=== PATIENT | male | born 1935 | race Caucasian/White ===

== ENCOUNTER → 2016-12-04 | Outpatient (CLI) | payer BC ==
[~2016-12-04] MED LIST: ACET325T96 PO; ASCO10003 PO; CARV6.252 PO; CETI10TA84 PO; CHLOTAB77 PO; CHOL100010 PO; CLOR7.5T14 PO; CRD30 PO; DIGO0.1219 PO; DOCU-94 PO; FERR1TAB23 PO; GLC500 PO; HYDC25 PO; HYDR25TA5 PO; LNX125 PO; LPR25 PO; METF-384 PO; MIRT15TA2 PO; MOME200A INH; MULT-506 PO; NUTR-7; NUTR-977 GJT; OPTIRAY 320 IV PRN; PANT40TA PO; POTASSIUM OTC PO; PRLSR20 PO; ZNTT/150 PO
--- NOTE | 2016-12-04 12:47 | DIAGNOSTIC IMAGING REPORT ---
CT SCAN OF THE CHEST WITH IV CONTRAST CLINICAL HISTORY: Esophageal carcinoma. COMPARISON STUDY: Chest x-ray dated 07/10/2016. PET/CT dated 03/29/2016. TECHNIQUE: Following the IV administration of 87 cc of Optiray 320, CT scan of the thorax was performed from the thoracic inlet to the upper abdomen. Images are reviewed in the axial, sagittal, and coronal planes. IV contrast was administered without complication. CT DOSE: 543.32 mGy.cm FINDINGS: Thyroid: Imaged portions of the thyroid gland are normal in size and attenuation. Thoracic aorta: There is atherosclerotic calcification of the thoracic aorta, which is normal in caliber and demonstrates standard 3-vessel arch anatomy. No dissection is seen. A left subclavian central venous infusion port is in place. Pulmonary vasculature: The pulmonary trunk is normal in caliber. There are no filling defects identified in the central pulmonary vessels to indicate pulmonary embolus. Note that this examination was not protocoled for evaluation of the pulmonary arteries. Heart: The heart is top normal in size and there is a small pericardial effusion. The coronary arteries are densely calcified. Lungs and pleural spaces: There are small right and trace pleural effusions with bibasilar consolidation. The upper lungs appear clear. The trachea and central airways are patent. Mediastinum: There is no mediastinal lymphadenopathy. Ignacia: Clear. Axillae: There is no axillary lymphadenopathy. Upper abdomen: There is a hiatal hernia. There is significant wall thickening seen in the distal esophagus at the gastroesophageal junction with surrounding inflammatory change. This likely corresponds to patient's known esophageal carcinoma. The visualized pancreatic parenchyma is atrophic. A 1.5 cm cyst is noted in the upper pole of left kidney. A subtle low-attenuation lesion is seen in the left lobe of liver. Skeletal structures: The skeletal structures are osteopenic. No lytic or blastic bony lesions are seen. IMPRESSION: 1. There is a small hiatal hernia with significant wall thickening involving the distal esophagus/gastroesophageal junction. There is surrounding inflammatory stranding/infiltration. This likely corresponds to facet of the patient's esophageal cancer. The wall thickening and infiltration has increased from 03/29/2016 and may represent neoplasm or could reflect treatment related change. 2. Small right and trace left pleural effusions with associated bibasilar consolidation. This could represent an infectious/inflammatory pneumonitis or could be treatment-related if the patient is receiving radiation. 3. No mediastinal lymphadenopathy is seen. 4. Mild cardiac enlargement and small pericardial effusion. 5. No concerning pulmonary lesion is identified. 6. A subtle low-attenuation lesion is seen in the left lobe of liver. See report of abdominal CT performed concurrently for detailed intra-abdominal findings. 7. Additional findings as above. Electronically signed by: Maged Espana M.D. 12/04/2016 12:46 PM Dictated Date/Time: 12/04/2016 12:37 PM
--- NOTE | 2016-12-04 14:29 | DIAGNOSTIC IMAGING REPORT ---
CT OF THE ABDOMEN AND PELVIS WITH CONTRAST CLINICAL HISTORY: Esophageal cancer. COMPARISON STUDY: PET/CT March 29, 2016. TECHNIQUE: Following IV administration of 87 mL of Optiray-320, axial images of the abdomen and pelvis were obtained from the lung bases to the proximal femurs. Images were reviewed in the axial, sagittal, and coronal planes. IV contrast was administered without complication. FINDINGS: The chest CT will be reported separately. Small right and trace left pleural effusions are noted. There is bilateral lower lobe opacity which is better depicted on the chest CT. There is persistent mass-like thickening of the distal esophagus which extends into the gastroesophageal junction and possibly the proximal stomach. This was shown on prior PET/CT. Comparison with prior exam is difficult given differences in technique. Paraesophageal infiltration/soft tissue is noted. This may be treatment related but is indeterminate. No new hepatic lesions are identified. A 9 mm left lobe lesion shown on image 17 of 104 was shown on prior PET/CT. Allowing for differences in technique, this is likely slightly decreased in size since prior examination. The spleen, adrenal glands, right kidney and pancreas are unremarkable. Note is made of a 1.4 cm cyst within the upper pole of the left kidney. There is no hydronephrosis. There is a moderate amount of stool within the colon and rectum. There is no abdominal or pelvic lymphadenopathy. No suspicious osseous lesions are present. There are post surgical findings within the pelvis. IMPRESSION: 1. Redemonstration of mass-like thickening of the distal esophagus extending into the gastroesophageal junction which was shown on PET/CT of March 29, 2016. Evaluation for residual malignancy is difficult by CT. Paraesophageal infiltration may be treatment related but should be assessed on subsequent exams as tumor extension could appear similar. 2. 9 mm lateral segment hepatic lesion which is likely decreased in size since exam of March 29, 2016. No new hepatic lesions. 3. No abdominal or pelvic lymphadenopathy. 4. Moderate amount stool within the colon and rectum. No bowel obstruction. Electronically signed by: Anam Dudley M.D. 12/04/2016 2:28 PM Dictated Date/Time: 12/04/2016 12:33 PM
== END | disposition home or self-care (01) ==
LOC: C.CTS 11:08
PROVIDERS: ATTEND Internal Medicine Hematology & Oncology
DX: C15.5 Malignant neoplasm of lower third of esophagus (principal); K76.9 Liver disease, unspecified; K44.9 Diaphragmatic hernia without obstruction or gangrene

== ENCOUNTER → 2016-12-29 | Day surgery (SDC) | payer BC ==
[2016-12-28 15:14] VITALS: Ht 170.2 cm; Wt 61.4 kg
[~2016-12-29] VITALS: Ht 170.2 cm; Wt 61.4 kg
[~2016-12-29] MED LIST changes: +ATROPINE SULFATE 0.1 MG/ML 5ML SYR IV PRN; -CLOR7.5T14 PO; -DOCU-94 PO; +EpHEDrine SULFATE INJ 50 MG/ML AMP IV PRN; -HYDC25 PO; +LIDOCAINE HCL 2% 2 ML VIAL (20MG/ML) ONE; -MIRT15TA2 PO; -OPTIRAY 320 IV PRN; +PROPOFOL IV EMULSION 10 MG/ML 20 ML VIAL IV ONE
--- NOTE | 2016-12-29 13:56 | Endo History and Physical ---
History & Physical Date of Service: Dec 29, 2016. Chief Complaint: Dysphagia, Hx Esophageal CA Referring Physician: Serjio Mandujano History of Present Illness For EGD Past Medical History Arthritis, Asthma, Anxiety, Reflux, Blood Dyscrasias, Hypertension Past Surgical History Hx Cardiac Surgery: No Hx Internal Defibrillator: No Hx Pacemaker: No Hx Abdominal Surgery: Yes (INCISIONAL HERNIA) Hx of Implantable Prosthesis: No Hx Post-Op Nausea and Vomiting: No Hx Cancer Surgery: Yes (MOHS ON EAR, COLON RESECTION, TOTAL PROSTATECTOMY) Hx Thoracic Surgery: No Hx Orthopedic: No Hx Urinary Tract Surgery: No Family History Colon CA Social History Smoking Status: Never Smoker Hx Substance Use: No Hx Alcohol Use: No Allergies Coded Allergies: Banana (Verified Allergy, Unknown, EYES SWELL SHUT, 12/28/16) NO KNOWN DRUG ALLERGIES (Verified Allergy, Unknown, ., 12/28/16) Current Medications Reported Home Medications Medications Dose Route/Sig Max Daily Dose Days Date Category Dose Instructions Coricidin D Cold/Flu/Sinu (Chlorpheniramine-Phenylephrine) 1 Tab Tab 1 Tab PO DIRECTED PRN 12/28/16 Reported Hydrochlorothiazide 25 Mg Tab 0.5 Tab PO QAM 12/28/16 Reported [Potassium Otc] 1 Tab PO QAM 09/07/16 Reported Dulera 200/5 Mcg (Mometasone Furoate-Formoterol) 1 Aer Aer 2 Puffs INH BID 30 09/07/16 Reported Coreg (Carvedilol) 6.25 Mg Tab 1 Tab PO BID 90 09/07/16 Reported HOLDS IF SBP LESS THAN 110 Glucophage (Metformin Hcl) 1,000 Mg Tab 1,000 Mg PO PM 07/03/16 Reported Zyrtec (Cetirizine HCl) 10 Mg Tab 10 Mg PO QAM 07/03/16 Reported Iron (Ferrous Sulfate) 325 Mg Tab 1 Tab PO QAM 04/21/16 Reported Vitamin C (Ascorbic Acid) 1,000 Mg Tab 1 Tab PO QAM 04/21/16 Reported Multivitamin (Multivitamins) Tab 1 Tab PO QAM 06/08/15 Reported Tylenol (Acetaminophen) 325 Mg Tab 325 Mg PO BID PRN 06/08/15 Reported Vitamin D (Cholecalciferol) 1,000 Inter.unit Tab 1,000 Inter.unit PO QAM 06/22/10 Reported Prilosec (Omeprazole) 20 Mg Capcr 20 Mg PO QAM 02/08/10 Reported Glucophage * (Metformin HCl) 500 Mg Tab 500 Mg PO QAM 02/08/10 Reported Vital Signs Weight (Kilograms): 61.36 Height (Feet): 5 Height (Inches): 7 Date Time Temp Pulse Resp B/P Pulse Ox O2 Delivery O2 Flow Rate FiO2 12/29/16 13:31 37.2 105 20 131/75 100 Room Air Physical Exam General Appearance: + thin Respiratory/Chest: Respiratory effort: no dyspnea Cardiovascular: Heart Auscultation: RRR Abdomen: Inspection & Palpation: soft Assessment and Plan Esophageal cancer for EGD
--- NOTE | 2016-12-29 14:17 | Discharge Instructions ---
Endoscopy Patient Instructions Date / Procedure(s) Performed Dec 29, 2016. EGD Allergy Information Coded Allergies: Banana (Verified Allergy, Unknown, EYES SWELL SHUT, 12/28/16) NO KNOWN DRUG ALLERGIES (Verified Allergy, Unknown, ., 12/28/16) Discharge Date / Findings Dec 29, 2016. Esophageal tumor-dilated Medication Instructions Restart Stopped Medication(s): resume meds Reported Home Medications Medications Dose Route/Sig Max Daily Dose Days Date Category Dose Instructions Coricidin D Cold/Flu/Sinu (Chlorpheniramine-Phenylephrine) 1 Tab Tab 1 Tab PO DIRECTED PRN 12/28/16 Reported Hydrochlorothiazide 25 Mg Tab 0.5 Tab PO QAM 12/28/16 Reported [Potassium Otc] 1 Tab PO QAM 09/07/16 Reported Dulera 200/5 Mcg (Mometasone Furoate-Formoterol) 1 Aer Aer 2 Puffs INH BID 30 09/07/16 Reported Coreg (Carvedilol) 6.25 Mg Tab 1 Tab PO BID 90 09/07/16 Reported HOLDS IF SBP LESS THAN 110 Glucophage (Metformin Hcl) 1,000 Mg Tab 1,000 Mg PO PM 07/03/16 Reported Zyrtec (Cetirizine HCl) 10 Mg Tab 10 Mg PO QAM 07/03/16 Reported Iron (Ferrous Sulfate) 325 Mg Tab 1 Tab PO QAM 04/21/16 Reported Vitamin C (Ascorbic Acid) 1,000 Mg Tab 1 Tab PO QAM 04/21/16 Reported Multivitamin (Multivitamins) Tab 1 Tab PO QAM 06/08/15 Reported Tylenol (Acetaminophen) 325 Mg Tab 325 Mg PO BID PRN 06/08/15 Reported Vitamin D (Cholecalciferol) 1,000 Inter.unit Tab 1,000 Inter.unit PO QAM 06/22/10 Reported Prilosec (Omeprazole) 20 Mg Capcr 20 Mg PO QAM 02/08/10 Reported Glucophage * (Metformin HCl) 500 Mg Tab 500 Mg PO QAM 02/08/10 Reported Provider Instructions Activity Restrictions - No exercising or heavy lifting for 24 hours. - Do not drink alcohol the day of the procedure. - Do not drive a car or operate machinery until the day after the procedure. - Do not make any important decisions or sign important papers in 24 hours after the procedure. Following Day: - Return to full activity which may include returning to work/school. Diet Start your diet with liquids and light foods (jello, soup, juice, toast). Then eat your usual diet if not nauseated. Treatment For Common After Affects For mild abdominal pain, bloating, or excessive gas: - Rest - Eat lightly - Lie on right side Follow-Up Information Follow-up with Serjio Mandujano as scheduled Anesthesia Information What You Should Know You have had a procedure that required some medicine to reduce anxiety and discomfort. This treatment is called moderate sedation. After receiving the treatment, you may be sleepy, but you will be able to breathe on your own. The effects of the treatment may last for several hours. Follow these instructions along with Activity/Diet recommendations noted above: * Do NOT do anything where dizziness or clumsiness would be dangerous. * Rest quietly at home today, then you can be up and about tomorrow. * Have a responsible person stay with you the rest of today. * You may have had an I.V. today. If so, you may take the dressing off later today. Recommendations Call your doctor if: * Trouble breathing * Continuous vomiting for more than 24 hours * Temperature above 101 degrees * Severe abdominal pain or bloating * Pain not relieved by pain medicine ordered * There is increased drainage or redness from any incision * A large amount of rectal bleeding greater than 2-3 tablespoons. (If you had a polyp/s removed or have hemorrhoids, a small amount of blood - from the rectum is to be expected.) * You have any unanswered questions or concerns. IN THE EVENT OF A SERIOUS EMERGENCY, GO TO THE NEAREST EMERGENCY ROOM Your discharge instructions were prepared by provider Jamir Holbrook. Patient Instructions Signature Page Gerardo Tapia Patient (or Guardian) Signature/Date: I have read and understand the instructions given to me by my caregivers. Caregiver/RN/Doctor Signature/Date: The above-named patient and/or guardian has received patient instructions on this date. + Original Patient Signature Page (only) stays with chart. Please make copy for patient.
--- NOTE | 2016-12-29 14:23 | GI REPORT ---
Procedure Date: 12/29/2016 1:50 PM Procedure: Upper GI endoscopy Indications: Dysphagia, Malignant esophageal adenocarcinoma, Follow-up of malignant esophageal adenocarcinoma Medicines: Propofol total dose 200 mg IV, Lidocaine 40 mg IV Complications: No immediate complications. Estimated Blood Loss: Estimated blood loss was minimal. Procedure: Pre-Anesthesia Assessment: - Prior to the procedure, a History and Physical was performed, and patient medications, allergies and sensitivities were reviewed. The patient's tolerance of previous anesthesia was reviewed. - The risks and benefits of the procedure and the sedation options and risks were discussed with the patient. All questions were answered and informed consent was obtained. After obtaining informed consent, the endoscope was passed under direct vision. Throughout the procedure, the patient's blood pressure, pulse, and oxygen saturations were monitored continuously. The scope was introduced through the mouth, and advanced to the second part of duodenum. The upper GI endoscopy was accomplished without difficulty. The patient tolerated the procedure well. Findings: A large, fungating, necrotic mass with no bleeding and with stigmata of recent bleeding was found in the lower third of the esophagus extending from 36 -45 cm. The mass was partially obstructing and partially circumferential (involving two thirds of the lumen circumference). A guidewire was placed and the scope was withdrawn. Dilation was performed with a Savary dilator 39, 42, and 45 Fr. Estimated blood loss was minimal. A large, fungating, partially circumferential (involving two-thirds of the lumen circumference) mass with no bleeding and stigmata of recent bleeding was found in the cardia. The examined duodenum was normal. Impression: - Partially obstructing, malignant esophageal tumor was found in the lower third of the esophagus. Dilated. 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 - Normal examined duodenum. - No specimens collected. Recommendation: - Discharge patient to home (ambulatory). - Continue present medications. - Return to referring physician as previously scheduled. Jamir Holbrook M.D. Jamir Holbrook MD 12/29/2016 2:22:10 PM This report has been signed electronically. Note Initiated On: 12/29/2016 1:50 PM I attest to the content of the Intraoperative Record and orders documented therein, exceptions below
[2016-12-29 14:53] VITALS: BP 113/63; PULSE 88; O2SAT 97
--- NOTE | 2016-12-29 14:56 | Anesthesiology Progress Note ---
Anesthesia Post Op Note Date & Time Dec 29, 2016 at 14:55 Vital Signs Vital Signs Past 12 Hours Date Time Temp Pulse Resp B/P Pulse Ox O2 Delivery O2 Flow Rate FiO2 12/29/16 14:53 88 20 113/63 97 Room Air 12/29/16 14:37 91 20 123/58 96 Room Air 12/29/16 14:25 83 20 98/50 97 Room Air 12/29/16 13:31 37.2 105 20 131/75 100 Room Air Notes Mental Status: alert / awake / arousable, participated in evaluation Pt Amnestic to Procedure: Yes Nausea / Vomiting: adequately controlled Pain: adequately controlled Airway Patency, RR, SpO2: stable & adequate BP & HR: stable & adequate Hydration State: stable & adequate Anesthetic Complications: no major complications apparent
== END | disposition home or self-care (01) ==
LOC: C.GI 12:52
PROVIDERS: ATTEND Internal Medicine Gastroenterology
DX: R13.10 Dysphagia, unspecified (principal); C15.9 Malignant neoplasm of esophagus, unspecified; K21.9 Gastro-esophageal reflux disease without esophagitis; J45.909 Unspecified asthma, uncomplicated; I10 Essential (primary) hypertension; J44.9 Chronic obstructive pulmonary disease, unspecified; E11.9 Type 2 diabetes mellitus without complications; Z91.018 Allergy to other foods; Z98.890 Other specified postprocedural states; Z90.89 Acquired absence of other organs; Z68.21 Body mass index [BMI] 21.0-21.9, adult; Z80.0 Family history of malignant neoplasm of digestive organs

== ENCOUNTER → 2017-01-18 | Outpatient (CLI) | payer BC ==
[~2017-01-18] MED LIST changes: -ATROPINE SULFATE 0.1 MG/ML 5ML SYR IV PRN; -EpHEDrine SULFATE INJ 50 MG/ML AMP IV PRN; -LIDOCAINE HCL 2% 2 ML VIAL (20MG/ML) ONE; -PROPOFOL IV EMULSION 10 MG/ML 20 ML VIAL IV ONE
--- NOTE | 2017-01-18 12:49 | DIAGNOSTIC IMAGING REPORT ---
RIGHT LATERAL DECUBITUS VIEW OF THE CHEST CLINICAL HISTORY: PLEURAL EFFUSION,BACTERIAL/E11.9 R13.10 COMPARISON STUDY: CT scan dated 12/04/2016 FINDINGS: There is a left subclavian A-Port catheter present. There is no focal pulmonary consolidation. There is a very small right pleural effusion which layers to a depth of 3 mm. IMPRESSION: Very small right pleural effusion which layers to a depth of 3 mm. Electronically signed by: Hiren Jules M.D. 01/18/2017 12:48 PM Dictated Date/Time: 01/18/2017 12:46 PM
--- NOTE | 2017-01-18 12:51 | DIAGNOSTIC IMAGING REPORT ---
CHEST 2 VIEWS ROUTINE CLINICAL HISTORY: PLEURAL EFFUSION,BACTERIAL/E11.9 R13.10 COMPARISON STUDY: 07/10/2016 FINDINGS: There is a left subclavian A-Port catheter. There is no failure. There is no lobar consolidation. There is a small right pleural effusion. There are bibasilar opacities. Although likely atelectatic, a pneumonitis could appear similar IMPRESSION: 1. Small right pleural effusion 2. Bibasilar airspace opacities likely atelectatic versus inflammatory.. Electronically signed by: Hiren Jules M.D. 01/18/2017 12:49 PM Dictated Date/Time: 01/18/2017 12:48 PM
[2017-01-18 14:58] LABS: BASO % 0.3 %; BASO ABS # 0.03 K/uL (0-0.2); COMPLETE YES; EOS % 1.8 %; HEMATOCRIT 31.1 % (42-52); IG% 0.3 %; LYMPH ABS # 0.68 K/uL (1.2-3.4); MEAN CELL VOLUME 90.9 fL (80-100); MEAN CORPUSCULAR HEMOGLOBIN 28.1 pg (25-34); MEAN CORPUSCULAR HGB CONC 30.9 g/dl (32-36); MEAN PLATELET VOLUME 10.3 fL (7.4-10.4); MONO % 7.6 %; PLATELET COUNT 299 K/uL (130-400); RED BLOOD COUNT 3.42 M/uL (4.7-6.1); WHITE BLOOD COUNT 11.38 K/uL (4.8-10.8)
[2017-01-18 15:27] LABS: ALB/GLOB RATIO 0.8 (0.9-2); ALKALINE PHOSPHATASE 100 U/L (45-117); ALT/SGPT 18 U/L (12-78); AST/SGOT 9 U/L (15-37); BLOOD UREA NITROGEN 22 mg/dl (7-18); BUN/CREATININE RATIO 16.9 (10-20); CALCIUM 10.3 mg/dl (8.5-10.1); CARBON DIOXIDE 30 mmol/L (21-32); CHLORIDE 94 mmol/L (98-107); GLUCOSE 350 mg/dl (70-99); POTASSIUM 4.1 mmol/L (3.5-5.1); PREALBUMIN 17.6 mg/dl (20-40); SODIUM 133 mmol/L (136-145)
[2017-01-18 15:38] LABS: BETA-HYDROXYBUTYRATE 1.26 mg/dL (0.2-2.81)
[2017-01-19 07:08] LABS: ESTIMATED AVERAGE GLUCOSE 166 mg/dl; HA1C FLAG Normal (Normal)
== END | disposition home or self-care (01) ==
LOC: C.RADBC 12:05
PROVIDERS: ATTEND Internal Medicine
DX: J90 Pleural effusion, not elsewhere classified (principal); E11.9 Type 2 diabetes mellitus without complications; R13.10 Dysphagia, unspecified; R91.8 Other nonspecific abnormal finding of lung field

== ENCOUNTER 2017-01-28 19:35 | Emergency (ER) | payer BC ==
[~2017-01-28] VITALS: Ht 170.2 cm; Wt 60.0 kg
[~2017-01-28 19:35] MED LIST changes: -CRD30 PO; -DIGO0.1219 PO; -LNX125 PO; -LPR25 PO; -NUTR-7; -NUTR-977 GJT; -PANT40TA PO; -ZNTT/150 PO
[2017-01-28 19:39] VITALS: TEMP 36.7; Ht 170.2 cm; Wt 60.0 kg
[2017-01-28] MEDS ORDERED: SODIUM CHLORIDE 0.9% 500ML 500 ML IV STA ×2 (20:06→22:26)
--- NOTE | 2017-01-28 20:09 | EMERGENCY ROOM VISIT NOTE ---
History Report prepared by Fabiolaibrafa: Natasha Mora Under the Supervision of: Dr. Grzegorz Ortiz M.D. First contact with patient: 20:00 Chief Complaint: WEAKNESS Stated Complaint: WEAKNESS Nursing Triage Summary: Pt's reports the pt has had progressive weakness over the last couple weeks. Today and yesterday the pt has only been able to take 10 steps before collpasing. Reports he does not lose consciousness when he falls, but that he just "goes limp". Denies any injuries from falls. Denies hitting head. Hx of esophageal cancer and is on clear liquid diet. concerned about dehydration. History of Present Illness The patient is a 81 year old male who presents to the Emergency Room with complaints of worsening weakness for the past few weeks. He is accompanied by his . The patient reports he has been falling more frequently and just "slides down" when he is sitting. He denies any recent injuries from falls or loss of consciousness. He denies any abdominal pain, melena or hematochezia. He has a history of esophageal cancer and is on a clear liquid diet. The patient is not on blood thinners. He denies any history of stomach ulcers but admits to a history of anemia. He has never needed a blood transfusion before but does take daily iron tablets. Source of History: patient, spouse/significant other () Onset: past few weeks Position: other (global) Timing: worsening Associated Symptoms: No LOC, No abdominal pain, No hematochezia, No melena Review of Systems See HPI for pertinent positives & negatives. A total of 10 systems reviewed and were otherwise negative. Past Medical & Surgical Medical Problems: (1) Asthma (2) URI (upper respiratory infection) Family History Cancer Diabetes mellitus Heart disease Hypertension Lung disease Social History Smoking Status: Never Smoker Alcohol Use: none Drug Use: none Marital Status: Housing Status: lives with significant other Occupation Status: retired Current/Historical Medications Scheduled Ascorbic Acid (Vitamin C), 1 TAB PO QAM Carvedilol (Coreg), 1 TAB PO BID Cetirizine (Zyrtec), 10 MG PO QAM Ferrous Sulfate (Iron), 1 TAB PO QAM Hydrochlorothiazide (Hydrochlorothiazide), 0.5 TAB PO QAM Metformin Hcl (Glucophage), 1,000 MG PO PM Mometasone Furoate-Formoterol (Dulera 200/5 Mcg), 2 PUFFS INH BID Multivitamin (Multivitamin), 1 TAB PO QAM Omeprazole (Prilosec), 20 MG PO QAM [Potassium Otc], 1 TAB PO QAM Scheduled PRN Acetaminophen Tab (Tylenol), 325 MG PO BID PRN for ARTHRITIS Chlorpheniramine-Phenylephrine (Coricidin D Cold/Flu/Sinu), 1 TAB PO DIRECTED PRN for COLDS SYMPTOMS Miscellaneous Medications Enteral Nutrition Formula (Ensure Plus Vanilla), CAN GJT Nutritional Supplements (Boost) Allergies Coded Allergies: Banana (Verified Allergy, Unknown, EYES SWELL SHUT, 12/29/16) NO KNOWN DRUG ALLERGIES (Verified Allergy, Unknown, ., 12/29/16) Physical Exam Vital Signs Date Time Temp Pulse Resp B/P Pulse Ox O2 Delivery O2 Flow Rate FiO2 01/28/17 23:31 88 14 139/78 98 Room Air 01/28/17 23:08 88 14 98 01/28/17 23:03 88 13 97 01/28/17 22:58 123/71 01/28/17 22:32 101 20 170/94 97 Room Air 01/28/17 21:35 88 17 97 01/28/17 21:31 139/83 01/28/17 21:05 89 19 98 01/28/17 21:01 130/80 01/28/17 20:35 89 14 100 01/28/17 20:34 99 01/28/17 20:31 135/65 01/28/17 20:20 98 Room Air 01/28/17 20:20 94 14 122/79 99 Room Air 01/28/17 19:39 36.7 109 18 100/58 98 Room Air Physical Exam GENERAL: Patient is elderly and weak appearing and in no acute distress. HEENT: No acute trauma, normocephalic atraumatic, mucous membranes moist, no nasal congestion, no scleral icterus. NECK: No stridor, no adenopathy, no meningismus, trachea is midline. LUNGS: No dyspnea. Clear to auscultation and equal bilaterally. No wheeze, no rhonchi. HEART: Regular rate and rhythm. No murmurs, rubs, gallops appreciated. ABDOMEN: Soft, nontender, bowel sounds positive, no masses appreciated, no peritonitis. BACK: No midline tenderness, no CVA tenderness EXTREMITIES: Normal motion all extremities, no cyanosis, no edema. NEUROLOGIC: Alert and oriented, no acute motor or sensory deficits, no focal weakness, cranial nerves grossly intact. SKIN: No rash, no jaundice, no diaphoresis. Medical Decision & Procedures ER Provider Diagnostic Interpretation: This X-Ray was reviewed and interpreted by myself and the radiologist. CHEST ONE VIEW PORTABLE IMPRESSION: 1. Trace right pleural effusion has decreased in size. 2. Bibasilar linear densities persist. These may represent atelectasis or pneumonia. Electronically signed by: Greg Sharpe M.D. 01/28/2017 8:[address] scan was reviewed and interpreted by the radiologist and reviewed by myself. HEAD CT NONCONTRAST Impression: No acute intracranial abnormality. Atrophy and microvascular ischemic changes. Electronically signed by: Greg Sharpe M.D. 01/28/2017 10:59 PM Laboratory Results 01/28/17 19:55 Red Blood Count 3.60, Mean Corpuscular Volume 88.6, Mean Corpuscular Hemoglobin 27.8, Mean Corpuscular Hemoglobin Concent 31.3, Mean Platelet Volume 9.9, Neutrophils (%) (Auto) 83.3, Lymphocytes (%) (Auto) 7.8, Monocytes (%) (Auto) 7.1, Eosinophils (%) (Auto) 1.4, Basophils (%) (Auto) 0.1, Neutrophils # (Auto) 9.22, Lymphocytes # (Auto) 0.86, Monocytes # (Auto) 0.78, Eosinophils # (Auto) 0.15, Basophils # (Auto) 0.01 01/28/17 19:55 Test 01/28/17 19:55 01/28/17 20:40 White Blood Count 11.05 K/uL (4.8-10.8) Red Blood Count 3.60 M/uL (4.7-6.1) Hemoglobin 10.0 g/dL (14.0-18.0) Hematocrit 31.9 % (42-52) Mean Corpuscular Volume 88.6 fL (80-100) Mean Corpuscular Hemoglobin 27.8 pg (25-34) Mean Corpuscular Hemoglobin Concent 31.3 g/dl (32-36) Platelet Count 305 K/uL (130-400) Mean Platelet Volume 9.9 fL (7.4-10.4) Neutrophils (%) (Auto) 83.3 % Lymphocytes (%) (Auto) 7.8 % Monocytes (%) (Auto) 7.1 % Eosinophils (%) (Auto) 1.4 % Basophils (%) (Auto) 0.1 % Neutrophils # (Auto) 9.22 K/uL (1.4-6.5) Lymphocytes # (Auto) 0.86 K/uL (1.2-3.4) Monocytes # (Auto) 0.78 K/uL (0.11-0.59) Eosinophils # (Auto) 0.15 K/uL (0-0.5) Basophils # (Auto) 0.01 K/uL (0-0.2) RDW Standard Deviation 48.0 fL (36.4-46.3) RDW Coefficient of Variation 14.8 % (11.5-14.5) Immature Granulocyte % (Auto) 0.3 % Immature Granulocyte # (Auto) 0.03 K/uL (0.00-0.02) Red Blood Cell Morphology Unremarkable Anion Gap 10.0 mmol/L (3-11) Est Creatinine Clear Calc Drug Dose 29.4 ml/min Estimated GFR () 43.2 Estimated GFR (Non- 37.3 BUN/Creatinine Ratio 16.5 (10-20) Calcium Level 9.6 mg/dl (8.5-10.1) Phosphorus Level 4.2 mg/dl (2.5-4.9) Magnesium Level 2.3 mg/dl (1.8-2.4) Total Bilirubin 0.3 mg/dl (0.2-1) Direct Bilirubin < 0.1 mg/dl (0-0.2) Aspartate Amino Transf (AST/SGOT) 14 U/L (15-37) Alanine Aminotransferase (ALT/SGPT) 24 U/L (12-78) Alkaline Phosphatase 124 U/L (45-117) Total Creatine Kinase 83 U/L (39-308) Creatine Kinase MB 1.3 ng/ml (0.5-3.6) Creatine Kinase MB Ratio 1.6 (0-3.0) Troponin I < 0.015 ng/ml (0-0.045) Total Protein 7.6 gm/dl (6.4-8.2) Albumin 3.3 gm/dl (3.4-5.0) Lipase 105 U/L (73-393) Urine Color YELLOW Urine Appearance CLEAR (CLEAR) Urine pH 6.5 (4.5-7.5) Urine Specific [place] 1.032 (1.000-1.030) Urine Protein NEG (NEG) Urine Glucose (UA) 3+ (NEG) Urine Ketones NEG (NEG) Urine Occult Blood NEG (NEG) Urine Nitrite NEG (NEG) Urine Bilirubin NEG (NEG) Urine Urobilinogen NEG (NEG) Urine Leukocyte Esterase NEG (NEG) Urine WBC (Auto) 1-5 /hpf (0-5) Urine RBC (Auto) 0-4 /hpf (0-4) Urine Hyaline Casts (Auto) 1-5 /lpf (0-5) Urine Epithelial Cells (Auto) 5-10 /lpf (0-5) Urine Bacteria (Auto) NEG (NEG) Laboratory results as reviewed by me. Medications Administered Medications (Trade) Dose Ordered Sig/Ángela Route Start Time Stop Time Status Last Admin Dose Admin Sodium Chloride 500 ml @ 999 mls/hr Q31M STAT IV 01/28/17 20:06 01/28/17 20:36 DC 01/28/17 20:20 999 MLS/HR Sodium Chloride (Nss 500ml) 500 ml @ 999 mls/hr Q31M STAT IV 01/28/17 22:26 01/28/17 22:56 DC 01/28/17 22:31 999 MLS/HR ECG Indication: weakness Rate (beats per minute): 95 Rhythm: normal sinus (normal sinus rhythm) Findings: no acute ischemic change, no ectopy ED Course 2000: The patient was evaluated in room A10. A complete history and physical exam was performed. 2006: NSS 500 ml @ 999 mls/hr IV. 2226: NSS 500 ml @ 999 mls/hr IV. 2220: I reevaluated the patient. He is feeling better but still feels weak. His is requesting a CT scan of the head. I will place orders. 2330: Nursing informed me the patient was able to get up and ambulate to the bathroom on his own. 2338: I reevaluated the patient. He is feeling much better and would like to go home. He feels comfortable going home and will return if his symptoms worsen. I discussed his results and discharge instructions and he verbalized complete understanding and agreement. Medical Decision Differential: Sepsis, Infectious (UTI/Pneumonia/Meningitis/etc), Metabolic/ Electrolyte Abnormality, Cardiac, Hepatic, Endocrine, Toxicologic, Neurologic, amongst other pathologies entertained. 81 yr old male arrives with complaint of generalized weakness. Complex CA history with esophageal narrowing leaving him to liquids only. admits last few days he has not been drinking enough. With this weakness which has been ongoing for many months seems to have worsened. Given fluids here with vast improvement and able to ambulate to bathroom. CT head negative. Labs OK. No evidence sepsis/infection. Stable and feels well. No clear indications for admission and patient/ comfortable with going home. They are not interested in Rehab placement. He has follow up in a few days for further evaluation already. No neuro deficits on exam and no evidence of stroke. Impression Primary Impression: Dehydration Additional Impression: Weakness Scribe Attestation The scribe's documentation has been prepared under my direction and personally reviewed by me in its entirety. I confirm that the note above accurately reflects all work, treatment, procedures, and medical decision making performed by me. Departure Information Dispostion Home / Self-Care Referrals Serjio Mandujano M.D. (PCP) Patient Instructions ED Dehydration, My [facility] Problem Qualifiers
[2017-01-28 20:18] LABS: HEMATOCRIT 31.9 % (42-52); MEAN CELL VOLUME 88.6 fL (80-100); MEAN CORPUSCULAR HEMOGLOBIN 27.8 pg (25-34); MEAN CORPUSCULAR HGB CONC 31.3 g/dl (32-36); MEAN PLATELET VOLUME 9.9 fL (7.4-10.4); PLATELET COUNT 305 K/uL (130-400); WHITE BLOOD COUNT 11.05 K/uL (4.8-10.8)
[2017-01-28 20:20] VITALS: O2SAT 98
--- NOTE | 2017-01-28 20:29 | DIAGNOSTIC IMAGING REPORT ---
CHEST ONE VIEW PORTABLE HISTORY: Generalized Weakness COMPARISON: Chest 01/18/2017. FINDINGS: Left subclavian Port-A-Cath terminates at the distal SVC. The heart is normal in size. Questionable lucency at the right lung apex likely represents a skin fold. No definite pneumothorax. No evidence for pulmonary edema. Trace right pleural effusion has slightly decreased in size. Bibasilar linear densities persist. The upper lung zones are clear. No evidence for pulmonary edema. IMPRESSION: 1. Trace right pleural effusion has decreased in size. 2. Bibasilar linear densities persist. These may represent atelectasis or pneumonia. Electronically signed by: Greg Sharpe M.D. 01/28/2017 8:28 PM Dictated Date/Time: 01/28/2017 8:25 PM
[2017-01-28 20:30] LABS: ALT/SGPT 24 U/L (12-78); AST/SGOT 14 U/L (15-37); BLOOD UREA NITROGEN 28 mg/dl (7-18); BUN/CREATININE RATIO 16.5 (10-20); CALCIUM 9.6 mg/dl (8.5-10.1); CARBON DIOXIDE 29 mmol/L (21-32); CHLORIDE 94 mmol/L (98-107); GLUCOSE 237 mg/dl (70-99); MAGNESIUM 2.3 mg/dl (1.8-2.4); POTASSIUM 4.4 mmol/L (3.5-5.1); SODIUM 133 mmol/L (136-145)
[2017-01-28 20:33] LABS: ALKALINE PHOSPHATASE 124 U/L (45-117); CKMB/CK RATIO 1.6 (0-3.0); PHOSPHORUS 4.2 mg/dl (2.5-4.9)
[2017-01-28 20:43] LABS: BASO % 0.1 %; BASO ABS # 0.01 K/uL (0-0.2); COMPLETE YES; EOS % 1.4 %; IG% 0.3 %; LYMPH % 7.8 %; LYMPH ABS # 0.86 K/uL (1.2-3.4); MONO % 7.1 %; NEUT % 83.3 %
[2017-01-28] MEDS ORDERED: NUTR-977 GJT (21:26)
[2017-01-28] MEDS ORDERED: NUTR-7 (21:26)
[2017-01-28 21:46] LABS: MANUAL MICROSCOPIC REQUIRED? NO; REVIEW REQ? NO; URINE APPEARANCE CLEAR (CLEAR); URINE BILIRUBIN NEG (NEG); URINE COLOR YELLOW; URINE NITRITE NEG (NEG); URINE PH 6.5 (4.5-7.5); URINE SPECIFIC GRAVITY 1.032 (1.000-1.030); UROBILINOGEN NEG (NEG); ZZUR CULT IF INDIC CLEAN CATCH NO
--- NOTE | 2017-01-28 23:00 | DIAGNOSTIC IMAGING REPORT ---
HEAD CT NONCONTRAST CT DOSE: 537.48 mGy.cm HISTORY: generalized weakness TECHNIQUE: Multiaxial CT images of the head were performed without the use of intravenous contrast. Automated exposure control was utilized for this study. Comparison: None. Findings: The paranasal sinuses and mastoid air cells are clear. The calvarium and skull base are intact. There is no mass, hematoma, midline shift, acute infarct. White matter hypodensity is nonspecific but suggestive of microvascular ischemic change. The ventricles and sulci demonstrate mild age-related involutional changes. Impression: No acute intracranial abnormality. Atrophy and microvascular ischemic changes. Electronically signed by: Greg Sharpe M.D. 01/28/2017 10:59 PM Dictated Date/Time: 01/28/2017 10:57 PM
[2017-01-28 23:31] VITALS: BP 139/78; PULSE 88; O2SAT 98
== END 2017-01-28 23:40 | disposition home or self-care (01) ==
LOC: C.EDB 19:36 → C.EDA 23:40
DX: E86.0 Dehydration (principal); R53.1 Weakness; J45.909 Unspecified asthma, uncomplicated; Z86.19 Personal history of other infectious and parasitic diseases; Z79.84 Long term (current) use of oral hypoglycemic drugs; Z79.899 Other long term (current) drug therapy; Z91.018 Allergy to other foods

== ENCOUNTER 2017-01-31 16:56 | Inpatient (IN) | payer BC, OTHER ==
[~2017-01-31] VITALS: Ht 170.2 cm; Wt 62.2 kg
[~2017-01-31 16:56] MED LIST changes: -CHOL100010 PO; -GLC500 PO; +NUTR-7; +NUTR-977 GJT
[2017-01-31] MEDS ORDERED: SODIUM CHLORIDE 0.9% 1000ML 1,000 ML IV STA ×3 (17:06→18:11)
[2017-01-31] MEDS ORDERED: SODIUM CHLORIDE 0.9% 500ML 500 ML IV STA (17:06)
[2017-01-31 17:56] LABS: BASO % 0.1 %; BASO ABS # 0.02 K/uL (0-0.2); HEMATOCRIT 26.5 % (42-52); IG% 0.4 %; LYMPH % 3.7 %; LYMPH ABS # 0.66 K/uL (1.2-3.4); MEAN CELL VOLUME 88.3 fL (80-100); MEAN CORPUSCULAR HEMOGLOBIN 29.3 pg (25-34); MEAN CORPUSCULAR HGB CONC 33.2 g/dl (32-36); MEAN PLATELET VOLUME 10.3 fL (7.4-10.4); MONO % 8.1 %; NEUT % 87.7 %; PLATELET COUNT 267 K/uL (130-400)
[2017-01-31 18:08] LABS: INR 1.1 (0.9-1.1); PARTIAL THROMBOPLASTIN RATIO 1.2; PROTHROMBIN TIME (PATIENT) 11.9 SECONDS (9.0-12.0)
[2017-01-31] MEDS ORDERED: LEVAQUIN 750MG / 150ML D5W IV STA (18:11)
[2017-01-31] MEDS ORDERED: VANCOMYCIN INJ 1,200 MG in SODIUM CHLORIDE 0.9% 500ML 500 ML IV STA (18:11)
[2017-01-31 18:26] LABS: ALKALINE PHOSPHATASE 103 U/L (45-117); ALT/SGPT 18 U/L (12-78); AST/SGOT 11 U/L (15-37); BLOOD UREA NITROGEN 32 mg/dl (7-18); BUN/CREATININE RATIO 18.9 (10-20); CALCIUM 9.4 mg/dl (8.5-10.1); CARBON DIOXIDE 29 mmol/L (21-32); CHLORIDE 90 mmol/L (98-107); GLUCOSE 299 mg/dl (70-99); POTASSIUM 4.3 mmol/L (3.5-5.1); SODIUM 129 mmol/L (136-145)
[2017-01-31] MEDS ORDERED: VANCOMYCIN INJ 1,200 MG in SODIUM CHLORIDE 0.9% 250ML 250 ML IV ONE (18:30)
[2017-01-31 18:34] LABS: COMPLETE YES
[2017-01-31 18:41] LABS: MAGNESIUM 2.3 mg/dl (1.8-2.4)
--- NOTE | 2017-01-31 18:57 | DIAGNOSTIC IMAGING REPORT ---
CHEST ONE VIEW PORTABLE CLINICAL HISTORY: Sepsis. COMPARISON STUDY: Chest radiograph January 28, 2017. FINDINGS: A left subclavian Zwbfys-h-Soot is in place. Lung volumes are diminished. There is no pneumothorax. Small right and trace left pleural effusions are present. Bibasilar opacities have slightly increased since exam of January 28, 2017. There is no evidence for overt pulmonary edema. IMPRESSION: 1. Small right and trace left pleural effusions. 2. Slight increase in bibasilar opacities which could reflect pneumonia or atelectasis. 3. Diminished lung volumes. Electronically signed by: Anam Dudley M.D. 01/31/2017 6:55 PM Dictated Date/Time: 01/31/2017 6:49 PM
[2017-01-31 19:00] LABS: URINE APPEARANCE CLOUDY (CLEAR); URINE BILIRUBIN NEG (NEG); URINE COLOR DK YELLOW; URINE NITRITE NEG (NEG); URINE SPECIFIC GRAVITY 1.028 (1.000-1.030); UROBILINOGEN NEG (NEG)
[2017-01-31 19:02] LABS: MANUAL MICROSCOPIC REQUIRED? NO; REVIEW REQ? YES
[2017-01-31 19:15] LABS: URINE PATH CASTS 1-5 GRANULAR CASTS /lpf (0)
[2017-01-31] MEDS ORDERED: GLUCOSE 10 TABS/TUBE PO PRN (21:00)
[2017-01-31] MEDS ORDERED: GLUCOSE 40% GEL 15 GM TUBE PO PRN (21:00)
[2017-01-31] MEDS ORDERED: VANCOMYCIN INJ 1,000 MG in SODIUM CHLORIDE 0.9% 250ML 250 ML IV SCH (21:00)
[2017-01-31] MEDS ORDERED: GLUCAGON FOR INJ 1 MG VIAL SQ PRN (21:00)
[2017-01-31] MEDS ORDERED: DEXTROSE 50% 50 ML SYR IV PRN (21:00)
[2017-01-31] MEDS ORDERED: LEVOFLOXACIN CONSULT ACTIVE PRN (21:15)
[2017-01-31 21:19] VITALS: BP 111/69; PULSE 96; TEMP 37.1; O2SAT 98; BMI 21.4
--- NOTE | 2017-01-31 21:27 | History and Physical ---
History & Physical Date & Time of Service: January 31, 2017 at 21:00 Chief Complaint: Weakness - Just Seen Sunday Primary Care Physician: Serjio Mandujano M.D. History of Present Illness Source: patient, family, hospital records This is an 81 yo m with a history of esophageal carcinoma that has been complaining of progressive weakness. He notes that he has been feeling generally weak "for some time now" however over the past two weeks there has been a more progressive worsening of weakness. He was seen in the ED on Sunday( 3 days prior) and was d/c with no clear etiology. He returns today because there has been ongoing progression of the weakness and when trying to get out of bed " I had no power and fell to the ground". They then brought him to the ED for evaluation. He was found to have an elevated blood count, elevated lactate and changes on his xray concerning for pneumonia. He received a bolus of NSS and levofloxicin and vanco in the ED. He has a history of esophageal carcinoma and is being follow up with alexis mc here and Dr Sims in [place]. No official diagnosis of adenocarcinoma of the esophagus however patient had been treated with chemo and radiation in the past. No recent treatments. He was a candidate for stent placement however during his most recent visit to [place] in December 2016 he was found to have a right pleural effusion and pleural fluid was sent for cytology. It was positive for metastatic adenocarcinoma. Patient is being evaluated for esophagectomy Past Medical/Surgical History Medical Problems: (1) Asthma Status: Chronic Diabetes HTN Colon Ca - s/p bowel resection Prostate Ca - Right inguinal hernia Family History Cancer Diabetes mellitus Heart disease Hypertension Lung disease Social History Smoking Status: Never Smoker Smokeless Tobacco Use: No Alcohol Use: none Drug Use: none Marital Status: Housing status: lives with family Occupational Status: retired Multi-Drug Resistant Organisms History of MDRO: No Allergies Coded Allergies: Banana (Verified Allergy, Unknown, EYES SWELL SHUT, 01/31/17) NO KNOWN DRUG ALLERGIES (Verified Allergy, Unknown, ., 01/31/17) Home Medications Scheduled Ascorbic Acid (Vitamin C), 1 TAB PO QAM Carvedilol (Coreg), 1 TAB PO BID Cetirizine (Zyrtec), 10 MG PO QAM Ferrous Sulfate (Iron), 1 TAB PO QAM Hydrochlorothiazide (Hydrochlorothiazide), 0.5 TAB PO QAM Metformin Hcl (Glucophage), 1,000 MG PO BID Mometasone Furoate-Formoterol (Dulera 200/5 Mcg), 2 PUFFS INH BID Omeprazole (Prilosec), 20 MG PO QAM Scheduled PRN Acetaminophen Tab (Tylenol), 325 MG PO BID PRN for ARTHRITIS Chlorpheniramine-Phenylephrine (Coricidin D Cold/Flu/Sinu), 1 TAB PO DIRECTED PRN for COLDS SYMPTOMS Miscellaneous Medications Enteral Nutrition Formula (Ensure Plus Vanilla), CAN GJT Nutritional Supplements (Boost) Review of Systems Constitutional: No fever Eyes: No worsening of vision ENT: No hearing loss Respiratory: + cough (in night and needs to sleep sitting up), No dyspnea on exertion, No shortness of breath, No sputum, No wheezing Cardiovascular: No chest pain Abdomen: No constipation, No diarrhea, No nausea, No pain, No vomiting Musculoskeletal: No joint pain, No muscle pain Genitourinary - Male: No dysuria, No hematuria Neurologic: + weakness, No balance problems, No numbness/tingling Endocrine: + fatigue Integumentary: No rash Physical Exam Vital Signs Date Time Temp Pulse Resp B/P Pulse Ox O2 Delivery O2 Flow Rate FiO2 01/31/17 19:09 37.4 100 20 118/62 98 Room Air 01/31/17 17:45 101 21 116/66 96 Room Air 01/31/17 17:40 101 01/31/17 17:25 96 Room Air 01/31/17 16:58 36.9 103 20 98/54 95 Room Air General Appearance: no apparent distress Head: normocephalic, atraumatic Eyes: normal inspection ENT: + pertinent finding (poor dentition) Neck: supple Respiratory/Chest: normal breath sounds, no respiratory distress, no accessory muscle use Cardiovascular: regular rate, rhythm, no murmur Abdomen/GI: normal bowel sounds, non tender, soft Back: normal inspection Extremities/Musculoskelatal: no calf tenderness, + pedal edema (+2 bilat pedal edema, BL for patient) Neurologic/Psych: alert, normal mood/affect, oriented x 3 Skin: normal color, warm/dry, no rash Lymphatic: no adenopathy Diagnostics Laboratory Results Results Past 24 Hours Test 01/31/17 17:35 01/31/17 18:09 01/31/17 18:40 Range/Units White Blood Count 17.70 4.8-10.8 K/uL Red Blood Count 3.00 4.7-6.1 M/uL Hemoglobin 8.8 14.0-18.0 g/dL Hematocrit 26.5 42-52 % Mean Corpuscular Volume 88.3 80-100 fL Mean Corpuscular Hemoglobin 29.3 25-34 pg Mean Corpuscular Hemoglobin Concent 33.2 32-36 g/dl Platelet Count 267 130-400 K/uL Mean Platelet Volume 10.3 7.4-10.4 fL Neutrophils (%) (Auto) 87.7 % Lymphocytes (%) (Auto) 3.7 % Monocytes (%) (Auto) 8.1 % Eosinophils (%) (Auto) 0.0 % Basophils (%) (Auto) 0.1 % Neutrophils # (Auto) 15.52 1.4-6.5 K/uL Lymphocytes # (Auto) 0.66 1.2-3.4 K/uL Monocytes # (Auto) 1.43 0.11-0.59 K/uL Eosinophils # (Auto) 0.00 0-0.5 K/uL Basophils # (Auto) 0.02 0-0.2 K/uL RDW Standard Deviation 49.4 36.4-46.3 fL RDW Coefficient of Variation 15.3 11.5-14.5 % Immature Granulocyte % (Auto) 0.4 % Immature Granulocyte # (Auto) 0.07 0.00-0.02 K/uL Red Blood Cell Morphology Unremarkable Prothrombin Time 11.9 9.0-12.0 SECONDS Prothromb Time International Ratio 1.1 0.9-1.1 Activated Partial Thromboplast Time 32.0 21.0-31.0 SECONDS Partial Thromboplastin Ratio 1.2 Sodium Level 129 136-145 mmol/L Potassium Level 4.3 3.5-5.1 mmol/L Chloride Level 90 98-107 mmol/L Carbon Dioxide Level 29 21-32 mmol/L Anion Gap 10.0 3-11 mmol/L Blood Urea Nitrogen 32 7-18 mg/dl Creatinine 1.70 0.60-1.40 mg/dl Est Creatinine Clear Calc Drug Dose 28.9 ml/min Estimated GFR () 43.2 Estimated GFR (Non- 37.3 BUN/Creatinine Ratio 18.9 10-20 Random Glucose 299 70-99 mg/dl Calcium Level 9.4 8.5-10.1 mg/dl Magnesium Level 2.3 1.8-2.4 mg/dl Total Bilirubin 0.4 0.2-1 mg/dl Direct Bilirubin 0.2 0-0.2 mg/dl Aspartate Amino Transf (AST/SGOT) 11 15-37 U/L Alanine Aminotransferase (ALT/SGPT) 18 12-78 U/L Alkaline Phosphatase 103 45-117 U/L Troponin I < 0.015 0-0.045 ng/ml Total Protein 6.9 6.4-8.2 gm/dl Albumin 2.9 3.4-5.0 gm/dl Lipase 67 73-393 U/L Thyroid Stimulating Hormone (TSH) 1.800 0.300-4.500 uIu/ml Bedside Lactic Acid Venous 4.86 0.90-1.70 mmol/L Urine Color DK YELLOW Urine Appearance CLOUDY CLEAR Urine pH 5.0 4.5-7.5 Urine Specific [place] 1.028 1.000-1.030 Urine Protein TRACE NEG Urine Glucose (UA) 3+ NEG Urine Ketones TRACE NEG Urine Occult Blood NEG NEG Urine Nitrite NEG NEG Urine Bilirubin NEG NEG Urine Urobilinogen NEG NEG Urine Leukocyte Esterase SMALL NEG Urine WBC (Auto) 10-30 0-5 /hpf Urine RBC (Auto) 0-4 0-4 /hpf Urine Hyaline Casts (Auto) 5-10 0-5 /lpf Urine Epithelial Cells (Auto) 10-20 0-5 /lpf Urine Bacteria (Auto) NEG NEG Urine Pathogenic Casts 1-5 GRANULAR CASTS 0 /lpf Microbiology Results 01/31/17 Blood Culture, Received Pending 01/31/17 Blood Culture, Received Pending 01/31/17 Urine Culture, Received Pending Diagnostic Radiology CHEST ONE VIEW PORTABLE CLINICAL HISTORY: Sepsis. COMPARISON STUDY: Chest radiograph January 28, 2017. FINDINGS: A left subclavian [id number] is in place. Lung volumes are diminished. There is no pneumothorax. Small right and trace left pleural effusions are present. Bibasilar opacities have slightly increased since exam of January 28, 2017. There is no evidence for overt pulmonary edema. IMPRESSION: 1. Small right and trace left pleural effusions. 2. Slight increase in bibasilar opacities which could reflect pneumonia or atelectasis. 3. Diminished lung volumes. Impression Assessment and Plan This is an 81 yo m with a history of esophageal carcinoma and right pleural effusion that is suffering from pneumonia. 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 I discussed the case with the resident and agree with the findings and plan as documented in the note. Any exceptions or clarifications are listed here: 81 y/o M Hx esophageal CA presenting primarily with weakness - hypoxic on arrival to the ER - CXR consistent with PNM OE AAO x 3 S1,2 R No clear crackles or wheezing No CCE P: Pt will be treated for HCAP and aspiration initially Was provided with Levaquin and Vanc in ER - will add Flagyl 02 protocol - Duonebs/Albuterol May need swallow eval currently Documented By: Jose Pastor Resuscitation Status FULL RESUSCITATION VTE Prophylaxis VTE Risk Assessment Done? Y/N: Yes Risk Level: Moderate Given or contraindicated: Enoxaparin (Lovenox)SQ Social Service Consult Cancer Patient Under [place] Note Total Time: Critical Care 30 - 74 minutes Additional Copies To Get Mandujano M.D.
[2017-01-31] MEDS ORDERED: VANCOMYCIN CONSULT ACTIVE PRN (21:30)
[2017-01-31] MEDS ORDERED: INSULIN ASPART 100 UNITS/ML 3 ML PEN SC ONE (21:30)
[2017-01-31] MEDS: SODIUM CHLORIDE 0.9% 1000ML 1,000 ML IV SCH (21:56)
[2017-01-31] MEDS ORDERED: ENOXAPARIN 30 MG/0.3 ML SYR SQ SCH (22:00)
[2017-01-31] MEDS: CARVEDILOL 6.25 MG TAB PO SCH (23:18)
[2017-01-31 23:46] VITALS: BP 99/62; PULSE 95; TEMP 37.1; O2SAT 96
[2017-02-01] VITALS (11 sets, daily range): BP systolic 90–109; BP diastolic 54–69; PULSE 74–95; TEMP 36.7–37; O2SAT 96–98; BMI 21.4
--- NOTE | 2017-02-01 01:26 | EMERGENCY ROOM VISIT NOTE ---
History Report prepared by Santiago: Leonard Noble Under the Supervision of: Dr. Sesar Curran M.D. First contact with patient: 17:05 Chief Complaint: WEAKNESS Stated Complaint: WEAKNESS - JUST SEEN SUNDAY Nursing Triage Summary: Pt presents with b/l leg weakness. Unable to use arms to lift himself. Difficulty eating. Pts states, "when he eats, he burps. He has hernia cancer. They were supposed to put stents in two months ago and they haven't. He's had problems with fluid on his lung." Sx began two days ago. History of Present Illness The patient is an 81 year old male who presents to the Emergency Room with complaints of increasing weakness that began three days ago. The patient states that he has been becoming short of breath with movement and exertion. The patient's states that the patient has been hypotensive according to their blood pressure cuff at home. She states that this morning the patient complained of upper back pain. The patient's states that the patient has had a decrease in appetite. The patient states that he has noticed a burning pain when drinking Ensure. The patient's states that the patient has a history of esophageal cancer and was treated with radiation and chemotherapy. She states that the patient takes iron supplements. The patient's states that the patient has had an increase in swelling to his feet. The patient's states that the patient has a history of fluid build up behind his right lung that was drained. The patient LOC, headache, fevers, chills, diaphoresis, visual changes, neck pain, chest pain, nausea, vomiting, abdominal pain, melena , hematochezia, urinary symptoms, numbness, lymphadenopathy, rash, or other complaints. Source of History: patient, spouse/significant other () Onset: three days ago Position: other (global) Quality: other (weakness) Timing: other (increasing) Associated Symptoms: + SOB, + back pain (upper) Note: Associated Symptoms: Decrease in appetite, burning pain when drinking Ensure, hypotensive Review of Systems See HPI for pertinent positives and negatives. A total of ten systems were reviewed and were otherwise negative. Past Medical & Surgical Medical Problems: (1) Asthma (2) Pneumonia (3) URI (upper respiratory infection) (4) Weakness Family History Cancer Diabetes mellitus Heart disease Hypertension Lung disease Social History Smoking Status: Never Smoker Alcohol Use: none Drug Use: none Marital Status: Housing Status: lives with significant other Occupation Status: retired Current/Historical Medications Scheduled Ascorbic Acid (Vitamin C), 1 TAB PO QAM Carvedilol (Coreg), 1 TAB PO BID Cetirizine (Zyrtec), 10 MG PO QAM Ferrous Sulfate (Iron), 1 TAB PO QAM Hydrochlorothiazide (Hydrochlorothiazide), 0.5 TAB PO QAM Metformin Hcl (Glucophage), 1,000 MG PO BID Mometasone Furoate-Formoterol (Dulera 200/5 Mcg), 2 PUFFS INH BID Omeprazole (Prilosec), 20 MG PO QAM Scheduled PRN Acetaminophen Tab (Tylenol), 325 MG PO BID PRN for ARTHRITIS Chlorpheniramine-Phenylephrine (Coricidin D Cold/Flu/Sinu), 1 TAB PO DIRECTED PRN for COLDS SYMPTOMS Miscellaneous Medications Enteral Nutrition Formula (Ensure Plus Vanilla), CAN GJT Nutritional Supplements (Boost) Allergies Coded Allergies: Banana (Verified Allergy, Unknown, EYES SWELL SHUT, 01/31/17) NO KNOWN DRUG ALLERGIES (Verified Allergy, Unknown, ., 01/31/17) Physical Exam Vital Signs Date Time Temp Pulse Resp B/P Pulse Ox O2 Delivery O2 Flow Rate FiO2 01/31/17 19:09 37.4 100 20 118/62 98 Room Air 01/31/17 17:45 101 21 116/66 96 Room Air 01/31/17 17:40 101 01/31/17 17:25 96 Room Air 01/31/17 16:58 36.9 103 20 98/54 95 Room Air Physical Exam GENERAL: Awake, alert, well-appearing, in no distress HENT: Normocephalic, atraumatic. Oropharynx unremarkable. EYES: Pale conjunctiva. Sclera non-icteric. NECK: Supple. No nuchal rigidity. FROM. No JVD. RESPIRATORY: Clear to auscultation. CARDIAC: Borderline tachycardic rate, normal rhythm. Extremities warm and well perfused. Pulses equal. ABDOMEN: Soft, non-distended. No tenderness to palpation. No rebound or guarding. No masses. RECTAL: Deferred. MUSCULOSKELETAL: Chest examination reveals no tenderness. The back is symmetrical on inspection without obvious abnormality. There is no CVA tenderness to palpation. No joint edema. LOWER EXTREMITIES: Calves are equal size bilaterally and non-tender. No edema. No discoloration. NEURO: Normal sensorium. No sensory or motor deficits noted. SKIN: No rash or jaundice noted. Medical Decision & Procedures ER Provider Diagnostic Interpretation: X-ray: Per my interpretation, radiologist review. CHEST ONE VIEW PORTABLE CLINICAL HISTORY: Sepsis. COMPARISON STUDY: Chest radiograph January 28, 2017. FINDINGS: A left subclavian Txeelc-f-Cvcb is in place. Lung volumes are diminished. There is no pneumothorax. Small right and trace left pleural effusions are present. Bibasilar opacities have slightly increased since exam of January 28, 2017. There is no evidence for overt pulmonary edema. IMPRESSION: 1. Small right and trace left pleural effusions. 2. Slight increase in bibasilar opacities which could reflect pneumonia or atelectasis. 3. Diminished lung volumes. Electronically signed by: Anam Dudley M.D. 01/31/2017 6:55 PM Dictated Date/Time: 01/31/2017 6:49 PM Laboratory Results 01/31/17 17:35 Red Blood Count 3.00, Mean Corpuscular Volume 88.3, Mean Corpuscular Hemoglobin 29.3, Mean Corpuscular Hemoglobin Concent 33.2, Mean Platelet Volume 10.3, Neutrophils (%) (Auto) 87.7, Lymphocytes (%) (Auto) 3.7, Monocytes (%) (Auto) 8.1, Eosinophils (%) (Auto) 0.0, Basophils (%) (Auto) 0.1, Neutrophils # (Auto) 15.52, Lymphocytes # (Auto) 0.66, Monocytes # (Auto) 1.43, Eosinophils # (Auto) 0.00, Basophils # (Auto) 0.02 01/31/17 17:35 Test 01/31/17 17:35 01/31/17 18:09 01/31/17 18:40 White Blood Count 17.70 K/uL (4.8-10.8) Red Blood Count 3.00 M/uL (4.7-6.1) Hemoglobin 8.8 g/dL (14.0-18.0) Hematocrit 26.5 % (42-52) Mean Corpuscular Volume 88.3 fL (80-100) Mean Corpuscular Hemoglobin 29.3 pg (25-34) Mean Corpuscular Hemoglobin Concent 33.2 g/dl (32-36) Platelet Count 267 K/uL (130-400) Mean Platelet Volume 10.3 fL (7.4-10.4) Neutrophils (%) (Auto) 87.7 % Lymphocytes (%) (Auto) 3.7 % Monocytes (%) (Auto) 8.1 % Eosinophils (%) (Auto) 0.0 % Basophils (%) (Auto) 0.1 % Neutrophils # (Auto) 15.52 K/uL (1.4-6.5) Lymphocytes # (Auto) 0.66 K/uL (1.2-3.4) Monocytes # (Auto) 1.43 K/uL (0.11-0.59) Eosinophils # (Auto) 0.00 K/uL (0-0.5) Basophils # (Auto) 0.02 K/uL (0-0.2) RDW Standard Deviation 49.4 fL (36.4-46.3) RDW Coefficient of Variation 15.3 % (11.5-14.5) Immature Granulocyte % (Auto) 0.4 % Immature Granulocyte # (Auto) 0.07 K/uL (0.00-0.02) Red Blood Cell Morphology Unremarkable Prothrombin Time 11.9 SECONDS (9.0-12.0) Prothromb Time International Ratio 1.1 (0.9-1.1) Activated Partial Thromboplast Time 32.0 SECONDS (21.0-31.0) Partial Thromboplastin Ratio 1.2 Anion Gap 10.0 mmol/L (3-11) Est Creatinine Clear Calc Drug Dose 28.9 ml/min Estimated GFR () 43.2 Estimated GFR (Non- 37.3 BUN/Creatinine Ratio 18.9 (10-20) Calcium Level 9.4 mg/dl (8.5-10.1) Magnesium Level 2.3 mg/dl (1.8-2.4) Total Bilirubin 0.4 mg/dl (0.2-1) Direct Bilirubin 0.2 mg/dl (0-0.2) Aspartate Amino Transf (AST/SGOT) 11 U/L (15-37) Alanine Aminotransferase (ALT/SGPT) 18 U/L (12-78) Alkaline Phosphatase 103 U/L (45-117) Troponin I < 0.015 ng/ml (0-0.045) Total Protein 6.9 gm/dl (6.4-8.2) Albumin 2.9 gm/dl (3.4-5.0) Lipase 67 U/L (73-393) Thyroid Stimulating Hormone (TSH) 1.800 uIu/ml (0.300-4.500) Bedside Lactic Acid Venous 4.86 mmol/L (0.90-1.70) Urine Color DK YELLOW Urine Appearance CLOUDY (CLEAR) Urine pH 5.0 (4.5-7.5) Urine Specific [place] 1.028 (1.000-1.030) Urine Protein TRACE (NEG) Urine Glucose (UA) 3+ (NEG) Urine Ketones TRACE (NEG) Urine Occult Blood NEG (NEG) Urine Nitrite NEG (NEG) Urine Bilirubin NEG (NEG) Urine Urobilinogen NEG (NEG) Urine Leukocyte Esterase SMALL (NEG) Urine WBC (Auto) 10-30 /hpf (0-5) Urine RBC (Auto) 0-4 /hpf (0-4) Urine Hyaline Casts (Auto) 5-10 /lpf (0-5) Urine Epithelial Cells (Auto) 10-20 /lpf (0-5) Urine Bacteria (Auto) NEG (NEG) Urine Pathogenic Casts 1-5 GRANULAR CASTS /lpf (0) Laboratory results reviewed by me Medications Administered Medications (Trade) Dose Ordered Sig/Ángela Route Start Time Stop Time Status Last Admin Dose Admin Sodium Chloride 1,000 ml @ 125 mls/hr Q8H STAT IV 01/31/17 17:06 01/31/17 18:13 DC 01/31/17 18:13 125 MLS/HR Sodium Chloride 500 ml @ 999 mls/hr Q31M STAT IV 01/31/17 17:06 01/31/17 17:36 DC 01/31/17 19:04 999 MLS/HR Sodium Chloride (Nss 1000ml) 1,000 ml @ 999 mls/hr Q1H1M STAT IV 01/31/17 18:11 01/31/17 19:11 DC 01/31/17 18:39 999 MLS/HR Levofloxacin 750 mg 750 mg NOW STAT IV 01/31/17 18:11 01/31/17 18:14 DC 01/31/17 18:39 750 MG Sodium Chloride 1,000 ml @ 250 mls/hr Q4H STAT IV 01/31/17 18:11 01/31/17 21:28 DC 01/31/17 19:04 250 MLS/HR Vancomycin HCl/ Sodium Chloride (Vancomycin Inj/ Nss 250ml) 274 ml @ 125 mls/hr TODAY@1830 ONCE IV 01/31/17 18:30 01/31/17 20:41 DC 01/31/17 19:03 125 MLS/HR ECG Indication: weakness Rate (beats per minute): 101 Rhythm: sinus tachycardia Findings: no acute ischemic change, no ectopy ED Course 1728: The patient was evaluated in room C10. A complete history and physical exam was performed. 1706: Ordered Sodium Chloride 500 ml @ 999 mls/hr IV, Sodium Chloride 1000 ml @ 125 mls/hr IV. 1811: Ordered Sodium Chloride 1000 ml @ 250 mls/hr IV, Levofloxacin 750 mg IV, Sodium Chloride 1000 ml @ 999 mls/hr IV. 1830: Ordered Vancomycin HCl 1200 mg/Sodium Chloride 274 ml @ 125 mls/hr IV. 1900: I reevaluated the patient and he is resting comfortably. I discussed the exam findings with him and his family and I discussed the treatment plan. They verbalized complete understanding and agreement. The patient will be evaluated for further treatment. 1916: I discussed the patient's case with Dr. Clifford, [facility] Resident. She is going to evaluate the patient for further treatment. Medical Decision Triage Nursing notes reviewed. The patient's presentation and history were concerning for weakness. Etiologies such as metabolic, UTI, pneumonia, anemia, sepsis, hypo/hyperglycemia , electrolyte abnormalities, cardiac sources, intracerebral event, toxicologic, neurologic, as well as others were entertained. The patient was evaluated. His blood pressure was mildly low. He was afebrile. The patient was mildly tachycardic. Cultures and labs were obtained. Chest x-ray was done. There was some concern about a basilar infiltrate. The patient has no significant pulmonary symptoms at this time. He had a significant leukocytosis and lactic acidosis. He had additional fluids ordered, 30 mL/kg. The patient was given IV Levaquin and vancomycin due to concerns about sepsis. Urinalysis showed some white cells but no clear evidence. On reassessment the patient was feeling somewhat better after hydration. His blood pressure was improved. The patient was informed as well as his . He will need further evaluation and management in the hospital. I also did discuss case with his daughter at his 's request. I gave my usual and customary discussion regarding this issue. Consultation was made with internal medicine the patient was evaluated for further treatment. The chart was completed utilizing [employer] Speech voice recognition software. Grammatical errors, random word insertions, pronoun errors, and incomplete sentences are an occasional consequence of this system due to software limitations, ambient noise, and hardware issues. Any formal questions or concerns about the content, text, or information contained within the body of this dictation should be directly addressed to the physician for clarification. Consults Time Called: 1899 Consulting Physician: Dr. Clifford, [facility] Resident Returned Call: 1916 I discussed the patient's case with Dr. Clifford [facility] Resident. She is going to evaluate the patient for further treatment. Impression Primary Impression: Sepsis Additional Impressions: Lactic acidosis Hyponatremia Anemia Critical Care I have personally spent greater than 30 minutes of critical care time in the direct management of this patient. This includes bedside care, interpretation of diagnostic studies, and testing, discussion with consultants, patient, and family members, and other required patient management activities. This 30 minutes is in excess of all separately billable procedures. Scribe Attestation The scribe's documentation has been prepared under my direction and personally reviewed by me in its entirety. I confirm that the note above accurately reflects all work, treatment, procedures, and medical decision making performed by me. Departure Information Dispostion Being Evaluated By Hospitalist Referrals No Doctor, Assigned (PCP) Problem Qualifiers
[2017-02-01 05:51] LABS: BASO % 0.1 %; BASO ABS # 0.01 K/uL (0-0.2); EOS % 0.3 %; HEMATOCRIT 24.4 % (42-52); IG% 0.2 %; LYMPH % 7.6 %; LYMPH ABS # 0.69 K/uL (1.2-3.4); MEAN CELL VOLUME 88.4 fL (80-100); MEAN CORPUSCULAR HGB CONC 32.8 g/dl (32-36); MEAN PLATELET VOLUME 9.6 fL (7.4-10.4); MONO % 11.2 %; NEUT % 80.6 %; PLATELET COUNT 191 K/uL (130-400); RED BLOOD COUNT 2.76 M/uL (4.7-6.1); WHITE BLOOD COUNT 9.04 K/uL (4.8-10.8)
[2017-02-01] MEDS: METRONIDAZOLE / NSS 500 MG in PREMIXED NSS 100 ML IV SCH ×3 (06:05→22:04)
[2017-02-01 06:07] LABS: INR 1.1 (0.9-1.1); PARTIAL THROMBOPLASTIN RATIO 1.3; PROTHROMBIN TIME (PATIENT) 12.1 SECONDS (9.0-12.0)
[2017-02-01 06:15] LABS: COMPLETE YES; POLYCHROMASIA 1+
[2017-02-01 06:25] LABS: BUN/CREATININE RATIO 20.9 (10-20); CALCIUM 8.6 mg/dl (8.5-10.1); CREATININE 1.2 mg/dl (0.60-1.40); POTASSIUM 4.3 mmol/L (3.5-5.1)
[2017-02-01] MEDS: INSULIN ASPART 100 UNITS/ML 3 ML PEN SC SCH ×4 (07:00→20:36)
--- NOTE | 2017-02-01 07:08 | Family Medicine Progress Note ---
Progress Note Date of Service February 01, 2017. Subjective Pt evaluation today including: conversation w/ patient, physical exam, chart review, lab review The patient was seen and examined at bedside. Pt doesn't remember what exactly brought him into the hospital. He says his legs felt week. When arrived she corroborated that he was brought in for fatigue. Tele showed sinus rhythm in the 90s. Pt states that he is feeling much better today. No fevers, no pain, no SOB, no weakness, no chest pain, no chills, no nausea, no vomiting, headaches, no hemoptysis, no cough. Eating and urinating well. Plan of care was described to the patient and all questions were answered. Objective Physical Exam General Appearance: WD/WN, no apparent distress, + thin Respiratory/Chest: chest non-tender, lungs clear, normal breath sounds, no respiratory distress, no accessory muscle use Cardiovascular: regular rate, rhythm, no edema, no gallop, no JVD, no murmur Abdomen: normal bowel sounds, non tender, soft, no organomegaly, no pulsatile mass Extremities: normal range of motion, non-tender, normal inspection, no pedal edema, no calf tenderness Neurologic/Psychiatric: alert, normal mood/affect, oriented x 3 Assessment and Plan This is an 81M with a history of esophageal carcinoma and right pleural effusion that is suffering from pneumonia. He was tapped in [place] on 01/[address] Sims (cultures grew perez sensitive Coagulase Negative Staph) and the plan was to put in a PleurEx catheter on 02/01. He had to miss that appointment because he came to the hospital. Pt is improving on Abx. Assume infectious vs pleural effusion. Pt will need pleural catheter at some point. Sepsis secondary to Pneumonia - Pt is doing well clinically. - Blood and urine cultures pending - Continue levofloxcin and zosyn. - Pt is eating and drinking well, will old IV fluids. - Lactic Acid 1.7<--3,5 Hyponatremia - BL 132- 133 for patient - Sodium is 134. - Held NSS at 5pm, will recheck tomorrow AM. ERNESTINE on CKD III - PT is drinking well, holding NSS as of 5pm. DMII- insulin ISS, hold metformin. 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 Esophageal carcinoma - s/p esophageal stent by Dr Sims. Dr. Sims had planned a Pleurex cathetor today, will still need a catheter just once pt feels better. HTN - continue HCTZ and carvedilol DVT prophylaxis -Lovenox considering carcinoma FULL CODE- discussed x 2 times with patient and and patient wish to be full code POA- Dolly - Resident Involvement: Resident Care Provided Care Provided: Adult Hospital Medicine History Resident Physician Supervision Note: I was present with Dr. Dockery during the history and exam. I discussed the case with the resident and agree with the findings and plan as documented in the note. Any exceptions or clarifications are listed here. patient reports improvement in shortness of breath, fatigue/weakness since admission. Discussion of goals of care include reiteration of FULL CODE status w / all requested interventions. Additionally, patient reports that he was supposed to have a stent placed in his esophagus but was altered because of ? bacteria from a tap of his pleural effusions, though he is unsure what the intervention was supposed to be at that point. Reports no fever, WILL, lightheadedness, SOB, coughing/choking while eating. General Appearance: WD/WN, no apparent distress Respiratory: chest non-tender, no respiratory distress, decreased breath sounds , rhonchi Cardiovascular: normal peripheral pulses, regular rate, rhythm, no edema, no murmur Gastrointestinal: normal bowel sounds, non tender, soft, no organomegaly Assessment/Plan 81 y/o male h/o metastatic esophageal carcinoma w/ effusion presented w/ sepsis 2/2 infection of the lung Sepsis 2/2 pneumonia - telemetry - f/u BCx - continue levofloxacin and flagyl - gentle hydration - obtain and review outside records re: ?bacteria in pleural fluid Abn UA - awaiting UCx - abx as above for coverage Elevated aPTT - mixing study COPD - continue Dulera, duonebs Anemia - likely 2/2 esophageal Ca as has trace bleeding previously - trend CBC, FOBT pending DMII - ISS while inpatient HTN - continue HCTZ and coreg ERNESTINE on CKD III - improved, trend BMP in AM Hyponatremia - resolved, trend BMP in AM DVT PPX - lovenox FULL CODE
[2017-02-01] MEDS: CARVEDILOL 6.25 MG TAB PO SCH ×3 (07:55→19:30)
[2017-02-01] MEDS ORDERED: BOOST VANILLA ONE ×2 (07:55)
[2017-02-01] MEDS: FERROUS SULFATE 325 MG TAB PO SCH (07:56)
[2017-02-01] MEDS: PANTOprazole SOD 40 MG TAB PO SCH (07:56)
[2017-02-01] MEDS: HYDROCHLOROTHIAZIDE 25 MG TAB PO SCH (07:56)
[2017-02-01] MEDS: ASCORBIC ACID 500 MG TAB PO SCH (07:56)
[2017-02-01] MEDS: CETIRIZINE HCL 10 MG TAB PO SCH (07:56)
[2017-02-01] MEDS: BOOST VANILLA PO SCH ×6 (09:00→19:34)
[2017-02-01] MEDS ORDERED: BOOST VANILLA PO SCH ×4 (09:00)
[2017-02-01] MEDS: SODIUM CHLORIDE 0.9% 1000ML 1,000 ML IV SCH (11:38)
[2017-02-01] MEDS: DULERA - ORDER AWAITING ACTION SCH ×4 (16:00→23:36)
--- NOTE | 2017-02-01 19:19 | DIAGNOSTIC IMAGING REPORT ---
CHEST ONE VIEW PORTABLE CLINICAL HISTORY: h/o malign ent pleural effusions dyspnea COMPARISON STUDY: 01/31/2017 FINDINGS: Subtle increase in cardiac size. Increasing prominence of pulmonary vasculature. Small bilateral pleural effusions. IMPRESSION: Potential mild congestive failure. Small bilateral pleural effusions. Electronically signed by: Torito Navarro M.D. 02/01/2017 7:18 PM Dictated Date/Time: 02/01/2017 7:17 PM
[2017-02-01] MEDS ORDERED: ENOXAPARIN 40 MG/0.4 ML SYR SQ SCH (21:00)
[2017-02-02] VITALS (8 sets, daily range): BP systolic 96–117; BP diastolic 58–68; PULSE 61–98; TEMP 36.6–37; O2SAT 94–97
[2017-02-02] MEDS: METRONIDAZOLE / NSS 500 MG in PREMIXED NSS 100 ML IV SCH ×3 (06:06→22:37)
[2017-02-02 06:52] LABS: BASO % 0.2 %; BASO ABS # 0.01 K/uL (0-0.2); EOS % 0.8 %; HEMATOCRIT 22.3 % (42-52); IG% 0.2 %; LYMPH % 10.3 %; LYMPH ABS # 0.65 K/uL (1.2-3.4); MEAN CELL VOLUME 87.5 fL (80-100); MEAN CORPUSCULAR HGB CONC 33.2 g/dl (32-36); MEAN PLATELET VOLUME 9.9 fL (7.4-10.4); MONO % 9.2 %; NEUT % 79.3 %; PLATELET COUNT 203 K/uL (130-400); RED BLOOD COUNT 2.55 M/uL (4.7-6.1); WHITE BLOOD COUNT 6.33 K/uL (4.8-10.8)
[2017-02-02 07:20] LABS: BUN/CREATININE RATIO 19.3 (10-20); CALCIUM 8.4 mg/dl (8.5-10.1); COMPLETE YES; CREATININE 1.2 mg/dl (0.60-1.40); POLYCHROMASIA 1+; POTASSIUM 3.9 mmol/L (3.5-5.1)
--- NOTE | 2017-02-02 07:42 | Family Medicine Progress Note ---
Progress Note Date of Service February 02, 2017. Subjective Pt evaluation today including: conversation w/ patient, physical exam, chart review, lab review The patient was seen and examined at bedside. No acute overnight events. Pt feels like he is doing better. SOB has improved. Patient is resting comfortably in bed. Denies having any pain. Eating and urinating well. Plan of care was described to the patient and all questions were answered. Constitutional: No chills, No fever, No sweats, No weight loss Eyes: No worsening of vision ENT: No hearing loss Cardiovascular: No chest pain, No orthopnea Abdomen: No diarrhea, No nausea, No pain, No vomiting Male : No dysuria Objective Physical Exam General Appearance: WD/WN, no apparent distress Respiratory/Chest: chest non-tender, lungs clear, normal breath sounds, no respiratory distress, no accessory muscle use Cardiovascular: regular rate, rhythm, no edema, no gallop, no JVD, no murmur Abdomen: non tender, soft, no organomegaly, no pulsatile mass Neurologic/Psychiatric: no motor/sensory deficits, alert, normal mood/affect, oriented x 3 Skin: no rash Assessment and Plan This is an 81M with a history of esophageal carcinoma and right pleural effusion that is suffering from pneumonia. He was tapped in [place] on 01/[address] Sims (cultures grew perez sensitive Coagulase Negative Staph) and the plan was to put in a PleurEx catheter on 02/01. He had to miss that appointment because he came to the hospital. Pt is improving on Abx. Assume infectious vs pleural effusion. Thoracic Surgery Consulted, possible PleurX placement on Sunday02/03/17, will hold QPM lovenox for procedure. - Spoke with Dr. Sims in [place], he is OK with us putting in a PleurX. - Spoke with Dr. Sanchez, he recommends transfusion of 2units PRBC before discharge to stabilize the patient. Dr Sanchez would like to see pt in follow up in 1-2 weeks. Appointment made for SundayFebruary 12 at 3:30pm. Sepsis secondary to Pneumonia - Pt is doing well clinically. - Blood Cultures - No growth to date. - Urine Culture - Reincubating after pin point growth. - Continue Levofloxacin and Flagyl. Day #3 - Pt is eating and drinking well, will old IV fluids. - Lactic Acid 1.7<--3,5 - Will likely receive PleurX cathetor tomorrow by Dr. Radford. Hyponatremia - BL 132- 133 for patient - Sodium is 135. - Held NSS at 5pm, will recheck tomorrow AM. ERNESTINE on CKD III - PT is drinking well, holding NSS as of 5pm. DMII- insulin ISS, hold metformin. 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 Pt has previously declined surgery for his esophageal carcinoma. - patient baseline is 9-10.5 - continue Ferrous sulfate - follow up FOBT, not collected, consider bowel regimen to correct. - Will receive 1 units PRBC tonight. Esophageal carcinoma - Appointment with Dr. Sanchez made for SundayFebruary 12 at 3:30pm. HTN - continue HCTZ and carvedilol DVT prophylaxis -Lovenox considering carcinoma, held, SCDs until after procedure. Dispo: Full Code, discussed with patient and twice and he still wants to be full code. Resident Involvement: Resident Care Provided Care Provided: Adult Hospital Medicine History Resident Physician Supervision Note: I was present with Dr. Dockery during the history and exam. I discussed the case with the resident and agree with the findings and plan as documented in the note. Any exceptions or clarifications are listed here. Reports considerable improvement in fatigue, breathing. Some persistent nonproductive cough at rest today but improved from previous. Reports no SOB, lightheadedness, CP/palpitations, fever, nausea, reflux. No recent BM but no h/ o dark/tarry stools either. General Appearance: WD/WN, no apparent distress Ears, Nose, Throat: normal ENT inspection Respiratory: chest non-tender, lungs clear, no respiratory distress, decreased breath sounds (RLL > L) Cardiovascular: normal peripheral pulses, regular rate, rhythm, no murmur Gastrointestinal: normal bowel sounds, non tender, soft, no organomegaly Assessment/Plan 81 y/o male h/o metastatic esophageal carcinoma w/ effusion presented w/ sepsis 2/2 infection of the lung Sepsis 2/2 empyema v. pneumonia - improving on levofloxacin and flagyl - CT surgery consulted, input appreciated - for pleurX tomorrow w/ culture of fluid Anemia - gradual/chronic 2/2 esophageal Ca - trend CBC, FOBT pending - will type and cross, txf 1 unit PRBC UTI - staph/strep on Cx pending C/S - abx as above for coverage Elevated aPTT - holding lovenox 2/2 pleurX placement, will hold restart for 1 day for mixing study draw COPD - continue erica Crystal DMII - ISS while inpatient HTN - continue HCTZ and coreg ERNESTINE on CKD III - improved, trend BMP in AM Hyponatremia - resolved, trend BMP in AM DVT PPX - lovenox FULL CODE
[2017-02-02] MEDS ORDERED: NURSING VERBAL MED ORDER ONE (07:45)
[2017-02-02] MEDS: DULERA - ORDER AWAITING ACTION SCH ×2 (08:00→16:00)
[2017-02-02] MEDS: CARVEDILOL 6.25 MG TAB PO SCH ×2 (08:00→21:01)
[2017-02-02] MEDS: FERROUS SULFATE 325 MG TAB PO SCH (08:28)
[2017-02-02] MEDS: CETIRIZINE HCL 10 MG TAB PO SCH (08:28)
[2017-02-02] MEDS: HYDROCHLOROTHIAZIDE 25 MG TAB PO SCH (08:30)
[2017-02-02] MEDS: PANTOprazole SOD 40 MG TAB PO SCH (08:30)
[2017-02-02] MEDS: ASCORBIC ACID 500 MG TAB PO SCH (08:32)
[2017-02-02] MEDS: BOOST VANILLA PO SCH ×6 (08:36→20:00)
--- NOTE | 2017-02-02 08:45 | DIAGNOSTIC IMAGING REPORT ---
CHEST ONE VIEW PORTABLE HISTORY: h/o malignant pleural effusions COMPARISON: Chest 02/01/2017. FINDINGS: Small bilateral pleural effusions and bibasilar densities are again noted. The heart remains mildly enlarged. Left subclavian Port-A-Cath terminates in the SVC. The upper lung zones are clear. No pneumothorax. IMPRESSION: No change in the small bilateral pleural effusions and bibasilar densities. Electronically signed by: Greg Sharpe M.D. 02/02/2017 8:44 AM Dictated Date/Time: 02/02/2017 8:43 AM
[2017-02-02] MEDS: INSULIN ASPART 100 UNITS/ML 3 ML PEN SC SCH ×4 (09:02→20:57)
--- NOTE | 2017-02-02 09:36 | Medical Consult ---
Consultation Note Date of Service February 02, 2017. Consultation Note Consult Dictated #[id number]
--- NOTE | 2017-02-02 10:35 | CONSULTATION REPORT ---
DATE OF CONSULTATION: 02/02/2017 REASON FOR CONSULTATION: Pleural effusion. HISTORY OF PRESENT ILLNESS: This is an 81-year-old male with a history of esophageal cancer. The patient is unsure when he received a formal diagnosis; however, he said that he was determined to be an unresectable and therefore no surgical procedure was undertaken. The patient says that he is under the care locally of oncologist, Dr. Leonardo Sanchez and the patient says that he did receive both chemotherapy and radiation that concluded in June of this year. The patient says that he has been having progressive weakness over the past several months and the fact he did require thoracentesis which was performed at [facility]. This was performed on the right side. The patient reports they obtained approximately 1 liter of fluid. Cytology was reportedly positive for malignancy and the cultures from this fluid were also positive for coagulase negative staph that was pansensitive. The patient was ultimately scheduled to have a PleurX catheter placed at [facility] on February 01; however, he missed that appointment due to progressive weakness requiring hospitalization at [facility]. Initial chest x-rays at [facility] showed the patient had a small right pleural effusion along with some concern for bibasilar opacities concerning for pneumonia and he was therefore treated appropriately with antibiotics and has showed clinical improvement. We are now asked to see for consideration of placement of a PleurX catheter. The patient has not had any recent falls, head injuries, visual changes, tinnitus, sore throat or neck pain. He denies any dysphagia. He denies any chest pain. He denies shortness of breath. He denies fevers. He does not note any nausea, vomiting or diarrhea. He denies any dysuria. He has no history of seizure or stroke, DVT or PE. At the time of my exam, he is resting comfortably in bed without additional complaints. PAST MEDICAL HISTORY: 1. Esophageal cancer. 2. Asthma. 3. Diabetes. 4. History of colon cancer. 5. History of prostate cancer. 6. Chronic kidney disease, stage 3. 7. COPD. 8. Hypertension. PAST SURGICAL HISTORY: Includes 1. Colon cancer resection. 2. Left subclavian A-port placement. 3. Right inguinal herniorrhaphy. 4. Right thoracentesis as noted above. ALLERGIES: He has no known medication allergies. CURRENT INPATIENT MEDICATIONS: Include 1. Levaquin 750 mg daily. 2. Lovenox 40 mg daily. 3. Zyrtec 10 mg daily. 4. Hydrochlorothiazide 12.5 mg daily. 5. Vitamin C 1000 mg daily. 6. Iron 325 mg daily. 7. Protonix 40 mg daily. 8. Boost 3 times daily. 9. Flagyl 100 mg every 8 hours. 10. Coreg 6.25 mg twice daily. 11. Sliding-scale insulin. SOCIAL HISTORY: He is a lifetime nonsmoker. He denies any history of heavy alcohol use. 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 FAMILY HISTORY: Positive for diabetes. REVIEW OF SYSTEMS: See above. PHYSICAL EXAMINATION: VITAL SIGNS: The patient is afebrile with temperature 36.9, pulse 82 and regular, respirations are 18 and unlabored, blood pressure 97/60, pulse ox 94% on room air. SKIN: Warm with good turgor. GENERAL: He is alert, oriented x3 in no distress. HEENT: Head is atraumatic, normocephalic. Eyes: Pupils equal, round and reactive to light and accommodation. Extraocular motions are intact. Ears: Auditory acuity is grossly intact. Nose: Nasal patency was intact. Sinuses are nontender. Mouth is moist without exudates. NECK: Supple, no JVD is noted. CARDIOVASCULAR: Regular rate and rhythm. LUNGS: Reveal breath sounds were decreased at the right base but were otherwise clear. There are no rales, rhonchi, wheezing or use of accessory muscles. ABDOMEN: Soft and nontender. EXTREMITIES: Revealed no cyanosis, clubbing or edema. NEUROLOGIC: Revealed no focal deficits. DIAGNOSTIC DATA: Serial chest x-rays have demonstrated a small right pleural effusion. His most recent labs include a CBC from today where hemoglobin and hematocrit are 7.4 and 22.3, platelet count and white blood cell count are normal. His INR is noted to be 1.1. Chemistry profile showed sodium was 135, potassium and creatinine are within normal range. BUN is elevated at 23. IMPRESSION: An 81-year-old male with esophageal cancer and pleural effusion. PLAN: We have been asked to evaluate the patient for a PleurX catheter and the patient has been consented to this. Dr. Radford will return [facility] tomorrow and determine if this should be done at this time or if we should let the patient recover from his acute illness prior to inserting PleurX. We will be happy to perform this if deemed clinically appropriate during this admission. DALE
[2017-02-02] MEDS: ONDANSETRON INJ 2 MG/ML 2 ML VIAL IV PRN (16:36)
[2017-02-02] MEDS: LEVOFLOXACIN / D5W 750 MG in PREMIXED IN D5W 150 ML IV SCH (17:34)
[2017-02-03] VITALS (13 sets, daily range): BP systolic 82–117; BP diastolic 48–73; PULSE 78–145; TEMP 36.6–37.3; O2SAT 93–97
[2017-02-03] MEDS: ACETAMINOPHEN 325 MG TAB PO PRN (02:30)
[2017-02-03] MEDS: METRONIDAZOLE / NSS 500 MG in PREMIXED NSS 100 ML IV SCH ×3 (06:04→21:13)
[2017-02-03 06:24] LABS: BASO % 0.2 %; BASO ABS # 0.01 K/uL (0-0.2); COMPLETE YES; EOS % 1.8 %; HEMATOCRIT 27.5 % (42-52); IG% 0.2 %; LYMPH % 11.3 %; LYMPH ABS # 0.68 K/uL (1.2-3.4); MEAN CELL VOLUME 86.2 fL (80-100); MEAN CORPUSCULAR HEMOGLOBIN 28.2 pg (25-34); MEAN CORPUSCULAR HGB CONC 32.7 g/dl (32-36); MEAN PLATELET VOLUME 9.7 fL (7.4-10.4); MONO % 11.5 %; PLATELET COUNT 216 K/uL (130-400); RED BLOOD COUNT 3.19 M/uL (4.7-6.1)
[2017-02-03 06:55] LABS: BUN/CREATININE RATIO 16.8 (10-20); CALCIUM 8.4 mg/dl (8.5-10.1); CREATININE 1.1 mg/dl (0.60-1.40)
[2017-02-03] MEDS: DULERA - ORDER AWAITING ACTION SCH ×4 (07:54→21:26)
[2017-02-03] MEDS: BOOST VANILLA PO SCH ×6 (07:55→21:12)
[2017-02-03] MEDS: CARVEDILOL 6.25 MG TAB PO SCH ×2 (08:06→19:05)
[2017-02-03] MEDS: FERROUS SULFATE 325 MG TAB PO SCH (08:07)
[2017-02-03] MEDS: HYDROCHLOROTHIAZIDE 25 MG TAB PO SCH (08:07)
[2017-02-03] MEDS: PANTOprazole SOD 40 MG TAB PO SCH (08:08)
[2017-02-03] MEDS: ASCORBIC ACID 500 MG TAB PO SCH (08:08)
[2017-02-03] MEDS: CETIRIZINE HCL 10 MG TAB PO SCH (08:09)
--- NOTE | 2017-02-03 08:40 | DIAGNOSTIC IMAGING REPORT ---
SINGLE VIEW CHEST CLINICAL HISTORY: Pleural effusions. FINDINGS: An AP, portable, upright chest radiograph is compared to study dated 02/02/2017 and correlated with chest CT dated 12/04/2016. The examination is degraded by portable technique and patient rotation. A left subclavian central venous infusion port is unchanged in position. The heart is enlarged and there is atherosclerotic calcification of the thoracic aorta. The pulmonary vasculature is noncongested. Moderate right and small left pleural effusions with bibasilar consolidation are similar to yesterday. The upper lungs appear clear. No pneumothorax is seen. The skeletal structures are osteopenic. The bony thorax is grossly intact. IMPRESSION: 1. Cardiomegaly without radiographic evidence of congestive failure. 2. Right larger than left pleural effusions with associated bibasilar consolidation are unchanged from yesterday. Electronically signed by: Maged Espana M.D. 02/03/2017 8:38 AM Dictated Date/Time: 02/03/2017 8:36 AM
--- NOTE | 2017-02-03 09:06 | Family Medicine Progress Note ---
Progress Note Date of Service February 03, 2017. Subjective Pt evaluation today including: conversation w/ patient, physical exam, chart review, lab review Patient feeling well. Good appetite, tolerated breakfast, says energy levels have improved since completion of blood transfusion Constitutional: No chills, No fatigue, No fever, No sweats Respiratory: No cough, No shortness of breath Cardiovascular: No chest pain, No edema, No palpitations Abdomen: No nausea, No pain, No vomiting Male : No dysuria Objective Vital Signs Date Time Temp Pulse Resp B/P Pulse Ox O2 Delivery O2 Flow Rate FiO2 02/03/17 07:20 36.6 83 16 102/64 97 Room Air 02/03/17 01:40 36.6 78 18 117/72 97 02/03/17 00:40 36.9 80 18 101/60 97 02/03/17 00:00 97 Room Air 02/02/17 23:40 37.0 80 18 117/68 97 02/02/17 23:10 36.9 79 18 96/60 97 02/02/17 22:40 36.8 80 18 99/61 96 02/02/17 22:25 36.6 84 18 96/59 96 02/02/17 22:07 36.6 61 18 102/61 95 02/02/17 21:01 80 100/58 02/02/17 14:28 98 16 99/61 94 Room Air Physical Exam General Appearance: WD/WN, no apparent distress ENT: + pertinent finding (Mildly hard of hearing) Neck: supple, no JVD Respiratory/Chest: lungs clear, no respiratory distress, no accessory muscle use, + decreased breath sounds (R>L) Cardiovascular: regular rate, rhythm, + tachycardia Abdomen: normal bowel sounds, non tender, soft Extremities: normal inspection, no pedal edema, no calf tenderness Neurologic/Psychiatric: alert, normal mood/affect, oriented x 3 Skin: normal color, warm/dry, no rash Laboratory Results Results Past 24 Hours Test 02/03/17 07:39 02/03/17 11:26 02/03/17 16:16 02/03/17 20:05 Range/Units Bedside Glucose 129 205 232 70-99 mg/dl Troponin I 0.040 0-0.045 ng/ml Test 02/03/17 20:27 02/04/17 03:46 Range/Units Bedside Glucose 186 70-99 mg/dl Troponin I 0.021 0-0.045 ng/ml Assessment and Plan 81M with a h/o esophageal carcinoma s/p chamo/radiotherapy but declined surgery and with right pleural effusion admitted with pneumonia. Sepsis 2/2 Pneumonia - well clinically. Blood Cultures negative. Urine Culture show mixed osman. Lactic Acid now WNL 1.7<--3,5. - Levofloxacin and Flagyl - Day 4 A.Flutter - likely paroxysmal. Patient symptotic with lightheadedness. Rhythm confirmed with EKG, no STEMI. Transient improvement with carotid massage, transferred to telemetry - Cardizem bolus/drip by protocol - Troponin x 3 q8h - Echocardiogram Pleural Effusions - Assume infectious vs malignant pleural effusion. Was tapped in [place] on 01/[address] Sims (cultures grew perez sensitive Coagulase Negative Staph) and the plan was to put in a PleurEx catheter on . He had to miss that appointment because he came to the hospital. Spoke with Dr. Sims in [place], he is OK with us putting in a PleurX. Cardiothoracic consulted - recs appreciated - Seen by Dr. Radford who recommends holding off PleurX catheter as patient asymptomatic Anemia - recently ~7.4, asymptomatic, likely 2/2 to esophageal cancer. Baseline is 9-10.5. s/p 1unit pRBC 02/01, brought Hb upto 9.0. - Ferrous sulfate - follow up FOBT, not collected, consider bowel regimen to correct. - Trend H/H - Dr. Sanchez, he recommends transfusion of 2units PRBC before discharge to stabilize the patient. Elevated aPTT - Mixing study tomorrow after Lovenox effectivly held for 48h Esophageal carcinoma - Follow up in 1-2 weeks - SundayFebruary 12 at 3:30pm. Hyponatremia - resolved - Trend BMP ERNESTINE on CKD III - resolved. Peaked Cr 1.7, now 1.1 - Trend BMP DMII- insulin ISS, hold metformin. 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 - continue Dulera HTN - HCTZ and carvedilol DVT prophylaxis -Lovenox held for mixing study, SCDs until after Dispo: Full Code, discussed with patient and twice and he still wants to be full code Continued [facility] stay due to: abnormal vital signs, multiple IV medications needed Resident Tracking Resident Involvement: Resident Care Provided Care Provided: Adult Hospital Medicine History Resident Physician Supervision Note: I was present with Dr. Iniguez during the history and exam. I discussed the case with the resident and agree with the findings and plan as documented in the note. Any exceptions or clarifications are listed here. Upon initial examination, patient feels that he has decreased feeling of fatigue at this time. He states that his cough has significantly improved from previous and his breathing is at baseline. After discussion with Dr. Radford, they are deferring pleurX at this time as he is relatively asymptomatic after treatment with antibiotics. Reports no fever, chills, WILL, lightheadedness, CP/ SOB, palpitations, n/v. Called to bedside in the early afternoon for increased heart rate to 140s. Upon evaluation of the patient he states that he was feeling lightheaded on the way to the bathroom and had to return to the bed to sit down. He states that he has had episodes of similar feelings of lightheadedness in the past at home and, if he was on his walker, he would be forced to slump down and wait for the episodes to pass, which took minutes to hours. Still reports no other accompanying symptoms. 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, no motor/sensory deficits, alert, normal mood/affect, oriented x 3 Assessment/Plan 81 y/o male h/o metastatic esophageal carcinoma w/ effusion presented w/ sepsis 2/2 infection of the lung Atrial fibrillation/flutter - EKG reviewed - cardizem bolus/drip by protocol - echocardiogram ordered, trend troponin x 3, transfer to telemetry Sepsis 2/2 pneumonia, suspected UTI - improved on levofloxacin and flagyl - CT surgery consulted, input appreciated - BCx negative, UCx w/ contaminated - d/c abx in AM Anemia - gradual/chronic 2/2 esophageal Ca s/p 1U PRBC - trend CBC Elevated aPTT - holding lovenox 2/2 pleurX placement, will hold restart for 1 day for mixing study draw on 5. COPD - continue Duleraerica DMII - ISS while inpatient HTN - continue HCTZ and coreg ERNESTINE on CKD III - improved, trend BMP in AM Hyponatremia - resolved, trend BMP in AM DVT PPX - lovenox FULL CODE
[2017-02-03] MEDS: INSULIN ASPART 100 UNITS/ML 3 ML PEN SC SCH ×4 (10:20→21:25)
--- NOTE | 2017-02-03 12:31 | SURGERY PROGRESS NOTE ---
DATE: 02/03/2017 Mr. Tapia was seen today. Mr. Tapia has esophageal cancer and was treated with primary chemotherapy and radiation and now has developed a malignant right pleural effusion. A PleurX catheter had been planned at [facility]; however, the patient is too weak to go there from [place]. I looked at his x-ray and he does have some fluid on the right. He is on room air. He and his , both say he is really not very short of breath. She states when he does walk to the mailbox, he may become short of breath. I have told the patient and his that the PleurX catheter can be placed at any time. I said there is a small but definite risk with the PleurX catheter including infection, bleeding, but my biggest concern about him is the inconvenience and pain that it would cause. The fact that he is on room air, and is not really that short of breath, I would hold off putting the PleurX in at this time. I am going to have the nurses walk him today and if he becomes quite short of breath we will of course insert one. I had a very long discussion with the patient and his . We discussed his entire diagnosis and workup over the last year. We will see how he does over the next few days and we may insert one before he leaves or will do this as an outpatient. DALE
[2017-02-03] MEDS: ONDANSETRON INJ 2 MG/ML 2 ML VIAL IV PRN (13:26)
[2017-02-03] MEDS ORDERED: NURSING VERBAL MED ORDER ONE (15:00)
[2017-02-03] MEDS ORDERED: DILTIAZEM HCL 5 MG/ML 5 ML VIAL ONE (15:06)
[2017-02-03] MEDS: DILTIAZEM HCL INJ 125 MG in DEXTROSE 5% 100ML IV PRN ×4 (16:04→18:31)
[2017-02-03] MEDS ORDERED: ENOXAPARIN 40 MG/0.4 ML SYR SQ SCH (21:00)
[2017-02-04] VITALS (14 sets, daily range): BP systolic 85–113; BP diastolic 47–62; PULSE 81–121; TEMP 36.8–37; O2SAT 94–98
[2017-02-04] MEDS: DILTIAZEM HCL INJ 125 MG in DEXTROSE 5% 100ML IV PRN ×2 (03:15→06:33)
[2017-02-04] MEDS: METRONIDAZOLE / NSS 500 MG in PREMIXED NSS 100 ML IV SCH ×2 (05:43→15:28)
--- NOTE | 2017-02-04 07:38 | Family Medicine Progress Note ---
Progress Note Date of Service February 04, 2017. Subjective Pt evaluation today including: conversation w/ patient, conversation w/ family , physical exam, chart review, lab review Patient continues to feel well overnight. Energy levels remain good. Lightheadedness has improved at rest, but patient admits ongoing orthostatic symptoms upon sitting up quickly. Tolerating diet. Constitutional: No chills, No fever Respiratory: No cough, No shortness of breath, No wheezing Cardiovascular: No chest pain, No edema, No palpitations Abdomen: No nausea, No pain, No vomiting Male : No dysuria Objective Vital Signs Date Time Temp Pulse Resp B/P Pulse Ox O2 Delivery O2 Flow Rate FiO2 02/04/17 06:01 85 15 92/52 02/04/17 05:01 90 16 85/51 02/04/17 04:01 84 15 97/47 02/04/17 04:00 Room Air 02/04/17 03:20 37.0 81 19 96/53 94 Room Air 02/04/17 03:07 89 19 113/56 02/04/17 03:00 90 16 02/04/17 02:00 91 17 02/04/17 01:00 96 14 02/04/17 00:00 86 14 02/03/17 23:59 Room Air 02/03/17 23:31 118 20 94/48 93 Room Air 02/03/17 23:28 108 20 85/49 94 Room Air 02/03/17 23:26 37.3 107 19 89/61 94 Room Air 02/03/17 21:27 101 109/60 98 91/50 125 82/52 02/03/17 20:00 Room Air 02/03/17 19:53 37.2 96 14 91/52 94 Room Air 02/03/17 16:02 37.1 124 14 98/62 96 Room Air 02/03/17 16:00 96 Room Air 02/03/17 14:06 36.6 145 18 96 02/03/17 13:38 36.6 145 18 107/73 96 Room Air 02/03/17 08:00 Room Air Physical Exam General Appearance: WD/WN, no apparent distress ENT: pharynx normal Neck: supple, no adenopathy Respiratory/Chest: lungs clear, no respiratory distress, no accessory muscle use, + decreased breath sounds (R>L) Cardiovascular: no murmur, + tachycardia Abdomen: normal bowel sounds, non tender, soft Extremities: normal inspection, no pedal edema, no calf tenderness Neurologic/Psychiatric: alert, normal mood/affect, oriented x 3 Skin: normal color, warm/dry, no rash Laboratory Results Results Past 24 Hours Test 02/04/17 03:46 02/04/17 06:30 02/04/17 11:20 02/04/17 11:23 Range/Units Troponin I 0.021 0.020 0-0.045 ng/ml Bedside Glucose 176 323 70-99 mg/dl White Blood Count 7.18 4.8-10.8 K/uL Red Blood Count 3.55 4.7-6.1 M/uL Hemoglobin 9.9 14.0-18.0 g/dL Hematocrit 30.6 42-52 % Mean Corpuscular Volume 86.2 80-100 fL Mean Corpuscular Hemoglobin 27.9 25-34 pg Mean Corpuscular Hemoglobin Concent 32.4 32-36 g/dl RDW Standard Deviation 48.5 36.4-46.3 fL RDW Coefficient of Variation 15.2 11.5-14.5 % Platelet Count 237 130-400 K/uL Mean Platelet Volume 9.3 7.4-10.4 fL Sodium Level 135 136-145 mmol/L Potassium Level 3.9 3.5-5.1 mmol/L Chloride Level 98 98-107 mmol/L Carbon Dioxide Level 29 21-32 mmol/L Anion Gap 8.0 3-11 mmol/L Blood Urea Nitrogen 17 7-18 mg/dl Creatinine 1.30 0.60-1.40 mg/dl Est Creatinine Clear Calc Drug Dose 39.9 ml/min Estimated GFR () 59.7 Estimated GFR (Non- 51.5 BUN/Creatinine Ratio 13.1 10-20 Random Glucose 293 70-99 mg/dl Calcium Level 8.0 8.5-10.1 mg/dl Test 02/04/17 16:39 Range/Units Bedside Glucose 264 70-99 mg/dl Assessment and Plan 81M with a h/o esophageal carcinoma s/p chemo/radiotherapy but declined surgery and with right pleural effusion admitted with pneumonia. Sepsis 2/2 Pneumonia - well clinically. Blood Cultures negative. Urine Culture show mixed osman. Lactic Acid now WNL 1.7<--3,5. - Course of renaly doseed Levofloxacin and Flagyl completed A.Flutter - likely paroxysmal. Patient symptotic with lightheadedness. Rhythm confirmed with EKG, no STEMI. Transient improvement with carotid massage, transferred to telemetry. Troponin x 3 negative. Echo 02/03: Normal LV size with hyperdynamic systolic function. EF 65-70%. No regional wall motion abnormalities. Mild to moderate concentric LV hypertrophy. Left atrium is mildly dilated. Mild mitral regurgitation. Mild to moderate circumferential pericardial effusion without echocardiographic evidence of tamponade physiology. Normal estimated RV systolic pressure. - Cardizem bolus/drip by protocol converted to diltiazem IR 60mg QID. If tolerated well, can change to SR/ER with decreased frequency. - Discuss new indication for anticoagulation with Dr. Sanchez, and with heme/onc input, determine if benefits outweigh risks - Currently no anticoagulation on patient Pleural Effusions - Assume infectious vs malignant pleural effusion. Was tapped in [place] on 01/[address] Sims (cultures grew perez sensitive Coagulase Negative Staph) and the plan was to put in a PleurEx catheter on . Appointment missed due to admission. Cardiothoracic consulted - recommend holding off PleurX catheter as patient is asymptomatic Anemia - was hovering at ~7.4, asymptomatic, loss likely 2/2 to esophageal cancer. Baseline is 9-10.5. s/p 1unit pRBC 02/01, brought Hb upto 9.0. - Ferrous sulfate - Trend H/H - Dr. Sanchez, recommends transfusion of 2units pRBC before discharge to stabilize the patient - to confirm if this is still the case prior to discharge as H/H stable Elevated aPTT - Mixing study tonight after Lovenox effectively held for 48h Esophageal carcinoma - Follow up with oncology in 1-2 weeks - SundayFebruary 12 at 3:30pm. Hyponatremia - resolved - Trend BMP ERNESTINE on CKD III - resolved. Peaked Cr 1.7, now 1.1 - Trend BMP DMII- insulin ISS, hold metformin. 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 - continue Dulera HTN - HCTZ and carvedilol DVT prophylaxis -Lovenox stopped, SCDs Full Code, discussed with patient and twice and he still wants to be full code Continued [facility] stay due to: abnormal vital signs History Resident Physician Supervision Note: I was present with Dr. Iniguez during the history and exam. I discussed the case with the resident and agree with the findings and plan as documented in the note. Any exceptions or clarifications are listed here. Pt reports feeling no episodes of lightheadedness since resolution of tachycardia yesterday on IV diltiazem. He reports no WILL, vision/hearing changes , CP/SOB, palpitations, nausea/vomiting, hematochezia/melena General Appearance: WD/WN, no apparent distress Neck: non-tender, full range of motion, supple Respiratory: chest non-tender, no respiratory distress, decreased breath sounds (improved, R > L base) Cardiovascular: normal peripheral pulses, no edema, no murmur Gastrointestinal: normal bowel sounds, non tender, soft, no organomegaly Assessment/Plan 81 y/o male h/o metastatic esophageal carcinoma w/ effusion presented w/ sepsis 2/2 infection of the lung Atrial fibrillation/flutter - EKG reviewed - transition to PO cardizem 60mg q6 Sepsis 2/2 pneumonia, suspected UTI - BCx negative, UCx w/ contaminated - completed course of abx as of 3rd dose of levofloxacin for CAP, could continue for extended coverage Anemia - gradual/chronic 2/2 esophageal Ca s/p 1U PRBC - trend CBC Elevated aPTT - holding lovenox 2/2 persistent bleed from esophageal Ca - mixing study drawn COPD - continue erica Crystal DMII - ISS while inpatient HTN - continue HCTZ and coreg ERNESTINE on CKD III - improved, trend BMP in AM Hyponatremia - resolved, trend BMP in AM DVT PPX - lovenox FULL CODE Resident Tracking Resident Involvement: Resident Care Provided Care Provided: Adult Hospital Medicine
[2017-02-04] MEDS: DULERA - ORDER AWAITING ACTION SCH ×3 (08:00→23:47)
[2017-02-04] MEDS: POLYETHYLENE (MIRALAX) 17 GM PACK PO PRN (08:53)
[2017-02-04] MEDS: PANTOprazole SOD 40 MG TAB PO SCH (08:54)
[2017-02-04] MEDS: CARVEDILOL 6.25 MG TAB PO SCH ×2 (08:54→21:00)
[2017-02-04] MEDS: ASCORBIC ACID 500 MG TAB PO SCH (08:54)
[2017-02-04] MEDS: HYDROCHLOROTHIAZIDE 25 MG TAB PO SCH (08:55)
[2017-02-04] MEDS: FERROUS SULFATE 325 MG TAB PO SCH (08:55)
[2017-02-04] MEDS: CETIRIZINE HCL 10 MG TAB PO SCH (08:55)
[2017-02-04] MEDS: BOOST VANILLA PO SCH ×4 (08:56→14:00)
[2017-02-04] MEDS: INSULIN ASPART 100 UNITS/ML 3 ML PEN SC SCH ×4 (09:11→21:09)
--- NOTE | 2017-02-04 09:53 | SURGERY PROGRESS NOTE ---
DATE: 02/04/2017 SUBJECTIVE: Mr. Tapia was seen today. He is now in atrial fibrillation. I discussed this with Dr. Sorenson. He apparently does this with some regularity. He is now on heparin. At this point, he is still on room air with good saturations and I would hold off placing a PleurX catheter for the time being. DALE
[2017-02-04 11:28] LABS: HEMATOCRIT 30.6 % (42-52); MEAN CELL VOLUME 86.2 fL (80-100); MEAN CORPUSCULAR HEMOGLOBIN 27.9 pg (25-34); MEAN CORPUSCULAR HGB CONC 32.4 g/dl (32-36); MEAN PLATELET VOLUME 9.3 fL (7.4-10.4); PLATELET COUNT 237 K/uL (130-400); RED BLOOD COUNT 3.55 M/uL (4.7-6.1); WHITE BLOOD COUNT 7.18 K/uL (4.8-10.8)
[2017-02-04 11:56] LABS: BUN/CREATININE RATIO 13.1 (10-20); CREATININE 1.3 mg/dl (0.60-1.40); POTASSIUM 3.9 mmol/L (3.5-5.1)
--- NOTE | 2017-02-04 18:00 | ECHOCARDIOGRAM REPORT ---
*NOTICE TO RECEIVING REPUBLICAN AGENCY This information is strictly Confidential and protected under [place] law. [place] law prohibits you from making any further disclosure of this information unless further disclosure is expressly permitted by the written consent of the person to whom it pertains or is authorized by law. A general authorization for the release of medical or other information is not sufficient for this purpose. Hospital accepts no responsibility if the information is made available to any other person, INCLUDING THE PATIENT. Interpretation Summary * Name: ROSANNA MORAN Study Date: 02/04/2017 01:20 PM BP: 96/53 mmHg * Patient Location: C.2E\S\E210\S\1 HR: 81 * : 1935 (M/d/yyyy) Gender: Male Height: 67 in * Age: 81 yrs Ethnicity: CA Weight: 138 lb * Ordering Physician: Kitty Iniguez. * Referring Physician: Serjio Mandujano * Performed By: Renetta Wang * * Reason For Study: A-FLUTTER * BSA: 1.7 m2 * -- Conclusions -- * 1. Normal left ventricular size with hyperdynamic systolic function. EF 65-70%. No regional wall motion abnormalities. Mild to moderate concentric left ventricular hypertrophy. * 2. The left atrium is mildly dilated. * 3. There is mild mitral regurgitation. * 4. Mild to moderate circumferential pericardial effusion without echocardiographic evidence of tamponade physiology. * 5. Normal estimated right ventricular systolic pressure. * 6. No prior study available for comparison. Pericardial effusion was described on CT scan on 12/04/2016. Procedure Details * A complete two-dimensional transthoracic echocardiogram was performed (2D, M-mode, Doppler and color flow Doppler). Left Ventricle * Normal left ventricular size with hyperdynamic systolic function. EF 65-70%. No regional wall motion abnormalities. Mild to moderate concentric left ventricular hypertrophy. Right Ventricle * The right ventricle is normal in size and function. * The right ventricular systolic function is normal as assessed by tricuspid annular plane systolic excursion (TAPSE) (normal >1.5 cm). Atria * The left atrium is mildly dilated. * Right atrial size is normal. * There is no evidence of atrial septal defect, but resolution does not allow assessment for a patent foramen ovale. Mitral Valve * There is moderate mitral annular calcification. * There is no mitral valve stenosis. * There is mild mitral regurgitation. Tricuspid Valve * The tricuspid valve is not well visualized, but is grossly normal. * There is no tricuspid stenosis. * There is mild tricuspid regurgitation. Aortic Valve * The aortic valve is trileaflet. * No hemodynamically significant valvular aortic stenosis. * No aortic regurgitation is present. Pulmonic Valve * The pulmonary valve is inadequately visualized, but the Doppler data is adequate for interpretation. * There is no pulmonic valvular stenosis. * There is no significant pulmonary regurgitation. Great Vessels * The aortic root is normal size. * Ascending aorta of normal dimension Pericardium/Pleural * Mild to moderate circumferential pericardial effusion without echocardiographic evidence of tamponade physiology. Great Vessels * Normal inferior vena cava size and collapsability with sniff indicates a normal right atrial pressure of 3 mmHg MMode 2D Measurements and Calculations IVSd 1.4 cm IVSs 2.2 cm LVIDd 3.2 cm LVIDs 2.1 cm LVPWd 1.3 cm LVPWs 1.8 cm IVS/LVPW 1.0 FS 35.0 % EDV(Teich) 40.9 ml ESV(Teich) 14.0 ml EF(Teich) 65.7 % EDV(cubed) 32.7 ml ESV(cubed) 9.0 ml EF(cubed) 72.6 % % IVS thick 55.9 % % LVPW thick 34.2 % LV mass(C)d 146.9 grams LV mass(C)dI 85.1 grams/m\S\2 LV mass(C)s 177.0 grams LV mass(C)sI 102.5 grams/m\S\2 SV(Teich) 26.9 ml SI(Teich) 15.6 ml/m\S\2 SV(cubed) 23.7 ml SI(cubed) 13.7 ml/m\S\2 Ao root diam 3.1 cm Ao root area 7.8 cm\S\2 ACS 1.3 cm LA dimension 4.0 cm asc Aorta Diam 2.8 cm LA/Ao 1.3 LVOT diam 2.0 cm LVOT area 3.0 cm\S\2 LVAd ap4 18.1 cm\S\2 LVLd ap4 6.4 cm EDV(MOD-sp4) 44.0 ml EDV(sp4-el) 43.2 ml LVAs ap4 10.8 cm\S\2 LVLs ap4 5.9 cm ESV(MOD-sp4) 16.9 ml ESV(sp4-el) 16.6 ml EF(MOD-sp4) 61.6 % EF(sp4-el) 61.5 % LVAd ap2 18.6 cm\S\2 LVLd ap2 6.6 cm EDV(MOD-sp2) 43.8 ml EDV(sp2-el) 44.5 ml LVAs ap2 10.0 cm\S\2 LVLs ap2 6.0 cm ESV(MOD-sp2) 15.9 ml ESV(sp2-el) 14.2 ml EF(MOD-sp2) 63.7 % EF(sp2-el) 68.1 % LVLd %diff 2.9 % EDV(MOD-bp) 44.6 ml LVLs %diff 0.69 % ESV(MOD-bp) 16.3 ml EF(MOD-bp) 63.3 % SV(MOD-sp4) 27.1 ml SI(MOD-sp4) 15.7 ml/m\S\2 SV(MOD-sp2) 27.9 ml SI(MOD-sp2) 16.1 ml/m\S\2 SV(MOD-bp) 28.2 ml SI(MOD-bp) 16.3 ml/m\S\2 SV(sp4-el) 26.6 ml SI(sp4-el) 15.4 ml/m\S\2 SV(sp2-el) 30.3 ml SI(sp2-el) 17.5 ml/m\S\2 Doppler Measurements and Calculations MV E max marielena 166.1 cm/sec MV dec time 0.25 sec Ao V2 max 151.4 cm/sec Ao max PG 9.2 mmHg Ao max PG (full) 4.3 mmHg YASH(V,A) 2.2 cm\S\2 YASH(V,D) 2.2 cm\S\2 LV V1 max PG 4.9 mmHg LV V1 max 110.6 cm/sec TV E max marielena 72.9 cm/sec PA V2 max 79.3 cm/sec PA max PG 2.5 mmHg TR max marielena 241.7 cm/sec RVSP(TR) 26.4 mmHg RAP systole 3.0 mmHg
[2017-02-04] MEDS: LEVOFLOXACIN / D5W 750 MG in PREMIXED IN D5W 150 ML IV SCH (18:17)
[2017-02-04] MEDS: BOOST BREEZE NUTRITION DRINK 1 BOX PO SCH (18:17)
[2017-02-04] MEDS: DILTIAZEM HCL 60 MG TAB PO SCH ×2 (18:17→23:48)
[2017-02-04] MEDS ORDERED: ENOXAPARIN 40 MG/0.4 ML SYR SQ SCH (21:00)
[2017-02-05] VITALS (8 sets, daily range): BP systolic 88–107; BP diastolic 48–80; PULSE 80–141; TEMP 36.6–37.2; O2SAT 94–97
[2017-02-05] MEDS: DILTIAZEM HCL 60 MG TAB PO SCH ×2 (06:11→12:35)
[2017-02-05 06:26] LABS: HEMATOCRIT 31.5 % (42-52); MEAN CELL VOLUME 87.3 fL (80-100); MEAN CORPUSCULAR HEMOGLOBIN 28.8 pg (25-34); MEAN PLATELET VOLUME 9.8 fL (7.4-10.4); PLATELET COUNT 240 K/uL (130-400); RED BLOOD COUNT 3.61 M/uL (4.7-6.1); WHITE BLOOD COUNT 7.68 K/uL (4.8-10.8)
[2017-02-05 06:58] LABS: BUN/CREATININE RATIO 10.8 (10-20); CALCIUM 8.1 mg/dl (8.5-10.1); CREATININE 1.2 mg/dl (0.60-1.40)
[2017-02-05] MEDS: DULERA - ORDER AWAITING ACTION SCH ×3 (08:00→23:39)
[2017-02-05] MEDS: BOOST BREEZE NUTRITION DRINK 1 BOX PO SCH ×2 (08:03→18:00)
[2017-02-05] MEDS: HYDROCHLOROTHIAZIDE 25 MG TAB PO SCH (08:04)
[2017-02-05] MEDS: PANTOprazole SOD 40 MG TAB PO SCH (08:04)
[2017-02-05] MEDS: CARVEDILOL 6.25 MG TAB PO SCH (08:04)
[2017-02-05] MEDS: ASCORBIC ACID 500 MG TAB PO SCH (08:05)
[2017-02-05] MEDS: FERROUS SULFATE 325 MG TAB PO SCH (08:05)
[2017-02-05] MEDS: CETIRIZINE HCL 10 MG TAB PO SCH (08:05)
[2017-02-05] MEDS: POLYETHYLENE (MIRALAX) 17 GM PACK PO PRN (08:08)
[2017-02-05] MEDS: INSULIN ASPART 100 UNITS/ML 3 ML PEN SC SCH ×4 (08:16→21:26)
--- NOTE | 2017-02-05 16:47 | Family Medicine Progress Note ---
Progress Note Date of Service February 05, 2017. Subjective Pt evaluation today including: conversation w/ patient, conversation w/ family , physical exam Pain: none PO Intake: soft liquid diet Voiding: no voiding problems, no incontinence Patient with no acute events overnight Patient has gone into atrial fibrillation despite not being diagnosed with it before. It was decided not to anticoagulate the patient at the moment as the family said they want to keep the patient comfortable. He denies any difficulty swallowing, regurgitation, abdominal pain, nausea, vomiting, diarrhea, constipation, chest pain, palpitations, light headednss or shortness of breath Additional Comments: please see above for ROS Medications Current Inpatient Medications Medications (Trade) Dose Ordered Sig/Ángela Route Start Time Stop Time Status Last Admin Dose Admin Acetaminophen (Tylenol Tab) 650 mg Q4H PRN PO 01/31/17 20:15 03/02/17 20:14 02/03/17 02:30 650 MG Al Hydrox/Mg Hydrox/Simethicone (Maalox Max Susp) 15 ml Q4H PRN PO 01/31/17 20:15 03/02/17 20:14 Ondansetron HCl (Zofran Inj) 4 mg Q6H PRN IV 01/31/17 20:15 03/02/17 20:14 02/03/17 13:26 4 MG Polyethylene (Miralax Powder Packet) 17 gm DAILY PRN PO 01/31/17 20:15 03/02/17 20:14 02/05/17 08:08 17 GM Carvedilol (Coreg Tab) 6.25 mg BID PO 01/31/17 21:00 03/02/17 20:59 02/05/17 08:04 6.25 MG Cetirizine HCl (zyrTEC TAB) 10 mg QAM PO 02/01/17 09:00 03/03/17 08:59 02/05/17 08:05 10 MG Hydrochlorothiazide (Hydrochlorothiazide Tab) 12.5 mg QAM PO 02/01/17 09:00 03/03/17 08:59 02/05/17 08:04 12.5 MG Ascorbic Acid (Vitamin C Tab) 1,000 mg QAM PO 02/01/17 09:00 03/03/17 08:59 02/05/17 08:05 1,000 MG Ferrous Sulfate (Feosol Tab) 325 mg QAM PO 02/01/17 09:00 03/03/17 08:59 02/05/17 08:05 325 MG Miscellaneous Information (Order Awaiting Action) 1 ea QS N/A 02/01/17 00:00 03/03/17 00:00 Pantoprazole Sodium (Protonix Tab) 40 mg QAM PO 02/01/17 09:00 03/03/17 08:59 02/05/17 08:04 40 MG Insulin Aspart (novoLOG ASPART) SLIDING SCALE G... ACHS SC 01/31/17 21:00 03/02/17 20:59 Future hold 02/05/17 12:35 9 UNITS Glucose (Glucose 40% Gel) 15-30 GRAMS 15 GRAMS... UD PRN PO 01/31/17 21:00 03/02/17 20:59 Glucose (Glucose Chew Tab) 4-8 Tablets 4 Tabl... UD PRN PO 01/31/17 21:00 03/02/17 20:59 Dextrose (Dextrose 50% 50ML Syringe) 25-50ML OF 50% DW IV FOR... UD PRN IV 01/31/17 21:00 03/02/17 20:59 Glucagon (Glucagon Inj) 1 mg UD PRN SQ 01/31/17 21:00 03/02/17 20:59 Heparin Sodium (Porcine) (Heparin 100 Unit/ml 5ml Flush) 5 ml PRN PRN IV 02/02/17 07:45 03/04/17 07:44 02/03/17 08:04 5 ML Diltiazem HCl (Cardizem Tab) 60 mg Q6 PO 02/04/17 18:00 03/06/17 17:59 02/05/17 12:35 60 MG Enteral Nutritional Formula (Boost Breeze Nutritional Drink) 1 box [id number] PO 02/04/17 17:00 03/06/17 16:59 02/05/17 08:03 1 BOX Objective Vital Signs Date Time Temp Pulse Resp B/P Pulse Ox O2 Delivery O2 Flow Rate FiO2 02/05/17 15:10 36.6 80 18 90/48 96 Room Air 02/05/17 12:15 37.2 95 18 90/51 96 Room Air 02/05/17 12:00 Room Air 02/05/17 08:00 Room Air 02/05/17 07:59 36.7 116 14 90/63 94 Room Air 127 88/54 141 103/51 02/05/17 06:12 121 107/64 02/05/17 04:18 37.0 98 17 95/61 95 Room Air 02/05/17 04:00 Room Air 02/05/17 00:02 Room Air 02/04/17 23:49 36.9 121 19 108/62 98 Room Air 02/04/17 20:00 Room Air 02/04/17 19:25 36.8 93 20 88/48 97 Room Air Physical Exam General Appearance: WD/WN, no apparent distress Respiratory/Chest: lungs clear, no respiratory distress, no accessory muscle use, + decreased breath sounds Cardiovascular: no JVD, no murmur, + irregularly irregular Abdomen: normal bowel sounds, non tender, soft Extremities: normal range of motion, non-tender, no calf tenderness, normal capillary refill Neurologic/Psychiatric: alert, normal mood/affect, oriented x 3 Laboratory Results Results Past 24 Hours Test 02/04/17 16:39 02/04/17 21:06 02/05/17 06:00 02/05/17 06:24 Range/Units Bedside Glucose 264 282 218 70-99 mg/dl White Blood Count 7.68 4.8-10.8 K/uL Red Blood Count 3.61 4.7-6.1 M/uL Hemoglobin 10.4 14.0-18.0 g/dL Hematocrit 31.5 42-52 % Mean Corpuscular Volume 87.3 80-100 fL Mean Corpuscular Hemoglobin 28.8 25-34 pg Mean Corpuscular Hemoglobin Concent 33.0 32-36 g/dl RDW Standard Deviation 48.4 36.4-46.3 fL RDW Coefficient of Variation 15.1 11.5-14.5 % Platelet Count 240 130-400 K/uL Mean Platelet Volume 9.8 7.4-10.4 fL Sodium Level 136 136-145 mmol/L Potassium Level 4.0 3.5-5.1 mmol/L Chloride Level 99 98-107 mmol/L Carbon Dioxide Level 30 21-32 mmol/L Anion Gap 7.0 3-11 mmol/L Blood Urea Nitrogen 13 7-18 mg/dl Creatinine 1.20 0.60-1.40 mg/dl Est Creatinine Clear Calc Drug Dose 43.3 ml/min Estimated GFR () 65.8 Estimated GFR (Non- 56.8 BUN/Creatinine Ratio 10.8 10-20 Random Glucose 203 70-99 mg/dl Calcium Level 8.1 8.5-10.1 mg/dl Test 02/05/17 11:05 Range/Units Bedside Glucose 346 70-99 mg/dl Assessment and Plan 81M with a h/o esophageal carcinoma s/p chemo/radiotherapy with right pleural effusion admitted with pneumonia. Sepsis 2/2 Pneumonia - resolved, finished antibiotics - likely aspiration sec to esophageal ca. - swallowing eval for recurrent pneumonia A.Fib with RVR - echo showed ef 65-70%, moderate pericardial effusion - negative troponins - titrate medication to control HR. switch cardizem to metoprolol (50mgs bid) and d/c coreg and hctz since hypotensive. - discussed not to do anticoagulation due to current prognosis Pleural Effusions - Proven to be malignant, can also have infectious eitology - Dr. Radford consulted and decided to not to due pleurex catheter for now Anemia - hgb 10.4 Esophageal carcinoma - Follow up with oncology in 1-2 weeks - SundayFebruary 12 at 3:30pm. - haem/onc consult Hyponatremia - resolved - Trend BMP ERNESTINE on CKD III - resolved. - Trend BMP DMII - insulin ISS, hold metformin. 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 does coughs after having meals - only takes liquid/pureed meals Constitutional: denies: fever Respiratory: negative: short of breath Cardiovascular: denies chest pain Gastrointestinal/Abdominal: negative: abdominal pain General Appearance: no apparent distress Respiratory: lungs clear, no respiratory distress Cardiovascular: irregularly irregular Neurologic/Psychiatric: alert, oriented x 3 Skin Characteristics: warm/dry Assessment/Plan I have reviewed the medical record and performed a history and physical examination of this patient today. I have discussed the case with Dr. Cline. The above note reflects my findings, conclusions, and recommendations.
[2017-02-05] MEDS ORDERED: METOPROLOL TARTRATE 25 MG TAB PO SCH (18:00)
[2017-02-05] MEDS ORDERED: METOPROLOL SUCC 50MG EXT REL TAB PO SCH (21:00)
[2017-02-06] VITALS (9 sets, daily range): BP systolic 88–130; BP diastolic 50–67; PULSE 92–134; TEMP 36.5–37.2; O2SAT 91–99; BMI 21.5
[2017-02-06] MEDS ORDERED: METOPROLOL TARTRATE 25 MG TAB PO ONE (04:32)
[2017-02-06 06:42] LABS: MEAN CELL VOLUME 87.5 fL (80-100); MEAN CORPUSCULAR HEMOGLOBIN 27.3 pg (25-34); MEAN CORPUSCULAR HGB CONC 31.1 g/dl (32-36); MEAN PLATELET VOLUME 9.7 fL (7.4-10.4); PLATELET COUNT 260 K/uL (130-400); WHITE BLOOD COUNT 9.31 K/uL (4.8-10.8)
[2017-02-06 07:18] LABS: BUN/CREATININE RATIO 10.4 (10-20); CALCIUM 8.2 mg/dl (8.5-10.1); CREATININE 1.2 mg/dl (0.60-1.40); POTASSIUM 3.9 mmol/L (3.5-5.1)
[2017-02-06] MEDS: DULERA - ORDER AWAITING ACTION SCH ×2 (08:00→22:13)
[2017-02-06] MEDS: METOPROLOL TARTRATE 50 MG TAB PO SCH ×3 (08:14→20:47)
[2017-02-06] MEDS: ASCORBIC ACID 500 MG TAB PO SCH (08:15)
[2017-02-06] MEDS: CETIRIZINE HCL 10 MG TAB PO SCH (08:16)
[2017-02-06] MEDS: FERROUS SULFATE 325 MG TAB PO SCH (08:16)
[2017-02-06] MEDS: PANTOprazole SOD 40 MG TAB PO SCH (08:17)
[2017-02-06] MEDS: INSULIN ASPART 100 UNITS/ML 3 ML PEN SC SCH ×4 (08:23→20:46)
[2017-02-06] MEDS: BOOST BREEZE NUTRITION DRINK 1 BOX PO SCH ×2 (08:24→16:45)
--- NOTE | 2017-02-06 08:54 | ONCOLOGY CONSULTATION ---
DATE OF CONSULTATION: 02/06/2017 REASON FOR CONSULTATION: Metastatic esophageal cancer. HISTORY OF PRESENT ILLNESS: Gerardo is a pleasant, but unfortunate 81-year-old gentleman with a well known history of esophageal carcinoma, previously treated with combined modality chemoradiation. Apparently, he was admitted on January 31 after he complained of progressive weakness and general decline. On the day of admission, his weakness had gotten to the point, where he had been virtually unable to get out of bed and actually fell. He was brought to the Emergency Room and found to have an elevated WBC count and x-ray suggested ongoing pneumonia and pleural effusion. Mr. Tapia had recently reconsulted with thoracic surgery at the [facility] and was diagnosed with a right pleural effusion. Cytology confirmed the presence of metastatic disease. He underwent a simple thoracentesis there and on readmission to [facility], was being considered for a PleurX catheter. Unfortunately, he developed atrial fibrillation and Dr. Radford of thoracic surgery decided to abort a procedure until he is medically stable. Mr. Tapia is well known to [facility] and diagnosed with esophageal cancer back in March of 2017. For the most part, he was asymptomatic, particularly no significant dysphagia, weight loss or anorexia. Nonetheless, EGD and biopsy confirmed the diagnosis. The patient was radiographically staged and it was decided to proceed with chemoradiation. He received weekly carboplatin and paclitaxel, which was poorly tolerated manifested by cytopenias, generalized weakness and anorexia. Now unfortunately, his disease has progressed and now, he needs to decide whether to consider salvage chemotherapy versus supportive care. There are ongoing discussions with the primary medical team and his family. I have briefly talked to Gerardo this morning and it would appear that he is considering palliation at this point. PAST MEDICAL HISTORY: Significant for adenocarcinoma of the esophagus, gout, prostate cancer, colon cancer, anxiety, asthma, and chronic anemia. PAST SURGICAL HISTORY: Includes hernia repair, colonoscopy in 1999, partial colectomy in 1998, and prostatectomy for prostate cancer. MEDICATIONS: Prior to admission include carvedilol 1 tablet p.o. b.i.d., Zyrtec 10 mg p.o. q. daily, ferrous sulfate 325 mg p.o. q. daily, hydrochlorothiazide 12.5 mg p.o. q.a.m., metformin 1000 mg p.o. b.i.d., omeprazole 20 mg p.o. q. daily, Dulera 200/5 mcg 2 puffs inhaled b.i.d. and vitamin C, dose unknown daily. ALLERGIES: BANANAS. SOCIAL HISTORY: Retired from [employer], , nonsmoker, and nondrinker. FAMILY HISTORY: Positive for cancer, diabetes mellitus, hypertension, heart disease and pulmonary disease. REVIEW OF SYSTEMS: As per HPI, most notably for anorexia and ongoing weight loss. GENERAL: Performance status declined. SKIN: No rashes or lesions. No history of dermatoses. HEENT: Denies headaches, lightheadedness or dizziness. No visual or hearing deficits. No sinus symptoms, sore throat or dysphagia. LYMPHATICS: No history of lymphadenopathy. CARDIAC: Recently developed atrial fibrillation. No cardiac history otherwise. No current angina. PULMONARY: Positive for right pleural effusion (malignant). He is not short of breath, dyspneic or orthopneic. GASTROINTESTINAL: Negative for abdominal pain, nausea, vomiting, diarrhea or constipation, hematochezia or melenic stools. GENITOURINARY: Positive history of prostate cancer. No current hematuria, dysuria, or urinary incontinence. PSYCHIATRIC: Positive for anxiety by history. ENDOCRINE: Positive for diabetes mellitus by history. MUSCULOSKELETAL: No arthralgias or myalgias. No muscle weakness. NEUROLOGIC: Negative for seizure, stroke, or migraine headache. HEMATOLOGIC: Chronic anemia. PHYSICAL EXAMINATION: GENERAL: He is a cachectic-appearing 81-year-old gentleman, in no acute distress. VITAL SIGNS: Temperature 36.8, pulse 117, respirations 18, and blood pressure 90/50. SKIN: Warm, dry, and noncyanotic without petechia, rash or ecchymosis. HEENT: Atraumatic and normocephalic. Eyes, PERRLA, EOMI. Sclerae nonicteric. No conjunctival injection. Nares patent without rhinorrhea or discharge. Throat is clear. Tongue is midline. Mucous membranes are moist. NECK: Supple without JVD or thyromegaly. LYMPHATICS: No cervical, supraclavicular, or axillary palpable nodes. HEART: Irregularly irregular. LUNGS: Slightly diminished breath sounds in the right posterior base. Otherwise clear. No rales or rhonchi appreciated. ABDOMEN: Soft, nontender, and nondistended without palpable hepatosplenomegaly. EXTREMITIES: No calf tenderness or swelling. No clubbing, cyanosis or edema. NEUROLOGICALLY: He is awake, alert and oriented x3. Cranial nerves II-XII are intact. No gross motor or sensory deficits noted. LABORATORY DATA: WBC count 9310, hemoglobin 10.9, and platelet count 260,000. Sodium 137, potassium 3.9, chloride 101, carbon dioxide 28, BUN 13, and creatinine 1.2. RADIOGRAPHIC DATA: Chest x-ray performed on February 03. Again, cardiomegaly without evidence of congestive failure, right larger than left pleural effusions and associated bibasilar consolidation. IMPRESSION: 1. Malignant right pleural effusion with a superimposed pneumonia. 2. Metastatic esophageal cancer. 3. Declining performance status. 4. Diabetes mellitus. 5. Atrial fibrillation. PLAN: Gerardo is a pleasant 81-year-old gentleman, well known to [facility], had recently completed chemoradiation for distal esophageal carcinoma. Unfortunately, during the course of treatment, encountered significant toxicities, necessitating dose modification and sometimes delay. I had sent him back down to visit with Dr. Sims to [facility] and unfortunately, he had developed a right pleural effusion, which was confirmed to be malignant. Surgery is no longer a viable option for Gerardo. He is currently consulting with the primary medical team and obviously myself to decide if he wishes to pursue salvage chemotherapy versus palliation. Dr. Radford of thoracic surgery had suggested a PleurX catheter placement, but unfortunately with atrial fibrillation and the prospect of anticoagulation, felt it was not a viable option at present. Gerardo' and family were not in the room and I will converse with the entire family to make sure there is established unity in how to proceed with the patient's care. I have nothing further to add at this time. I will continue to follow Gerardo during his hospital stay. Thank you very much for allowing me to participate in his care. If you have questions and/or concerns, feel free to contact me at any time. DALE
[2017-02-06] MEDS ORDERED: METOPROLOL TARTRATE 25 MG TAB PO SCH (09:00)
[2017-02-06] MEDS ORDERED: DIGOXIN 0.25 MG TAB PO ONE (09:30)
--- NOTE | 2017-02-06 11:20 | SURGERY PROGRESS NOTE ---
DATE: 02/06/2017 Mr. Tapia still in atrial fibrillation. He is still on anticoagulation. He is still on room air with good saturations. He is also having some dysphagia, although he states he is a little better today. I discussed this with Dr. Mccarty. I have explained that we could place a PleurX catheter; however, I do not think it is going to help him much. We are seeking to support this patient symptomatically. In addition, he has had some stenosis of his esophagus at the GE junction. We could also place a stent across this if necessary. However, I do not think either one of these are necessary currently. If he is discharged, I will see him back in the office in a week or so with an x-ray and we will discuss this in more detail. At this point, I will follow up on both of these since I do think his symptoms warrant an immediate intervention. DALE
--- NOTE | 2017-02-06 15:48 | Family Medicine Progress Note ---
Progress Note Date of Service February 06, 2017. Subjective Pt evaluation today including: conversation w/ patient, physical exam, chart review, lab review, conversation w/ senior product consultant, review of inpatient medication list Pain: none PO Intake: liquid diet Voiding: no voiding problems, no incontinence Patient with no acute events overnight. Patient denies any chest pain, palpitations, nausea, vomiting, fevers, night sweats, chills, abdominal pain, diarrhea, constipation, Patient spoke to oncology this morning to discuss further management. There was going to be a discussion with regards to salvage chemotherapy vs palliative measures. Additional Comments: Please see above note for ROS Medications Current Inpatient Medications Medications (Trade) Dose Ordered Sig/Ángela Route Start Time Stop Time Status Last Admin Dose Admin Acetaminophen (Tylenol Tab) 650 mg Q4H PRN PO 01/31/17 20:15 03/02/17 20:14 02/03/17 02:30 650 MG Al Hydrox/Mg Hydrox/Simethicone (Maalox Max Susp) 15 ml Q4H PRN PO 01/31/17 20:15 03/02/17 20:14 Ondansetron HCl (Zofran Inj) 4 mg Q6H PRN IV 01/31/17 20:15 03/02/17 20:14 02/03/17 13:26 4 MG Polyethylene (Miralax Powder Packet) 17 gm DAILY PRN PO 01/31/17 20:15 03/02/17 20:14 02/05/17 08:08 17 GM Cetirizine HCl (zyrTEC TAB) 10 mg QAM PO 02/01/17 09:00 03/03/17 08:59 02/06/17 08:16 10 MG Ascorbic Acid (Vitamin C Tab) 1,000 mg QAM PO 02/01/17 09:00 03/03/17 08:59 02/06/17 08:15 1,000 MG Ferrous Sulfate (Feosol Tab) 325 mg QAM PO 02/01/17 09:00 03/03/17 08:59 02/06/17 08:16 325 MG Miscellaneous Information (Order Awaiting Action) 1 ea QS N/A 02/01/17 00:00 03/03/17 00:00 Pantoprazole Sodium (Protonix Tab) 40 mg QAM PO 02/01/17 09:00 03/03/17 08:59 02/06/17 08:17 40 MG Insulin Aspart (novoLOG ASPART) SLIDING SCALE G... ACHS SC 01/31/17 21:00 03/02/17 20:59 Future hold 02/06/17 15:27 10 UNITS Glucose (Glucose 40% Gel) 15-30 GRAMS 15 GRAMS... UD PRN PO 01/31/17 21:00 03/02/17 20:59 Glucose (Glucose Chew Tab) 4-8 Tablets 4 Tabl... UD PRN PO 01/31/17 21:00 03/02/17 20:59 Dextrose (Dextrose 50% 50ML Syringe) 25-50ML OF 50% DW IV FOR... UD PRN IV 01/31/17 21:00 03/02/17 20:59 Glucagon (Glucagon Inj) 1 mg UD PRN SQ 01/31/17 21:00 03/02/17 20:59 Heparin Sodium (Porcine) (Heparin 100 Unit/ml 5ml Flush) 5 ml PRN PRN IV 02/02/17 07:45 03/04/17 07:44 02/03/17 08:04 5 ML Metoprolol Tartrate (Lopressor Tab) 50 mg BID PO 02/06/17 09:00 03/08/17 08:59 Enteral Nutritional Formula (Boost Breeze Nutritional Drink) 1 box BIDM PO 02/06/17 16:45 03/08/17 16:44 Objective Vital Signs Date Time Temp Pulse Resp B/P Pulse Ox O2 Delivery O2 Flow Rate FiO2 02/06/17 15:06 Room Air 02/06/17 12:00 Room Air 02/06/17 11:29 36.8 106 20 100/64 97 Room Air 02/06/17 09:28 114 02/06/17 08:00 Room Air 02/06/17 07:29 36.8 117 18 90/50 94 Room Air 02/06/17 04:18 Room Air 02/06/17 03:47 36.5 124 14 89/55 95 Room Air 02/06/17 02:13 Room Air 02/06/17 00:19 37.0 117 20 109/60 97 Room Air 02/05/17 21:00 Room Air 02/05/17 19:36 106 18 98/59 02/05/17 19:34 103 16 95/80 5/29/17 19:31 36.7 102 16 90/54 97 Room Air 02/05/17 16:00 Room Air Physical Exam Notes: General Appearance: WD/WN, no apparent distress, cachetic in appearance Respiratory/Chest: lungs clear, no respiratory distress, no accessory muscle use, + decreased breath sounds Cardiovascular: no JVD, no murmur, + irregularly irregular Abdomen: normal bowel sounds, non tender, soft Extremities: normal range of motion, non-tender, no calf tenderness, normal capillary refill Neurologic/Psychiatric: alert, normal mood/affect, oriented x 3 Laboratory Results Results Past 24 Hours Test 02/05/17 16:32 02/05/17 20:45 02/06/17 06:15 02/06/17 06:43 Range/Units Bedside Glucose 226 178 213 70-99 mg/dl White Blood Count 9.31 4.8-10.8 K/uL Red Blood Count 4.00 4.7-6.1 M/uL Hemoglobin 10.9 14.0-18.0 g/dL Hematocrit 35.0 42-52 % Mean Corpuscular Volume 87.5 80-100 fL Mean Corpuscular Hemoglobin 27.3 25-34 pg Mean Corpuscular Hemoglobin Concent 31.1 32-36 g/dl RDW Standard Deviation 48.6 36.4-46.3 fL RDW Coefficient of Variation 15.2 11.5-14.5 % Platelet Count 260 130-400 K/uL Mean Platelet Volume 9.7 7.4-10.4 fL Sodium Level 137 136-145 mmol/L Potassium Level 3.9 3.5-5.1 mmol/L Chloride Level 101 98-107 mmol/L Carbon Dioxide Level 28 21-32 mmol/L Anion Gap 8.0 3-11 mmol/L Blood Urea Nitrogen 13 7-18 mg/dl Creatinine 1.20 0.60-1.40 mg/dl Est Creatinine Clear Calc Drug Dose 43.3 ml/min Estimated GFR () 65.8 Estimated GFR (Non- 56.8 BUN/Creatinine Ratio 10.4 10-20 Random Glucose 216 70-99 mg/dl Calcium Level 8.2 8.5-10.1 mg/dl Test 02/06/17 11:27 Range/Units Bedside Glucose 385 70-99 mg/dl Assessment and Plan 81M with a h/o esophageal carcinoma s/p chemo/radiotherapy with right pleural effusion admitted with pneumonia. A.Fib with RVR - echo showed ef 65-70%, - negative troponins - titrate medication to control HR. started .25 digoxin. d/c coreg and hctz since hypotensive. - cardiology consulted to help with HR management - discussed not to do anticoagulation due to current prognosis Esophageal carcinoma - Follow up with oncology in 1-2 weeks - SundayFebruary 12 at 3:30pm. - haem/onc consult - seen by Dr. Sanchez, conversation with regards to salvage chemo vs palliative measures - palliative care consult ordered - Diet- soft liquid diet, boost and ensure for supplementation Sepsis 2/2 Pneumonia - resolved, finished antibiotics - likely aspiration sec to esophageal ca. 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 Radford consulted and decided to not to due pleurex catheter for now, will follow as outpatient Moderate pericardial effusion - ? sec to malignancy. Follow Anemia - hgb 10.9 Hyponatremia - resolved - Trend BMP ERNESTINE on CKD III - resolved. - Trend BMP DMII - insulin ISS, hold metformin. 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 - continue Dulera HTN - now hypotensive - lopressor to help with HR control DVT prophylaxis -Lovenox stopped, SCDs DNR Continued [facility] stay due to: ambulation difficulties Reviewed: Pt Seen/Exam by Me History denies any new complains tolerating liquid diet well able to move in the room Constitutional: denies: fever Respiratory: negative: short of breath Cardiovascular: denies chest pain General Appearance: no apparent distress Respiratory: no respiratory distress, decreased breath sounds Cardiovascular: irregularly irregular Gastrointestinal: soft Neurologic/Psychiatric: alert, oriented x 3 Skin Characteristics: warm/dry Assessment/Plan I have reviewed the medical record and performed a history and physical examination of this patient today. I have discussed the case with Dr. Cline. The above note reflects my findings, conclusions, and recommendations.
--- NOTE | 2017-02-06 16:48 | CARDIOLOGY CONSULTATION ---
DATE OF CONSULTATION: 02/06/2017 PERTINENT HISTORY: Mr. Tapia is an 81-year-old white male admitted on the 31 of January with pneumonia and the sepsis syndrome. The patient developed atrial fibrillation on February 03. This consultation was ordered to assist in his cardiac management. The patient has a complex past medical history. He was diagnosed with esophageal carcinoma in March 2016. He underwent chemotherapy and radiation therapy through the fall months of 2015. The patient had a followup in [place] which included a thoracentesis for a pleural effusion. Unfortunately, he was found to have metastatic adenocarcinoma in his cytology. This made his esophageal carcinomas nonresectable. The patient presented here with several weeks of failure to thrive, fatigue, and difficulty in ambulation. Plans were made to place a PleurX catheter during his hospitalization; however, he developed atrial fibrillation with rapid ventricular response on the planned procedure day. The PleurX catheter procedure was then placed on hold. Adjustments have been maintained in his beta-avni and he has received 1 dose of digoxin. Ventricular response is now less than 100. Of note, the patient is completely asymptomatic, denying palpitations. The management of atrial fibrillation was discussed in detail with the patient and his family. Dr. Mccarty has explained to me that she has had a discussion with the family and they opted to avoid long-term anticoagulation therapy due to his high risk of bleeding. Currently, the patient is resting comfortably without complaints. Just finished ambulating in the hallways without difficulty. PAST MEDICAL HISTORY: 1. Hypertension. 2. Paroxysmal atrial fibrillation -- January 2017. 3. Diabetes mellitus. 4. COPD. 5. Chronic renal failure. 6. Esophageal carcinoma -- March 2016. 7. Metastatic esophageal carcinoma -- December 2016. 8. Anemia of chronic disease. 9. A-port left subclavian vein. 10. History of colon carcinoma. 11. History of prostate carcinoma. 12. Partial colectomy -- 1999. 13. Prostatectomy -- 1999. ALLERGIES: BANANAS. MEDICATIONS: 1. Lopressor 50 mg b.i.d. 2. Protonix 40 mg per day. 3. Vitamin C 1000 mg daily. 4. Zyrtec 10 mg per day. SOCIAL HISTORY: The patient is and lives with his . Does not use tobacco or alcohol. FAMILY HISTORY: No early coronary artery disease. PHYSICAL EXAMINATION: GENERAL: This is a thin male lying in bed without complaints. VITAL SIGNS: Blood pressure is 100/64 with an irregular pulse of 90-100. Respiratory rate is 20. The patient is afebrile at 36.8 degrees Celsius. Saturation is 97% on room air. HEENT: Negative. NECK: Supple with full carotid upstrokes. There are no carotid bruits. Jugular venous pressure is flat at 90 degrees. There is no thyromegaly. CARDIOVASCULAR: Reveals a regular, regular rhythm with distant heart sounds. No obvious murmurs. No S3. LUNGS: Note decreased breath sounds at the bases, but no rales. ABDOMEN: Benign without bruits. EXTREMITIES: Reveal intact radial artery and posterior tibial pulses bilaterally. There is no peripheral edema. DATA: CBC notes hemoglobin 10.9, hematocrit 35.0, white count 9.3, platelet count 260,000. Electrolytes note a sodium of 137, potassium 3.9, chloride 101, bicarb 28, BUN 13, creatinine 1.2, glucose 216. Troponin at time of admission was less than 0.015. Troponins after development of atrial fibrillation were normal at 0.04, 0.021 and 0.02. Magnesium level is normal at 2.3. EKG on presentation had sinus tachycardia and a possible old inferior myocardial infarction. Follow up EKGs have noted atrial fibrillation with a rapid ventricular response and low voltage. This has been confirmed on telemetry. Echocardiogram notes normal left ventricular systolic function with an ejection fraction of 65%-70%. There was mild to moderate left ventricular hypertrophy and a mild to moderate size circumferential pericardial effusion. Mild mitral regurgitation was also seen. Chest x-ray notes cardiomegaly with bibasilar consolidation and pleural effusions, right greater than left. IMPRESSION: The patient's ventricular response to atrial fibrillation is now better controlled on metoprolol tartrate. It may be reasonable to consider a renally adjusted digoxin dose at 0.125 mg every other day to help better control ventricular response. As above, I have discussed long-term anticoagulation with the patient, family and Dr. Mccarty. The family has opted against anticoagulation due to elevated bleeding risks. The possibility of a malignant pericardial effusion is entertained. I would not proceed with a pericardiocentesis at this time realizing the change in his code status, and the decision to follow conservative care. PLAN: 1. Continue current medications. 2. Consider addition of low dose digoxin. 3. I agree with holding long-term anticoagulation. 4. Further recommendations depending on his clinical course.
[2017-02-07] VITALS (8 sets, daily range): BP systolic 74–113; BP diastolic 48–66; PULSE 85–169; TEMP 36.6–37; O2SAT 95–99; Ht 170.2 cm; Wt 62.2 kg
[2017-02-07] MEDS ORDERED: COUGH DROP (SUGAR FREE) LOZ 24 LOZ/1 BOX PO PRN (02:15)
[2017-02-07] MEDS ORDERED: NURSING DECISION MEDICATION ORDER SCH (02:15)
[2017-02-07 05:47] LABS: BASO % 0.2 %; BASO ABS # 0.02 K/uL (0-0.2); COMPLETE YES; EOS % 1.9 %; HEMATOCRIT 33.9 % (42-52); IG% 0.5 %; LYMPH % 8.8 %; LYMPH ABS # 0.77 K/uL (1.2-3.4); MEAN CELL VOLUME 88.1 fL (80-100); MEAN CORPUSCULAR HEMOGLOBIN 28.1 pg (25-34); MEAN CORPUSCULAR HGB CONC 31.9 g/dl (32-36); MEAN PLATELET VOLUME 9.8 fL (7.4-10.4); MONO % 9.6 %; PLATELET COUNT 252 K/uL (130-400); RED BLOOD COUNT 3.85 M/uL (4.7-6.1); WHITE BLOOD COUNT 8.73 K/uL (4.8-10.8)
[2017-02-07 06:19] LABS: BUN/CREATININE RATIO 10.2 (10-20); CALCIUM 8.4 mg/dl (8.5-10.1); CREATININE 1.3 mg/dl (0.60-1.40); POTASSIUM 4.4 mmol/L (3.5-5.1)
[2017-02-07] MEDS: BOOST BREEZE NUTRITION DRINK 1 BOX PO SCH ×2 (07:30→16:13)
[2017-02-07] MEDS: DULERA - ORDER AWAITING ACTION SCH ×3 (08:00→23:59)
[2017-02-07] MEDS: PANTOprazole SOD 40 MG TAB PO SCH (08:50)
[2017-02-07] MEDS: ASCORBIC ACID 500 MG TAB PO SCH (08:50)
[2017-02-07] MEDS: CETIRIZINE HCL 10 MG TAB PO SCH (08:50)
[2017-02-07] MEDS: FERROUS SULFATE 325 MG TAB PO SCH (08:50)
[2017-02-07] MEDS: INSULIN ASPART 100 UNITS/ML 3 ML PEN SC SCH ×4 (08:53→20:23)
[2017-02-07] MEDS: METOPROLOL TARTRATE 50 MG TAB PO SCH (08:54)
--- NOTE | 2017-02-07 09:20 | HEME/ONC PROGRESS NOTE ---
DATE: 02/07/2017 DIAGNOSES: 1. Metastatic esophageal cancer. 2. Right pleural effusion. 3. Atrial fibrillation. HOSPITAL COURSE: Gerardo is a pleasant, but unfortunate 81-year-old gentleman with well-known history of esophageal carcinoma, previously treated with combined modality chemoradiation. He was admitted approximately 1 week ago with progressive weakness and general decline. He underwent thoracentesis previously confirming the presence of metastatic disease. Gerardo recently developed increased ventricular rate consistent with atrial fibrillation. He is being treated conservatively. Cardiology recommends medical management without anticoagulation. Gerardo informed me, he will meet with case management today to discuss outpatient palliative care. He offers no complaints of pain or discomfort otherwise. PHYSICAL EXAMINATION: GENERAL: He is in no acute distress. VITAL SIGNS: Temperature 36.7, pulse 105, respirations 18, blood pressure 113/66. SKIN: Without rash or lesion. HEENT: Oral mucosa without erythema or ulceration. NECK: Supple. HEART: Irregularly irregular. LUNGS: Clear to auscultation. ABDOMEN: Soft, nontender, nondistended. EXTREMITIES: No clubbing, cyanosis or edema. NEUROLOGIC: Focally intact. LABORATORY DATA: WBC count 87 30, hemoglobin 10.8, platelet count 252,000. Sodium 138, potassium 4.4, chloride 102, carbon dioxide 31, creatinine 1.30, BUN 13. IMPRESSION: 1. Malignant right pleural effusion with superimposed pneumonia. 2. Metastatic esophageal cancer. 3. Declining performance status. 4. Diabetes mellitus. 5. Atrial fibrillation. PLAN: Gerardo is a pleasant 81-year-old gentleman well-known to my service, recently diagnosed with metastatic esophageal cancer. He recently developed atrial fibrillation and is being managed medically. I agree with this approach considering his desire to proceed with palliation. Gerardo and family members will meet with case management today to discuss outpatient hospice services. From my perspective, I do not disagree with his decision and offered what I described as a pain and nutritional assessment each month until he succumbs from his disease. We will make the arrangements for outpatient followup as appropriate. Thank you again for allowing me to participate in his care.
[2017-02-07] MEDS: ALUMINUM/MAGNESIUM/SIMETH (MAALOX MAX) 30 ML UDC PO PRN (12:04)
[2017-02-07] MEDS: ACETAMINOPHEN 325 MG TAB PO PRN (12:04)
--- NOTE | 2017-02-07 12:08 | Family Medicine Progress Note ---
Progress Note Date of Service February 07, 2017. Subjective Pt evaluation today including: conversation w/ patient, physical exam, chart review, conversation w/ area development consultant, review of inpatient medication list Pain: none PO Intake: liquid diet Voiding: no voiding problems, no incontinence Patient with no acute events overnight Was seen by oncology yesterday and it was decided to treat the patient conservatively with comfort measures. Patient is going to meet with case management and palliative care this afternoon to discuss the next step in management. Sounds like the family wants to go to a SNF before going home for hospice as they want to try to increase his strength. Patient was also seen by Dr. Aden who suggested continuing metoprolol and adding digoxin on an every other day basis. Patient did have one episode of vomiting yesterday that was non bilious and non bloody he denies any fevers, night sweats, chills, difficulty swallowing, dysphagia, abdominal pain, nausea, diarrhea, constipation or excessive fatigue Additional Comments: please see above note for ROS Medications Current Inpatient Medications Medications (Trade) Dose Ordered Sig/Ángela Route Start Time Stop Time Status Last Admin Dose Admin Acetaminophen (Tylenol Tab) 650 mg Q4H PRN PO 01/31/17 20:15 03/02/17 20:14 02/03/17 02:30 650 MG Al Hydrox/Mg Hydrox/Simethicone (Maalox Max Susp) 15 ml Q4H PRN PO 01/31/17 20:15 03/02/17 20:14 Ondansetron HCl (Zofran Inj) 4 mg Q6H PRN IV 01/31/17 20:15 03/02/17 20:14 02/03/17 13:26 4 MG Polyethylene (Miralax Powder Packet) 17 gm DAILY PRN PO 01/31/17 20:15 03/02/17 20:14 02/05/17 08:08 17 GM Cetirizine HCl (zyrTEC TAB) 10 mg QAM PO 02/01/17 09:00 03/03/17 08:59 02/07/17 08:50 10 MG Ascorbic Acid (Vitamin C Tab) 1,000 mg QAM PO 02/01/17 09:00 03/03/17 08:59 02/07/17 08:50 1,000 MG Ferrous Sulfate (Feosol Tab) 325 mg QAM PO 02/01/17 09:00 03/03/17 08:59 02/07/17 08:50 325 MG Miscellaneous Information (Order Awaiting Action) 1 ea QS N/A 02/01/17 00:00 03/03/17 00:00 Pantoprazole Sodium (Protonix Tab) 40 mg QAM PO 02/01/17 09:00 03/03/17 08:59 02/07/17 08:50 40 MG Insulin Aspart (novoLOG ASPART) SLIDING SCALE G... ACHS SC 01/31/17 21:00 03/02/17 20:59 Future hold 02/07/17 08:53 4 UNITS Glucose (Glucose 40% Gel) 15-30 GRAMS 15 GRAMS... UD PRN PO 01/31/17 21:00 03/02/17 20:59 Glucose (Glucose Chew Tab) 4-8 Tablets 4 Tabl... UD PRN PO 01/31/17 21:00 03/02/17 20:59 Dextrose (Dextrose 50% 50ML Syringe) 25-50ML OF 50% DW IV FOR... UD PRN IV 01/31/17 21:00 03/02/17 20:59 Glucagon (Glucagon Inj) 1 mg UD PRN SQ 01/31/17 21:00 03/02/17 20:59 Heparin Sodium (Porcine) (Heparin 100 Unit/ml 5ml Flush) 5 ml PRN PRN IV 02/02/17 07:45 03/04/17 07:44 02/03/17 08:04 5 ML Enteral Nutritional Formula (Boost Breeze Nutritional Drink) 1 box BIDM PO 02/06/17 16:45 03/08/17 16:44 Menthol (Nice Trace) 1 trace PRN PRN PO 02/07/17 02:15 03/09/17 02:14 02/07/17 02:17 1 TRACE Metoprolol Tartrate (Lopressor Tab) 25 mg BID PO 02/07/17 12:00 03/09/17 11:59 UNV Objective Vital Signs Date Time Temp Pulse Resp B/P Pulse Ox O2 Delivery O2 Flow Rate FiO2 02/07/17 11:21 37.0 104 20 103/58 96 Room Air 02/07/17 08:00 Room Air 02/07/17 07:54 37.0 106 19 79/48 96 Room Air 02/07/17 04:00 Room Air 02/07/17 03:21 36.7 105 18 113/66 95 Room Air 02/07/17 00:00 Room Air 02/06/17 23:10 36.9 99 15 104/67 91 Room Air 130/51 88/63 02/06/17 20:47 110 118/67 02/06/17 20:00 Room Air 02/06/17 19:14 36.7 113 19 94/59 99 Room Air 02/06/17 15:20 37.2 92 14 97/62 97 Room Air 02/06/17 15:06 Room Air 02/06/17 13:50 134 Physical Exam Notes: General Appearance: WD/WN, no apparent distress, cachetic in appearance Respiratory/Chest: lungs clear, no respiratory distress, no accessory muscle use, + decreased breath sounds Cardiovascular: no JVD, no murmur, + irregularly irregular Abdomen: normal bowel sounds, non tender, soft Extremities: normal range of motion, non-tender, no calf tenderness, normal capillary refill Neurologic/Psychiatric: alert, normal mood/affect, oriented x 3 Laboratory Results Results Past 24 Hours Test 02/06/17 15:59 02/06/17 20:17 02/07/17 05:23 02/07/17 06:38 Range/Units Bedside Glucose 166 196 191 70-99 mg/dl White Blood Count 8.73 4.8-10.8 K/uL Red Blood Count 3.85 4.7-6.1 M/uL Hemoglobin 10.8 14.0-18.0 g/dL Hematocrit 33.9 42-52 % Mean Corpuscular Volume 88.1 80-100 fL Mean Corpuscular Hemoglobin 28.1 25-34 pg Mean Corpuscular Hemoglobin Concent 31.9 32-36 g/dl Platelet Count 252 130-400 K/uL Mean Platelet Volume 9.8 7.4-10.4 fL Neutrophils (%) (Auto) 79.0 % Lymphocytes (%) (Auto) 8.8 % Monocytes (%) (Auto) 9.6 % Eosinophils (%) (Auto) 1.9 % Basophils (%) (Auto) 0.2 % Neutrophils # (Auto) 6.89 1.4-6.5 K/uL Lymphocytes # (Auto) 0.77 1.2-3.4 K/uL Monocytes # (Auto) 0.84 0.11-0.59 K/uL Eosinophils # (Auto) 0.17 0-0.5 K/uL Basophils # (Auto) 0.02 0-0.2 K/uL RDW Standard Deviation 49.7 36.4-46.3 fL RDW Coefficient of Variation 15.4 11.5-14.5 % Immature Granulocyte % (Auto) 0.5 % Immature Granulocyte # (Auto) 0.04 0.00-0.02 K/uL Sodium Level 138 136-145 mmol/L Potassium Level 4.4 3.5-5.1 mmol/L Chloride Level 102 98-107 mmol/L Carbon Dioxide Level 31 21-32 mmol/L Anion Gap 5.0 3-11 mmol/L Blood Urea Nitrogen 13 7-18 mg/dl Creatinine 1.30 0.60-1.40 mg/dl Est Creatinine Clear Calc Drug Dose 41.0 ml/min Estimated GFR () 59.7 Estimated GFR (Non- 51.5 BUN/Creatinine Ratio 10.2 10-20 Random Glucose 200 70-99 mg/dl Calcium Level 8.4 8.5-10.1 mg/dl Test 02/07/17 11:06 Range/Units Bedside Glucose 333 70-99 mg/dl Assessment and Plan 81M with a h/o esophageal carcinoma s/p chemo/radiotherapy with right pleural effusion admitted with pneumonia. A.Fib with RVR - echo showed ef 65-70%, moderate pericardial effusion - negative troponins - titrate medication to control HR. start metoprolol 25mg bid and start .125 digoxin Sunday, sunday, sunday and sunday. d/c coreg and hctz since hypotensive. - cardiology consulted - discussed not to do anticoagulation due to current prognosis Esophageal carcinoma - haem/onc consult - seen by Dr. Sanchez, decided to do palliative measures, will follow with Dr. sanchez as outpatient for nutrition management and pain control - palliative care consult ordered, will be meeting with family this afternoon to discuss hospice care vs snf - Diet- soft liquid diet, boost and ensure for supplementation Sepsis 2/2 Pneumonia - resolved, finished antibiotics - likely aspiration sec to esophageal ca. 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 Radford consulted and decided to not to due pleurex catheter for now, will follow as outpatient Anemia - hgb 10.8 Hyponatremia - resolved - Trend BMP ERNESTINE on CKD III - resolved. - Trend BMP DMII - insulin ISS, hold metformin. 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 - continue Dulera HTN - now hypotensive - lopressor to help with HR control DVT prophylaxis -Lovenox stopped, SCDs Continued [facility] stay due to: home environment unsafe for pt Discharge planning: uncertain (snf vs home with hospice) Reviewed: Pt Seen/Exam by Me History no new concerns wants to go home Constitutional: denies: fever Respiratory: negative: short of breath Cardiovascular: denies chest pain General Appearance: no apparent distress Respiratory: lungs clear, no respiratory distress Cardiovascular: irregularly irregular Neurologic/Psychiatric: alert, oriented x 3 Assessment/Plan I have reviewed the medical record and performed a history and physical examination of this patient today. I have discussed the case with Dr. Cline. The above note reflects my findings, conclusions, and recommendations.
--- NOTE | 2017-02-07 12:49 | CARDIOLOGY PROGRESS NOTE ---
DATE: 02/07/2017 SUBJECTIVE: Mr. Tapia is resting comfortably in bed without complaints of chest pain, dyspnea, or palpitations. He has been ambulatory without difficulty. OBJECTIVE: VITAL SIGNS: Blood pressure is 103/60 with an irregular pulse of 90-100. Respiratory rate is 20. The patient is afebrile at 37.0 degrees Celsius. Saturation is 96% on room air. NECK: Supple with full carotid upstrokes. There are no carotid bruits. Jugular venous pressure is flat at 90 degrees. There is no thyromegaly. CARDIOVASCULAR: Reveals an irregularly irregular rhythm with distant heart sounds. No obvious murmurs. No S3. LUNGS: Note decreased breath sounds at the bases, but no rales. ABDOMEN: Soft without bruits. EXTREMITIES: Reveal intact radial artery pulses and posterior tibial pulses bilaterally. There is no peripheral edema. LABORATORY DATA: CBC notes a hemoglobin of 10.8, hematocrit 33.9, white count 8.7, and platelet count 252,000. Electrolytes note a sodium of 138, potassium 4.4, chloride 102, bicarb 31, BUN 13, creatinine 1.3, and glucose 200. guide excursion notes atrial fibrillation with a variable ventricular response. Does accelerate with physical activity. IMPRESSION AND PLAN: 1. Paroxysmal atrial fibrillation -- attempting to keep ventricular response mainly below 100. Acceptable increase with physical activity. He has been started on low dose every other day digoxin. Hopefully, this will help with his resting ventricular response. Unable to titrate metoprolol tartrate further due to relative hypotension. As noted previously, the patient will not take long-term anticoagulation at the family's request. 2. Pericardial effusion -- mild to moderate in degree on echocardiogram. Suspect this could be a malignant effusion. 3. Hypertension -- with mild to moderate left ventricular hypertrophy on echocardiogram. 4. Metastatic esophageal carcinoma. 5. Anemia of chronic disease. 6. Chronic obstructive pulmonary disease. 7. Chronic renal failure. 8. Diabetes mellitus. MTDD
[2017-02-07] MEDS: METOPROLOL TARTRATE 25 MG TAB PO SCH ×2 (13:33→20:21)
--- NOTE | 2017-02-07 14:38 | Palliative Care Consultation ---
Consultation Date of Consultation: February 07, 2017. Requesting Physician: Dr. Mccarty Attending Physician: Dr. Mccarty Reason for Consultation: Goals of care, POLST History of Present Illness This 81 year old male patient presented to the ED seven days a go with complaints of progressive weakness. He was seen in the ED only a few days [employer] with weakness and was discharged with no clear etiology. On day of arrival, he was so weak he could not get out of bed. He was admitted for possible pneumonia with a concerning CXR, elevated lactate and WBC. He has a history of esophageal carcinoma, was treated with radiation and chemo in the past-- did not tolerate well. He was treated at [facility] in December 2016, where he had a right pleural effusion-- fluid sent to cytology and positive for metastatic adenocarcinoma. Was evaluated here by CT surgery- not having dysphagia thankfully and does not need stenting of esophagus. Also being followed by med/ onc- patient is leaning toward hospice care. Palliative consulted to establish goals of care and do POLST form. Met with the patient and his family in room 210. Family members present: Anya Tapia, son Rm Tapia, daughter Vanita Posey, and grandson Richie. Patient is oriented and able to make decisions for himself with the support of his family. The most pressing issue was the question of either feeding tube or stenting of esophagus- neither of which are immediately indicated from my understanding. The patient stated, "I just want to be comfortable." He stated he would not want a feeding tube and is quite comfortable at this time taking PO liquids/full liquid diet. He and his family feel that he is at baseline function and activity level, so they no longer feel that SNF/rehab is necessary and have decided to take patient home on hospice. Family chose [facility], family caseworker aware. POLST form completed as follows: DNR/DNI, comfort measures only, abx with comfort as the goal, and trial of IVF only if indicated, no feeding tube. Past Medical/Surgical History Medical History: Asthma Esophageal carcinoma with metastatic pleural effusion DM Htn Colon CA s/p bowel resection Prostate CA Right inguinal hernia Social History Smoking Status: Never Smoker History of Alcohol Use: No Drug Use: none Marital Status: Housing Status: lives with family Occupation Status: retired Review of Systems Constitutional: + weakness Respiratory: + dyspnea on exertion, No cough, No dyspnea at rest Cardiac: + problem reported (gets "back pain" with exertion), No chest pain Abdomen: + problem reported (had BM today), No nausea, No pain, No vomiting Psychiatric: No anxiety, No depression symptoms Allergies Coded Allergies: Banana (Verified Allergy, Unknown, EYES SWELL SHUT, 01/31/17) NO KNOWN DRUG ALLERGIES (Verified Allergy, Unknown, ., 01/31/17) Medications Current Inpatient Medications Medications (Trade) Dose Ordered Sig/Ángela Route Start Time Stop Time Status Last Admin Dose Admin Acetaminophen (Tylenol Tab) 650 mg Q4H PRN PO 01/31/17 20:15 03/02/17 20:14 02/07/17 12:04 650 MG Al Hydrox/Mg Hydrox/Simethicone (Maalox Max Susp) 15 ml Q4H PRN PO 01/31/17 20:15 03/02/17 20:14 02/07/17 12:04 15 ML Ondansetron HCl (Zofran Inj) 4 mg Q6H PRN IV 01/31/17 20:15 03/02/17 20:14 02/03/17 13:26 4 MG Polyethylene (Miralax Powder Packet) 17 gm DAILY PRN PO 01/31/17 20:15 03/02/17 20:14 02/05/17 08:08 17 GM Cetirizine HCl (zyrTEC TAB) 10 mg QAM PO 02/01/17 09:00 03/03/17 08:59 02/07/17 08:50 10 MG Ascorbic Acid (Vitamin C Tab) 1,000 mg QAM PO 02/01/17 09:00 03/03/17 08:59 02/07/17 08:50 1,000 MG Ferrous Sulfate (Feosol Tab) 325 mg QAM PO 02/01/17 09:00 03/03/17 08:59 02/07/17 08:50 325 MG Miscellaneous Information (Order Awaiting Action) 1 ea QS N/A 02/01/17 00:00 03/03/17 00:00 Pantoprazole Sodium (Protonix Tab) 40 mg QAM PO 02/01/17 09:00 03/03/17 08:59 02/07/17 08:50 40 MG Insulin Aspart (novoLOG ASPART) SLIDING SCALE G... ACHS SC 01/31/17 21:00 03/02/17 20:59 Future hold 02/07/17 12:09 9 UNITS Glucose (Glucose 40% Gel) 15-30 GRAMS 15 GRAMS... UD PRN PO 01/31/17 21:00 03/02/17 20:59 Glucose (Glucose Chew Tab) 4-8 Tablets 4 Tabl... UD PRN PO 01/31/17 21:00 03/02/17 20:59 Dextrose (Dextrose 50% 50ML Syringe) 25-50ML OF 50% DW IV FOR... UD PRN IV 01/31/17 21:00 03/02/17 20:59 Glucagon (Glucagon Inj) 1 mg UD PRN SQ 01/31/17 21:00 03/02/17 20:59 Heparin Sodium (Porcine) (Heparin 100 Unit/ml 5ml Flush) 5 ml PRN PRN IV 02/02/17 07:45 03/04/17 07:44 02/03/17 08:04 5 ML Enteral Nutritional Formula (Boost Breeze Nutritional Drink) 1 box BIDM PO 02/06/17 16:45 03/08/17 16:44 Menthol (Nice Trace) 1 trace PRN PRN PO 02/07/17 02:15 03/09/17 02:14 02/07/17 02:17 1 TRACE Metoprolol Tartrate (Lopressor Tab) 25 mg BID PO 02/07/17 12:00 03/09/17 11:59 02/07/17 13:33 25 MG Digoxin (Lanoxin Tab) 0.125 mg SuMoWeFr@1600 PO 02/07/17 16:00 03/09/17 15:59 Physical Exam Date Time Temp Pulse Resp B/P Pulse Ox O2 Delivery O2 Flow Rate FiO2 02/07/17 11:21 37.0 104 20 103/58 96 Room Air 02/07/17 08:00 Room Air 02/07/17 07:54 37.0 106 19 79/48 96 Room Air 02/07/17 04:00 Room Air 02/07/17 03:21 36.7 105 18 113/66 95 Room Air 02/07/17 00:00 Room Air 02/06/17 23:10 36.9 99 15 104/67 91 Room Air 130/51 88/63 02/06/17 20:47 110 118/67 02/06/17 20:00 Room Air 02/06/17 19:14 36.7 113 19 94/59 99 Room Air 02/06/17 15:20 37.2 92 14 97/62 97 Room Air 02/06/17 15:06 Room Air General Appearance: no apparent distress, + thin ENT: hearing grossly normal (with hearing aids) Neck: supple, no JVD Respiratory: lungs clear, no respiratory distress, no accessory muscle use Cardiovascular: + tachycardia, + irregularly irregular, + normal peripheral pulses Abdomen: normal bowel sounds, non tender, soft Neurologic/Psychiatric: alert, normal mood/affect, oriented x 3 Laboratory Results Last 24 Hours Test 02/06/17 15:59 02/06/17 20:17 02/07/17 05:23 02/07/17 06:38 Bedside Glucose 166 mg/dl 196 mg/dl 191 mg/dl White Blood Count 8.73 K/uL Red Blood Count 3.85 M/uL Hemoglobin 10.8 g/dL Hematocrit 33.9 % Mean Corpuscular Volume 88.1 fL Mean Corpuscular Hemoglobin 28.1 pg Mean Corpuscular Hemoglobin Concent 31.9 g/dl Platelet Count 252 K/uL Mean Platelet Volume 9.8 fL Neutrophils (%) (Auto) 79.0 % Lymphocytes (%) (Auto) 8.8 % Monocytes (%) (Auto) 9.6 % Eosinophils (%) (Auto) 1.9 % Basophils (%) (Auto) 0.2 % Neutrophils # (Auto) 6.89 K/uL Lymphocytes # (Auto) 0.77 K/uL Monocytes # (Auto) 0.84 K/uL Eosinophils # (Auto) 0.17 K/uL Basophils # (Auto) 0.02 K/uL RDW Standard Deviation 49.7 fL RDW Coefficient of Variation 15.4 % Immature Granulocyte % (Auto) 0.5 % Immature Granulocyte # (Auto) 0.04 K/uL Sodium Level 138 mmol/L Potassium Level 4.4 mmol/L Chloride Level 102 mmol/L Carbon Dioxide Level 31 mmol/L Anion Gap 5.0 mmol/L Blood Urea Nitrogen 13 mg/dl Creatinine 1.30 mg/dl Est Creatinine Clear Calc Drug Dose 41.0 ml/min Estimated GFR () 59.7 Estimated GFR (Non- 51.5 BUN/Creatinine Ratio 10.2 Random Glucose 200 mg/dl Calcium Level 8.4 mg/dl Test 02/07/17 11:06 Bedside Glucose 333 mg/dl Assessment & Plan Palliative Performance Scale: 50 % Problem list: Weakness- improving SOB with exertion Afib with RVR, EF 60-65%- started PO Digoxin today Metastatic esophageal carcinoma Pleural effusions- malignant Anemia ERNESTINE on CKD- resolved COPD Goals of care (Z51.5) Palliative care recommendations: -DNR/DNI per previous conversation. -Patient's goal is "whatever will make me comfortable," and to be out of the hospital. -Plan is for home with hospice. -Continue cardiac medications as tolerated including metoprolol and digoxin. -No feeding tube per patient's wishes. -POLST form completed: DNR/DNI, DIRECTOR OF FINANCIAL PLANNING, abx with comfort as the goal, trial of IVF with comfort as the goal, no feeding tube. , Anya, and daughter Vanita, are listed on the back as surrogates. -Would send script for Roxanol 5mg PO Q3h PRN pain or SOB for discharge. -Showed family durable POA/living will paperwork. They will discuss and possibly fill out this evening. Thank you kindly for this consult. Please contact me with any further palliative care needs.
[2017-02-07] MEDS ORDERED: DIGOXIN 0.125 MG TAB PO SCH (16:00)
[2017-02-07] MEDS ORDERED: NYSTATIN SUSP 500,000 U/5 ML UDC PO STA (18:07)
--- NOTE | 2017-02-07 18:29 | SURGERY PROGRESS NOTE ---
DATE: 02/07/2017 SUBJECTIVE: Mr. Tapia was seen today on 02/07/2017. He is ambulating in the hallway. He states he is not having trouble with liquids. He also states that his breathing is "fine." He has been on room air. I had a very long discussion with the patient and his . He is swallowing liquids, although he has trouble with solid food. His is very concerned that he is not getting enough to eat. I have explained that he has metastatic disease and at this point, I would rather do less than more. He looks good and I would discharge him. I will see him back in the office in a week with a chest x-ray. If his symptoms of dysphagia worsen, an esophageal stent can be placed. If his pleural effusion increases to where he becomes symptomatic, I will be glad to place a PleurX catheter, however, at this point, I do not think his symptoms from either one of these disease processes warrants an intervention. I will follow him closely. DALE
[2017-02-07] MEDS: NYSTATIN SUSP 500,000 U/5 ML UDC PO SCH (20:21)
[2017-02-08] MEDS: ACETAMINOPHEN 325 MG TAB PO PRN ×2 (02:25→14:03)
[2017-02-08 04:00] VITALS: BP 75/51; PULSE 128; TEMP 36.6; O2SAT 95
[2017-02-08] MEDS: INSULIN ASPART 100 UNITS/ML 3 ML PEN SC SCH ×2 (07:00→12:19)
[2017-02-08] MEDS: BOOST BREEZE NUTRITION DRINK 1 BOX PO SCH (07:30)
[2017-02-08 07:43] VITALS: BP 96/55; PULSE 111; TEMP 36.8; O2SAT 93
[2017-02-08] MEDS: DULERA - ORDER AWAITING ACTION SCH (08:00)
[2017-02-08] MEDS: NYSTATIN SUSP 500,000 U/5 ML UDC PO SCH ×2 (09:00→12:18)
--- NOTE | 2017-02-08 09:25 | CARDIOLOGY PROGRESS NOTE ---
DATE: 02/08/2017 DATE: 02/08/2017. SUBJECTIVE: Mr. Tapia is resting comfortably in bed without complaints of chest pain, dyspnea, or palpitations. OBJECTIVE: VITAL SIGNS: Blood pressure 96/55 with an irregular pulse of 100. Respiratory rate is 16. The patient is afebrile at 36.8 degrees Celsius. Saturation 93% on room air. NECK: Supple with full carotid upstrokes. There are no carotid bruits. Jugular venous pressure is flat at 90 degrees. There is no thyromegaly. CARDIOVASCULAR EXAMINATION: Reveals an irregularly irregular rhythm with distant heart sounds. No obvious murmurs. LUNGS: Note decreased breath sounds at the bases but no rales, rhonchi, or wheezes. ABDOMEN: Soft and nontender without bruits. EXTREMITIES: Reveal intact radial artery and posterior tibial pulses bilaterally. There is no peripheral edema. DATA: Electrolytes note a bedside glucose of 187. classroom monitor notes atrial fibrillation with a heart rate varying from 90-120. Averages approximately 100 beats per minute. IMPRESSION AND PLAN: 1. Paroxysmal atrial fibrillation -- average ventricular response is about 100 beats per minute. This is adequately controlled, especially considering the situation. Blood pressure limits ability to increase his beta avni. Would continue digoxin at a renally adjusted dose. No anticoagulation as described previously. 2. Pericardial effusion -- Mild to moderate in degree. I suspect this could be a malignant effusion. 3. Hypertension -- with mild to moderate left ventricular hypertrophy. 4. Metastatic esophageal carcinoma. 5. Anemia of chronic disease. 6. Chronic obstructive pulmonary disease. 7. Chronic renal failure. 8. Diabetes mellitus.
--- NOTE | 2017-02-08 09:33 | SURGERY PROGRESS NOTE ---
DATE: 02/08/2017 DATE: 02/08/2017. Mr. Tapia was seen today. The patient has been ambulating in the hallway. He is on room air. The patient's daughters asked yesterday about placing an esophageal stent. I discussed this with the house staff. I would defer this to gastroenterology. At this point, I do not think a "dilatation" or a stent is in place, although it could occur. This is a judgment call. I will leave it in the capable hands of gastroenterologists. As far as the PleurX goes we will hold off. I will see him back in a week with a chest x-ray.
[2017-02-08] MEDS: ASCORBIC ACID 500 MG TAB PO SCH (10:57)
[2017-02-08] MEDS: CETIRIZINE HCL 10 MG TAB PO SCH (10:57)
[2017-02-08] MEDS: PANTOprazole SOD 40 MG TAB PO SCH (10:57)
[2017-02-08] MEDS: FERROUS SULFATE 325 MG TAB PO SCH (10:57)
[2017-02-08 11:33] VITALS: BP 101/66; PULSE 114; TEMP 36.8; O2SAT 97
[2017-02-08] MEDS: ALUMINUM/MAGNESIUM/SIMETH (MAALOX MAX) 30 ML UDC PO PRN (12:21)
[2017-02-08] MEDS ORDERED: LPR25 PO (14:27)
[2017-02-08] MEDS ORDERED: LNX125 PO (14:27)
--- NOTE | 2017-02-08 14:31 | Discharge Instructions ---
Discharge Instructions Date of Service Feb 08, 2017. Admission Reason for Admission: Pneumonia, Weakness Discharge Discharge Diagnosis / Problem: Esophageal Carcinoma / Atrial Fribrillation Discharge Goals Goal(s): Decrease discomfort, Increase independence, Learn about illness Activity Recommendations Activity Limitations: resume your previous activity . Instructions / Follow-Up Instructions / Follow-Up While you were in hospital you were diagnosed with atrial fibrillation. We started you on two medications for this. Please take those as prescribed Please follow up with Nacho Sorenson at [facility] for further management of your care Hospice will be helping you with your care Current Hospital Diet Patient's current hospital diet: Diabetes Type 2 Diet, AHA Diet (Heart Healthy) Discharge Diet Recommended Diet: Full Liquid Diet Pending Studies Studies pending at discharge: no Laboratory Results Hemoglobin A1c Test 01/18/17 12:10 Range/Units Estimated Average Glucose 166 mg/dl Hemoglobin A1c 7.4 H 4.5-5.6 % Medical Emergencies . Who to Call and When: Medical Emergencies: If at any time you feel your situation is an emergency, please call 911 immediately. . Non-Emergent Contact Non-Emergency issues call your: Primary Care Provider . . "Provider Documentation" section prepared by Grzegorz Cline. . VTE Core Measure Inpt VTE Proph given/why not?: Enoxaparin (Lovenox)SQ
[2017-02-08 14:34] VITALS: BP 101/66; PULSE 114; TEMP 36.8; O2SAT 97
--- NOTE | 2017-02-08 15:05 | Discharge Summary ---
Discharge Summary Date of Service Feb 08, 2017. (Grzegorz Cline MD) Discharge Summary Admission Date: January 31, 2017 at 20:15 Discharge Date: Feb 08, 2017 Discharge Disposition: Home with services Principal Diagnosis: Pneumonia Problems/Secondary Diagnoses: Esophageal Carcinoma Atrial Fibrillation Consultations: Oncology Palliative Cardiology Surgery (Grzegorz Cline MD) Medication Reconciliation New Medications: Digoxin (Digoxin) 0.125 Mg Tab 0.125 MG PO SuMoWeFr@1600 for 14 Days, #8 TAB Metoprolol Tartrate (Lopressor) 25 Mg Tab 25 MG PO DAILY for 14 Days, #14 TAB Continued Medications: Acetaminophen Tab (Tylenol) 325 Mg Tab 325 MG PO BID PRN for ARTHRITIS, TAB Ascorbic Acid (Vitamin C) 1,000 Mg Tab 1 TAB PO QAM Cetirizine (Zyrtec) 10 Mg Tab 10 MG PO QAM, TAB Chlorpheniramine-Phenylephrine (Coricidin D Cold/Flu/Sinu) 1 Tab Tab 1 TAB PO DIRECTED PRN for COLDS SYMPTOMS Enteral Nutrition Formula (Ensure Plus Vanilla) 1 Can Liqd CAN GJT, CAN Ferrous Sulfate (Iron) 325 Mg Tab 1 TAB PO QAM Metformin Hcl (Glucophage) 1,000 Mg Tab 1000 MG PO BID, TAB Mometasone Furoate-Formoterol (Dulera 200/5 Mcg) 1 Aer Aer 2 PUFFS INH BID for 30 Days, #13 GM 5 Refills Nutritional Supplements (Boost) 1 Liq Liq Omeprazole (Prilosec) 20 Mg Capcr 20 MG PO QAM, 0 Refills Discontinued Medications: Carvedilol (Coreg) 6.25 Mg Tab 1 TAB PO BID for 90 Days, #180 TAB 3 Refills HOLDS IF SBP LESS THAN 110 Hydrochlorothiazide (Hydrochlorothiazide) 25 Mg Tab 0.5 TAB PO QAM Discharge Exam Patient with no acute events overnight Patient did not have any fevers, night sweats, difficulty swallowing, abdominal pain, diarrhea, constipation He is tolerating his liquid diet well Review of Systems: Constitutional: No fever, No chills, No sweats Respiratory: No cough, No sputum, No wheezing Cardiovascular: No chest pain, No orthopnea, No PND Abdomen: No pain, No nausea, No vomiting Physical Exam: General Appearance: WD/WN, no apparent distress, + pertinent finding ( cachectic in appearance) Eyes: normal inspection, PERRL ENT: hearing grossly normal, pharynx normal Neck: supple, thyroid normal, no JVD, trachea midline Respiratory/Chest: lungs clear, normal breath sounds, no accessory muscle use Cardiovascular: no edema, no gallop, no JVD, no murmur, + irregularly irregular Abdomen / GI: normal bowel sounds, non tender, soft, no organomegaly Extremities: no calf tenderness, normal capillary refill, normal range of motion Neurologic/Psychiatric: alert, normal mood/affect, oriented x 3 (Grzegorz Cline MD) Review of Systems: Constitutional: No fever Respiratory: No shortness of breath Cardiovascular: No chest pain Abdomen: No pain Physical Exam: General Appearance: no apparent distress Respiratory/Chest: lungs clear, no respiratory distress Cardiovascular: + irregularly irregular Neurologic/Psychiatric: alert, oriented x 3 Skin: warm/dry (Ashli Mccarty M.D.) Hospital Course This was an 81 year old male with a PMH significant for esophageal carcinoma who was diagnosed with pneumonia The patient was treated with IV antibiotics for his bilateral pneumonia. The day after he finished being treated for his pneumonia he went into atrial fibrillation with RVR. The patient was started on metoprolol 25mg OD and was also started on digoxin .125 4 days weekly as recommended by cardiology. It was decided not to start anticoagulation due to the patient poor prognosis as well as due to the wishes of the family. With regards to his esophageal cancer he has had chemo and radiation. 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 He was seen by Dr. Radford and it was decided that a pleurx catheter was not going to be placed as the risks outweight the benefits. Dr. Sanchez was also consulted on the patient and it was decided that the patient was going to go the hospice route and was not going to pursue any further chemo or radiation. Dr. Holbrook was also spoken to and it was decided that an esophageal dilatation was not going to be pursued due to the risk and the patients current ability to eat liquid foods well. The patient was discharged with hospice care with follow up with Dr. Nacho Sorenson for further management. A.Fib with RVR - echo showed ef 65-70%, moderate pericardial effusion - negative troponins - titrate medication to control HR. start metoprolol 25mg bid and start .125 digoxin Sunday, sunday, sunday and sunday. d/c coreg and hctz since hypotensive. - cardiology consulted - discussed not to do anticoagulation due to current prognosis Esophageal carcinoma - haem/onc consult - seen by Dr. Sanchez, decided to do palliative measures - Diet- soft liquid diet, boost and ensure for supplementation Sepsis 2/2 Pneumonia - resolved, finished antibiotics - likely aspiration sec to esophageal ca. 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 Radford consulted and decided to not to due pleurex catheter for now, will follow as outpatient Hyponatremia - resolved - Trend BMP ERNESTINE on CKD III - resolved. - Trend BMP DMII - metformin. 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 - continue Dulera HTN - now hypotensive - lopressor to help with HR control Total Time Spent: Less than 30 minutes This includes examination of the patient, discharge planning, medication reconciliation, and communication with other providers. (Grzegorz Cline MD) I have reviewed the medical record and performed a history and physical examination of this patient today. I have discussed the case with Dr Cline. The above note reflects my findings, conclusions, and recommendations Going home on hospice. Patient doesn't wishes to have any interventions done in terms of esophageal stents. Total Time Spent: Greater than 30 minutes (40) (Ashli Mccarty M.D.) Discharge Instructions Please refer to the electronic Patient Visit Report (Discharge Instructions) for additional information. (Grzegorz Cline MD) Additional Copies To Teddy Sorenson MD
[2017-02-08] MEDS ORDERED: METOPROLOL TARTRATE 25 MG TAB PO ONE (21:00)
== END 2017-02-08 15:15 | disposition hospice, home (50) | DRG 871 ==
LOC: ENRESERVTM → ENRESERVDT → C.EDB 16:58 → C.2T 20:15 → C.4E 02-01 18:35 → C.2E 02-03 14:52
PROVIDERS: ADMIT Internal Medicine; ATTEND Family Medicine
DX: A41.9 Sepsis, unspecified organism (principal); J69.0 Pneumonitis due to inhalation of food and vomit; C15.9 Malignant neoplasm of esophagus, unspecified; J91.0 Malignant pleural effusion; E87.1 Hypo-osmolality and hyponatremia; I31.3 Pericardial effusion (noninflammatory); I48.92 Unspecified atrial flutter; R64 Cachexia; Z51.5 Encounter for palliative care; D63.0 Anemia in neoplastic disease; I48.0 Paroxysmal atrial fibrillation; R79.1 Abnormal coagulation profile; E11.9 Type 2 diabetes mellitus without complications; I12.9 Hypertensive chronic kidney disease with stage 1 through stage 4 chronic kidney disease, or unspecified chronic kidney disease; J45.909 Unspecified asthma, uncomplicated; J44.9 Chronic obstructive pulmonary disease, unspecified; N18.3 Chronic kidney disease, stage 3 (moderate); Z79.899 Other long term (current) drug therapy; Z79.84 Long term (current) use of oral hypoglycemic drugs; Z87.01 Personal history of pneumonia (recurrent); Z66 Do not resuscitate; Z85.46 Personal history of malignant neoplasm of prostate; Z85.038 Personal history of other malignant neoplasm of large intestine; Z68.21 Body mass index [BMI] 21.0-21.9, adult; Z83.3 Family history of diabetes mellitus; Z82.49 Family history of ischemic heart disease and other diseases of the circulatory system; E86.0 Dehydration; R53.1 Weakness; Z86.19 Personal history of other infectious and parasitic diseases; Z91.018 Allergy to other foods

== ENCOUNTER → 2017-02-15 | Outpatient (CLI) | payer BC ==
[~2017-02-15] MED LIST changes: -CARV6.252 PO; +CRD30 PO; +DIGO0.1219 PO; -HYDR25TA5 PO; +LNX125 PO; +LPR25 PO; -MULT-506 PO; +PANT40TA PO; -POTASSIUM OTC PO; +ZNTT/150 PO
--- NOTE | 2017-02-15 10:59 | DIAGNOSTIC IMAGING REPORT ---
TWO VIEW CHEST CLINICAL HISTORY: Pleural effusions. FINDINGS: PA and lateral chest radiographs are compared to study dated 02/03/2017 and correlated with chest CT dated 12/04/2016. The PA view is degraded by patient rotation. A left subclavian central venous infusion port is unchanged in position. The heart is enlarged and there is atherosclerotic calcification of the thoracic aorta. The pulmonary vasculature is noncongested. Layering pleural effusions with bibasilar consolidation have not significantly changed from previous. The upper lungs appear clear. No pneumothorax is seen. The skeletal structures are osteopenic. The bony thorax is grossly intact. IMPRESSION: 1. Cardiomegaly without radiographic evidence of congestive failure. 2. Layering pleural effusions with bibasilar consolidation are similar to 02/03/2017 examination. Electronically signed by: Maged Espana M.D. 02/15/2017 10:58 AM Dictated Date/Time: 02/15/2017 10:56 AM
== END | disposition home or self-care (01) ==
LOC: C.RAD1850 10:47
PROVIDERS: ATTEND Surgery
DX: J90 Pleural effusion, not elsewhere classified (principal); I51.7 Cardiomegaly; R91.8 Other nonspecific abnormal finding of lung field

== ENCOUNTER 2017-02-24 18:59 | Inpatient (IN) | payer OTHER, BC ==
[~2017-02-24] VITALS: Ht 172.7 cm; Wt 66.0 kg
[~2017-02-24 18:59] MED LIST changes: -CRD30 PO; -DIGO0.1219 PO; -PANT40TA PO; -ZNTT/150 PO
[2017-02-24] MEDS ORDERED: ALBUT/IPRATROP 3MG/0.5MG NEB 3 ML VIAL INH STA (19:06)
[2017-02-24] MEDS ORDERED: SODIUM CHLORIDE 0.9% 1000ML 1,000 ML IV ONE (19:06)
[2017-02-24] MEDS ORDERED: IBUPROFEN 600 MG TAB PO STA (19:06)
--- NOTE | 2017-02-24 19:08 | EMERGENCY ROOM VISIT NOTE ---
History Report prepared by Scribe: Natasha Mora Under the Supervision of: Dr. Vikram Stephen D.O. First contact with patient: 19:00 Chief Complaint: FEVER Stated Complaint: FEVER, ALTERED MENTAL STATUS History of Present Illness The patient is an 81 year old who presents to the Emergency Room with complaints of a persistent fever for the past few hours. He was brought to the ED via ALS. Per EMS, the patient took a nap this afternoon and when he woke up, his noticed his mental status was altered and he seemed confused. He complained of a fever and chills, so his called an ambulance. When EMS arrived, his temperature was 102.7. He was given 1 gram of Tylenol and IV fluids in the field, which seemed to provide minor relief. The patient has a history of atrial fibrillation and esophageal cancer. He told EMS he believes the year is 1994 and the [place] president is Claudio Barillas Jr. He did have a brief hospital stay last month for pneumonia. 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 A total of 10 systems reviewed and were otherwise negative. Past Medical & Surgical Medical Problems: (1) Asthma (2) Bilateral pleural effusion (3) Hypotension (4) Pneumonia (5) Sinus tachycardia (6) URI (upper respiratory infection) (7) Weakness Social History Smoking Status: Never Smoker Alcohol Use: none Drug Use: none Marital Status: Housing Status: lives with significant other Occupation Status: retired Current/Historical Medications Scheduled Ascorbic Acid (Vitamin C), 1 TAB PO QAM Cetirizine (Zyrtec), 10 MG PO QAM Digoxin (Digox), 62.5 MCG PO DAILY Ferrous Sulfate (Iron), 1 TAB PO QAM Metformin Hcl (Glucophage), 1,000 MG PO BID Metoprolol Tartrate (Lopressor), 25 MG PO DAILY Mometasone Furoate-Formoterol (Dulera 200/5 Mcg), 2 PUFFS INH BID Omeprazole (Prilosec), 20 MG PO BID Ranitidine (Zantac), 150 MG PO BID Scheduled PRN Chlorpheniramine-Phenylephrine (Coricidin D Cold/Flu/Sinu), 1 TAB PO DIRECTED PRN for COLDS SYMPTOMS Miscellaneous Medications Enteral Nutrition Formula (Ensure Plus Vanilla), CAN GJT Nutritional Supplements (Boost) Allergies Coded Allergies: Banana (Verified Allergy, Unknown, EYES SWELL SHUT, 01/31/17) NO KNOWN DRUG ALLERGIES (Verified Allergy, Unknown, ., 01/31/17) Physical Exam Vital Signs Date Time Temp Pulse Resp B/P (MAP) Pulse Ox O2 Delivery O2 Flow Rate FiO2 02/24/17 22:15 132 20 58/43 96 Nasal Cannula 4.0 02/24/17 22:13 Nasal Cannula 02/24/17 22:05 36.8 147 20 59/47 97 Nasal Cannula 4.0 02/24/17 20:30 149 20 94/59 97 Nasal Cannula 4.0 02/24/17 19:19 97 Nasal Cannula 4.0 02/24/17 19:19 118 02/24/17 19:07 39.5 128 20 99/64 90 Room Air 02/24/17 19:04 97 Nasal Cannula 2.0 Physical Exam GENERAL: Patient is awake, alert, mildly anxious appearing but comfortable. EYES: The conjunctivae are clear. The pupils are round and reactive. EARS, NOSE, MOUTH AND THROAT: The nose is without any evidence of any deformity. Mucous membranes are moist tongue is midline NECK: The neck is nontender and supple. RESPIRATORY: Lung sounds were diminished throughout, very poor air movement noted, mild tachypnea appreciated. CARDIOVASCULAR: Heart sounds were irregular and tachycardic, no definite murmur noted to auscultation. GASTROINTESTINAL: The abdomen is soft. Bowel sounds are present in all quadrants. Abdomen is nontender MUSCULOSKELETAL/EXTREMITIES: There is no evidence of gross deformity full range of motion is noted in the hips and shoulders SKIN: There is no obvious evidence of any rash. There are no petechiae, pallor or cyanosis noted. NEUROLOGIC: Patient is oriented to person and place, but not time or situation. He moves all his extremities symmetrically. Medical Decision & Procedures ER Provider Diagnostic Interpretation: Radiology results as stated below per my review and radiologist interpretation: CHEST ONE VIEW PORTABLE CLINICAL HISTORY: Sepsis dyspnea COMPARISON STUDY: 02/15/2017 FINDINGS: Interval development of bilateral pleural effusions. Mild stable cardiomegaly. Central catheter in superior vena cava. Pulmonary apices are clear. IMPRESSION: Interval development of bilateral pleural effusions Electronically signed by: Torito Navarro M.D. 02/24/2017 7:36 PM CHEST CTA for PULMONARY ARTERIES CT DOSE: 299.46 mGy.cm HISTORY: Pleural effusions. Dyspnea TECHNIQUE: Multiaxial CT images of the chest were performed following the intravenous administration of contrast to evaluate the pulmonary arteries. Maximal intensity projection images were also obtained. COMPARISON STUDY: 12/04/2016 FINDINGS: patient esophageal mass is not well seen on this exam. There are 2 large bilateral pleural effusions. Compressive atelectasis of the right as well as left lower lobe. Potential infiltrative change of the pulmonary apices. Pulmonary arterial vasculature enhances appropriately. There are no filling defects. IMPRESSION: 1. Study is negative for pulmonary embolus. 2. Interval development of large bilateral pleural effusions. 3. Compressive atelectasis of lower lobes bilaterally. 4. Potential developing infiltrative versus congestive change of the upper lung regions bilaterally. 5. Esophageal lesion is not well seen possibly secondary to the presence of the pleural effusions. Electronically signed by: Torito Navarro M.D. 02/24/2017 8:57 PM Laboratory Results Test 02/24/17 18:45 02/24/17 19:13 02/24/17 19:19 02/24/17 20:00 Echinocytes 1+ Erythrocyte Sedimentation Rate 28 mm/hr (0-14) Prothrombin Time 12.0 SECONDS (9.0-12.0) Prothromb Time International Ratio 1.1 (0.9-1.1) Activated Partial Thromboplast Time 26.9 SECONDS (21.0-31.0) Partial Thromboplastin Ratio 1.0 Phosphorus Level 3.1 mg/dl (2.5-4.9) Total Creatine Kinase 23 U/L (39-308) Creatine Kinase MB 0.8 ng/ml (0.5-3.6) Creatine Kinase MB Ratio 3.5 (0-3.0) Troponin I < 0.015 ng/ml (0-0.045) C-Reactive Protein 3.56 mg/dl (0-0.29) Pro-B-Type Natriuretic Peptide 6843 pg/ml (0-1800) Lipase 52 U/L (73-393) Digoxin Level 0.8 ng/ml (0.8-2.0) Urine Color YELLOW Urine Appearance CLEAR (CLEAR) Urine pH 5.5 (4.5-7.5) Urine Specific Phil Campbell 1.016 (1.000-1.030) Urine Protein NEG (NEG) Urine Glucose (UA) NEG (NEG) Urine Ketones TRACE (NEG) Urine Occult Blood NEG (NEG) Urine Nitrite NEG (NEG) Urine Bilirubin NEG (NEG) Urine Urobilinogen NEG (NEG) Urine Leukocyte Esterase NEG (NEG) Urine WBC (Auto) 0 /hpf (0-5) Urine RBC (Auto) 0-4 /hpf (0-4) Urine Hyaline Casts (Auto) 1-5 /lpf (0-5) Urine Epithelial Cells (Auto) 5-10 /lpf (0-5) Urine Bacteria (Auto) NEG (NEG) Bedside Lactic Acid Venous 1.69 mmol/L (0.90-1.70) Venous Blood pH 7.47 (7.36-7.41) Venous Blood Partial Pressure CO2 29 mmHg (38.0-50.0) Venous Blood Partial Pressure O2 41 mmHg Venous Blood HCO3 21 mmol/L Venous Blood Oxygen Saturation 77.1 % Venous Blood Base Excess -1.9 mmol/L Laboratory results per my review. Medications Administered Medications (Trade) Dose Ordered Sig/Ángela Route Start Time Stop Time Status Last Admin Dose Admin Sodium Chloride 1,000 ml @ 999 mls/hr Q1H1M ONCE IV 02/24/17 19:06 02/24/17 20:06 DC 02/24/17 19:06 999 MLS/HR Albuterol/ Ipratropium (Duoneb) 3 ml NOW STAT INH 02/24/17 19:06 02/24/17 19:08 DC 02/24/17 19:47 3 ML Piperacillin Sod/ Tazobactam Sod (Zosyn Iv) 4.5 gm NOW STAT IV 02/24/17 19:47 02/24/17 19:48 DC 02/24/17 20:21 4.5 GM Levofloxacin (Levaquin / D5W) 750 mg NOW STAT IV 02/24/17 19:47 02/24/17 19:48 DC 02/24/17 20:21 750 MG Ketorolac Tromethamine (Toradol Inj) 15 mg NOW STAT IV 02/24/17 20:17 02/24/17 20:18 DC 02/24/17 20:29 15 MG Albumin Human (Albumin 25%) 25 gm Q4H IV 02/24/17 22:15 02/25/17 15:11 DC 02/25/17 10:24 25 GM Procedure Central Venous Catheter Indication: Sepsis Catheter type: Triple Lumen Location: Left Femoral Vein Verbal consent was obtained after the risks and benefits were explained, including but not limited to pneumothorax, hemothorax, vessel injury, bleeding, scarring, infection, pain, and bone/joint/nerve damage. At this time, the risks of the procedure are less than the risks of NOT performing the procedure. A time out was taken and the correct patient and site identified. The patient was placed in the supine position and the skin was prepped in the standard fashion with chlorhexidine and full sterile drapes applied. The proper landmarks were identified with ultrasound, anesthetized with 1% lidocaine without epinephrine, and the needle was inserted through the skin in the standard fashion. The needle was carefully advanced into blood vessel lumen with landmark guidance. The guidewire was placed uneventfully. The vessel is dilated and the catheter was placed. It was sutured into position. There was good blood return from all ports. The patient tolerated the procedure well and there were no complications. Post procedure x-ray was normal. ECG Indication: altered mental status Rate (beats per minute): 137 Rhythm: atrial fibrillation Findings: ST depression (Lateral), other (low voltage QRS, poor R-wave progression) Comparison ECG Date: Increased rate otherwise no change from February 05, 2017 ED Course 1901: The patient was evaluated in room A3. A complete history and physical examination were performed. 1905: DuoNeb 3 ml INH, Ibuprofen 600 mg PO, NSS 1000 ml @ 999 mls/hr IV. 1946: Levaquin 750 mg IV, Zosyn 4.5 gm IV. 2013: I discussed the patients case with Dr. Myers, [facility] Hospitalist. The patient will be further evaluated. 2017: Toradol 15 mg IV. Medical Decision Medication Reconciliation: I attest that I have personally reviewed the patient' s current medications list. Prior records/ancillary studies reviewed. Triage Nursing notes reviewed. Additional history obtained from EMS. The patient's history was concerning for fever. Differential diagnosis: Etiologies such as viral syndrome, otitis, pharyngitis, pneumonia, influenza, meningitis, urinary tract infection, sepsis, bacteremia, as well as others were entertained. The patient is an 81-year-old male who presented to the emergency department for evaluation of altered mental status and fever. The patient was found have rapid atrial fibrillation as well as fever. He was treated with IV fluids and antipyretics in the emergency department as well as prior to arrival. The patient has a long history of esophageal cancer and has had pleural effusions in the past. His overall history and physical exam appeared to be consistent with pneumonia as well as pleural effusion. He was very hypotensive but was also in rapid atrial fibrillation. The patient was treated with IV fluids and IV antibiotics in the department. He was reevaluated multiple times. I discussed the patient's laboratory and radiographic studies with him and his family. I discussed his case with the on-call [facility] hospitalist. The patient's hypotension continue to a central line was placed in his left femoral vein. He tolerate this procedure quite well. The patient was found to be a DO NOT RESUSCITATE by the registered nurse hh case manager. We discussed this with the family and limited interventions were discussed. At this time the patient's condition is very critical. He was reevaluated multiple times. Consults Time Called: 2009 Consulting Physician: Dr. Myers [facility] Hospitalist Returned Call: 2013 I discussed the [facility] The patient will be further evaluated. Impression Primary Impression: Sepsis Additional Impressions: Pneumonia Fever Altered mental status Rapid atrial fibrillation Bilateral pleural effusion Hypotension Critical Care I have personally spent greater than 40 minutes of critical care time in the direct management of this patient. This includes bedside care, interpretation of diagnostic studies, and testing, discussion with consultants, patient, and family members, and other required patient management activities. This 40 minutes is in excess of all separately billable procedures. Scribe Attestation The scribe's documentation has been prepared under my direction and personally reviewed by me in its entirety. I confirm that the note above accurately reflects all work, treatment, procedures, and medical decision making performed by me. Departure Information Dispostion Being Evaluated By Hospitalist Jennifer Chao M.D. (PCP) Patient Instructions My [facility] Problem Qualifiers Primary Impression: Sepsis Sepsis type: sepsis due to unspecified organism Qualified Codes: A41.9 - Sepsis, unspecified organism Additional Impressions: Pneumonia Pneumonia type: due to unspecified organism Laterality: unspecified laterality Lung location: unspecified part of lung Qualified Codes: J18.9 - Pneumonia, unspecified organism Altered mental status Altered mental status type: unspecified Qualified Codes: R41.82 - Altered mental status, unspecified Hypotension Hypotension type: unspecified hypotension type Qualified Codes: I95.9 - Hypotension, unspecified
[2017-02-24 19:28] LABS: HEMATOCRIT 32.8 % (42-52); MEAN CELL VOLUME 85.6 fL (80-100); MEAN CORPUSCULAR HEMOGLOBIN 27.9 pg (25-34); MEAN CORPUSCULAR HGB CONC 32.6 g/dl (32-36); PLATELET COUNT 234 K/uL (130-400); RED BLOOD COUNT 3.83 M/uL (4.7-6.1); WHITE BLOOD COUNT 14.06 K/uL (4.8-10.8)
[2017-02-24] MEDS ORDERED: DIGO0.1219 PO (19:32)
[2017-02-24] MEDS ORDERED: ZNTT/150 PO (19:32)
[2017-02-24 19:38] LABS: INR 1.1 (0.9-1.1)
--- NOTE | 2017-02-24 19:38 | DIAGNOSTIC IMAGING REPORT ---
CHEST ONE VIEW PORTABLE CLINICAL HISTORY: Sepsis dyspnea COMPARISON STUDY: 02/15/2017 FINDINGS: Interval development of bilateral pleural effusions. Mild stable cardiomegaly. Central catheter in superior vena cava. Pulmonary apices are clear. IMPRESSION: Interval development of bilateral pleural effusions Electronically signed by: Torito Navarro M.D. 02/24/2017 7:36 PM Dictated Date/Time: 02/24/2017 7:36 PM
[2017-02-24 19:40] LABS: URINE APPEARANCE CLEAR (CLEAR); URINE BILIRUBIN NEG (NEG); URINE COLOR YELLOW; URINE NITRITE NEG (NEG); URINE PH 5.5 (4.5-7.5); URINE SPECIFIC GRAVITY 1.016 (1.000-1.030); UROBILINOGEN NEG (NEG); ZZURINE CULT IF INDIC CATH NO
[2017-02-24 19:47] LABS: ALT/SGPT 16 U/L (12-78); AST/SGOT 11 U/L (15-37); BLOOD UREA NITROGEN 14 mg/dl (7-18); BUN/CREATININE RATIO 11.1 (10-20); CALCIUM 8.2 mg/dl (8.5-10.1); CARBON DIOXIDE 23 mmol/L (21-32); CHLORIDE 101 mmol/L (98-107); GLUCOSE 190 mg/dl (70-99); MAGNESIUM 1.8 mg/dl (1.8-2.4); POTASSIUM 4.4 mmol/L (3.5-5.1); SODIUM 135 mmol/L (136-145)
[2017-02-24] MEDS ORDERED: PIPERACILLIN/TAZOBACTAM 4.5 GM/100ML D5W IV STA (19:47)
[2017-02-24] MEDS ORDERED: LEVAQUIN 750MG / 150ML D5W IV STA (19:47)
[2017-02-24 19:50] LABS: ALB/GLOB RATIO 0.8 (0.9-2); ALKALINE PHOSPHATASE 116 U/L (45-117); C-REACTIVE PROTEIN 3.56 mg/dl (0-0.29); CKMB/CK RATIO 3.5 (0-3.0); PHOSPHORUS 3.1 mg/dl (2.5-4.9)
[2017-02-24 19:53] LABS: COMPLETE YES; ECHINOCYTES 1+; EOS % 0.1 %; IG% 0.3 %; LYMPH % 2.3 %; LYMPH ABS # 0.33 K/uL (1.2-3.4); MONO % 4.1 %; NEUT % 93.2 %
[2017-02-24 19:53] LABS: MANUAL MICROSCOPIC REQUIRED? NO; REVIEW REQ? NO
[2017-02-24 20:15] LABS: VEN BLD GAS O2 SATURATION 77.1 %; VEN BLOOD GAS BASE EXCESS -1.9 mmol/L
[2017-02-24] MEDS ORDERED: KETOROLAC TROMETHAMINE 30 MG/ML VIAL IV STA (20:17)
--- NOTE | 2017-02-24 20:58 | DIAGNOSTIC IMAGING REPORT ---
CHEST CTA for PULMONARY ARTERIES CT DOSE: 299.46 mGy.cm HISTORY: Pleural effusions. Dyspnea TECHNIQUE: Multiaxial CT images of the chest were performed following the intravenous administration of contrast to evaluate the pulmonary arteries. Maximal intensity projection images were also obtained. COMPARISON STUDY: 12/04/2016 FINDINGS: patient esophageal mass is not well seen on this exam. There are 2 large bilateral pleural effusions. Compressive atelectasis of the right as well as left lower lobe. Potential infiltrative change of the pulmonary apices. Pulmonary arterial vasculature enhances appropriately. There are no filling defects. IMPRESSION: 1. Study is negative for pulmonary embolus. 2. Interval development of large bilateral pleural effusions. 3. Compressive atelectasis of lower lobes bilaterally. 4. Potential developing infiltrative versus congestive change of the upper lung regions bilaterally. 5. Esophageal lesion is not well seen possibly secondary to the presence of the pleural effusions. Electronically signed by: Torito Navarro M.D. 02/24/2017 8:57 PM Dictated Date/Time: 02/24/2017 8:53 PM
[2017-02-24] MEDS ORDERED: OPTIRAY 320 IV PRN (21:00)
[2017-02-24 22:13] VITALS: Ht 172.7 cm; Wt 66.0 kg
[2017-02-24] MEDS ORDERED: LEVOFLOXACIN / D5W 500 MG in PREMIXED IN D5W 100 ML IV SCH (22:15)
[2017-02-24] MEDS ORDERED: VANCOMYCIN INJ 1,000 MG in SODIUM CHLORIDE 0.9% 250ML 250 ML IV STA (22:15)
[2017-02-24] MEDS: ALBUMIN HUMAN 25% 12.5 GM/50 ML VIAL IV SCH (22:29)
[2017-02-24] MEDS ORDERED: DIGOXIN INJ 500 MCG/2 ML AMP ONE (22:37)
[2017-02-24] MEDS ORDERED: VANCOMYCIN INJ 1,500 MG in SODIUM CHLORIDE 0.9% 500ML 500 ML IV STA (22:40)
[2017-02-24] MEDS ORDERED: DIGOXIN IV 250 MCG in SYRINGE 9 ML IV ONE (22:45)
[2017-02-24 23:01] VITALS: BP 59/42; PULSE 140; O2SAT 98
[2017-02-24 23:27] VITALS: BP 55/44; PULSE 139; O2SAT 98
[2017-02-24 23:30] VITALS: TEMP 36.7
[2017-02-24] MEDS ORDERED: IPRATROPIUM BROMIDE NEB SOLN 0.02% 2.5 ML VIAL INH PRN (23:30)
[2017-02-24] MEDS ORDERED: SODIUM CHLORIDE 0.9% 1000ML 1,000 ML IV SCH (23:30)
[2017-02-24] MEDS ORDERED: SODIUM CHLORIDE 0.9% 500ML 500 ML IV SCH (23:30)
[2017-02-24] MEDS ORDERED: PIPERACILL/TAZOBAC CONSULT ACTIVE PRN (23:30)
[2017-02-24] MEDS ORDERED: VANCOMYCIN CONSULT ACTIVE PRN (23:30)
[2017-02-24] MEDS ORDERED: LEVALBUTEROL 1.25MG/0.5ML NEB INH PRN (23:30)
[2017-02-24] MEDS ORDERED: ALBUMIN HUMAN 25% 12.5 GM/50 ML VIAL IV STA (23:30)
[2017-02-24] MEDS ORDERED: POTASSIUM CHLORIDE INJ 20 MEQ in SODIUM CHLORIDE 0.9% 1000ML 1,000 ML IV SCH (23:45)
[2017-02-24] MEDS ORDERED: LEVOFLOXACIN CONSULT ACTIVE PRN (23:45)
[2017-02-24 23:51] VITALS: BP 74/49; PULSE 127; O2SAT 100
[2017-02-24 23:59] VITALS: O2SAT 100
[2017-02-25] VITALS (53 sets, daily range): BP systolic 62–113; BP diastolic 47–71; PULSE 84–165; TEMP 36.4–37.4; O2SAT 86–100
[2017-02-25] MEDS: NSS + 20MEQ KCL 1000ML 1,000 ML IV SCH ×4 (00:03→15:00)
[2017-02-25] MEDS: LEVALBUTEROL 1.25MG/0.5ML NEB INH SCH ×4 (01:43→19:19)
[2017-02-25] MEDS: IPRATROPIUM BROMIDE NEB SOLN 0.02% 2.5 ML VIAL INH SCH ×4 (01:43→19:19)
[2017-02-25] MEDS: PIPERACILL/TAZOBAC IV 3.375 GM in DEXTROSE 5% 100ML 100 ML IV SCH ×3 (01:57→17:15)
[2017-02-25] MEDS: ALBUMIN HUMAN 25% 12.5 GM/50 ML VIAL IV SCH ×3 (01:58→10:24)
[2017-02-25] MEDS ORDERED: LEVALBUTEROL/IPRATROPIUM NEB INH SCH (03:00)
--- NOTE | 2017-02-25 03:19 | History and Physical ---
History & Physical Date & Time of Service: Feb 25, 2017 at 03:02. The patient was examined on 02/24/2017. Chief Complaint: Bilateral Pleural Effusion, Hypotension Primary Care Physician: Jennifer Polk M.D. History of Present Illness Source: patient, family, spouse The patient is an 81-year-old male with a known past medical history of esophageal cancer, malignant pleural effusion requiring tapping at [facility], who is brought to the emergency Department via ALS due to a persistent fever for the past few hours and shortness of breath. His reports that when he awoke from his afternoon nap his mental status was altered and he seemed confused. When he complained of fever and chills at that time, she called the ambulance. EMS reports that when they arrived his temperature was 102.7 is given 1 g of Tylenol and IV fluids in the field, which should provide some relief. Past Medical/Surgical History Medical Problems: (1) Asthma Status: Chronic Family History Cancer Diabetes mellitus Heart disease Hypertension Lung disease Social History Smoking Status: Never Smoker Smokeless Tobacco Use: No Alcohol Use: none Drug Use: none Marital Status: Housing status: lives with family Occupational Status: retired Multi-Drug Resistant Organisms History of MDRO: No Allergies Coded Allergies: Banana (Verified Allergy, Unknown, EYES SWELL SHUT, 01/31/17) NO KNOWN DRUG ALLERGIES (Verified Allergy, Unknown, ., 01/31/17) Home Medications Scheduled Ascorbic Acid (Vitamin C), 1 TAB PO QAM Cetirizine (Zyrtec), 10 MG PO QAM Digoxin (Digox), 62.5 MCG PO DAILY Ferrous Sulfate (Iron), 1 TAB PO QAM Metformin Hcl (Glucophage), 1,000 MG PO BID Metoprolol Tartrate (Lopressor), 25 MG PO DAILY Mometasone Furoate-Formoterol (Dulera 200/5 Mcg), 2 PUFFS INH BID Omeprazole (Prilosec), 20 MG PO BID Ranitidine (Zantac), 150 MG PO BID Scheduled PRN Chlorpheniramine-Phenylephrine (Coricidin D Cold/Flu/Sinu), 1 TAB PO DIRECTED PRN for COLDS SYMPTOMS Miscellaneous Medications Enteral Nutrition Formula (Ensure Plus Vanilla), CAN GJT Nutritional Supplements (Boost) Review of Systems The patient is somewhat disoriented, and his family helps to provide information for the history of present illness. He has not had shortness of breath, nausea, vomiting, abdominal pain, pelvic pain, blood in urine or stool, dysuria, urinary frequency or urgency, rash, abnormal bruising or bleeding, focal weakness, numbness or tingling in arms or legs, back or neck pain, night sweats. The review of systems is otherwise negative other than for that already noted above, and at least 10 systems have been reviewed. Physical Exam Vital Signs Date Time Temp Pulse Resp B/P (MAP) Pulse Ox O2 Delivery O2 Flow Rate FiO2 02/25/17 02:01 122 19 74/56 99 02/25/17 01:44 100 16 94 Nasal Cannula 3.0 02/25/17 01:32 120 20 63/53 97 02/25/17 01:01 139 16 78/58 99 02/25/17 00:31 121 19 81/50 100 02/25/17 00:01 108 20 76/50 99 02/25/17 00:01 108 20 76/50 99 02/25/17 00:00 127 8 100 02/24/17 23:59 100 Nasal Cannula 4.0 02/24/17 23:51 127 19 74/49 100 02/24/17 23:30 36.7 02/24/17 23:27 139 21 55/44 98 02/24/17 23:15 138 20 72/49 95 02/24/17 23:01 140 18 59/42 98 02/24/17 22:50 138 20 72/49 95 Nasal Cannula 4.0 02/24/17 22:43 130 02/24/17 22:15 132 20 58/43 96 Nasal Cannula 4.0 02/24/17 22:13 Nasal Cannula 02/24/17 22:05 36.8 147 20 59/47 97 Nasal Cannula 4.0 02/24/17 20:30 149 20 94/59 97 Nasal Cannula 4.0 02/24/17 19:19 97 Nasal Cannula 4.0 02/24/17 19:19 118 02/24/17 19:07 39.5 128 20 99/64 90 Room Air 02/24/17 19:04 97 Nasal Cannula 2.0 The patient is awake, alert and oriented 1, appears thin and mildly emaciated, lying in bed and in no acute distress. HEENT--PERRL, EOMI, mucous membranes and oropharynx dry. Neck--supple, no JVD or bruits, thyroid normal, trachea midline, no adenopathy. Heart--tachycardic and regular, no extra beats, no murmurs, rubs or gallops. Lungs--decreased breath sounds at the bases to half way up bilaterally,, no respiratory distress, no accessory muscle use. Abdomen--normal bowel sounds and soft, nontender and nondistended, no hernias or masses, no organomegaly. Extremities--no cyanosis, clubbing. There is bilaterally pretibially 2+ pitting Edema. There are good distal pulses b/l. Dermatologic-- warm and dry, no abnormal lymph nodes, no rash. Neurologic--cranial nerves II through XII grossly intact. Rheumatologic--normal range of motion. Psychiatric--normal affect. Diagnostics Laboratory Results Results Past 24 Hours Test 02/24/17 18:45 02/24/17 19:13 02/24/17 19:19 02/24/17 20:00 Range/Units White Blood Count 14.06 4.8-10.8 K/uL Red Blood Count 3.83 4.7-6.1 M/uL Hemoglobin 10.7 14.0-18.0 g/dL Hematocrit 32.8 42-52 % Mean Corpuscular Volume 85.6 80-100 fL Mean Corpuscular Hemoglobin 27.9 25-34 pg Mean Corpuscular Hemoglobin Concent 32.6 32-36 g/dl Platelet Count 234 130-400 K/uL Mean Platelet Volume 11.0 7.4-10.4 fL Neutrophils (%) (Auto) 93.2 % Lymphocytes (%) (Auto) 2.3 % Monocytes (%) (Auto) 4.1 % Eosinophils (%) (Auto) 0.1 % Basophils (%) (Auto) 0.0 % Neutrophils # (Auto) 13.11 1.4-6.5 K/uL Lymphocytes # (Auto) 0.33 1.2-3.4 K/uL Monocytes # (Auto) 0.57 0.11-0.59 K/uL Eosinophils # (Auto) 0.01 0-0.5 K/uL Basophils # (Auto) 0.00 0-0.2 K/uL RDW Standard Deviation 47.9 36.4-46.3 fL RDW Coefficient of Variation 15.3 11.5-14.5 % Immature Granulocyte % (Auto) 0.3 % Immature Granulocyte # (Auto) 0.04 0.00-0.02 K/uL Echinocytes 1+ Erythrocyte Sedimentation Rate 28 0-14 mm/hr Prothrombin Time 12.0 9.0-12.0 SECONDS Prothromb Time International Ratio 1.1 0.9-1.1 Activated Partial Thromboplast Time 26.9 21.0-31.0 SECONDS Partial Thromboplastin Ratio 1.0 Sodium Level 135 136-145 mmol/L Potassium Level 4.4 3.5-5.1 mmol/L Chloride Level 101 98-107 mmol/L Carbon Dioxide Level 23 21-32 mmol/L Anion Gap 11.0 3-11 mmol/L Blood Urea Nitrogen 14 7-18 mg/dl Creatinine 1.30 0.60-1.40 mg/dl Est Creatinine Clear Calc Drug Dose 41.5 ml/min Estimated GFR () 59.7 Estimated GFR (Non- 51.5 BUN/Creatinine Ratio 11.1 10-20 Random Glucose 190 70-99 mg/dl Calcium Level 8.2 8.5-10.1 mg/dl Phosphorus Level 3.1 2.5-4.9 mg/dl Magnesium Level 1.8 1.8-2.4 mg/dl Total Bilirubin 0.5 0.2-1 mg/dl Aspartate Amino Transf (AST/SGOT) 11 15-37 U/L Alanine Aminotransferase (ALT/SGPT) 16 12-78 U/L Alkaline Phosphatase 116 45-117 U/L Total Creatine Kinase 23 39-308 U/L Creatine Kinase MB 0.8 0.5-3.6 ng/ml Creatine Kinase MB Ratio 3.5 0-3.0 Troponin I < 0.015 0-0.045 ng/ml C-Reactive Protein 3.56 0-0.29 mg/dl Pro-B-Type Natriuretic Peptide 6843 0-1800 pg/ml Total Protein 6.3 6.4-8.2 gm/dl Albumin 2.7 3.4-5.0 gm/dl Globulin 3.6 2.5-4.0 gm/dl Albumin/Globulin Ratio 0.8 0.9-2 Lipase 52 73-393 U/L Digoxin Level 0.8 0.8-2.0 ng/ml Urine Color YELLOW Urine Appearance CLEAR CLEAR Urine pH 5.5 4.5-7.5 Urine Specific [place] 1.016 1.000-1.030 Urine Protein NEG NEG Urine Glucose (UA) NEG NEG Urine Ketones TRACE NEG Urine Occult Blood NEG NEG Urine Nitrite NEG NEG Urine Bilirubin NEG NEG Urine Urobilinogen NEG NEG Urine Leukocyte Esterase NEG NEG Urine WBC (Auto) 0 0-5 /hpf Urine RBC (Auto) 0-4 0-4 /hpf Urine Hyaline Casts (Auto) 1-5 0-5 /lpf Urine Epithelial Cells (Auto) 5-10 0-5 /lpf Urine Bacteria (Auto) NEG NEG Bedside Lactic Acid Venous 1.69 0.90-1.70 mmol/L Venous Blood pH 7.47 7.36-7.41 Venous Blood Partial Pressure CO2 29 38.0-50.0 mmHg Venous Blood Partial Pressure O2 41 mmHg Venous Blood HCO3 21 mmol/L Venous Blood Oxygen Saturation 77.1 % Venous Blood Base Excess -1.9 mmol/L Microbiology Results 02/24/17 Blood Culture, Received Pending 02/24/17 Blood Culture, Received Pending Diagnostic Radiology Patient Name: ROSANNA MORAN Unit Number: [id number] Dictated: 02/24/171935 Transcribed: 02/24/171935 MS Printed Date/Time: [~ rep prt dt]/[~ rep prt tm] [~ rep ct labl] - [~ rep ct ivnm] [facility] [place] [address] Dictated: 02/24/171935 Transcribed: 02/24/171935 MS Printed Date/Time: [~ rep prt dt]/[~ rep prt tm] [~ rep ct labl] - [~ rep ct ivnm] [~ rep ct add3]] CHEST ONE VIEW PORTABLE CLINICAL HISTORY: Sepsis dyspnea COMPARISON STUDY: 02/15/2017 FINDINGS: Interval development of bilateral pleural effusions. Mild stable cardiomegaly. Central catheter in superior vena cava. Pulmonary apices are clear. IMPRESSION: Interval development of bilateral pleural effusions Electronically signed by: Torito Navarro M.D. 02/24/2017 7:36 PM Dictated Date/Time: 02/24/2017 7:36 PM The status of this report is Signed. Draft = Not yet reviewed or approved by Radiologist. Signed = Reviewed and approved by Radiologist. <AttendingPhy></AttendingPhy> <FamilyPhy>Jennifer Polk M.D.</FamilyPhy> < PrimaryPhy>Jennifer Polk M.D.</PrimaryPhy> <UnitNumber>[id number]</UnitNumber> < VisitNumber>[id number]</VisitNumber> <PatientName>ROSANNA MORAN</PatientName > <DateOfBirth>1935</DateOfBirth> <Location>[facility]</Location> <ServiceDate> 02/24/17</ServiceDate> <MNE>ESINDI</MNE> <OrderingPhy>Vikram Stephen D.O.</ OrderingPhy> <OrderingPhyMNE>f rep ord dr raygoza</OrderingPhyMNE> <DictatingPhyMNE> f rep dict dr raygoza</DictatingPhyMNE> <CCListMNE>f rep ct mne</CCListMNE> < AdmittingPhyMNE>f pt admit dr raygoza</AdmittingPhyMNE> <AttendingPhyMNE>f pt attend dr raygoza</AttendingPhyMNE> <ConsultingPhyMNE>f pt consult dr raygoza</ConsultingPhyMNE> <FamilyPhyMNE>f pt fam dr raygoza</FamilyPhyMNE> <OtherPhyMNE>f pt other dr raygoza</OtherPhyMNE> < PrimaryPhyMNE>f pt prim care dr raygoza</PrimaryPhyMNE> <ReferringPhyMNE>f pt referring dr raygoza</ReferringPhyMNE> Patient Name: ROSANNA MORAN Unit Number: [id number] Dictated: 02/24/172052 Transcribed: 02/24/172052 MS Printed Date/Time: [~ rep prt dt]/[~ rep prt tm] [~ rep ct labl] - [~ rep ct ivnm] [facility] [place] [address] Dictated: 02/24/172052 Transcribed: 02/24/172052 MS Printed Date/Time: [~ rep prt dt]/[~ rep prt tm] [~ rep ct labl] - [~ rep ct ivnm] CHEST CTA for PULMONARY ARTERIES CT DOSE: 299.46 mGy.cm HISTORY: Pleural effusions. Dyspnea TECHNIQUE: Multiaxial CT images of the chest were performed following the intravenous administration of contrast to evaluate the pulmonary arteries. Maximal intensity projection images were also obtained. COMPARISON STUDY: 12/04/2016 FINDINGS: patient esophageal mass is not well seen on this exam. There are 2 large bilateral pleural effusions. Compressive atelectasis of the right as well as left lower lobe. Potential infiltrative change of the pulmonary apices. Pulmonary arterial vasculature enhances appropriately. There are no filling defects. IMPRESSION: 1. Study is negative for pulmonary embolus. 2. Interval development of large bilateral pleural effusions. 3. Compressive atelectasis of lower lobes bilaterally. 4. Potential developing infiltrative versus congestive change of the upper lung regions bilaterally. 5. Esophageal lesion is not well seen possibly secondary to the presence of the pleural effusions. Electronically signed by: Torito Navarro M.D. 02/24/2017 8:57 PM Dictated Date/Time: 02/24/2017 8:53 PM The status of this report is Signed. Draft = Not yet reviewed or approved by Radiologist. Signed = Reviewed and approved by Radiologist. <AttendingPhy></AttendingPhy> <FamilyPhy>Jennifer Polk M.D.</FamilyPhy> < PrimaryPhy>Jennifer Polk M.D.</PrimaryPhy> <UnitNumber>[id number]</UnitNumber> < VisitNumber>[id number]</VisitNumber> <PatientName>ROSANNA MORAN</PatientName > <DateOfBirth>1935</DateOfBirth> <Location>[facility]</Location> <ServiceDate> 02/24/17</ServiceDate> <MNE>ESINDI</MNE> <OrderingPhy>Vikram Stephen D.O.</ OrderingPhy> <OrderingPhyMNE>f rep ord dr raygoza</OrderingPhyMNE> <DictatingPhyMNE> f rep dict dr raygoza</DictatingPhyMNE> <CCListMNE>f rep ct mne</CCListMNE> < AdmittingPhyMNE>f pt admit dr raygoza</AdmittingPhyMNE> <AttendingPhyMNE>f pt attend dr raygoza</AttendingPhyMNE> <ConsultingPhyMNE>f pt consult dr raygoza</ConsultingPhyMNE> <FamilyPhyMNE>f pt fam dr raygoza</FamilyPhyMNE> <OtherPhyMNE>f pt other dr raygoza</OtherPhyMNE> < PrimaryPhyMNE>f pt prim care dr raygoza</PrimaryPhyMNE> <ReferringPhyMNE>f pt referring dr raygoza</ReferringPhyMNE> EKG EKG shows atrial fibrillation with rapid ventricular response at 137 bpm, old anterior septal [place], nonspecific T wave lateral changes. Impression Assessment and Plan Hypotension/large pleural effusions/bilateral pneumonia--patient's heart rate while in the ED remained in the 140-160 range, but had been initially maintaining systolic pressure in the mid 90s. However, his blood pressure did suddenly drop into the mid 50s, at which time he received an additional normal saline fluid bolus, was given IV albumin 25 g, and digoxin 0.25 mg IV. He had a central femoral line placed by Dr. Stephen from the ED, and was then transferred to the ICU for admission. I did discuss with on the telephone the patient's large pleural effusions, and the decision was made to fluid resuscitate the patient since he was not hypoxic, and manage the pleural effusions in the a.m. The patient was placed on vancomycin IV, Zosyn IV and Levaquin IV, and Xopenex with Atrovent nebulizer use every 6 hours while awake and every 2 hours when necessary. In the ICU he was given another 500 mL normal saline fluid bolus, and then started on normal saline at 200 ML's per hour. He received an additional 25 g albumin IV on arrival in the ICU, and will receive them every 4 hours for the next 24 hours. We'll continue digoxin at 0.125 mg by mouth daily, and hold metoprolol tartrate 25 mg by mouth daily. There was concern regarding a possible pericardial effusion and cardiac tamponade, however, there was no abnormalities noted on CT, and will check an echocardiogram in the a.m. Esophageal cancer--will hold omeprazole 20 mg by mouth twice a day and ranitidine 150 mg by mouth twice a day, and place on ranitidine 50 mg IV every 8 hours. We'll consult , his simplex operator, regarding continued difficulty with swallowing, he'll be placed on liquid diet and boost supplements. Level of Care Critical Care Advanced Directives Existing Advance Directive: No Existing Living Will: No Existing Power of Crocheter: No Resuscitation Status FULL NO CARDIOV/MECH NABIL VTE Prophylaxis VTE Risk Assessment Done? Y/N: Yes Risk Level: Moderate Given or contraindicated: SCD's
[2017-02-25] MEDS: RANITIDINE IV 50 MG in DEXTROSE 5% 100ML 100 ML IV SCH ×3 (03:36→20:51)
[2017-02-25] MEDS ORDERED: ONDANSETRON INJ 2 MG/ML 2 ML VIAL IV PRN (05:15)
[2017-02-25 05:59] LABS: BASO % 0.1 %; BASO ABS # 0.01 K/uL (0-0.2); EOS % 0.4 %; HEMATOCRIT 25.1 % (42-52); IG% 0.1 %; LYMPH % 6.7 %; LYMPH ABS # 0.46 K/uL (1.2-3.4); MEAN CELL VOLUME 85.7 fL (80-100); MEAN CORPUSCULAR HEMOGLOBIN 27.6 pg (25-34); MEAN CORPUSCULAR HGB CONC 32.3 g/dl (32-36); MEAN PLATELET VOLUME 10.1 fL (7.4-10.4); MONO % 5.2 %; NEUT % 87.5 %; PLATELET COUNT 112 K/uL (130-400); RED BLOOD COUNT 2.93 M/uL (4.7-6.1); WHITE BLOOD COUNT 6.88 K/uL (4.8-10.8)
[2017-02-25 06:15] LABS: ALB/GLOB RATIO 1.1 (0.9-2); BUN/CREATININE RATIO 10.9 (10-20); CALCIUM 7.1 mg/dl (8.5-10.1); CREATININE 1.4 mg/dl (0.60-1.40); MAGNESIUM 1.8 mg/dl (1.8-2.4); POTASSIUM 4.6 mmol/L (3.5-5.1)
[2017-02-25 06:20] LABS: COMPLETE YES; LARGE PLATELETS 1+
[2017-02-25] MEDS: ASCORBIC ACID 500 MG TAB PO SCH (08:12)
[2017-02-25] MEDS: CETIRIZINE HCL 10 MG TAB PO SCH (08:13)
[2017-02-25] MEDS: PANTOprazole SOD 40 MG TAB PO SCH ×2 (08:13→20:57)
[2017-02-25] MEDS ORDERED: METOPROLOL TARTRATE 25 MG TAB PO SCH (09:00)
[2017-02-25] MEDS ORDERED: RANITIDINE HCL 150 MG TAB PO SCH (09:00)
[2017-02-25] MEDS ORDERED: BOOST VANILLA PO SCH ×2 (09:00)
[2017-02-25] MEDS ORDERED: FERROUS SULFATE 325 MG TAB PO SCH (09:00)
[2017-02-25] MEDS ORDERED: NURSING VERBAL MED ORDER ONE ×5 (09:30→23:15)
[2017-02-25] MEDS ORDERED: LIDOCAINE HCL 1% 20 ML VIAL ONE (09:54)
[2017-02-25] MEDS: FERROUS SULFATE 325 MG/7.4 ML UDP PO SCH (10:23)
--- NOTE | 2017-02-25 10:48 | DIAGNOSTIC IMAGING REPORT ---
CHEST ONE VIEW PORTABLE HISTORY: Status post right pleural catheter placement. COMPARISON: Chest CTA 02/24/2017. FINDINGS: Significant decrease in size in the right pleural effusion status post placement of a right basilar pleural catheter. Tiny right apical pneumothorax with a pleural gap of 6 mm. Right chest wall subcutaneous emphysema. Moderate to large left pleural effusion and left basilar opacities persist. Left subclavian Port-A-Cath terminates in the distal SVC. The heart is stable in size. IMPRESSION: 1. Significant decrease in size in the right pleural effusion status post placement of the right basilar pleural catheter. Tiny right apical pneumothorax. 2. Moderate to large left pleural the effusion, unchanged. Electronically signed by: Greg Sharpe M.D. 02/25/2017 10:47 AM Dictated Date/Time: 02/25/2017 10:45 AM
[2017-02-25 11:37] LABS: PLEURAL FLUID TOTAL PROTEIN 2.7 g/dl
[2017-02-25 12:06] LABS: PLEURAL FLUID APPEARANCE HAZY; PLEURAL FLUID COLOR YELLOW; PLEURAL FLUID MONONUC RELAT 47.8 %; PLEURAL FLUID POLYNUC 52.2 %; PLEURAL FLUID SOURCE RIGHT LUNG; PLEURAL FLUID WBC (A) 122 /uL
[2017-02-25] MEDS ORDERED: GLUCOSE 10 TABS/TUBE PO PRN (13:30)
[2017-02-25] MEDS ORDERED: GLUCOSE 40% GEL 15 GM TUBE PO PRN (13:30)
[2017-02-25] MEDS ORDERED: DEXTROSE 50% 50 ML SYR IV PRN (13:30)
[2017-02-25] MEDS ORDERED: GLUCAGON FOR INJ 1 MG VIAL SQ PRN (13:30)
--- NOTE | 2017-02-25 14:29 | OPERATIVE REPORT ---
DATE OF OPERATION: 02/25/2017 PREOPERATIVE DIAGNOSIS: Malignant right pleural effusion. POSTOPERATIVE DIAGNOSIS: Same. PROCEDURE: Insertion of right Pleurx catheter. SURGEON: Dr. Radford. ANESTHESIA: Local. DESCRIPTION OF PROCEDURE: The patient in left lateral decubitus position, right chest was prepped and draped in the usual sterile fashion. With the use of ultrasound, a window was noted at about the 7th interspace, just posterior to the mid axillary line. After prepping and draping in usual sterile fashion, skin wheal was raised at this site with 25-gauge needle, 1% Xylocaine. A large bore needle was used to anesthetize the deeper subcutaneous tissues as well as the pleura and we got free flowing fluid back. I inserted a guidewire through this needle and the needle removed. 10 cm anterior and inferior to this, another skin wheal was raised with 25 gauge needle, 1% Xylocaine. 1 cm incisions were made at both of these skin wheals. A long needle with 1% Xylocaine without epinephrine was used to anesthetize subcutaneous tissues between these two. A tunneler was attached to the Pleurx catheter and dragged from the anterior to the posterior incision. The tunneler was removed. Introducer sheath was then slid over the guidewire and the posterior incision and the inner cannula and guidewire removed and the Pleurx catheter inserted through the sheath without difficulty. Two separate 3-0 silk sutures were used to anchor the catheter to the patient's skin anteriorly and 2 separate 3-0 silk sutures were used to close the incision posteriorly. 2000 mL of a yellow, clear fluid was drained. He had no reexpansion pain. We had very little in the way of air. My concern is this patient has a trapped lung. We will see what his x-ray looks like. He certainly tolerated it well. I attest to the content of the Intraoperative Record and any orders documented therein. Any exception s are noted below.
--- NOTE | 2017-02-25 14:40 | SURGICAL CONSULTATION ---
DATE OF CONSULTATION: 02/25/2017 SUBJECTIVE: Mr. Tapia was seen today. This is soon to be an 82-year-old male that I know. He has adenocarcinoma of the distal esophagus and was treated with chemotherapy and radiation. Given his advanced age and his poor performance status, it was elected not to offer him an operation. It was discussed initially, but then he did not tolerate the chemotherapy and radiation and they elected not to operate on him, which I believe was the correct choice. He actually did well for a while, but then he came back in with some dysphagia and also was found to have a right pleural effusion. This was tapped at [place] and it is a malignant effusion. I was asked to see him about possibly placing a PleurX catheter; however, the patient was on room air. He was able to tolerate liquids. I have discussed this with Dr. 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 He is not being treated with chemotherapy or radiation, currently. I saw him in the office and had a long discussion on at least 3 different occasions with the patient and his about possibly placing a stent or possibly placing a PleurX catheter. Given the fact he was tolerating liquids and also the fact that he was on room air, I elected not to perform either one of these interventions, but told them that should the need arise we could do so. The patient presented acutely decompensating with hypotension last night, was found to have larger effusions. There was concern about the effusions precipitating this hypotension; however, that is not the case. He was fluid resuscitated and when I saw him this morning, he is on room air and looked much better. His pleural effusions on his CT scan were remarkably large. I believe that inserting a PleurX catheter is probably advisable even though, he is on room air. The question of the stent will be raised again with Dr. Holbrook. PAST MEDICAL HISTORY: 1. Metastatic esophageal cancer status post chemotherapy and radiation. 2. Bilateral pleural effusions. 3. Right malignant pleural effusion. 4. Diabetes mellitus. 5. History of colon cancer. 6. History of prostate cancer. 7. Renal insufficiency. 8. Chronic obstructive pulmonary disease. 9. Hypertension. 10. Atrial fibrillation of recent onset. PAST SURGICAL HISTORY: 1. Right thoracentesis. 2. Right inguinal herniorrhaphy. 3. Colon resection. 4. Left subclavian port placement. ALLERGIES: No known drug allergies. MEDICATIONS: Please see chart. SOCIAL HISTORY: The patient has never smoked cigarettes. 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 He lives with his . He worked for [employer] for many years. FAMILY MEDICAL HISTORY: Significant for diabetes, hypertension and atherosclerotic cardiovascular disease. REVIEW OF SYSTEMS: His weight has been about the same. He is still having continuing problems with eating. The interesting thing about this episode is it had occurred acutely. He took a nap, and he woke up he had mental status changes. He complained of fever and chills and when they arrived he had a fever of 102.7. It is not quite clear why he had this problem. He denies nausea or vomiting. He had no diarrhea. He had no vomiting. He does have dysphagia. He has had fevers and chills as described. He has had no skin breakdown. He has had no visual or auditory symptoms. He denies any urinary symptoms. PHYSICAL EXAMINATION: GENERAL: This is a smallish, cachectic appearing male who weighs 62 kilograms. He is awake and alert this morning. 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 His oral mucosa is dry. He has no obvious oral mucosal lesions. His tongue is midline. NECK: He has no neck vein distention. I do not detect adenopathy or carotid bruit. HEART: He has an irregularly irregular rhythm of his heart. He is in atrial fibrillation. He has no significant rub. LUNGS: He has decreased breath sounds in both bases, but no wheezing. ABDOMEN: A bit protuberant, but not distended. He has bowel sounds. EXTREMITIES: He has 2+ edema bilaterally. He has good pedal pulses. He has no joint effusions. NEUROLOGIC: He is awake, alert and oriented. He has no focal deficits. ASSESSMENT AND PLAN: 1. Enlarging bilateral pleural effusions. These are probably multifactorial, although we know at least that the right is malignant. I am going to insert a PleurX catheter in him to drain his right malignant pleural effusion. I still think this is probably an infectious onset and I think the timely administration of antibiotics and fluid resuscitation averted a real problem.
[2017-02-25] MEDS: BOOST BREEZE NUTRITION DRINK 1 BOX PO SCH ×2 (14:45→20:57)
--- NOTE | 2017-02-25 14:46 | Gastroenterology Progress Note ---
Progress Note Date of Service: Feb 25, 2017 Subjective Pt evaluation today including: conversation w/ patient, physical exam, chart review, lab review, review of studies, review of inpatient medication list Medications Current Inpatient Medications Medications (Trade) Dose Ordered Sig/Ángela Route Start Time Stop Time Status Last Admin Dose Admin Ioversol (Optiray 320) 114 ml UD PRN IV 02/24/17 21:00 02/28/17 20:59 Acetaminophen (Tylenol Tab) 650 mg Q4H PRN PO 02/24/17 22:15 03/26/17 22:14 Cetirizine HCl (zyrTEC TAB) 10 mg QAM PO 02/25/17 09:00 03/27/17 08:59 02/25/17 08:13 10 MG Digoxin (Lanoxin Tab) 0.125 mg DAILY@1600 PO 02/25/17 16:00 03/27/17 15:59 Ascorbic Acid (Vitamin C Tab) 1,000 mg QAM PO 02/25/17 09:00 03/27/17 08:59 02/25/17 08:12 1,000 MG Pantoprazole Sodium (Protonix Tab) 40 mg BID PO 02/25/17 09:00 03/27/17 08:59 02/25/17 08:13 40 MG Albumin Human (Albumin 25%) 25 gm Q4H IV 02/24/17 22:15 02/25/17 22:14 02/25/17 10:24 25 GM Piperacillin Sod/ Tazobactam Sod 3.375 gm/Dextrose 115 ml @ 30 mls/hr Q8H IV 02/25/17 02:00 03/04/17 01:59 02/25/17 10:23 30 MLS/HR Ipratropium Douglas (Atrovent 0.02% 0.5MG/2.5ML Neb) 0.5 mg Q6R INH 02/25/17 03:00 03/27/17 02:59 02/25/17 07:28 0.5 MG Levalbuterol (Xopenex 1.25MG/ 0.5ML Neb) 1.25 mg Q6R INH 02/25/17 03:00 03/27/17 02:59 02/25/17 07:28 1.25 MG Ipratropium Douglas (Atrovent 0.02% 0.5MG/2.5ML Neb) 0.5 mg Q2H PRN INH 02/24/17 23:30 03/26/17 23:29 Levalbuterol (Xopenex 1.25MG/ 0.5ML Neb) 1.25 mg Q2H PRN INH 02/24/17 23:30 03/26/17 23:29 Vancomycin HCl (Consult) 1 ea UD PRN N/A 02/24/17 23:30 03/26/17 23:29 Piperacillin Sod/ Tazobactam Sod (Consult) 1 ea UD PRN N/A 02/24/17 23:30 03/26/17 23:29 Levofloxacin (Consult) 1 ea UD PRN N/A 02/24/17 23:45 03/26/17 23:44 Levofloxacin 750 mg/Prmx 150 ml @ 100 mls/hr Q48H IV 02/26/17 20:00 03/03/17 23:59 Potassium Chloride/Sodium Chloride 1,000 ml @ 200 mls/hr Q5H IV 02/25/17 00:30 03/27/17 00:29 02/25/17 10:38 200 MLS/HR Heparin Sodium (Porcine) (Heparin 100 Unit/ml 5ml Flush) 5 ml PRN PRN IV 02/25/17 00:30 03/27/17 00:29 Ranitidine HCl 50 mg/Dextrose 102 ml @ 200 mls/hr Q8H IV 02/25/17 04:00 03/27/17 03:59 02/25/17 12:26 200 MLS/HR Ondansetron HCl (Zofran Inj) 4 mg Q6H PRN IV 02/25/17 05:15 03/27/17 05:14 Ferrous Sulfate (Feosol Elix) 325 mg QAM PO 02/25/17 10:00 03/27/17 09:59 02/25/17 10:23 325 MG Enteral Nutritional Formula (Boost Breeze Nutritional Drink) 1 box TID PO 02/25/17 14:00 03/27/17 08:59 Vancomycin HCl 1000 mg/Sodium Chloride 270 ml @ 125 mls/hr Q24H IV 02/25/17 22:00 03/03/17 21:59 Insulin Aspart (novoLOG ASPART) SLIDING SCALE If C... ACHS SC 02/25/17 16:00 03/27/17 15:59 Glucose (Glucose 40% Gel) 15-30 GRAMS 15 GRAMS... UD PRN PO 02/25/17 13:30 03/27/17 13:29 Glucose (Glucose Chew Tab) 4-8 Tablets 4 Tabl... UD PRN PO 02/25/17 13:30 03/27/17 13:29 Dextrose (Dextrose 50% 50ML Syringe) 25-50ML OF 50% DW IV FOR... UD PRN IV 02/25/17 13:30 03/27/17 13:29 Glucagon (Glucagon Inj) 1 mg UD PRN SQ 02/25/17 13:30 03/27/17 13:29 Objective Vital Signs Date Time Temp Pulse Resp B/P (MAP) Pulse Ox O2 Delivery O2 Flow Rate FiO2 02/25/17 12:01 107 15 83/64 86 02/25/17 12:00 Room Air 02/25/17 12:00 36.7 02/25/17 11:29 92 13 105/59 96 02/25/17 11:01 96 13 88/66 02/25/17 10:31 105 22 107/68 93 02/25/17 10:01 107 14 101/60 94 02/25/17 09:01 99 21 91/52 97 02/25/17 08:31 99 20 96/58 95 02/25/17 08:01 104 11 91/64 99 02/25/17 08:00 36.8 02/25/17 08:00 Room Air 02/25/17 07:31 119 16 102/70 98 02/25/17 07:28 104 16 95 Room Air 02/25/17 07:19 112 13 105/68 96 02/25/17 07:18 119 20 79/71 95 02/25/17 07:01 100 15 62/49 99 02/25/17 07:01 100 15 62/49 99 02/25/17 07:00 100 13 100 02/25/17 06:31 99 15 91/59 95 02/25/17 06:01 105 13 98/64 94 02/25/17 05:31 91 19 82/54 94 02/25/17 05:00 99 14 98 02/25/17 04:01 103 12 89/56 99 02/25/17 04:00 98 Nasal Cannula 2.0 02/25/17 04:00 36.4 02/25/17 03:31 105 12 81/52 99 02/25/17 03:01 108 18 81/56 100 02/25/17 02:31 104 13 76/47 99 02/25/17 02:01 122 19 74/56 99 02/25/17 01:44 100 16 94 Nasal Cannula 3.0 02/25/17 01:32 120 20 63/53 97 02/25/17 01:01 139 16 78/58 99 02/25/17 00:31 121 19 81/50 100 02/25/17 00:01 108 20 76/50 99 02/25/17 00:01 108 20 76/50 99 02/25/17 00:00 127 8 100 02/24/17 23:59 100 Nasal Cannula 4.0 02/24/17 23:51 127 19 74/49 100 02/24/17 23:30 36.7 02/24/17 23:27 139 21 55/44 98 02/24/17 23:15 138 20 72/49 95 02/24/17 23:01 140 18 59/42 98 02/24/17 22:50 138 20 72/49 95 Nasal Cannula 4.0 02/24/17 22:43 130 02/24/17 22:15 132 20 58/43 96 Nasal Cannula 4.0 02/24/17 22:13 Nasal Cannula 02/24/17 22:05 36.8 147 20 59/47 97 Nasal Cannula 4.0 02/24/17 20:30 149 20 94/59 97 Nasal Cannula 4.0 02/24/17 19:19 97 Nasal Cannula 4.0 02/24/17 19:19 118 02/24/17 19:07 39.5 128 20 99/64 90 Room Air 02/24/17 19:04 97 Nasal Cannula 2.0 Laboratory Results Last 24 Hours Test 02/24/17 18:45 02/24/17 19:13 02/24/17 19:19 02/24/17 20:00 White Blood Count 14.06 K/uL Red Blood Count 3.83 M/uL Hemoglobin 10.7 g/dL Hematocrit 32.8 % Mean Corpuscular Volume 85.6 fL Mean Corpuscular Hemoglobin 27.9 pg Mean Corpuscular Hemoglobin Concent 32.6 g/dl Platelet Count 234 K/uL Mean Platelet Volume 11.0 fL Neutrophils (%) (Auto) 93.2 % Lymphocytes (%) (Auto) 2.3 % Monocytes (%) (Auto) 4.1 % Eosinophils (%) (Auto) 0.1 % Basophils (%) (Auto) 0.0 % Neutrophils # (Auto) 13.11 K/uL Lymphocytes # (Auto) 0.33 K/uL Monocytes # (Auto) 0.57 K/uL Eosinophils # (Auto) 0.01 K/uL Basophils # (Auto) 0.00 K/uL RDW Standard Deviation 47.9 fL RDW Coefficient of Variation 15.3 % Immature Granulocyte % (Auto) 0.3 % Immature Granulocyte # (Auto) 0.04 K/uL Echinocytes 1+ Erythrocyte Sedimentation Rate 28 mm/hr Prothrombin Time 12.0 SECONDS Prothromb Time International Ratio 1.1 Activated Partial Thromboplast Time 26.9 SECONDS Partial Thromboplastin Ratio 1.0 Sodium Level 135 mmol/L Potassium Level 4.4 mmol/L Chloride Level 101 mmol/L Carbon Dioxide Level 23 mmol/L Anion Gap 11.0 mmol/L Blood Urea Nitrogen 14 mg/dl Creatinine 1.30 mg/dl Est Creatinine Clear Calc Drug Dose 41.5 ml/min Estimated GFR () 59.7 Estimated GFR (Non- 51.5 BUN/Creatinine Ratio 11.1 Random Glucose 190 mg/dl Calcium Level 8.2 mg/dl Phosphorus Level 3.1 mg/dl Magnesium Level 1.8 mg/dl Total Bilirubin 0.5 mg/dl Aspartate Amino Transf (AST/SGOT) 11 U/L Alanine Aminotransferase (ALT/SGPT) 16 U/L Alkaline Phosphatase 116 U/L Total Creatine Kinase 23 U/L Creatine Kinase MB 0.8 ng/ml Creatine Kinase MB Ratio 3.5 Troponin I < 0.015 ng/ml C-Reactive Protein 3.56 mg/dl Pro-B-Type Natriuretic Peptide 6843 pg/ml Total Protein 6.3 gm/dl Albumin 2.7 gm/dl Globulin 3.6 gm/dl Albumin/Globulin Ratio 0.8 Lipase 52 U/L Digoxin Level 0.8 ng/ml Urine Color YELLOW Urine Appearance CLEAR Urine pH 5.5 Urine Specific [place] 1.016 Urine Protein NEG Urine Glucose (UA) NEG Urine Ketones TRACE Urine Occult Blood NEG Urine Nitrite NEG Urine Bilirubin NEG Urine Urobilinogen NEG Urine Leukocyte Esterase NEG Urine WBC (Auto) 0 /hpf Urine RBC (Auto) 0-4 /hpf Urine Hyaline Casts (Auto) 1-5 /lpf Urine Epithelial Cells (Auto) 5-10 /lpf Urine Bacteria (Auto) NEG Bedside Lactic Acid Venous 1.69 mmol/L Venous Blood pH 7.47 Venous Blood Partial Pressure CO2 29 mmHg Venous Blood Partial Pressure O2 41 mmHg Venous Blood HCO3 21 mmol/L Venous Blood Oxygen Saturation 77.1 % Venous Blood Base Excess -1.9 mmol/L Test 02/25/17 00:00 02/25/17 05:21 02/25/17 05:41 02/25/17 11:28 Pleural Fluid Source RIGHT LUNG Pleural Fluid Color YELLOW Pleural Fluid Appearance HAZY Pleural Fluid WBC 122 /uL Pleural Fluid RBC < 3000 /uL Pleural Fluid pH 7.41 Pleural Fluid Polynuclear WBCs % 52.2 % Pleural Fluid Mononuclear WBCs % 47.8 % Pleural Fluid Total Protein 2.7 g/dl Pleural Fluid LDH 75 IU Pleural Fluid Glucose 187 mg/dl Pleural Fluid Amylase 7 U/L Bedside Glucose 194 mg/dl 182 mg/dl White Blood Count 6.88 K/uL Red Blood Count 2.93 M/uL Hemoglobin 8.1 g/dL Hematocrit 25.1 % Mean Corpuscular Volume 85.7 fL Mean Corpuscular Hemoglobin 27.6 pg Mean Corpuscular Hemoglobin Concent 32.3 g/dl Platelet Count 112 K/uL Mean Platelet Volume 10.1 fL Neutrophils (%) (Auto) 87.5 % Lymphocytes (%) (Auto) 6.7 % Monocytes (%) (Auto) 5.2 % Eosinophils (%) (Auto) 0.4 % Basophils (%) (Auto) 0.1 % Neutrophils # (Auto) 6.01 K/uL Lymphocytes # (Auto) 0.46 K/uL Monocytes # (Auto) 0.36 K/uL Eosinophils # (Auto) 0.03 K/uL Basophils # (Auto) 0.01 K/uL RDW Standard Deviation 49.1 fL RDW Coefficient of Variation 15.5 % Immature Granulocyte % (Auto) 0.1 % Immature Granulocyte # (Auto) 0.01 K/uL Large Platelets 1+ Sodium Level 137 mmol/L Potassium Level 4.6 mmol/L Chloride Level 106 mmol/L Carbon Dioxide Level 22 mmol/L Anion Gap 9.0 mmol/L Blood Urea Nitrogen 15 mg/dl Creatinine 1.40 mg/dl Est Creatinine Clear Calc Drug Dose 37.3 ml/min Estimated GFR () 54.6 Estimated GFR (Non- 47.1 BUN/Creatinine Ratio 10.9 Random Glucose 173 mg/dl Calcium Level 7.1 mg/dl Magnesium Level 1.8 mg/dl Total Bilirubin 0.5 mg/dl Aspartate Amino Transf (AST/SGOT) 13 U/L Alanine Aminotransferase (ALT/SGPT) 16 U/L Alkaline Phosphatase 86 U/L Total Protein 5.3 gm/dl Albumin 2.8 gm/dl Globulin 2.5 gm/dl Albumin/Globulin Ratio 1.1 Test 02/25/17 13:23 Assessment and Plan GI consult dictated Job: [id number] dysphagia---from esophageal cancer. Pt can handle liquids but not solids. Options are continue liquids only with no intervention, esophageal stenting, and PEG tube. These depend on goals of care for patient and will not alter overall prognosis of esophageal cancer. DR Holbrook or DR Brewer can continue the discussion with patient tomorrow. esophageal cancer--did not respond to chemo and XRT and no surgery desired by patient per notes GERD PPI Normocytic anemia--follow no history of black nor bloody stools. malignant pleural effusion--per others I am going off service today at [address] Brewer assuming GI care then.
[2017-02-25 15:13] LABS: HEMATOCRIT 25.8 % (42-52); MEAN CELL VOLUME 85.7 fL (80-100); MEAN CORPUSCULAR HEMOGLOBIN 27.2 pg (25-34); MEAN CORPUSCULAR HGB CONC 31.8 g/dl (32-36); MEAN PLATELET VOLUME 9.9 fL (7.4-10.4); PLATELET COUNT 106 K/uL (130-400); RED BLOOD COUNT 3.01 M/uL (4.7-6.1); WHITE BLOOD COUNT 5.76 K/uL (4.8-10.8)
--- NOTE | 2017-02-25 15:50 | Family Medicine Progress Note ---
Progress Note Date of Service Feb 25, 2017. Subjective Pt evaluation today including: conversation w/ patient, physical exam, conversation w/ insolvency consultant, review of inpatient medication list Pain: none PO Intake: full liquid diet Voiding: mendez catheter in place Patient was admitted yesterday evening due to sepsis due to bilateral pneumonia and bilateral pleural effusions. had low blood pressure in the ED and was extensively fluid resuscitated. had a large pleural tap by Dr. Radford this morning and patients symptoms much improved. He had 2 L of fluid drained from his chest this morning. He was only feeling mildly short of breath when I saw him this morning. He was having pain as a 7/ 10 at the tube site this morning but he said it improved a lot throughout the morning into the afternoon. He's still eating with a liquid diet. He has no had any chest pain, palpitations , shortness of breath, cough, fevers, night sweats, chills, no abdominal pain, nausea or vomiting. Additional Comments: please see above for ROS Medications Current Inpatient Medications Medications (Trade) Dose Ordered Sig/Ángela Route Start Time Stop Time Status Last Admin Dose Admin Ioversol (Optiray 320) 114 ml UD PRN IV 02/24/17 21:00 02/28/17 20:59 Acetaminophen (Tylenol Tab) 650 mg Q4H PRN PO 02/24/17 22:15 03/26/17 22:14 Cetirizine HCl (zyrTEC TAB) 10 mg QAM PO 02/25/17 09:00 03/27/17 08:59 02/25/17 08:13 10 MG Digoxin (Lanoxin Tab) 0.125 mg DAILY@1600 PO 02/25/17 16:00 03/27/17 15:59 Ascorbic Acid (Vitamin C Tab) 1,000 mg QAM PO 02/25/17 09:00 03/27/17 08:59 02/25/17 08:12 1,000 MG Pantoprazole Sodium (Protonix Tab) 40 mg BID PO 02/25/17 09:00 03/27/17 08:59 02/25/17 08:13 40 MG Piperacillin Sod/ Tazobactam Sod 3.375 gm/Dextrose 115 ml @ 30 mls/hr Q8H IV 02/25/17 02:00 03/04/17 01:59 02/25/17 10:23 30 MLS/HR Ipratropium [place] (Atrovent 0.02% 0.5MG/2.5ML Neb) 0.5 mg Q6R INH 02/25/17 03:00 03/27/17 02:59 02/25/17 15:17 0.5 MG Levalbuterol (Xopenex 1.25MG/ 0.5ML Neb) 1.25 mg Q6R INH 02/25/17 03:00 03/27/17 02:59 02/25/17 15:17 1.25 MG Ipratropium [place] (Atrovent 0.02% 0.5MG/2.5ML Neb) 0.5 mg Q2H PRN INH 02/24/17 23:30 03/26/17 23:29 Levalbuterol (Xopenex 1.25MG/ 0.5ML Neb) 1.25 mg Q2H PRN INH 02/24/17 23:30 03/26/17 23:29 Vancomycin HCl (Consult) 1 ea UD PRN N/A 02/24/17 23:30 03/26/17 23:29 Piperacillin Sod/ Tazobactam Sod (Consult) 1 ea UD PRN N/A 02/24/17 23:30 03/26/17 23:29 Levofloxacin (Consult) 1 ea UD PRN N/A 02/24/17 23:45 03/26/17 23:44 Levofloxacin 750 mg/Prmx 150 ml @ 100 mls/hr Q48H IV 02/26/17 20:00 03/03/17 23:59 Potassium Chloride/Sodium Chloride 1,000 ml @ 200 mls/hr Q5H IV 02/25/17 00:30 03/27/17 00:29 02/25/17 15:00 200 MLS/HR Heparin Sodium (Porcine) (Heparin 100 Unit/ml 5ml Flush) 5 ml PRN PRN IV 02/25/17 00:30 03/27/17 00:29 Ranitidine HCl 50 mg/Dextrose 102 ml @ 200 mls/hr Q8H IV 02/25/17 04:00 03/27/17 03:59 02/25/17 12:26 200 MLS/HR Ondansetron HCl (Zofran Inj) 4 mg Q6H PRN IV 02/25/17 05:15 03/27/17 05:14 Ferrous Sulfate (Feosol Elix) 325 mg QAM PO 02/25/17 10:00 03/27/17 09:59 02/25/17 10:23 325 MG Enteral Nutritional Formula (Boost Breeze Nutritional Drink) 1 box TID PO 02/25/17 14:00 03/27/17 08:59 02/25/17 14:45 1 BOX Vancomycin HCl 1000 mg/Sodium Chloride 270 ml @ 125 mls/hr Q24H IV 02/25/17 22:00 03/03/17 21:59 Insulin Aspart (novoLOG ASPART) SLIDING SCALE If C... ACHS SC 02/25/17 16:00 03/27/17 15:59 Glucose (Glucose 40% Gel) 15-30 GRAMS 15 GRAMS... UD PRN PO 02/25/17 13:30 03/27/17 13:29 Glucose (Glucose Chew Tab) 4-8 Tablets 4 Tabl... UD PRN PO 02/25/17 13:30 03/27/17 13:29 Dextrose (Dextrose 50% 50ML Syringe) 25-50ML OF 50% DW IV FOR... UD PRN IV 02/25/17 13:30 03/27/17 13:29 Glucagon (Glucagon Inj) 1 mg UD PRN SQ 02/25/17 13:30 03/27/17 13:29 Objective Vital Signs Date Time Temp Pulse Resp B/P (MAP) Pulse Ox O2 Delivery O2 Flow Rate FiO2 02/25/17 15:18 84 16 98 Room Air 02/25/17 14:59 36.8 02/25/17 14:01 99 16 94/53 97 02/25/17 13:01 102 15 105/59 96 02/25/17 12:01 107 15 83/64 94 02/25/17 12:00 Room Air 02/25/17 12:00 36.7 02/25/17 11:29 92 13 105/59 96 02/25/17 11:01 96 13 88/66 02/25/17 10:31 105 22 107/68 93 02/25/17 10:01 107 14 101/60 94 02/25/17 09:01 99 21 91/52 97 02/25/17 08:31 99 20 96/58 95 1817 08:01 104 11 91/64 99 1817 08:00 36.8 1817 08:00 Room Air 02/25/17 07:31 119 16 102/70 98 1817 07:28 104 16 95 Room Air 02/25/17 07:19 112 13 105/68 96 1817 07:18 119 20 79/71 95 17 07:01 100 15 62/49 99 1817 07:01 100 15 62/49 99 1817 07:00 100 13 100 02/25/17 06:31 99 15 91/59 95 02/25/17 06:01 105 13 98/64 94 17 05:31 91 19 82/54 94 02/25/17 05:00 99 14 98 02/25/17 04:01 103 12 89/56 99 02/25/17 04:00 98 Nasal Cannula 2.0 02/25/17 04:00 36.4 02/25/17 03:31 105 12 81/52 99 18/17 03:01 108 18 81/56 100 1817 02:31 104 13 76/47 99 02/25/17 02:01 122 19 74/56 99 17 01:44 100 16 94 Nasal Cannula 3.0 02/25/17 01:32 120 20 63/53 97 02/25/17 01:01 139 16 78/58 99 18/17 00:31 121 19 81/50 100 1817 00:01 108 20 76/50 99 1817 00:01 108 20 76/50 99 18/17 00:00 127 8 100 02/24/17 23:59 100 Nasal Cannula 4.0 02/24/17 23:51 127 19 74/49 100 17 23:30 36.7 02/24/17 23:27 139 21 55/44 98 17 23:15 138 20 72/49 95 02/24/17 23:01 140 18 59/42 98 02/24/17 22:50 138 20 72/49 95 Nasal Cannula 4.0 02/24/17 22:43 130 02/24/17 22:15 132 20 58/43 96 Nasal Cannula 4.0 02/24/17 22:13 Nasal Cannula 02/24/17 22:05 36.8 147 20 59/47 97 Nasal Cannula 4.0 02/24/17 20:30 149 20 94/59 97 Nasal Cannula 4.0 02/24/17 19:19 97 Nasal Cannula 4.0 02/24/17 19:19 118 02/24/17 19:07 39.5 128 20 99/64 90 Room Air 02/24/17 19:04 97 Nasal Cannula 2.0 Physical Exam General Appearance: WD/WN, no apparent distress Eyes: PERRL, EOMI ENT: hearing grossly normal, pharynx normal, + pertinent finding (basal cell carcinoma on bridge of right nose, poor dentition) Respiratory/Chest: chest non-tender, no respiratory distress, no accessory muscle use, + decreased breath sounds (at the bases) Cardiovascular: regular rate, rhythm, no JVD, no murmur Abdomen: normal bowel sounds, non tender, soft Extremities: non-tender, no calf tenderness, normal capillary refill Neurologic/Psychiatric: alert, normal mood/affect, oriented x 3 Laboratory Results Results Past 24 Hours Test 02/24/17 18:45 02/24/17 19:13 02/24/17 19:19 02/24/17 20:00 Range/Units White Blood Count 14.06 4.8-10.8 K/uL Red Blood Count 3.83 4.7-6.1 M/uL Hemoglobin 10.7 14.0-18.0 g/dL Hematocrit 32.8 42-52 % Mean Corpuscular Volume 85.6 80-100 fL Mean Corpuscular Hemoglobin 27.9 25-34 pg Mean Corpuscular Hemoglobin Concent 32.6 32-36 g/dl Platelet Count 234 130-400 K/uL Mean Platelet Volume 11.0 7.4-10.4 fL Neutrophils (%) (Auto) 93.2 % Lymphocytes (%) (Auto) 2.3 % Monocytes (%) (Auto) 4.1 % Eosinophils (%) (Auto) 0.1 % Basophils (%) (Auto) 0.0 % Neutrophils # (Auto) 13.11 1.4-6.5 K/uL Lymphocytes # (Auto) 0.33 1.2-3.4 K/uL Monocytes # (Auto) 0.57 0.11-0.59 K/uL Eosinophils # (Auto) 0.01 0-0.5 K/uL Basophils # (Auto) 0.00 0-0.2 K/uL RDW Standard Deviation 47.9 36.4-46.3 fL RDW Coefficient of Variation 15.3 11.5-14.5 % Immature Granulocyte % (Auto) 0.3 % Immature Granulocyte # (Auto) 0.04 0.00-0.02 K/uL Echinocytes 1+ Erythrocyte Sedimentation Rate 28 0-14 mm/hr Prothrombin Time 12.0 9.0-12.0 SECONDS Prothromb Time International Ratio 1.1 0.9-1.1 Activated Partial Thromboplast Time 26.9 21.0-31.0 SECONDS Partial Thromboplastin Ratio 1.0 Sodium Level 135 136-145 mmol/L Potassium Level 4.4 3.5-5.1 mmol/L Chloride Level 101 98-107 mmol/L Carbon Dioxide Level 23 21-32 mmol/L Anion Gap 11.0 3-11 mmol/L Blood Urea Nitrogen 14 7-18 mg/dl Creatinine 1.30 0.60-1.40 mg/dl Est Creatinine Clear Calc Drug Dose 41.5 ml/min Estimated GFR () 59.7 Estimated GFR (Non- 51.5 BUN/Creatinine Ratio 11.1 10-20 Random Glucose 190 70-99 mg/dl Calcium Level 8.2 8.5-10.1 mg/dl Phosphorus Level 3.1 2.5-4.9 mg/dl Magnesium Level 1.8 1.8-2.4 mg/dl Total Bilirubin 0.5 0.2-1 mg/dl Aspartate Amino Transf (AST/SGOT) 11 15-37 U/L Alanine Aminotransferase (ALT/SGPT) 16 12-78 U/L Alkaline Phosphatase 116 45-117 U/L Total Creatine Kinase 23 39-308 U/L Creatine Kinase MB 0.8 0.5-3.6 ng/ml Creatine Kinase MB Ratio 3.5 0-3.0 Troponin I < 0.015 0-0.045 ng/ml C-Reactive Protein 3.56 0-0.29 mg/dl Pro-B-Type Natriuretic Peptide 6843 0-1800 pg/ml Total Protein 6.3 6.4-8.2 gm/dl Albumin 2.7 3.4-5.0 gm/dl Globulin 3.6 2.5-4.0 gm/dl Albumin/Globulin Ratio 0.8 0.9-2 Lipase 52 73-393 U/L Digoxin Level 0.8 0.8-2.0 ng/ml Urine Color YELLOW Urine Appearance CLEAR CLEAR Urine pH 5.5 4.5-7.5 Urine Specific [place] 1.016 1.000-1.030 Urine Protein NEG NEG Urine Glucose (UA) NEG NEG Urine Ketones TRACE NEG Urine Occult Blood NEG NEG Urine Nitrite NEG NEG Urine Bilirubin NEG NEG Urine Urobilinogen NEG NEG Urine Leukocyte Esterase NEG NEG Urine WBC (Auto) 0 0-5 /hpf Urine RBC (Auto) 0-4 0-4 /hpf Urine Hyaline Casts (Auto) 1-5 0-5 /lpf Urine Epithelial Cells (Auto) 5-10 0-5 /lpf Urine Bacteria (Auto) NEG NEG Bedside Lactic Acid Venous 1.69 0.90-1.70 mmol/L Venous Blood pH 7.47 7.36-7.41 Venous Blood Partial Pressure CO2 29 38.0-50.0 mmHg Venous Blood Partial Pressure O2 41 mmHg Venous Blood HCO3 21 mmol/L Venous Blood Oxygen Saturation 77.1 % Venous Blood Base Excess -1.9 mmol/L Test 02/25/17 00:00 02/25/17 05:21 02/25/17 05:41 02/25/17 11:28 Range/Units Pleural Fluid Source RIGHT LUNG Pleural Fluid Color YELLOW Pleural Fluid Appearance HAZY Pleural Fluid WBC 122 /uL Pleural Fluid RBC < 3000 /uL Pleural Fluid pH 7.41 7.3-7.4 Pleural Fluid Polynuclear WBCs % 52.2 % Pleural Fluid Mononuclear WBCs % 47.8 % Pleural Fluid Total Protein 2.7 g/dl Pleural Fluid LDH 75 IU Pleural Fluid Glucose 187 mg/dl Pleural Fluid Amylase 7 U/L Bedside Glucose 194 182 70-99 mg/dl White Blood Count 6.88 4.8-10.8 K/uL Red Blood Count 2.93 4.7-6.1 M/uL Hemoglobin 8.1 14.0-18.0 g/dL Hematocrit 25.1 42-52 % Mean Corpuscular Volume 85.7 80-100 fL Mean Corpuscular Hemoglobin 27.6 25-34 pg Mean Corpuscular Hemoglobin Concent 32.3 32-36 g/dl Platelet Count 112 130-400 K/uL Mean Platelet Volume 10.1 7.4-10.4 fL Neutrophils (%) (Auto) 87.5 % Lymphocytes (%) (Auto) 6.7 % Monocytes (%) (Auto) 5.2 % Eosinophils (%) (Auto) 0.4 % Basophils (%) (Auto) 0.1 % Neutrophils # (Auto) 6.01 1.4-6.5 K/uL Lymphocytes # (Auto) 0.46 1.2-3.4 K/uL Monocytes # (Auto) 0.36 0.11-0.59 K/uL Eosinophils # (Auto) 0.03 0-0.5 K/uL Basophils # (Auto) 0.01 0-0.2 K/uL RDW Standard Deviation 49.1 36.4-46.3 fL RDW Coefficient of Variation 15.5 11.5-14.5 % Immature Granulocyte % (Auto) 0.1 % Immature Granulocyte # (Auto) 0.01 0.00-0.02 K/uL Large Platelets 1+ Sodium Level 137 136-145 mmol/L Potassium Level 4.6 3.5-5.1 mmol/L Chloride Level 106 98-107 mmol/L Carbon Dioxide Level 22 21-32 mmol/L Anion Gap 9.0 3-11 mmol/L Blood Urea Nitrogen 15 7-18 mg/dl Creatinine 1.40 0.60-1.40 mg/dl Est Creatinine Clear Calc Drug Dose 37.3 ml/min Estimated GFR () 54.6 Estimated GFR (Non- 47.1 BUN/Creatinine Ratio 10.9 10-20 Random Glucose 173 70-99 mg/dl Calcium Level 7.1 8.5-10.1 mg/dl Magnesium Level 1.8 1.8-2.4 mg/dl Total Bilirubin 0.5 0.2-1 mg/dl Aspartate Amino Transf (AST/SGOT) 13 15-37 U/L Alanine Aminotransferase (ALT/SGPT) 16 12-78 U/L Alkaline Phosphatase 86 45-117 U/L Total Protein 5.3 6.4-8.2 gm/dl Albumin 2.8 3.4-5.0 gm/dl Globulin 2.5 2.5-4.0 gm/dl Albumin/Globulin Ratio 1.1 0.9-2 Test 6/18/17 15:07 Range/Units White Blood Count 5.76 4.8-10.8 K/uL Red Blood Count 3.01 4.7-6.1 M/uL Hemoglobin 8.2 14.0-18.0 g/dL Hematocrit 25.8 42-52 % Mean Corpuscular Volume 85.7 80-100 fL Mean Corpuscular Hemoglobin 27.2 25-34 pg Mean Corpuscular Hemoglobin Concent 31.8 32-36 g/dl RDW Standard Deviation 49.0 36.4-46.3 fL RDW Coefficient of Variation 15.6 11.5-14.5 % Platelet Count 106 130-400 K/uL Mean Platelet Volume 9.9 7.4-10.4 fL Microbiology Results 02/24/17 Blood Culture, Received Pending 02/24/17 Blood Culture, Received Pending 02/24/17 MRSA DNA Surveillance Screen - Final, Complete Specimen Negative for MRSA by DNA Probe 02/25/17 Acid Fast Stain, Received Pending 02/25/17 Mycobacterial Culture, Received Pending 02/25/17 Gram Stain - Final, Resulted 02/25/17 Bacterial Culture, Resulted Pending Assessment and Plan 81M with a h/o esophageal carcinoma s/p chemo/radiotherapy with bilateral pleural effusion, and bilateral pneumonia. Patient was hypotensive in the ED and was sent to the ICU for resuscitation with IV fluids. His blood pressures have stabilized over the afternoon and the patient has been transferred to telemetry. Bilateral lower lobe pneumonia - On IV levaquin, Vanc and Zosyn - Blood cultures pending - On 100mls/hr of IVF - has had swallow eval two hospital admissions ago Bilateral pleural effusions - Dr. Radford drained pleural fluid from right side and patient has drain in place - Looks to be a transudate - Would be reasonable to recheck CXR in next day or two Atrial flutter - echo pending - metoprolol 25mg bid held due to low blood pressure - digoxin .125 daily - patient on telemetry - not on anticoagulation due to prognosis Esophageal carcinoma - Metastatic - Oncologist is Dr. Sanchez - Patient was on hospice at home but stopped the hospice team because they didn' t like the services, are trying to look for another hospice service - Diet soft liquid diet and boost Anemia - hgb 8.1 - follow CKD III - Trend BMP DMII - insulin ISS, hold metformin. 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 Discussed with Dr. Cline and agree with findings and plan as documented in the note. Any exceptions or clarifications are listed here: None Documented By: Román Almazan feeling much better friend notes he looks much better ROS otherwise negative except for as above vitals noted nad breathing unlabored no pallor or icterus, nursing notes some of recorded low BP after admission to ICU may have been spurious due to wrong size cuff, poor cuff placement bibasilar pneumonia w sepsis/septic shock present on admission - improving - continue abx supportive care hypoxia - improved s/p thoracentesis - ?parapneumonic effusino - but fortunately not c/w empyema DVT proph - lovenox otherwise as above Continued [facility] stay due to: multiple IV medications needed
[2017-02-25] MEDS: DIGOXIN 0.125 MG TAB PO SCH (16:14)
[2017-02-25] MEDS: ENOXAPARIN 40 MG/0.4 ML SYR SQ SCH (16:16)
[2017-02-25] MEDS: INSULIN ASPART 100 UNITS/ML 3 ML PEN SC SCH ×2 (16:17→21:28)
[2017-02-25] MEDS: ACETAMINOPHEN 325 MG TAB PO PRN ×2 (17:14→20:52)
--- NOTE | 2017-02-25 17:19 | CRITICAL CARE CONSULTATION ---
DATE OF CONSULTATION: 02/25/2017 CHIEF COMPLAINT: Fever. HISTORY OF PRESENT ILLNESS: Mr. 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 He is status post chemoradiation therapy with poor tolerance of the chemotherapy. He has a history of a malignant right pleural effusion and has been hospitalized for pneumonia in the past. He presented to the Emergency Department secondary to a fever and altered mental status. He woke up from a nap and his felt he was febrile and confused. He was having some chills, so she called EMS. His temperature in the Emergency Department was 102.7 and he received 1 liter of normal saline, DuoNeb, Zosyn, Levaquin, Toradol, albumin and digoxin. A femoral triple lumen catheter was placed. Additionally, he received ibuprofen and eventually digoxin for a heart rate in the 130s. Initially, his blood pressure was satisfactory, but he became hypotensive. He was therefore transferred and admitted to the ICU. This morning he underwent a right-sided Pleurx catheter placement by Dr. Radford. He feels much better and is not requiring any oxygen. He denies pain, nausea or vomiting. He has been having some difficulty getting food down and is on a liquid diet. He denies shortness of breath, numbness, tingling, and focal weakness. He reports he has been generally weak. He denies dysuria, hematuria, cough or known rashes. PAST MEDICAL HISTORY: Hypertension, atrial fibrillation, esophageal cancer status post chemoradiation therapy, pneumonia, bilateral pleural effusions, gout, prostate cancer, asthma, anemia, diabetes mellitus, chronic obstructive pulmonary disease. PAST SURGICAL HISTORY: Status post port placement, hernia repair, partial colectomy in 1998 and prostatectomy in 1999. ALLERGIES: BANANAS. PREHOSPITAL MEDICATIONS: Ascorbic acid, Zyrtec, Coricidin D, p.r.n. digoxin, Ensure, ferrous sulfate, metformin, metoprolol, Dulera, nutritional supplements, omeprazole, ranitidine. 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 He is and a nonsmoker. FAMILY HISTORY: Noncontributory. REVIEW OF SYSTEMS: He denies hemoptysis, hematemesis, melena. He denies ongoing pain. He reports a 45-pound weight loss in the past 6 months. Additional review of systems are negative or noncontributory in a 12-point system other than what is presented in the history of present illness. PHYSICAL EXAMINATION: GENERAL: This is a pale-appearing gentleman who is in relatively good spirits. VITAL SIGNS: Temperature 36.7, heart rate 107, respiratory rate 15, blood pressure 105/59 and oxygen saturation 96% on room air. HEENT: Pupils are equally round and reactive to light. Oral mucosa is moist. NECK: Veins are flat. No adenopathy, no bruits. LUNGS: Have decreased breath sounds in the bases. No rales, rhonchi or wheezes. HEART: Tachycardic rate and irregular. No murmurs. Chest has a port on the left side below the clavicle. The site is without erythema. ABDOMEN: Flat, soft, nondistended, nontender, active bowel sounds. EXTREMITIES: Without edema, 1+ dorsalis pedis and radial pulses. NEUROLOGIC: He is awake, alert, easily able to carry on a conversation. There is no facial droop. Tongue is midline. Strength is equal distally in the upper and lower extremities. LABORATORY DATA: White blood cell count 6.88, hemoglobin 8.1, hematocrit 25.1, platelets 112. Sodium 137, potassium 4.6, chloride 106, CO2 22, BUN 15, creatinine 1.4, blood sugar 173, calcium 7.1, total protein 5.3, albumin 2.8, lipase 52. ProBNP 6843. C-reactive protein 3.56. Troponin less than 0.015. PT 12, INR 1.1, PTT 26.9. Venous blood gas: pH 7.47, pCO2 of 29, pO2 of 41, HCO3 21. Urinalysis essentially negative. Digoxin level 0.8. Pleural fluid analysis was reviewed. Thoracentesis: Gram stain shows moderate polys, no organisms. Blood cultures pending. CT angiogram of the chest last night shows bilateral pleural effusions, compressive atelectasis of bilateral lower lobes, developing infiltrative versus congestive change in the upper lung regions bilaterally, esophageal lesion is not well seen. EKGs were reviewed. IMPRESSION: 1. Possible sepsis with fever, leukocytosis and hypotension. Unclear source. He is on room air and does not definitively have an infiltrate on his chest x-ray. He is being covered broadly with Levaquin, Zosyn and vancomycin. 2. Anemia with an acute drop overnight. This may be secondary to dilution. No signs of active bleeding presently. 3. Malignant right pleural effusion status post Pleurx catheter placement today. The pleural fluid is transudative. 4. Atrial fibrillation with rapid ventricular response, improved. 5. Esophageal adenocarcinoma, previously on hospice. My discussion with him about that was not especially informative. It sounds like he was discharged from hospice shortly after his last hospitalization. 6. Diabetes mellitus with hyperglycemia. 7. History of hypertension. 8. History of chronic obstructive pulmonary disease. PLAN: 1. Continue broad-spectrum antibiotics and follow cultures. 2. Follow up H&H this afternoon. Watch for signs of bleeding. 3. I have stopped the albumin which was ordered q. 4 hours as his blood pressure has improved. 4. Add sliding scale insulin. 5. Continue digoxin. 6. Recheck a lactate this afternoon. 7. Drain the Pleurx catheter for comfort. 8. Palliative care consult. 9. Physical therapy and occupational therapy. 10. Provide GI prophylaxis and hold on pharmacologic DVT prophylaxis secondary to his anemia. He has SCDs in place. 11. Continue to hold the metoprolol. 12. Continue bronchodilators. If his blood pressure remains stable, I think he is a candidate for transfer out of the intensive care unit. His family was not in the room for me to talk with. His code status is presently full; no cardioversion or mechanical ventilation, which is confused.
[2017-02-25] MEDS ORDERED: VANCOMYCIN INJ 800 MG in SODIUM CHLORIDE 0.9% 250ML 250 ML IV SCH ×4 (18:00)
--- NOTE | 2017-02-25 18:23 | GASTROINTESTINAL CONSULTATION ---
DATE OF CONSULTATION: 02/25/2017 REQUESTING PHYSICIAN: Dr. Myers. REASON FOR CONSULTATION: Esophageal cancer and pleural effusions. CHIEF COMPLAINT: The patient has difficulty swallowing. HISTORY OF PRESENT ILLNESS: The patient has known esophageal cancer, was diagnosed as far as I can tell 03/17/2016. I saw an EGD then showing esophageal mass and gastric polyps. Path was positive for adenocarcinoma. An EUS of 04/03/2016 at [place] showing invasion to the muscularis propria. It sounded like he went through chemo and radiation and either did not tolerate it or did not work or both. He also refused esophagectomy. He basically has cancer that is not amenable to treatment. He has also malignant pleural effusions. He was admitted on 01/31/2017 to 02/08/2017 per the discharge summary for pneumonia. He was sent home on hospice. Comes in now with fever, noted to have significant pleural effusions. He says he can swallow, sounds like full liquid diet fine, but whenever he cannot tolerate solid food. He was having fever of home. No nausea, vomiting. Does have GERD symptoms. In addition to fevers, having some mental status changes. His temp when he came in was 102.7. He did have an EGD because of dysphagia on 12/29/2016 which showed again the esophageal cancer, this time involving his esophagus and the cardia of the stomach. He was dilated to 45-Yi Savary dilator. The patient stated he did not think that necessarily did anything. ALLERGIES: BANANA. MEDICATIONS ON ADMISSION: Vitamin C, Zyrtec, digoxin, iron, Glucophage, Lopressor, Dulera, Prilosec, Zantac p.r.n., chlorpheniramine, phenylephrine. PROBLEMS AND SURGERY: Asthma, pleural effusion, esophageal cancer, AFib. FAMILY HISTORY: Some type of cancer. SOCIAL HISTORY: Tobacco never. Ethanol negative. REVIEW OF SYSTEMS: Constitutional, weakness. Eyes, ears, nose, mouth, throat, cardiovascular, respiratory, genitourinary, musculoskeletal, integumentary, neurologic, psychiatric, endocrine, hematologic negative except as noted above. PHYSICAL EXAMINATION: GENERAL: Male, appears his stated age in no acute distress. VITAL SIGNS: Most recent vital signs in the chart, temp 36.7, pulse 107, BP 183/64, room air O2 sat was 96% at 11:29 and 86% at 12:01 when last recorded. EYES: Conjunctivae and lids normal. EAR, NOSE, MOUTH AND THROAT: Oropharynx is clear. NECK: Without obvious mass or thyroid enlargement. RESPIRATORY: Normal effort, clear to anterior auscultation. CARDIOVASCULAR: Regular rate and rhythm. EXTREMITIES: Without edema. ABDOMEN: Positive bowel sounds, soft, nontender, no obvious organomegaly or mass were appreciated. LYMPH: No obvious neck or groin nodes. MUSCULOSKELETAL: Digits and nails normal. SKIN: Without obvious rash or induration. NEUROLOGIC: Cranial nerves intact. Sensation intact. PSYCHIATRIC: Recent and remote memory good. Insight and judgment good. DATA: Chest x-ray: Cardiomegaly, bilateral pleural effusions. Chest CTA 2 large bilateral pleural effusions, infiltrate versus congestive changes in the upper lobes, esophageal lesion was not seen. CBC, hemoglobin 10.7, went down to 8.1. BNP 6843, lipase normal. Lactic acid normal. CMP glucose 190. The LFTs were normal. UA negative. Digoxin 0.8. IMPRESSION AND PLAN: 1. Dysphagia. I see the options of treating this includes continuing the liquid diet versus esophageal stent versus PEG placement. Plan depends on goals of care including whether hospice and conservative care desired or not. 2. Esophageal cancer, no treatment. 3. Anemia, normocytic. No patient history of black or bloody stools. 4. Gastroesophageal reflux disease, proton pump inhibitor. MTDD
[2017-02-25] MEDS ORDERED: DIGOXIN 0.125 MG TAB PO STA (21:08)
[2017-02-25] MEDS: VANCOMYCIN INJ 1,000 MG in SODIUM CHLORIDE 0.9% 250ML 250 ML IV SCH (22:12)
[2017-02-25] MEDS ORDERED: METOPROLOL TARTRATE 1 MG/ML VIAL IV STA (23:19)
[2017-02-26] VITALS (29 sets, daily range): BP systolic 85–112; BP diastolic 46–69; PULSE 96–158; TEMP 36.5–37.5; O2SAT 90–97
[2017-02-26] MEDS: NSS + 20MEQ KCL 1000ML 1,000 ML IV SCH ×3 (00:25→20:38)
[2017-02-26] MEDS: ACETAMINOPHEN 325 MG TAB PO PRN ×4 (01:29→20:17)
[2017-02-26] MEDS: PIPERACILL/TAZOBAC IV 3.375 GM in DEXTROSE 5% 100ML 100 ML IV SCH ×3 (01:30→16:57)
[2017-02-26] MEDS: IPRATROPIUM BROMIDE NEB SOLN 0.02% 2.5 ML VIAL INH SCH ×4 (01:58→19:44)
[2017-02-26] MEDS: LEVALBUTEROL 1.25MG/0.5ML NEB INH SCH ×4 (01:58→19:44)
[2017-02-26] MEDS ORDERED: DILTIAZEM BOLUS / DRIP IV STA (02:15)
[2017-02-26] MEDS: DILTIAZEM HCL INJ 125 MG in DEXTROSE 5% 100ML IV PRN (02:46)
[2017-02-26] MEDS: RANITIDINE IV 50 MG in DEXTROSE 5% 100ML 100 ML IV SCH ×2 (04:37→11:49)
[2017-02-26 05:20] LABS: BASO % 0.2 %; BASO ABS # 0.01 K/uL (0-0.2); EOS % 0.9 %; HEMATOCRIT 25.2 % (42-52); IG% 0.2 %; LYMPH ABS # 0.35 K/uL (1.2-3.4); MEAN CELL VOLUME 84.8 fL (80-100); MEAN CORPUSCULAR HEMOGLOBIN 26.3 pg (25-34); MEAN PLATELET VOLUME 10.8 fL (7.4-10.4); MONO % 6.8 %; NEUT % 85.9 %; PLATELET COUNT 123 K/uL (130-400); RED BLOOD COUNT 2.97 M/uL (4.7-6.1); WHITE BLOOD COUNT 5.85 K/uL (4.8-10.8)
[2017-02-26] MEDS ORDERED: NURSING VERBAL MED ORDER ONE (05:30)
[2017-02-26 05:44] LABS: BUN/CREATININE RATIO 9.2 (10-20); CALCIUM 7.6 mg/dl (8.5-10.1); CREATININE 1.2 mg/dl (0.60-1.40); MAGNESIUM 1.7 mg/dl (1.8-2.4); POTASSIUM 4.2 mmol/L (3.5-5.1)
[2017-02-26 05:45] LABS: COMPLETE YES
[2017-02-26] MEDS ORDERED: SODIUM CHLORIDE 0.9% 500ML 500 ML IV STA (05:49)
--- NOTE | 2017-02-26 07:18 | DIAGNOSTIC IMAGING REPORT ---
CHEST ONE VIEW PORTABLE CLINICAL HISTORY: MPE dyspnea COMPARISON STUDY: 02/25/2017 FINDINGS: Slight increase in volume of a right apical pneumothorax. Maximum pleural separation currently is 1.5 cm. Slight increase in density right lung base. Trace subcutaneous emphysema. Increased density left hemithorax is similar. IMPRESSION: Slight increase in size of a small right apical pneumothorax. Maximum pleural separation currently is 1.5 cm. Slight reaccumulation pleural fluid right base. Electronically signed by: Torito Navarro M.D. 02/26/2017 7:16 AM Dictated Date/Time: 02/26/2017 7:15 AM
[2017-02-26] MEDS: FERROUS SULFATE 325 MG/7.4 ML UDP PO SCH (07:48)
[2017-02-26] MEDS: ASCORBIC ACID 500 MG TAB PO SCH (07:48)
[2017-02-26] MEDS: PANTOprazole SOD 40 MG TAB PO SCH ×2 (07:48→20:20)
[2017-02-26] MEDS: CETIRIZINE HCL 10 MG TAB PO SCH (07:48)
[2017-02-26] MEDS: BOOST BREEZE NUTRITION DRINK 1 BOX PO SCH ×4 (07:51→20:19)
[2017-02-26] MEDS: INSULIN ASPART 100 UNITS/ML 3 ML PEN SC SCH ×4 (07:54→20:51)
[2017-02-26] MEDS ORDERED: FERROUS SULFATE 325 MG/7.4 ML UDP PO SCH ×2 (09:00)
--- NOTE | 2017-02-26 09:31 | SURGERY PROGRESS NOTE ---
DATE: 02/26/2017 Mr. Tapia is seen today, 1 day after I placed a right PleurX catheter. His heart rate has not really changed, it is in the 100s to 120s. Blood pressure is fine. His pulse oximetry is 96% on room air which is really very similar to before he was drained. He put out 600 mL today. He did have some pain with this tube in place, although he still is looking better today. His x-ray actually shows more fluid on the left now. I am not concerned at all about the pneumothorax on the right, it is very small. It is still not clear why he had this onset of fever and chills and hypotension. All of his cultures are negative to date. There is no laboratory evidence of infection of his pleural fluid, pH 7.41 and LDH of only 75 with glucose of 187. At any rate, we will continue to drain this on a daily basis. I would not do anything else with the left side. In addition, his distal esophagus has progression of his cancer; however, he is tolerating liquids well. I have discussed this multiple times with his . I have explained that an esophageal stent or a PEG tube are definitely options and I agree with Dr. Cho's assessment. My personal recommendation would be not to intervene with this at this time.
--- NOTE | 2017-02-26 12:00 | Palliative Care Consultation ---
Consultation Date of Consultation: Feb 26, 2017. Requesting Physician: Dr. Hahn Attending Physician: Dr. Ca, Dr. Robert Reason for Consultation: Goals of care History of Present Illness This 81 year old male patient presented to the ED by EMS two evenings ago with c /o fever, chills, and SOB. Has a past medical history of esophageal cancer with malignant pleural effusion, prostate cancer (non-active), and asthma. Anthony was last admitted to hospital at the end of January for pneumonia and sepsis. He was discharged home with his with hospice services. Apparently the patient revoked after just two visits from [facility]. Also, patent and did not feel he was ready for hospice. , Anya, is main caregiver and stated patient had been increasingly lethargic for a couple days, then had fever, chills and SOB, so she called EMS. In ED, CXR showed bilateral pleural effusions , CTA chest showed no PE, bilateral pleural effusions, bilateral infiltrative vs. congestive process, and esophageal lesion not well visualized possibly due to effusions. Had elevated white count at 14k, H/H stable, patient hypotensive, tachycardic and febrile. He received digoxin for afib with rvr rate in 130s. Admitted to ICU and underwent right sided Pleur-x catheter placement yesterday morning. Patient felt much better and was then oxygenating well on room air. Pleural fluid pathology pending, no sign of infection. All cultures negative to this point. Still uncertain of exact etiology of the hypotension and elevated white count. He apparently has also been having difficulty swallowing. Eats mostly liquid diet of Boost, cream of wheat and protein powders per the daughter. Since patient was stable, was transferred to PCU. Palliative care consulted to further discuss goals of care. I met with patient in room 210. He is awake, alert and oriented. He is extremely hard of hearing. He has some pain, at times 9/10, on his right side where the Pleur-x catheter was placed. He has been taking Tylenol with good relief. He denies any other complaints. His called and I spoke with her on the phone in the presence of the patient. We discussed goals of care. Both agree that patient is not ready for hospice and he is not "comfort measures only ," because they still wish for him to come to the hospital for treatment. Both agreed they know patient's prognosis is rather poor this point and that all measures are really palliative. We discussed code status, patient agrees that he is a level 5 DNR/DNI. We discussed changing the POLST form before discharge. With patient's permission, I called Vanita Posey, daughter, and updated on the above. Past Medical/Surgical History Medical History: as above Social History Smoking Status: Never Smoker History of Alcohol Use: No Drug Use: none Marital Status: Housing Status: lives with family Occupation Status: retired Review of Systems Constitutional: + weakness, No fever, No chills Respiratory: + dyspnea on exertion, No cough, No shortness of breath, No dyspnea at rest Cardiac: + edema, No chest pain Abdomen: + problem reported (no BM for two days- patient's norm to have BM Q2- 3days), No pain, No nausea, No vomiting Male : No problem reported (has Gonzalez catheter) Psychiatric: No anxiety Allergies Coded Allergies: Banana (Verified Allergy, Unknown, EYES SWELL SHUT, 01/31/17) NO KNOWN DRUG ALLERGIES (Verified Allergy, Unknown, ., 01/31/17) Medications Current Inpatient Medications Medications (Trade) Dose Ordered Sig/Ángela Route Start Time Stop Time Status Last Admin Dose Admin Ioversol (Optiray 320) 114 ml UD PRN IV 02/24/17 21:00 02/28/17 20:59 Acetaminophen (Tylenol Tab) 650 mg Q4H PRN PO 02/24/17 22:15 03/26/17 22:14 02/26/17 10:20 650 MG Cetirizine HCl (zyrTEC TAB) 10 mg QAM PO 02/25/17 09:00 03/27/17 08:59 02/26/17 07:48 10 MG Digoxin (Lanoxin Tab) 0.125 mg DAILY@1600 PO 02/25/17 16:00 03/27/17 15:59 02/25/17 16:14 0.125 MG Ascorbic Acid (Vitamin C Tab) 1,000 mg QAM PO 02/25/17 09:00 03/27/17 08:59 02/26/17 07:48 1,000 MG Pantoprazole Sodium (Protonix Tab) 40 mg BID PO 02/25/17 09:00 03/27/17 08:59 02/26/17 07:48 40 MG Piperacillin Sod/ Tazobactam Sod 3.375 gm/Dextrose 115 ml @ 30 mls/hr Q8H IV 02/25/17 02:00 03/04/17 01:59 02/26/17 10:20 30 MLS/HR Ipratropium Madison (Atrovent 0.02% 0.5MG/2.5ML Neb) 0.5 mg Q6R INH 02/25/17 03:00 03/27/17 02:59 02/26/17 07:15 0.5 MG Levalbuterol (Xopenex 1.25MG/ 0.5ML Neb) 1.25 mg Q6R INH 02/25/17 03:00 03/27/17 02:59 02/26/17 07:15 1.25 MG Ipratropium Madison (Atrovent 0.02% 0.5MG/2.5ML Neb) 0.5 mg Q2H PRN INH 02/24/17 23:30 03/26/17 23:29 Levalbuterol (Xopenex 1.25MG/ 0.5ML Neb) 1.25 mg Q2H PRN INH 02/24/17 23:30 03/26/17 23:29 Vancomycin HCl (Consult) 1 ea UD PRN N/A 02/24/17 23:30 03/26/17 23:29 Piperacillin Sod/ Tazobactam Sod (Consult) 1 ea UD PRN N/A 02/24/17 23:30 03/26/17 23:29 Levofloxacin (Consult) 1 ea UD PRN N/A 02/24/17 23:45 03/26/17 23:44 Levofloxacin 750 mg/Prmx 150 ml @ 100 mls/hr Q48H IV 02/26/17 20:00 03/03/17 23:59 Potassium Chloride/Sodium Chloride 1,000 ml @ 100 mls/hr Q10H IV 02/25/17 00:30 03/27/17 00:29 02/26/17 11:25 100 MLS/HR Heparin Sodium (Porcine) (Heparin 100 Unit/ml 5ml Flush) 5 ml PRN PRN IV 02/25/17 00:30 03/27/17 00:29 Ranitidine HCl 50 mg/Dextrose 102 ml @ 200 mls/hr Q8H IV 02/25/17 04:00 03/27/17 03:59 02/26/17 04:37 200 MLS/HR Ondansetron HCl (Zofran Inj) 4 mg Q6H PRN IV 02/25/17 05:15 03/27/17 05:14 Ferrous Sulfate (Feosol Elix) 325 mg QAM PO 02/25/17 10:00 03/27/17 09:59 02/26/17 07:48 325 MG Enteral Nutritional Formula (Boost Breeze Nutritional Drink) 1 box TID PO 02/25/17 14:00 03/27/17 08:59 02/25/17 20:57 1 BOX Vancomycin HCl 1000 mg/Sodium Chloride 270 ml @ 125 mls/hr Q24H IV 02/25/17 22:00 03/03/17 21:59 02/25/17 22:12 125 MLS/HR Insulin Aspart (novoLOG ASPART) SLIDING SCALE If C... ACHS SC 02/25/17 16:00 03/27/17 15:59 02/26/17 07:54 4 UNITS Glucose (Glucose 40% Gel) 15-30 GRAMS 15 GRAMS... UD PRN PO 02/25/17 13:30 03/27/17 13:29 Glucose (Glucose Chew Tab) 4-8 Tablets 4 Tabl... UD PRN PO 02/25/17 13:30 03/27/17 13:29 Dextrose (Dextrose 50% 50ML Syringe) 25-50ML OF 50% DW IV FOR... UD PRN IV 02/25/17 13:30 03/27/17 13:29 Glucagon (Glucagon Inj) 1 mg UD PRN SQ 02/25/17 13:30 03/27/17 13:29 Miscellaneous Information (Order Awaiting Action) 1 ea QS N/A 02/25/17 16:00 03/27/17 15:59 Enoxaparin Sodium (Lovenox Inj) 40 mg Q24H SQ 02/25/17 16:00 03/27/17 15:59 02/25/17 16:16 40 MG Diltiazem HCl 125 mg/Dextrose 125 ml @ 0 mls/hr Q0M PRN IV 02/26/17 02:45 03/28/17 02:44 02/26/17 02:46 5 MLS/HR Physical Exam Date Time Temp Pulse Resp B/P (MAP) Pulse Ox O2 Delivery O2 Flow Rate FiO2 02/26/17 08:18 37.4 126 19 101/58 (72) 96 Room Air 02/26/17 08:00 96 Room Air 02/26/17 07:15 101 16 96 Room Air 02/26/17 06:01 128 18 108/69 (82) 90 02/26/17 05:01 133 18 92/61 (71) 94 02/26/17 04:46 134 18 102/62 (75) 95 02/26/17 04:31 103 18 89/56 (67) 92 02/26/17 04:17 151 17 112/62 (79) 95 02/26/17 04:01 127 17 89/57 (68) 93 02/26/17 04:00 94 Room Air 2.0 02/26/17 03:46 129 17 86/56 (66) 93 02/26/17 03:31 136 16 99/60 (73) 94 02/26/17 03:16 150 17 110/64 (79) 94 02/26/17 03:16 150 17 110/64 (79) 94 02/26/17 03:01 158 17 85/56 (66) 94 02/26/17 02:46 153 17 95/64 (74) 94 02/26/17 01:58 114 16 96 Room Air 02/26/17 00:16 113 17 96 02/26/17 00:11 122 17 96 02/26/17 00:06 107 16 96 02/26/17 00:04 115 18 100/59 (73) 96 02/26/17 00:01 107 18 90/58 (69) 97 02/26/17 00:01 97 Room Air 2.0 02/25/17 23:56 120 17 101/60 (74) 92 02/25/17 23:54 131 109/57 02/25/17 23:51 165 17 100/63 (75) 87 02/25/17 23:46 135 16 97/56 (70) 95 02/25/17 23:41 140 18 113/67 (82) 90 02/25/17 23:41 140 18 113/67 (82) 90 Room Air 02/25/17 23:36 154 18 109/57 (74) 89 Room Air 02/25/17 23:01 129 17 87/54 (65) 97 Room Air 02/25/17 22:51 37.4 142 18 95/59 (71) 96 Room Air 02/25/17 22:01 133 20 85/53 (64) 97 Room Air 02/25/17 22:01 133 20 85/53 (64) 97 Room Air 02/25/17 21:23 137 02/25/17 21:01 153 20 99/59 (72) 97 Room Air 02/25/17 20:47 141 17 95/58 (70) 98 Room Air 02/25/17 20:02 155 18 102/63 (76) 97 Room Air 02/25/17 19:23 36.9 108 16 95 02/25/17 19:19 108 16 95 Room Air 02/25/17 19:01 136 28 101/68 (79) Room Air 02/25/17 17:26 36.9 02/25/17 16:14 130 02/25/17 16:01 116 16 112/61 95 02/25/17 16:00 Room Air 02/25/17 15:18 84 16 98 Room Air 02/25/17 15:01 108 18 109/64 96 02/25/17 14:59 36.8 02/25/17 14:01 99 16 94/53 97 02/25/17 13:01 102 15 105/59 96 02/25/17 12:01 107 15 83/64 94 02/25/17 12:00 Room Air 02/25/17 12:00 36.7 02/25/17 11:29 92 13 105/59 96 General Appearance: no apparent distress, + thin ENT: + pertinent finding (very hard of hearing) Neck: supple, no JVD Respiratory: no respiratory distress, no accessory muscle use, + decreased breath sounds (bilateral bases), + pertinent finding (room air) Cardiovascular: + tachycardia, + irregularly irregular, + normal peripheral pulses, + pertinent finding (+1 pitting edema to bilateral lower extremities) Abdomen: normal bowel sounds, non tender, soft Neurologic/Psychiatric: alert, normal mood/affect, oriented x 3 Skin: normal color Laboratory Results Last 24 Hours Test 02/25/17 11:28 02/25/17 15:07 02/25/17 16:06 02/25/17 21:05 Bedside Glucose 182 mg/dl 206 mg/dl 178 mg/dl White Blood Count 5.76 K/uL Red Blood Count 3.01 M/uL Hemoglobin 8.2 g/dL Hematocrit 25.8 % Mean Corpuscular Volume 85.7 fL Mean Corpuscular Hemoglobin 27.2 pg Mean Corpuscular Hemoglobin Concent 31.8 g/dl RDW Standard Deviation 49.0 fL RDW Coefficient of Variation 15.6 % Platelet Count 106 K/uL Mean Platelet Volume 9.9 fL Test 02/26/17 04:45 02/26/17 07:00 White Blood Count 5.85 K/uL Red Blood Count 2.97 M/uL Hemoglobin 7.8 g/dL Hematocrit 25.2 % Mean Corpuscular Volume 84.8 fL Mean Corpuscular Hemoglobin 26.3 pg Mean Corpuscular Hemoglobin Concent 31.0 g/dl Platelet Count 123 K/uL Mean Platelet Volume 10.8 fL Neutrophils (%) (Auto) 85.9 % Lymphocytes (%) (Auto) 6.0 % Monocytes (%) (Auto) 6.8 % Eosinophils (%) (Auto) 0.9 % Basophils (%) (Auto) 0.2 % Neutrophils # (Auto) 5.03 K/uL Lymphocytes # (Auto) 0.35 K/uL Monocytes # (Auto) 0.40 K/uL Eosinophils # (Auto) 0.05 K/uL Basophils # (Auto) 0.01 K/uL RDW Standard Deviation 48.4 fL RDW Coefficient of Variation 15.6 % Immature Granulocyte % (Auto) 0.2 % Immature Granulocyte # (Auto) 0.01 K/uL Red Blood Cell Morphology Unremarkable Sodium Level 138 mmol/L Potassium Level 4.2 mmol/L Chloride Level 109 mmol/L Carbon Dioxide Level 22 mmol/L Anion Gap 7.0 mmol/L Blood Urea Nitrogen 11 mg/dl Creatinine 1.20 mg/dl Est Creatinine Clear Calc Drug Dose 43.5 ml/min Estimated GFR () 65.8 Estimated GFR (Non- 56.8 BUN/Creatinine Ratio 9.2 Random Glucose 219 mg/dl Calcium Level 7.6 mg/dl Magnesium Level 1.7 mg/dl Bedside Glucose 225 mg/dl Assessment & Plan Problem list: SOB- resolved Weakness Hypoalbuminemia Esophageal adenocarcinoma Malignant pleural effusion- Pleur-x placed in right side yesterday by CT surgeon Soto with RVR- diltiazem infusion at 10mg/hr Anemia Goals of care (Z51.5) Palliative care recommendations: discussed with patient and his , Anya Tapia. -Patient was on hospice after last admission. He revoked as he does not feel he is ready for hospice-- he is okay with coming to hospital for treatment and feels he still has decent quality of life. -Patient wishes to be a level 5 DNR/DNI. I discussed this in detail with him and his family including his two appointed surrogate decision makers ( Anya and daughter Vanita Posey) during last admission and with the patient again today. POLST form indicates DNR. -Goal is focused on comfort, but patient and both agree that patient is not "comfort measures only." They are okay with continuing current medical treatment on telemetry unit as the patient and family believe he still has good quality of life and did improve with treatment. The patient would like to avoid invasive testing/procedures. -POLST form is in risk/legal section of EMR. It will need to be updated upon discharge if patient wishes to continue with "limited additional interventions. " It currently states KINESIOLOG[employer] PROFESSOR which is not currently accurate. -Patient having pain at right sided pleur-x insertion site. Tylenol is working well for the pain, but I would add a lidocaine patch. If pain worsens/persists, add oxycodone IR 5mg PO Q4h PRN. -If patient returning home, will need home health services at least, for Pleur- x. He may eventually transition to hospice so I would use agency that offers both. OR, if patient decides on hospice now, can return home with their services right away. [facility]. -I will be meeting with patient and family tomorrow around 1600. Thank you kindly for this consult. I will follow.
--- NOTE | 2017-02-26 12:01 | ECHOCARDIOGRAM REPORT ---
*NOTICE TO RECEIVING [employer] This information is strictly Confidential and protected under [place] law. [place] law prohibits you from making any further disclosure of this information unless further disclosure is expressly permitted by the written consent of the person to whom it pertains or is authorized by law. A general authorization for the release of medical or other information is not sufficient for this purpose. Hospital accepts no responsibility if the information is made available to any other person, INCLUDING THE PATIENT. Interpretation Summary * Name: ROSANNA MORAN Study Date: 02/25/2017 01:32 PM * Patient Location: C.2E\S\E210\S\1 * : 1935 (M/d/yyyy) Gender: Male Height: 67 in * Age: 81 yrs Ethnicity: [place] Weight: 142 lb * Ordering Physician: Willie Myers * Referring Physician: Self, Referred * Performed By: Cristy Cisse RDCS * * Reason For Study: LIMITED FOR EFFUSION * BSA: 1.7 m2 * -- Conclusions -- * Limited views were obtained. * Compared directly to a study from 02/04/2017, the effusion is smaller. * The inferior vena cava is mildly dilated. Procedure Details * LIMITED FOR EFFUSION * Limited views were obtained. Left Ventricle * Left ventricular systolic function is normal. Pericardium/Pleural * Compared directly to a study from 02/04/2017, the effusion is smaller. Great Vessels * The inferior vena cava is mildly dilated. MMode 2D Measurements and Calculations IVSd 0.96 cm IVSs 1.1 cm LVIDd 3.1 cm LVIDs 2.0 cm LVPWd 1.3 cm LVPWs 1.4 cm IVS/LVPW 0.75 FS 35.4 % EDV(Teich) 38.9 ml ESV(Teich) 13.1 ml EF(Teich) 66.3 % EDV(cubed) 30.7 ml ESV(cubed) 8.3 ml EF(cubed) 73.0 % % IVS thick 13.5 % % LVPW thick 6.3 % LV mass(C)d 103.6 grams LV mass(C)dI 59.3 grams/m\S\2 LV mass(C)s 67.9 grams LV mass(C)sI 38.9 grams/m\S\2 SV(Teich) 25.7 ml SI(Teich) 14.7 ml/m\S\2 SV(cubed) 22.4 ml SI(cubed) 12.8 ml/m\S\2
--- NOTE | 2017-02-26 13:19 | Family Medicine Progress Note ---
Progress Note Date of Service Feb 26, 2017. Subjective Pt evaluation today including: conversation w/ patient, physical exam, chart review, lab review, review of studies, review of inpatient medication list Overnight, Per Telemetry Patient's HR increased into the 160's while in Atrial Fibrillation. Patient was asx throughout episode Patient had initially been on 5mls/hr Cardizem Drip was subsequently stepped up to 10mls/hr per nurse. Constitutional: No fever, No chills Respiratory: No shortness of breath Cardiovascular: No chest pain, No palpitations Abdomen: No pain, No nausea Skin: No rash, No itch Medications Current Inpatient Medications Medications (Trade) Dose Ordered Sig/Ángela Route Start Time Stop Time Status Last Admin Dose Admin Ioversol (Optiray 320) 114 ml UD PRN IV 02/24/17 21:00 02/28/17 20:59 Acetaminophen (Tylenol Tab) 650 mg Q4H PRN PO 02/24/17 22:15 03/26/17 22:14 02/26/17 10:20 650 MG Cetirizine HCl (zyrTEC TAB) 10 mg QAM PO 02/25/17 09:00 03/27/17 08:59 02/26/17 07:48 10 MG Digoxin (Lanoxin Tab) 0.125 mg DAILY@1600 PO 02/25/17 16:00 03/27/17 15:59 02/25/17 16:14 0.125 MG Ascorbic Acid (Vitamin C Tab) 1,000 mg QAM PO 02/25/17 09:00 03/27/17 08:59 02/26/17 07:48 1,000 MG Pantoprazole Sodium (Protonix Tab) 40 mg BID PO 02/25/17 09:00 03/27/17 08:59 02/26/17 07:48 40 MG Piperacillin Sod/ Tazobactam Sod 3.375 gm/Dextrose 115 ml @ 30 mls/hr Q8H IV 02/25/17 02:00 03/04/17 01:59 02/26/17 10:20 30 MLS/HR Ipratropium [place] (Atrovent 0.02% 0.5MG/2.5ML Neb) 0.5 mg Q6R INH 02/25/17 03:00 03/27/17 02:59 02/26/17 07:15 0.5 MG Levalbuterol (Xopenex 1.25MG/ 0.5ML Neb) 1.25 mg Q6R INH 02/25/17 03:00 03/27/17 02:59 02/26/17 07:15 1.25 MG Ipratropium [place] (Atrovent 0.02% 0.5MG/2.5ML Neb) 0.5 mg Q2H PRN INH 02/24/17 23:30 03/26/17 23:29 Levalbuterol (Xopenex 1.25MG/ 0.5ML Neb) 1.25 mg Q2H PRN INH 02/24/17 23:30 03/26/17 23:29 Vancomycin HCl (Consult) 1 ea UD PRN N/A 02/24/17 23:30 03/26/17 23:29 Piperacillin Sod/ Tazobactam Sod (Consult) 1 ea UD PRN N/A 02/24/17 23:30 03/26/17 23:29 Levofloxacin (Consult) 1 ea UD PRN N/A 02/24/17 23:45 03/26/17 23:44 Levofloxacin 750 mg/Prmx 150 ml @ 100 mls/hr Q48H IV 02/26/17 20:00 03/03/17 23:59 Potassium Chloride/Sodium Chloride 1,000 ml @ 100 mls/hr Q10H IV 02/25/17 00:30 03/27/17 00:29 02/26/17 11:25 100 MLS/HR Heparin Sodium (Porcine) (Heparin 100 Unit/ml 5ml Flush) 5 ml PRN PRN IV 02/25/17 00:30 03/27/17 00:29 Ranitidine HCl 50 mg/Dextrose 102 ml @ 200 mls/hr Q8H IV 02/25/17 04:00 03/27/17 03:59 02/26/17 11:49 200 MLS/HR Ondansetron HCl (Zofran Inj) 4 mg Q6H PRN IV 02/25/17 05:15 03/27/17 05:14 Ferrous Sulfate (Feosol Elix) 325 mg QAM PO 02/25/17 10:00 03/27/17 09:59 02/26/17 07:48 325 MG Enteral Nutritional Formula (Boost Breeze Nutritional Drink) 1 box TID PO 02/25/17 14:00 03/27/17 08:59 02/25/17 20:57 1 BOX Vancomycin HCl 1000 mg/Sodium Chloride 270 ml @ 125 mls/hr Q24H IV 02/25/17 22:00 03/03/17 21:59 02/25/17 22:12 125 MLS/HR Insulin Aspart (novoLOG ASPART) SLIDING SCALE If C... ACHS SC 02/25/17 16:00 03/27/17 15:59 02/26/17 11:48 3 UNITS Glucose (Glucose 40% Gel) 15-30 GRAMS 15 GRAMS... UD PRN PO 02/25/17 13:30 03/27/17 13:29 Glucose (Glucose Chew Tab) 4-8 Tablets 4 Tabl... UD PRN PO 02/25/17 13:30 03/27/17 13:29 Dextrose (Dextrose 50% 50ML Syringe) 25-50ML OF 50% DW IV FOR... UD PRN IV 02/25/17 13:30 03/27/17 13:29 Glucagon (Glucagon Inj) 1 mg UD PRN SQ 02/25/17 13:30 03/27/17 13:29 Miscellaneous Information (Order Awaiting Action) 1 ea QS N/A 02/25/17 16:00 03/27/17 15:59 Enoxaparin Sodium (Lovenox Inj) 40 mg Q24H SQ 02/25/17 16:00 03/27/17 15:59 02/25/17 16:16 40 MG Diltiazem HCl 125 mg/Dextrose 125 ml @ 0 mls/hr Q0M PRN IV 02/26/17 02:45 03/28/17 02:44 02/26/17 02:46 5 MLS/HR Objective Vital Signs Date Time Temp Pulse Resp B/P (MAP) Pulse Ox O2 Delivery O2 Flow Rate FiO2 02/26/17 12:00 96 Room Air 02/26/17 11:55 37.1 117 15 95/59 (71) 96 Room Air 02/26/17 08:18 37.4 126 19 101/58 (72) 96 Room Air 02/26/17 08:00 96 Room Air 6/19/17 07:15 101 16 96 Room Air 02/26/17 06:01 128 18 108/69 (82) 90 02/26/17 05:01 133 18 92/61 (71) 94 02/26/17 04:46 134 18 102/62 (75) 95 02/26/17 04:31 103 18 89/56 (67) 92 02/26/17 04:17 151 17 112/62 (79) 95 02/26/17 04:01 127 17 89/57 (68) 93 02/26/17 04:00 94 Room Air 2.0 02/26/17 03:46 129 17 86/56 (66) 93 02/26/17 03:31 136 16 99/60 (73) 94 02/26/17 03:16 150 17 110/64 (79) 94 02/26/17 03:16 150 17 110/64 (79) 94 02/26/17 03:01 158 17 85/56 (66) 94 02/26/17 02:46 153 17 95/64 (74) 94 02/26/17 01:58 114 16 96 Room Air 02/26/17 00:16 113 17 96 02/26/17 00:11 122 17 96 02/26/17 00:06 107 16 96 02/26/17 00:04 115 18 100/59 (73) 96 02/26/17 00:01 107 18 90/58 (69) 97 02/26/17 00:01 97 Room Air 2.0 02/25/17 23:56 120 17 101/60 (74) 92 02/25/17 23:54 131 109/57 02/25/17 23:51 165 17 100/63 (75) 87 02/25/17 23:46 135 16 97/56 (70) 95 02/25/17 23:41 140 18 113/67 (82) 90 02/25/17 23:41 140 18 113/67 (82) 90 Room Air 02/25/17 23:36 154 18 109/57 (74) 89 Room Air 02/25/17 23:01 129 17 87/54 (65) 97 Room Air 02/25/17 22:51 37.4 142 18 95/59 (71) 96 Room Air 02/25/17 22:01 133 20 85/53 (64) 97 Room Air 02/25/17 22:01 133 20 85/53 (64) 97 Room Air 02/25/17 21:23 137 02/25/17 21:01 153 20 99/59 (72) 97 Room Air 02/25/17 20:47 141 17 95/58 (70) 98 Room Air 02/25/17 20:02 155 18 102/63 (76) 97 Room Air 02/25/17 19:23 36.9 108 16 95 02/25/17 19:19 108 16 95 Room Air 02/25/17 19:01 136 28 101/68 (79) Room Air 02/25/17 17:26 36.9 02/25/17 16:14 130 02/25/17 16:01 116 16 112/61 95 02/25/17 16:00 Room Air 02/25/17 15:18 84 16 98 Room Air 02/25/17 15:01 108 18 109/64 96 02/25/17 14:59 36.8 02/25/17 14:01 99 16 94/53 97 Physical Exam General Appearance: WD/WN, no apparent distress Eyes: normal inspection, PERRL, EOMI Neck: supple, no adenopathy, trachea midline Respiratory/Chest: chest non-tender, lungs clear, normal breath sounds Abdomen: normal bowel sounds, non tender, soft Neurologic/Psychiatric: alert, normal mood/affect Skin: warm/dry, no rash Laboratory Results Results Past 24 Hours Test 02/25/17 15:07 02/25/17 16:06 02/25/17 21:05 02/26/17 04:45 Range/Units White Blood Count 5.76 5.85 4.8-10.8 K/uL Red Blood Count 3.01 2.97 4.7-6.1 M/uL Hemoglobin 8.2 7.8 14.0-18.0 g/dL Hematocrit 25.8 25.2 42-52 % Mean Corpuscular Volume 85.7 84.8 80-100 fL Mean Corpuscular Hemoglobin 27.2 26.3 25-34 pg Mean Corpuscular Hemoglobin Concent 31.8 31.0 32-36 g/dl RDW Standard Deviation 49.0 48.4 36.4-46.3 fL RDW Coefficient of Variation 15.6 15.6 11.5-14.5 % Platelet Count 106 123 130-400 K/uL Mean Platelet Volume 9.9 10.8 7.4-10.4 fL Bedside Glucose 206 178 70-99 mg/dl Neutrophils (%) (Auto) 85.9 % Lymphocytes (%) (Auto) 6.0 % Monocytes (%) (Auto) 6.8 % Eosinophils (%) (Auto) 0.9 % Basophils (%) (Auto) 0.2 % Neutrophils # (Auto) 5.03 1.4-6.5 K/uL Lymphocytes # (Auto) 0.35 1.2-3.4 K/uL Monocytes # (Auto) 0.40 0.11-0.59 K/uL Eosinophils # (Auto) 0.05 0-0.5 K/uL Basophils # (Auto) 0.01 0-0.2 K/uL Immature Granulocyte % (Auto) 0.2 % Immature Granulocyte # (Auto) 0.01 0.00-0.02 K/uL Red Blood Cell Morphology Unremarkable Sodium Level 138 136-145 mmol/L Potassium Level 4.2 3.5-5.1 mmol/L Chloride Level 109 98-107 mmol/L Carbon Dioxide Level 22 21-32 mmol/L Anion Gap 7.0 3-11 mmol/L Blood Urea Nitrogen 11 7-18 mg/dl Creatinine 1.20 0.60-1.40 mg/dl Est Creatinine Clear Calc Drug Dose 43.5 ml/min Estimated GFR () 65.8 Estimated GFR (Non- 56.8 BUN/Creatinine Ratio 9.2 10-20 Random Glucose 219 70-99 mg/dl Calcium Level 7.6 8.5-10.1 mg/dl Magnesium Level 1.7 1.8-2.4 mg/dl Test 02/26/17 07:00 Range/Units Bedside Glucose 225 70-99 mg/dl Microbiology Results 02/26/17 MRSA DNA Surveillance Screen - Final, Complete Specimen Negative for MRSA by DNA Probe Assessment and Plan 81 yo M [facility] resident with Metastatic Esophageal cancer (dx 03/2016) s/p chemo/radiation, previously complicated by malignant effusion, presenting with Fever, SOB, Altered Mental Status, admitted with Sepsis in the setting of Noel LL Pneumonia with Pleural effusion s/p drain showing clinical improvement . Bilateral lower lobe Pneumonia (admitted with sepsis) - Clinically improving - C/W IV Levaquin, Vanc and Zosyn - Blood cultures NGTD - F.u Blood cx's at 48 hrs, if no change, consider narrowing therapy - On 100mls/hr of IVF Bilateral pleural effusions - s/p draining -Pleural fluid, no organisms founds, negative acid fast stain -Consider repeat CXR tmr Atrial flutter - asx - Per Echo report: Limited views were obtained. * Compared directly to a study from 02/04/2017, the effusion is smaller. * The inferior vena cava is mildly dilated. -c/w Cardizem drip - C/w Metoprolol 25mg bid held due to low blood pressure - c/w digoxin 125 mg daily - Maintain on telemetry Metastatic Esophageal carcinoma - follows with Dr. 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 Patient and family refuse hospice care and prefer Home Health and Aid services. Continued [facility] stay due to: fever Discharge planning: home with home health Resident Tracking Resident Involvement: Resident Care Provided Care Provided: Adult Hospital Medicine
[2017-02-26] MEDS: DIGOXIN 0.125 MG TAB PO SCH (15:22)
[2017-02-26] MEDS: ENOXAPARIN 40 MG/0.4 ML SYR SQ SCH (15:22)
--- NOTE | 2017-02-26 17:19 | PROGRESS NOTE ---
DATE: 02/26/2017 REASON FOR EVALUATION: Esophageal cancer. HISTORY OF PRESENT ILLNESS: The patient has distal esophageal cancer with metastases and pleural effusions. He presents with pneumonia, particularly in the left lower lobe. He had a thoracentesis done yesterday with a drainage tube left in place. The cytology on the pleural fluid is pending. The patient has already had radiation and chemo and is in the palliative stages of his disease and consultation was requested for possible esophageal stent. I talked to the patient today about the possibility and he is willing to proceed. I checked with the endoscopy unit in the hospital and they have 12 and 15 cm in length, partially covered metal esophageal stents available to place. These are placed under fluoroscopy guidance. PLAN: I will talk with Dr. Brewer tomorrow and will develop a plan on when we can get time in the operating room to place one of these stents.
[2017-02-26] MEDS ORDERED: NURSING DECISION MEDICATION ORDER SCH (19:00)
[2017-02-26] MEDS ORDERED: COUGH DROP (SUGAR FREE) LOZ 24 LOZ/1 BOX PO PRN (19:30)
[2017-02-26] MEDS ORDERED: LEVOFLOXACIN 750MG / D5W IV SCH (20:00)
[2017-02-26] MEDS: MOMETASONE FUROATE-FORMOTEROL (DULERA) 200mcg/5mcg per inh INH SCH (20:19)
[2017-02-26] MEDS: RANITIDINE HCL 150 MG TAB PO SCH (20:44)
[2017-02-26] MEDS: VANCOMYCIN INJ 1,000 MG in SODIUM CHLORIDE 0.9% 250ML 250 ML IV SCH (22:28)
[2017-02-27] VITALS (14 sets, daily range): BP systolic 104–147; BP diastolic 53–80; PULSE 75–113; TEMP 36.6–37.1; O2SAT 94–97
[2017-02-27] MEDS: LEVALBUTEROL 1.25MG/0.5ML NEB INH SCH ×4 (01:58→19:15)
[2017-02-27] MEDS: IPRATROPIUM BROMIDE NEB SOLN 0.02% 2.5 ML VIAL INH SCH ×4 (01:58→19:15)
[2017-02-27] MEDS: PIPERACILL/TAZOBAC IV 3.375 GM in DEXTROSE 5% 100ML 100 ML IV SCH ×2 (02:12→08:23)
[2017-02-27] MEDS: DILTIAZEM HCL INJ 125 MG in DEXTROSE 5% 100ML IV PRN ×4 (04:27→17:57)
[2017-02-27] MEDS ORDERED: VANCOMYCIN TROUGH SCH ×2 (05:30→21:30)
[2017-02-27 05:59] LABS: BASO % 0.1 %; BASO ABS # 0.01 K/uL (0-0.2); COMPLETE YES; EOS % 1.8 %; HEMATOCRIT 30.8 % (42-52); IG% 0.3 %; LYMPH % 6.1 %; LYMPH ABS # 0.45 K/uL (1.2-3.4); MEAN CELL VOLUME 86.5 fL (80-100); MEAN CORPUSCULAR HEMOGLOBIN 27.2 pg (25-34); MEAN CORPUSCULAR HGB CONC 31.5 g/dl (32-36); MEAN PLATELET VOLUME 10.2 fL (7.4-10.4); MONO % 6.1 %; NEUT % 85.6 %; PLATELET COUNT 194 K/uL (130-400); RED BLOOD COUNT 3.56 M/uL (4.7-6.1); WHITE BLOOD COUNT 7.34 K/uL (4.8-10.8)
[2017-02-27 06:17] LABS: BUN/CREATININE RATIO 4.7 (10-20); CALCIUM 8.2 mg/dl (8.5-10.1); CREATININE 1.3 mg/dl (0.60-1.40); POTASSIUM 4.7 mmol/L (3.5-5.1)
--- NOTE | 2017-02-27 06:36 | Family Medicine Progress Note ---
Progress Note Date of Service Feb 27, 2017. Subjective Pt evaluation today including: conversation w/ patient, physical exam, chart review, lab review, review of studies, review of inpatient medication list Pain: denies pain Voiding: mendez catheter in place No Complaints per patient. Denies Chest pain, SOB, fevers, chills. Constitutional: No fever, No chills Respiratory: No wheezing, No shortness of breath Cardiovascular: No chest pain, No edema, No palpitations Abdomen: No pain, No nausea, No vomiting Male : No dysuria, No urinary frequency Neurologic: No weakness Skin: No rash, No itch Medications Current Inpatient Medications Medications (Trade) Dose Ordered Sig/Ángela Route Start Time Stop Time Status Last Admin Dose Admin Ioversol (Optiray 320) 114 ml UD PRN IV 02/24/17 21:00 02/28/17 20:59 Acetaminophen (Tylenol Tab) 650 mg Q4H PRN PO 02/24/17 22:15 03/26/17 22:14 02/26/17 20:17 650 MG Cetirizine HCl (zyrTEC TAB) 10 mg QAM PO 02/25/17 09:00 03/27/17 08:59 02/26/17 07:48 10 MG Digoxin (Lanoxin Tab) 0.125 mg DAILY@1600 PO 02/25/17 16:00 03/27/17 15:59 02/26/17 15:22 0.125 MG Ascorbic Acid (Vitamin C Tab) 1,000 mg QAM PO 02/25/17 09:00 03/27/17 08:59 02/26/17 07:48 1,000 MG Pantoprazole Sodium (Protonix Tab) 40 mg BID PO 02/25/17 09:00 03/27/17 08:59 02/26/17 20:20 40 MG Piperacillin Sod/ Tazobactam Sod 3.375 gm/Dextrose 115 ml @ 30 mls/hr Q8H IV 02/25/17 02:00 03/04/17 01:59 02/27/17 02:12 30 MLS/HR Ipratropium [place] (Atrovent 0.02% 0.5MG/2.5ML Neb) 0.5 mg Q6R INH 02/25/17 03:00 03/27/17 02:59 02/26/17 19:44 0.5 MG Levalbuterol (Xopenex 1.25MG/ 0.5ML Neb) 1.25 mg Q6R INH 02/25/17 03:00 03/27/17 02:59 02/26/17 19:44 1.25 MG Ipratropium [place] (Atrovent 0.02% 0.5MG/2.5ML Neb) 0.5 mg Q2H PRN INH 02/24/17 23:30 03/26/17 23:29 Levalbuterol (Xopenex 1.25MG/ 0.5ML Neb) 1.25 mg Q2H PRN INH 02/24/17 23:30 03/26/17 23:29 Vancomycin HCl (Consult) 1 ea UD PRN N/A 02/24/17 23:30 03/26/17 23:29 Piperacillin Sod/ Tazobactam Sod (Consult) 1 ea UD PRN N/A 02/24/17 23:30 03/26/17 23:29 Levofloxacin (Consult) 1 ea UD PRN N/A 02/24/17 23:45 03/26/17 23:44 Levofloxacin 750 mg/Prmx 150 ml @ 100 mls/hr Q48H IV 02/26/17 20:00 03/03/17 23:59 02/26/17 20:18 100 MLS/HR Potassium Chloride/Sodium Chloride 1,000 ml @ 100 mls/hr Q10H IV 02/25/17 00:30 03/27/17 00:29 02/26/17 20:38 100 MLS/HR Heparin Sodium (Porcine) (Heparin 100 Unit/ml 5ml Flush) 5 ml PRN PRN IV 02/25/17 00:30 03/27/17 00:29 Ondansetron HCl (Zofran Inj) 4 mg Q6H PRN IV 02/25/17 05:15 03/27/17 05:14 Ferrous Sulfate (Feosol Elix) 325 mg QAM PO 02/25/17 10:00 03/27/17 09:59 02/26/17 07:48 325 MG Enteral Nutritional Formula (Boost Breeze Nutritional Drink) 1 box TID PO 02/25/17 14:00 03/27/17 08:59 02/26/17 20:19 1 BOX Vancomycin HCl 1000 mg/Sodium Chloride 270 ml @ 125 mls/hr Q24H IV 02/25/17 22:00 03/03/17 21:59 02/26/17 22:28 125 MLS/HR Insulin Aspart (novoLOG ASPART) SLIDING SCALE If C... ACHS SC 02/25/17 16:00 03/27/17 15:59 02/26/17 20:51 1 UNITS Glucose (Glucose 40% Gel) 15-30 GRAMS 15 GRAMS... UD PRN PO 02/25/17 13:30 03/27/17 13:29 Glucose (Glucose Chew Tab) 4-8 Tablets 4 Tabl... UD PRN PO 02/25/17 13:30 03/27/17 13:29 Dextrose (Dextrose 50% 50ML Syringe) 25-50ML OF 50% DW IV FOR... UD PRN IV 02/25/17 13:30 03/27/17 13:29 Glucagon (Glucagon Inj) 1 mg UD PRN SQ 02/25/17 13:30 03/27/17 13:29 Enoxaparin Sodium (Lovenox Inj) 40 mg Q24H SQ 02/25/17 16:00 03/27/17 15:59 02/26/17 15:22 40 MG Diltiazem HCl 125 mg/Dextrose 125 ml @ 0 mls/hr Q0M PRN IV 02/26/17 02:45 03/28/17 02:44 02/27/17 04:27 10 MLS/HR Mometasone Furoate/ Formoterol Fumar (Dulera) 2 ea BID INH 02/26/17 21:00 03/28/17 20:59 02/26/17 20:19 2 EA Ranitidine HCl (zANTac TAB) 150 mg BID PO 02/26/17 21:00 03/28/17 20:59 02/26/17 20:44 150 MG Menthol (Nice Trace) 1 trace PRN PRN PO 02/26/17 19:30 03/28/17 19:29 Objective Vital Signs Date Time Temp Pulse Resp B/P (MAP) Pulse Ox O2 Delivery O2 Flow Rate FiO2 02/27/17 06:26 37.0 110 25 147/80 95 Room Air 2.0 02/27/17 04:00 95 Room Air 02/27/17 03:44 37.0 110 25 147/80 (102) 95 Room Air 02/27/17 00:01 96 Room Air 02/27/17 00:00 36.6 107 18 104/65 (78) 96 Room Air 02/26/17 20:00 97 Room Air 02/26/17 19:58 37.5 99 18 97/48 (64) 97 Room Air 02/26/17 19:44 96 16 94 Room Air 02/26/17 16:25 36.5 105 18 88/46 (60) 93 Room Air 102/47 (65) 02/26/17 16:00 96 Room Air 02/26/17 15:22 103 02/26/17 14:28 99 16 96 Room Air 02/26/17 12:00 96 Room Air 02/26/17 11:55 37.1 117 15 95/59 (71) 96 Room Air 02/26/17 08:18 37.4 126 19 101/58 (72) 96 Room Air 02/26/17 08:00 96 Room Air 02/26/17 07:15 101 16 96 Room Air Physical Exam General Appearance: WD/WN, no apparent distress Eyes: normal inspection, PERRL, EOMI Neck: supple, trachea midline Respiratory/Chest: lungs clear, normal breath sounds Cardiovascular: no edema, no murmur, + irregularly irregular Abdomen: normal bowel sounds, non tender, soft Extremities: normal range of motion, normal inspection Neurologic/Psychiatric: alert, normal mood/affect Skin: normal color, no rash Laboratory Results Results Past 24 Hours Test 02/26/17 11:06 02/26/17 16:26 02/26/17 20:34 02/27/17 05:37 Range/Units Bedside Glucose 204 185 163 70-99 mg/dl White Blood Count 7.34 4.8-10.8 K/uL Red Blood Count 3.56 4.7-6.1 M/uL Hemoglobin 9.7 14.0-18.0 g/dL Hematocrit 30.8 42-52 % Mean Corpuscular Volume 86.5 80-100 fL Mean Corpuscular Hemoglobin 27.2 25-34 pg Mean Corpuscular Hemoglobin Concent 31.5 32-36 g/dl Platelet Count 194 130-400 K/uL Mean Platelet Volume 10.2 7.4-10.4 fL Neutrophils (%) (Auto) 85.6 % Lymphocytes (%) (Auto) 6.1 % Monocytes (%) (Auto) 6.1 % Eosinophils (%) (Auto) 1.8 % Basophils (%) (Auto) 0.1 % Neutrophils # (Auto) 6.28 1.4-6.5 K/uL Lymphocytes # (Auto) 0.45 1.2-3.4 K/uL Monocytes # (Auto) 0.45 0.11-0.59 K/uL Eosinophils # (Auto) 0.13 0-0.5 K/uL Basophils # (Auto) 0.01 0-0.2 K/uL RDW Standard Deviation 50.6 36.4-46.3 fL RDW Coefficient of Variation 15.9 11.5-14.5 % Immature Granulocyte % (Auto) 0.3 % Immature Granulocyte # (Auto) 0.02 0.00-0.02 K/uL Sodium Level 142 136-145 mmol/L Potassium Level 4.7 3.5-5.1 mmol/L Chloride Level 112 98-107 mmol/L Carbon Dioxide Level 21 21-32 mmol/L Anion Gap 9.0 3-11 mmol/L Blood Urea Nitrogen 6 7-18 mg/dl Creatinine 1.30 0.60-1.40 mg/dl Est Creatinine Clear Calc Drug Dose 41.7 ml/min Estimated GFR () 59.7 Estimated GFR (Non- 51.5 BUN/Creatinine Ratio 4.7 10-20 Random Glucose 158 70-99 mg/dl Calcium Level 8.2 8.5-10.1 mg/dl Vancomycin Level Trough 15.6 SEE COMMENT mcg/ml Assessment and Plan 81 yo M with Metastatic Esophageal cancer (dx 03/2016) s/p chemo/radiation, previously complicated by malignant effusion, presenting with Fever, SOB, Altered Mental Status, admitted with Sepsis in the setting of Noel LL Pneumonia with Pleural effusion s/p drain showing clinical improvement . Bilateral lower lobe Pneumonia (admitted with sepsis) - Clinically improving - Currently on IV Levaquin, Vanc and Zosyn - Blood cultures NGTD - narrow to IV levaquin - On 100mls/hr of IVF Bilateral pleural effusions - s/p draining -Pleural fluid, no organisms founds, negative acid fast stain -CXR on 02/26 showed slight accum. of pleural fluid in the rt base Atrial flutter - asx - Per Echo report () : Limited views were obtained. * Compared directly to a study from 02/04/2017, the effusion is smaller. * The inferior vena cava is mildly dilated. --currently on Cardizem drip at 15mls/hr, Consider switching to oral tmr - C/w Metoprolol 25mg bid held due to low blood pressure - c/w digoxin 125 mg daily - Maintain on telemetry Metastatic Esophageal carcinoma - EGD today, possible stent placement - follows with Dr. 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 Patient and family decline hospice care and prefer Home Health and Aid services. Resident Physician Supervision Note: I was present with Dr. Ca during the history and exam. I discussed the case with the resident and agree with the findings and plan as documented in the note. Any exceptions or clarifications are listed here: Patient with intermittent confusion yesterday and today. Suspect acute delirium secondary to illness, and perhaps multiple IV antibiotics. Continue current medications pending EGD this afternoon. Tomorrow, if able, hopefully convert to PO medications. Will also decrease antibiotics to Levaquin only. Documented By: Micheal Robert Discharge planning: home with home health Resident Tracking Resident Involvement: Resident Care Provided Care Provided: Adult Hospital Medicine
[2017-02-27] MEDS: BOOST BREEZE NUTRITION DRINK 1 BOX PO SCH ×3 (07:33→21:46)
[2017-02-27] MEDS: INSULIN ASPART 100 UNITS/ML 3 ML PEN SC SCH ×4 (07:33→21:56)
--- NOTE | 2017-02-27 07:47 | DIAGNOSTIC IMAGING REPORT ---
CHEST ONE VIEW PORTABLE CLINICAL HISTORY: pleural effusion dyspnea COMPARISON STUDY: 02/26/2017 FINDINGS: No significant right-sided pneumothorax currently. Right basilar pleural tube unchanged in location. Persistent increase in density left base. IMPRESSION: No significant pneumothorax. Unchanging left pleural effusion. Trace pleural fluid right base. Electronically signed by: Torito Navarro M.D. 02/27/2017 7:45 AM Dictated Date/Time: 02/27/2017 7:44 AM
[2017-02-27] MEDS: NSS + 20MEQ KCL 1000ML 1,000 ML IV SCH ×2 (08:22→17:21)
[2017-02-27] MEDS: FERROUS SULFATE 325 MG/7.4 ML UDP PO SCH (08:23)
[2017-02-27] MEDS: CETIRIZINE HCL 10 MG TAB PO SCH (08:23)
[2017-02-27] MEDS: MOMETASONE FUROATE-FORMOTEROL (DULERA) 200mcg/5mcg per inh INH SCH ×2 (08:23→21:57)
[2017-02-27] MEDS: RANITIDINE HCL 150 MG TAB PO SCH ×2 (08:23→21:47)
[2017-02-27] MEDS: ASCORBIC ACID 500 MG TAB PO SCH (08:24)
[2017-02-27] MEDS: PANTOprazole SOD 40 MG TAB PO SCH ×3 (08:24→21:59)
--- NOTE | 2017-02-27 09:08 | SURGERY PROGRESS NOTE ---
DATE: 02/27/2017 DATE: 02/27/2017. Mr. Tapia was seen today on 02/27/2017. He is quite confused today. His maximum temperature in the last 24 hours has been 37.1. His white count today is 7340, hemoglobin 9.7. It will be important to note that when he presented with fevers and chills his white count was 14,060. He is not growing any organisms on any cultures. He is in atrial fibrillation with Cardizem drip. Heart rate in the 1-teens. His right lung sounds clear. His x-ray looks quite good from a fluid standpoint. He really has no fluid or pneumothorax on the right. He does have some fluid on the left, however his saturation on room air is 95%. We went back and forth about placing this PleurX at all. My concern was that this would not be a great help to him as his saturations were good in the first place. Hopefully, this will help with his dyspnea. He drained 2000 mL upon placing the catheter 2 days ago, 600 mL yesterday and 450 today. Hopefully, this will continue in a downward direction. I do not have a good explanation for his confusion. He does not know he is in the hospital this morning. He does not have a focal deficit per se.
[2017-02-27] MEDS: ACETAMINOPHEN 325 MG TAB PO PRN (11:35)
[2017-02-27] MEDS ORDERED: MIDAZOLAM HCL 1 MG/ML 2ML VIAL ONE (13:38)
[2017-02-27] MEDS ORDERED: FENTANYL CITRATE INJ 50 MCG/1 ML 2 ML VIAL ONE (13:39)
--- NOTE | 2017-02-27 13:59 | History & Physical Bridge Note ---
H&P Re-Evaluation Bridge Note: I have examined the patient, reviewed the History & Physical and in the interval since the performance of the History & Physical I have noted the following changes of clinical significance: Chart reviewed case d/w Dr Holbrook. Intention to place a SEMS for esophageal obstructing mass. Awake alert but not oriented Heart Nl s1s2 Lungs breath sounds at bases abd soft NT/ND + BS - CCe Plan: EGD with esophageal stent will need to obtain persmission from family. Attempting to contact family for stent aniyah
[2017-02-27] MEDS ORDERED: WATER, STERILE FOR INJ 10 ML VIAL ONE (14:58)
[2017-02-27] MEDS ORDERED: LIDOCAINE HCL 2% 2 ML VIAL (20MG/ML) ONE ×2 (14:58→15:11)
[2017-02-27] MEDS ORDERED: ONDANSETRON INJ 2 MG/ML 2 ML VIAL ONE (14:58)
[2017-02-27] MEDS ORDERED: KETAMINE HCL INJ 50 MG/ML 10 ML VIAL ONE (14:58)
[2017-02-27] MEDS ORDERED: NALOXONE HCL 0.4 MG/1 ML VIAL/CARP IV PRN (15:30)
[2017-02-27] MEDS ORDERED: HYDROmorphone INJ 2 MG/ML SYR/VIAL IV PRN (15:30)
[2017-02-27] MEDS ORDERED: FLUMAZENIL 0.1 MG/1 ML 10 ML VIAL IV PRN (15:30)
[2017-02-27] MEDS ORDERED: PHENYLEPHRINE 100MCG/ML 5ML SYR IV PRN (15:30)
[2017-02-27] MEDS ORDERED: MEPERIDINE HCL 25 MG/ML CARP IV PRN (15:30)
[2017-02-27] MEDS ORDERED: ONDANSETRON INJ 2 MG/ML 2 ML VIAL IV PRN (15:30)
[2017-02-27] MEDS ORDERED: ATROPINE SULFATE 0.1 MG/ML 5ML SYR IV PRN (15:30)
[2017-02-27] MEDS ORDERED: LABETALOL HCL IV 5 MG/ML 20ML IV PRN (15:30)
[2017-02-27] MEDS ORDERED: FENTANYL CITRATE INJ 50 MCG/1 ML 2 ML VIAL IV PRN (15:30)
[2017-02-27] MEDS ORDERED: EpHEDrine SULFATE INJ 50 MG/ML AMP IV PRN (15:30)
[2017-02-27] MEDS ORDERED: PHENYLEPHRINE 100MCG/ML 5ML SYR ONE (15:39)
[2017-02-27] MEDS ORDERED: METOPROLOL TARTRATE 1 MG/ML VIAL ONE (15:39)
--- NOTE | 2017-02-27 15:46 | GI REPORT ---
Procedure Date: 02/27/2017 2:59 PM THIS REPORT HAS BEEN AMENDED Addendum Number: 1 Addendum Date: 02/27/2017 3:48:18 PM Stent: Cook Evolution partially covered SEMS 20-25-12.5-E L:ot#[id number] Ref: [id number] manu date: 2015-10-19 Procedure: Upper GI endoscopy Indications: Dysphagia, Personal history of malignant esophageal neoplasm Medicines: Propofol per Anesthesia Complications: No immediate complications. Estimated Blood Loss: Estimated blood loss: none. Procedure: Pre-Anesthesia Assessment: - Prior to the procedure, a History and Physical was performed, and patient medications and allergies were reviewed. The patient's tolerance of previous anesthesia was also reviewed. The risks and benefits of the procedure and the sedation options and risks were discussed with the patient. All questions were answered, and informed consent was obtained. Prior Anticoagulants: The patient has taken no previous anticoagulant or antiplatelet agents. ASA Grade Assessment: IV - A patient with severe systemic disease that is a constant threat to life. After reviewing the risks and benefits, the patient was deemed in satisfactory condition to undergo the procedure. After obtaining informed consent, the endoscope was passed under direct vision. Throughout the procedure, the patient's blood pressure, pulse, and oxygen saturations were monitored continuously. The Scope was introduced through the mouth, and advanced to the second part of duodenum. The upper GI endoscopy was accomplished without difficulty. The patient tolerated the procedure well. Findings: The upper third of the esophagus and middle third of the esophagus were normal. A large, fungating and ulcerating mass with and with no stigmata of recent bleeding was found in the lower third of the esophagus, at the lower esophageal sphincter and at the gastroesophageal junction. The mass was partially obstructing and partially circumferential (involving two thirds of the lumen circumference). Paper clips were used to jomar the proximal and distal extent of the mass fluroscopically. This was stented with a 20 mm x 12.5 cm Evolution partially covered controlled-release stent with a 25 mm flange under fluoroscopic guidance. Estimated blood loss: none. Moderate mucosal changes were found in the cardia. The exam of the stomach was otherwise normal. The examined duodenum was normal. Retained gastric contents are not identified on this exam. The esophagus had clear /mirky liquid contnets during initial examiniation. the esopgeahl mass extend from 36 cm to 45 cm. Impression: - Normal upper third of esophagus and middle third of esophagus. - Partially obstructing, malignant esophageal tumor was found in the lower third of the esophagus and at the gastroesophageal junction. Prosthesis placed. - Mucosal changes in the cardia. - Normal examined duodenum. - No specimens collected. Recommendation: - Return patient to [facility] for [facility] care. - Use a proton pump inhibitor PO BID indefinitely. - Clear liquid diet today. - Advance diet as tolerated for 1 day, then advance as tolerated to maintain aspiration precautions indefinitely. MD Bud Sepulveda MD 02/27/2017 3:45:03 PM This report has been signed electronically. Note Initiated On: 02/27/2017 2:59 PM I attest to the content of the Intraoperative Record and orders documented therein, exceptions below MD Bud Sepulveda MD 02/27/2017 3:49:50 PM This report has been signed electronically.
[2017-02-27] MEDS: DIGOXIN 0.125 MG TAB PO SCH (17:18)
[2017-02-27] MEDS: ENOXAPARIN 40 MG/0.4 ML SYR SQ SCH (17:18)
--- NOTE | 2017-02-27 17:44 | Anesthesiology Progress Note ---
Anesthesia Post Op Note Date & Time Feb 27, 2017 at 17:44 Vital Signs Pain Intensity: 0 Vital Signs Past 12 Hours Date Time Temp Pulse Resp B/P (MAP) Pulse Ox O2 Delivery O2 Flow Rate FiO2 02/27/17 17:29 84 18 109/59 (76) Room Air 02/27/17 17:18 82 02/27/17 17:00 75 17 113/53 (73) 97 Room Air 02/27/17 16:15 83 16 107/58 97 Room Air 02/27/17 16:05 36.6 74 16 111/58 100 Oxymask 2 02/27/17 15:55 81 16 108/51 100 Oxymask 5 02/27/17 15:49 36.4 79 16 104/68 100 Oxymask 10 02/27/17 12:00 37.0 86 18 124/62 (82) 95 Room Air 02/27/17 12:00 Room Air 02/27/17 08:00 Room Air 02/27/17 07:29 37.1 112 19 107/66 (80) 95 Room Air 02/27/17 07:12 113 16 95 Room Air 02/27/17 06:26 37.0 110 25 147/80 95 Room Air 2.0 Notes Mental Status: alert / awake / arousable, participated in evaluation Pt Amnestic to Procedure: Yes Nausea / Vomiting: adequately controlled Pain: adequately controlled Airway Patency, RR, SpO2: stable & adequate BP & HR: stable & adequate Hydration State: stable & adequate Anesthetic Complications: no major complications apparent
[2017-02-28] VITALS (12 sets, daily range): BP systolic 103–116; BP diastolic 47–81; PULSE 81–116; TEMP 36.6–37.4; O2SAT 90–98
[2017-02-28] MEDS: DILTIAZEM HCL INJ 125 MG in DEXTROSE 5% 100ML IV PRN (01:54)
[2017-02-28] MEDS: LEVALBUTEROL 1.25MG/0.5ML NEB INH SCH ×4 (02:21→19:05)
[2017-02-28] MEDS: IPRATROPIUM BROMIDE NEB SOLN 0.02% 2.5 ML VIAL INH SCH ×4 (02:21→19:05)
[2017-02-28] MEDS: NSS + 20MEQ KCL 1000ML 1,000 ML IV SCH ×3 (03:25→23:53)
[2017-02-28 04:52] LABS: HEMATOCRIT 26.9 % (42-52); MEAN CELL VOLUME 85.9 fL (80-100); MEAN CORPUSCULAR HEMOGLOBIN 26.5 pg (25-34); MEAN CORPUSCULAR HGB CONC 30.9 g/dl (32-36); MEAN PLATELET VOLUME 10.1 fL (7.4-10.4); PLATELET COUNT 150 K/uL (130-400); RED BLOOD COUNT 3.13 M/uL (4.7-6.1); WHITE BLOOD COUNT 5.85 K/uL (4.8-10.8)
[2017-02-28 05:21] LABS: BASO % 0.2 %; BASO ABS # 0.01 K/uL (0-0.2); COMPLETE YES; EOS % 2.1 %; IG% 0.3 %; LYMPH % 5.3 %; LYMPH ABS # 0.31 K/uL (1.2-3.4); MONO % 7.9 %; NEUT % 84.2 %
[2017-02-28 05:29] LABS: BUN/CREATININE RATIO 5.3 (10-20); CALCIUM 7.7 mg/dl (8.5-10.1); POTASSIUM 4.6 mmol/L (3.5-5.1)
[2017-02-28] MEDS: INSULIN ASPART 100 UNITS/ML 3 ML PEN SC SCH ×4 (07:00→20:35)
[2017-02-28] MEDS ORDERED: MAGNESIUM HYDROXIDE SUSP 30 ML UDC PO PRN (07:45)
[2017-02-28] MEDS: POLYETHYLENE (MIRALAX) 17 GM PACK PO PRN (08:38)
[2017-02-28] MEDS: MOMETASONE FUROATE-FORMOTEROL (DULERA) 200mcg/5mcg per inh INH SCH ×2 (08:39→20:33)
[2017-02-28] MEDS: BOOST BREEZE NUTRITION DRINK 1 BOX PO SCH ×3 (08:39→20:32)
[2017-02-28] MEDS: CETIRIZINE HCL 10 MG TAB PO SCH (08:40)
[2017-02-28] MEDS: PANTOprazole SOD 40 MG TAB PO SCH ×3 (08:40→20:33)
[2017-02-28] MEDS: RANITIDINE HCL 150 MG TAB PO SCH ×2 (08:40→20:33)
[2017-02-28] MEDS: ASCORBIC ACID 500 MG TAB PO SCH (08:40)
[2017-02-28] MEDS: FERROUS SULFATE 325 MG/7.4 ML UDP PO SCH (08:41)
--- NOTE | 2017-02-28 11:38 | SURGERY PROGRESS NOTE ---
DATE: 02/28/2017 DATE: 02/28/2017. Mr. Tapia was seen this morning. I had a long discussion with the patient and his . He is confused. He drained 650 mL from his PleurX today. He also underwent insertion of a stent by Dr. Brewer yesterday. He states his swallowing is much improved. His breathing is also not an issue. On room air he is 96% saturated. At this point, we will discharge him with this PleurX catheter in place. It should be noted that he underwent a thoracentesis couple months ago and this was found to be a malignant effusion, although we did not see malignant cells on the fluid that was sent recently. Also very interesting to see that he has really had no changes clinically with drainage of this 2 liters of fluid and then continued drainage of the pleural fluid. PleurX site is clean and otherwise he looks good. We will discharge him home with this to be drained daily.
--- NOTE | 2017-02-28 12:57 | Family Medicine Progress Note ---
Progress Note Date of Service Feb 28, 2017. Subjective Pt evaluation today including: conversation w/ patient, conversation w/ family , physical exam, chart review, lab review, review of studies, review of inpatient medication list Pain: denies pain PO Intake: adequate Voiding: mendez catheter in place No acute events overnight. Patient has no complaints. He is s/p EGD, Esophageal stent placement. He denies pain , n/v, cough. Constitutional: No fever, No chills, No weakness Respiratory: No cough, No shortness of breath Cardiovascular: No chest pain, No edema, No palpitations Abdomen: No pain, No nausea, No vomiting Endo: No fatigue Skin: No rash, No itch Medications Current Inpatient Medications Medications (Trade) Dose Ordered Sig/Ángela Route Start Time Stop Time Status Last Admin Dose Admin Ioversol (Optiray 320) 114 ml UD PRN IV 02/24/17 21:00 02/28/17 20:59 Acetaminophen (Tylenol Tab) 650 mg Q4H PRN PO 02/24/17 22:15 03/26/17 22:14 02/27/17 11:35 650 MG Cetirizine HCl (zyrTEC TAB) 10 mg QAM PO 02/25/17 09:00 03/27/17 08:59 02/28/17 08:40 10 MG Digoxin (Lanoxin Tab) 0.125 mg DAILY@1600 PO 02/25/17 16:00 03/27/17 15:59 02/28/17 16:45 0.125 MG Ascorbic Acid (Vitamin C Tab) 1,000 mg QAM PO 02/25/17 09:00 03/27/17 08:59 02/28/17 08:40 1,000 MG Pantoprazole Sodium (Protonix Tab) 40 mg BID PO 02/25/17 09:00 03/27/17 08:59 02/28/17 08:40 40 MG Ipratropium Ririe (Atrovent 0.02% 0.5MG/2.5ML Neb) 0.5 mg Q6R INH 02/25/17 03:00 03/27/17 02:59 02/28/17 19:05 0.5 MG Levalbuterol (Xopenex 1.25MG/ 0.5ML Neb) 1.25 mg Q6R INH 02/25/17 03:00 03/27/17 02:59 02/28/17 19:05 1.25 MG Ipratropium Ririe (Atrovent 0.02% 0.5MG/2.5ML Neb) 0.5 mg Q2H PRN INH 02/24/17 23:30 03/26/17 23:29 Levalbuterol (Xopenex 1.25MG/ 0.5ML Neb) 1.25 mg Q2H PRN INH 02/24/17 23:30 03/26/17 23:29 Levofloxacin (Consult) 1 ea UD PRN N/A 02/24/17 23:45 03/26/17 23:44 Potassium Chloride/Sodium Chloride 1,000 ml @ 100 mls/hr Q10H IV 02/25/17 00:30 03/27/17 00:29 02/28/17 13:30 100 MLS/HR Heparin Sodium (Porcine) (Heparin 100 Unit/ml 5ml Flush) 5 ml PRN PRN IV 02/25/17 00:30 03/27/17 00:29 Ondansetron HCl (Zofran Inj) 4 mg Q6H PRN IV 02/25/17 05:15 03/27/17 05:14 Ferrous Sulfate (Feosol Elix) 325 mg QAM PO 02/25/17 10:00 03/27/17 09:59 02/28/17 08:41 325 MG Enteral Nutritional Formula (Boost Breeze Nutritional Drink) 1 box TID PO 02/25/17 14:00 03/27/17 08:59 02/26/17 20:19 1 BOX Insulin Aspart (novoLOG ASPART) SLIDING SCALE If C... ACHS SC 02/25/17 16:00 03/27/17 15:59 02/28/17 16:50 3 UNITS Glucose (Glucose 40% Gel) 15-30 GRAMS 15 GRAMS... UD PRN PO 02/25/17 13:30 03/27/17 13:29 Glucose (Glucose Chew Tab) 4-8 Tablets 4 Tabl... UD PRN PO 02/25/17 13:30 03/27/17 13:29 Dextrose (Dextrose 50% 50ML Syringe) 25-50ML OF 50% DW IV FOR... UD PRN IV 02/25/17 13:30 03/27/17 13:29 Glucagon (Glucagon Inj) 1 mg UD PRN SQ 02/25/17 13:30 03/27/17 13:29 Enoxaparin Sodium (Lovenox Inj) 40 mg Q24H SQ 02/25/17 16:00 03/27/17 15:59 02/28/17 16:43 40 MG Mometasone Furoate/ Formoterol Fumar (Dulera) 2 ea BID INH 02/26/17 21:00 03/28/17 20:59 02/28/17 08:39 2 EA Ranitidine HCl (zANTac TAB) 150 mg BID PO 02/26/17 21:00 03/28/17 20:59 02/28/17 08:40 150 MG Menthol (Nice Trace) 1 trace PRN PRN PO 02/26/17 19:30 03/28/17 19:29 Magnesium Hydroxide (Milk Of Magnesia Susp) 30 ml Q6H PRN PO 02/28/17 07:45 03/30/17 07:44 Polyethylene (Miralax Powder Packet) 17 gm DAILY PRN PO 02/28/17 08:00 03/30/17 07:59 02/28/17 08:38 17 GM Diltiazem HCl (Cardizem Tab) 30 mg QID PO 02/28/17 17:00 03/30/17 16:59 02/28/17 16:47 30 MG Levofloxacin (Levaquin Tab) 750 mg Q2D@1100 PO 02/28/17 16:00 03/03/17 23:59 02/28/17 16:43 750 MG Objective Vital Signs Date Time Temp Pulse Resp B/P (MAP) Pulse Ox O2 Delivery O2 Flow Rate FiO2 02/28/17 19:05 84 16 95 Room Air 02/28/17 16:45 95 02/28/17 16:00 Room Air 02/28/17 15:45 36.7 95 16 103/65 (78) 95 Room Air 02/28/17 15:01 85 16 94 Room Air 02/28/17 13:13 90 02/28/17 12:00 Room Air 02/28/17 12:00 36.8 86 16 116/47 (70) 97 02/28/17 08:00 Room Air 02/28/17 07:24 36.6 91 18 106/52 (70) 96 Room Air 02/28/17 06:55 97 16 90 Room Air 02/28/17 04:00 97 Room Air 02/28/17 04:00 37.4 93 18 109/62 (78) 97 Room Air 02/28/17 02:21 81 16 95 Room Air 02/28/17 00:01 95 Room Air 02/27/17 20:00 95 Room Air Physical Exam General Appearance: WD/WN, no apparent distress Eyes: normal inspection, PERRL, EOMI Neck: supple, no adenopathy, trachea midline Respiratory/Chest: chest non-tender, lungs clear, normal breath sounds Cardiovascular: no murmur, + irregularly irregular Abdomen: normal bowel sounds, non tender, soft Skin: normal color, warm/dry, no rash Lymphatic: no adenopathy Laboratory Results Results Past 24 Hours Test 02/27/17 19:51 02/28/17 04:20 02/28/17 07:02 02/28/17 11:03 Range/Units Bedside Glucose 163 158 271 70-99 mg/dl White Blood Count 5.85 4.8-10.8 K/uL Red Blood Count 3.13 4.7-6.1 M/uL Hemoglobin 8.3 14.0-18.0 g/dL Hematocrit 26.9 42-52 % Mean Corpuscular Volume 85.9 80-100 fL Mean Corpuscular Hemoglobin 26.5 25-34 pg Mean Corpuscular Hemoglobin Concent 30.9 32-36 g/dl Platelet Count 150 130-400 K/uL Mean Platelet Volume 10.1 7.4-10.4 fL Neutrophils (%) (Auto) 84.2 % Lymphocytes (%) (Auto) 5.3 % Monocytes (%) (Auto) 7.9 % Eosinophils (%) (Auto) 2.1 % Basophils (%) (Auto) 0.2 % Neutrophils # (Auto) 4.93 1.4-6.5 K/uL Lymphocytes # (Auto) 0.31 1.2-3.4 K/uL Monocytes # (Auto) 0.46 0.11-0.59 K/uL Eosinophils # (Auto) 0.12 0-0.5 K/uL Basophils # (Auto) 0.01 0-0.2 K/uL RDW Standard Deviation 50.7 36.4-46.3 fL RDW Coefficient of Variation 16.1 11.5-14.5 % Immature Granulocyte % (Auto) 0.3 % Immature Granulocyte # (Auto) 0.02 0.00-0.02 K/uL Red Blood Cell Morphology Unremarkable Sodium Level 142 136-145 mmol/L Potassium Level 4.6 3.5-5.1 mmol/L Chloride Level 113 98-107 mmol/L Carbon Dioxide Level 21 21-32 mmol/L Anion Gap 8.0 3-11 mmol/L Blood Urea Nitrogen 5 7-18 mg/dl Creatinine 1.00 0.60-1.40 mg/dl Est Creatinine Clear Calc Drug Dose 54.2 ml/min Estimated GFR () 82.0 Estimated GFR (Non- 70.8 BUN/Creatinine Ratio 5.3 10-20 Random Glucose 151 70-99 mg/dl Calcium Level 7.7 8.5-10.1 mg/dl Test 02/28/17 16:41 Range/Units Bedside Glucose 208 70-99 mg/dl Assessment and Plan 81 yo M with Metastatic Esophageal cancer (dx 03/2016) s/p chemo/radiation, previously complicated by malignant effusion, presenting with Fever, SOB, Altered Mental Status, admitted with Sepsis in the setting of Noel LL Pneumonia with Pleural effusion s/p drain showing clinical improvement . Bilateral lower lobe Pneumonia (admitted with sepsis) - Clinically improving - Currently on IV Levaquin, Vanc and Zosyn - Blood cultures NGTD - Converted from IV to PO Levaquin - On 100mls/hr of IVF Bilateral pleural effusions - s/p draining -Pleural fluid, no organisms founds, negative acid fast stain -CXR on 02/26 showed slight accum. of pleural fluid in the rt base Atrial flutter - asx - Per Echo report () : Limited views were obtained. * Compared directly to a study from 02/04/2017, the effusion is smaller. * The inferior vena cava is mildly dilated. 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 Patient and family decline hospice care and prefer Home Health and Aid services. Resident Physician Supervision Note: I was present with Dr. Ca during the history and exam. I discussed the case with the resident and agree with the findings and plan as documented in the note. Any exceptions or clarifications are listed here: Patient seems less confused today, although still reports intermittent confusion. I suspect this is secondary to acute illness and multiple IV medications; less likely, metastatic disease, and all of these possibilities were discussed with the patient's . PLAN 1) Change Cardizem to PO. 2) Monitor HR in telemetry overnight. 3) D/C IV Abx and continue Levaquin PO 4) Advance diet as delineated in GI note. Documented By: Micheal Robert Discharge planning: home with home health Resident Tracking Resident Involvement: Resident Care Provided Care Provided: Adult Hospital Medicine
--- NOTE | 2017-02-28 16:41 | GASTROENTEROLOGY PROGRESS NOTE ---
DATE: 02/28/2017 HISTORY OF PRESENT ILLNESS: The patient underwent an esophageal stent placement yesterday and seemed to tolerate it well overnight by the patient's description and nursing notes. The patient is afebrile for the past 24 hours. His vital signs at the present time showed blood pressure 109/62, 97% on room air, heart rate 93, and temperature 37.4. LABORATORY STUDIES: From today show hemoglobin of 8.3, which is essentially stable over the past few days, white count of 5.85, serum chemistries show a BUN and creatinine of 5 and 1.0 with potassium of 4.6. INR 1.1. REVIEW OF SYSTEMS: Otherwise noncontributory based on 14-point exam. PHYSICAL EXAMINATION: GENERAL: The patient is taking orals via liquids and had through yesterday almost 1300 mL. Today, he has is at 320 mL to this point. HEART: Normal S1, S2. LUNGS: Clear to auscultation. ABDOMEN: Soft, flat, nontender, nondistended with good bowel sounds. EXTREMITIES: Without clubbing, cyanosis or edema. RECTAL: Deferred. ASSESSMENT AND PLAN: The patient with status post esophageal stent for esophageal carcinoma placed yesterday. The patient experienced no chest pain or dysphagia. We will advance diet slowly through full liquids and up to soft diet. We would not advance beyond this point and solid foods such as breads, meat or vestibules should be avoided. As the patient has got reflux may be a component of stent placement and I asked that the patient be placed on Prilosec 40 mg twice daily or an equivalent. In addition, p.r.n. Maalox and Mylanta can be used. Hemoglobin is stable. At this point, we will sign off. If you have any questions, please contact our service. Thank you for allowing us to participate in this patient's care.
[2017-02-28] MEDS: LEVOFLOXACIN 750 MG TAB PO SCH (16:43)
[2017-02-28] MEDS: ENOXAPARIN 40 MG/0.4 ML SYR SQ SCH (16:43)
[2017-02-28] MEDS: DIGOXIN 0.125 MG TAB PO SCH (16:45)
[2017-02-28] MEDS: DILTIAZEM HCL 30 MG TAB PO SCH ×2 (16:47→20:33)
[2017-03-01] VITALS (35 sets, daily range): BP systolic 90–135; BP diastolic 63–85; PULSE 74–153; TEMP 36.5–37.1; O2SAT 95–97
[2017-03-01] MEDS: IPRATROPIUM BROMIDE NEB SOLN 0.02% 2.5 ML VIAL INH SCH ×4 (01:52→19:18)
[2017-03-01] MEDS: LEVALBUTEROL 1.25MG/0.5ML NEB INH SCH ×4 (01:52→19:18)
[2017-03-01] MEDS ORDERED: METOPROLOL TARTRATE 1 MG/ML VIAL IV STA (02:21)
[2017-03-01] MEDS ORDERED: METOPROLOL TARTRATE 1 MG/ML VIAL ONE ×3 (02:28→20:13)
[2017-03-01 07:13] LABS: BASO % 0.2 %; BASO ABS # 0.01 K/uL (0-0.2); COMPLETE YES; EOS % 4.8 %; HEMATOCRIT 29.8 % (42-52); IG% 0.4 %; LYMPH % 6.6 %; LYMPH ABS # 0.36 K/uL (1.2-3.4); MEAN CELL VOLUME 86.4 fL (80-100); MEAN CORPUSCULAR HEMOGLOBIN 26.1 pg (25-34); MEAN CORPUSCULAR HGB CONC 30.2 g/dl (32-36); MONO % 8.1 %; NEUT % 79.9 %; PLATELET COUNT 163 K/uL (130-400); RED BLOOD COUNT 3.45 M/uL (4.7-6.1); WHITE BLOOD COUNT 5.46 K/uL (4.8-10.8)
[2017-03-01] MEDS: RANITIDINE HCL 150 MG TAB PO SCH ×2 (07:15→20:58)
[2017-03-01] MEDS: PANTOprazole SOD 40 MG TAB PO SCH ×2 (07:15→20:58)
[2017-03-01] MEDS: CETIRIZINE HCL 10 MG TAB PO SCH (07:15)
[2017-03-01] MEDS: POLYETHYLENE (MIRALAX) 17 GM PACK PO PRN (07:15)
[2017-03-01] MEDS: ASCORBIC ACID 500 MG TAB PO SCH (07:16)
[2017-03-01] MEDS: BOOST BREEZE NUTRITION DRINK 1 BOX PO SCH ×3 (07:17→20:57)
[2017-03-01] MEDS: DILTIAZEM HCL 30 MG TAB PO SCH ×4 (07:17→20:57)
[2017-03-01] MEDS: MOMETASONE FUROATE-FORMOTEROL (DULERA) 200mcg/5mcg per inh INH SCH ×2 (07:21→21:01)
[2017-03-01] MEDS: INSULIN ASPART 100 UNITS/ML 3 ML PEN SC SCH ×4 (07:30→21:01)
[2017-03-01] MEDS: FERROUS SULFATE 325 MG/7.4 ML UDP PO SCH (07:31)
[2017-03-01 07:41] LABS: BUN/CREATININE RATIO 5.3 (10-20); CALCIUM 7.8 mg/dl (8.5-10.1); CREATININE 0.98 mg/dl (0.60-1.40); POTASSIUM 4.8 mmol/L (3.5-5.1)
--- NOTE | 2017-03-01 09:07 | Surgery Progress Note ---
Subjective Date of Service: Mar 01, 2017. Pt. denies SOB and denies difficulty swallowing liquids. He is noted to be pleasantly confused. Objective Vitals Date Time Temp Pulse Resp B/P (MAP) Pulse Ox O2 Delivery O2 Flow Rate FiO2 03/01/17 08:00 Room Air 03/01/17 07:36 36.5 142 18 135/80 (98) 97 Room Air 03/01/17 07:22 116 16 95 Room Air 03/01/17 06:12 103 14 128/85 (99) 03/01/17 06:00 128 15 03/01/17 04:00 Room Air 03/01/17 04:00 36.8 110 15 90/73 (79) 97 Room Air 03/01/17 02:44 100 14 118/79 (92) 03/01/17 02:44 100 14 107/73 (84) 03/01/17 02:44 150 03/01/17 02:42 98 12 110/78 (89) 03/01/17 02:42 98 12 110/78 (89) 03/01/17 02:41 123 13 104/72 (83) 03/01/17 02:41 123 13 104/72 (83) 03/01/17 02:39 99 13 122/72 (89) 03/01/17 02:39 99 13 122/72 (89) 03/01/17 02:36 111 19 119/77 (91) 03/01/17 02:36 111 19 119/77 (91) 03/01/17 02:35 117 14 03/01/17 02:34 133 13 122/82 (95) 03/01/17 02:34 133 13 122/82 (95) 03/01/17 02:32 140 18 118/84 (95) 03/01/17 02:32 140 18 118/84 (95) 03/01/17 02:30 146 22 121/85 (97) 03/01/17 02:30 146 22 121/85 (97) 03/01/17 02:20 153 13 03/01/17 02:17 148 15 125/73 (90) 03/01/17 02:15 149 13 03/01/17 02:00 122 13 03/01/17 01:52 74 16 95 Room Air 03/01/17 01:45 132 13 03/01/17 01:30 149 12 03/01/17 01:15 129 13 03/01/17 01:00 102 13 03/01/17 00:45 128 13 03/01/17 00:30 118 14 03/01/17 00:15 106 14 03/01/17 00:00 121 17 02/28/17 23:59 Room Air 02/28/17 23:26 36.9 116 16 116/81 (93) 97 Room Air 02/28/17 20:00 Room Air 02/28/17 19:31 36.9 106 20 106/63 (77) 96 Room Air 02/28/17 19:05 84 16 95 Room Air 02/28/17 16:45 95 02/28/17 16:00 Room Air 02/28/17 15:45 36.7 95 16 103/65 (78) 95 Room Air 02/28/17 15:01 85 16 94 Room Air 02/28/17 13:13 90 02/28/17 12:00 Room Air 02/28/17 12:00 36.8 86 16 116/47 (70) 97 Physical Exam General: No distress CV: + RRR Pulmonary: + lungs clear Abdomen: + soft Drains / Tubes pleurex (drained for 650 cc this am ) Assessment & Plan 81 year old male with esophageal ca and pleural effusion -continue to drain pleurex catheter daily upon d/c home -will see Dr. Radford in office 1-2 weeks after d/c with repeat CXR (office will call pt. with date and time of appointment
[2017-03-01] MEDS: NSS + 20MEQ KCL 1000ML 1,000 ML IV SCH (10:16)
[2017-03-01] MEDS ORDERED: DILTIAZEM HCL 5 MG/ML 5 ML VIAL IV STA (10:41)
[2017-03-01] MEDS ORDERED: FUROSEMIDE 40 MG/4 ML VIAL IV SCH (11:30)
--- NOTE | 2017-03-01 12:22 | Family Medicine Progress Note ---
Progress Note Date of Service Mar 01, 2017. Subjective Pt evaluation today including: conversation w/ patient, physical exam, chart review, lab review, review of studies, review of inpatient medication list PO Intake: denies pain Patient is s/p EGD with Stent placement Overnight, night resident was called about elevated HR into the 150's He got IV 5mg Metoprolol and HR showed improvement. He denies pain, difficulty swallowing, nausea/vomiting. He does report ongoing cough. Constitutional: No fever, No chills, No weakness Respiratory: + cough, No shortness of breath Medications Current Inpatient Medications Medications (Trade) Dose Ordered Sig/Ángela Route Start Time Stop Time Status Last Admin Dose Admin Acetaminophen (Tylenol Tab) 650 mg Q4H PRN PO 02/24/17 22:15 03/26/17 22:14 02/27/17 11:35 650 MG Cetirizine HCl (zyrTEC TAB) 10 mg QAM PO 02/25/17 09:00 03/27/17 08:59 03/01/17 07:15 10 MG Digoxin (Lanoxin Tab) 0.125 mg DAILY@1600 PO 02/25/17 16:00 03/27/17 15:59 02/28/17 16:45 0.125 MG Ascorbic Acid (Vitamin C Tab) 1,000 mg QAM PO 02/25/17 09:00 03/27/17 08:59 03/01/17 07:16 1,000 MG Pantoprazole Sodium (Protonix Tab) 40 mg BID PO 02/25/17 09:00 03/27/17 08:59 03/01/17 07:15 40 MG Ipratropium [place] (Atrovent 0.02% 0.5MG/2.5ML Neb) 0.5 mg Q6R INH 02/25/17 03:00 03/27/17 02:59 03/01/17 07:13 0.5 MG Levalbuterol (Xopenex 1.25MG/ 0.5ML Neb) 1.25 mg Q6R INH 02/25/17 03:00 03/27/17 02:59 03/01/17 07:13 1.25 MG Ipratropium [place] (Atrovent 0.02% 0.5MG/2.5ML Neb) 0.5 mg Q2H PRN INH 02/24/17 23:30 7/17/17 23:29 Levalbuterol (Xopenex 1.25MG/ 0.5ML Neb) 1.25 mg Q2H PRN INH 02/24/17 23:30 03/26/17 23:29 Levofloxacin (Consult) 1 ea UD PRN N/A 02/24/17 23:45 03/26/17 23:44 Heparin Sodium (Porcine) (Heparin 100 Unit/ml 5ml Flush) 5 ml PRN PRN IV 02/25/17 00:30 03/27/17 00:29 Ondansetron HCl (Zofran Inj) 4 mg Q6H PRN IV 02/25/17 05:15 03/27/17 05:14 Ferrous Sulfate (Feosol Elix) 325 mg QAM PO 02/25/17 10:00 03/27/17 09:59 03/01/17 07:31 325 MG Enteral Nutritional Formula (Boost Breeze Nutritional Drink) 1 box TID PO 02/25/17 14:00 03/27/17 08:59 02/28/17 20:32 1 BOX Insulin Aspart (novoLOG ASPART) SLIDING SCALE If C... ACHS SC 02/25/17 16:00 03/27/17 15:59 03/01/17 07:30 2 UNITS Glucose (Glucose 40% Gel) 15-30 GRAMS 15 GRAMS... UD PRN PO 02/25/17 13:30 03/27/17 13:29 Glucose (Glucose Chew Tab) 4-8 Tablets 4 Tabl... UD PRN PO 02/25/17 13:30 03/27/17 13:29 Dextrose (Dextrose 50% 50ML Syringe) 25-50ML OF 50% DW IV FOR... UD PRN IV 02/25/17 13:30 03/27/17 13:29 Glucagon (Glucagon Inj) 1 mg UD PRN SQ 02/25/17 13:30 03/27/17 13:29 Enoxaparin Sodium (Lovenox Inj) 40 mg Q24H SQ 02/25/17 16:00 03/27/17 15:59 02/28/17 16:43 40 MG Mometasone Furoate/ Formoterol Fumar (Dulera) 2 ea BID INH 02/26/17 21:00 03/28/17 20:59 03/01/17 07:21 2 EA Ranitidine HCl (zANTac TAB) 150 mg BID PO 02/26/17 21:00 03/28/17 20:59 03/01/17 07:15 150 MG Menthol (Nice Trace) 1 trace PRN PRN PO 02/26/17 19:30 03/28/17 19:29 Magnesium Hydroxide (Milk Of Magnesia Susp) 30 ml Q6H PRN PO 02/28/17 07:45 03/30/17 07:44 Polyethylene (Miralax Powder Packet) 17 gm DAILY PRN PO 02/28/17 08:00 03/30/17 07:59 03/01/17 07:15 17 GM Diltiazem HCl (Cardizem Tab) 30 mg QID PO 02/28/17 17:00 03/30/17 16:59 03/01/17 07:17 30 MG Levofloxacin (Levaquin Tab) 750 mg Q2D@1100 PO 02/28/17 16:00 03/03/17 23:59 02/28/17 16:43 750 MG Furosemide (Lasix Inj) 40 mg TODAY@1130 IV 03/01/17 11:30 03/01/17 13:00 Objective Vital Signs Date Time Temp Pulse Resp B/P (MAP) Pulse Ox O2 Delivery O2 Flow Rate FiO2 03/01/17 11:26 37.1 102 18 112/71 (85) 96 Room Air 03/01/17 08:00 Room Air 03/01/17 07:36 36.5 142 18 135/80 (98) 97 Room Air 03/01/17 07:22 116 16 95 Room Air 03/01/17 06:12 103 14 128/85 (99) 03/01/17 06:00 128 15 03/01/17 04:00 Room Air 03/01/17 04:00 36.8 110 15 90/73 (79) 97 Room Air 03/01/17 02:44 100 14 118/79 (92) 03/01/17 02:44 100 14 107/73 (84) 03/01/17 02:44 150 03/01/17 02:42 98 12 110/78 (89) 03/01/17 02:42 98 12 110/78 (89) 03/01/17 02:41 123 13 104/72 (83) 03/01/17 02:41 123 13 104/72 (83) 03/01/17 02:39 99 13 122/72 (89) 03/01/17 02:39 99 13 122/72 (89) 03/01/17 02:36 111 19 119/77 (91) 03/01/17 02:36 111 19 119/77 (91) 03/01/17 02:35 117 14 03/01/17 02:34 133 13 122/82 (95) 03/01/17 02:34 133 13 122/82 (95) 03/01/17 02:32 140 18 118/84 (95) 03/01/17 02:32 140 18 118/84 (95) 03/01/17 02:30 146 22 121/85 (97) 03/01/17 02:30 146 22 121/85 (97) 03/01/17 02:20 153 13 03/01/17 02:17 148 15 125/73 (90) 03/01/17 02:15 149 13 03/01/17 02:00 122 13 03/01/17 01:52 74 16 95 Room Air 03/01/17 01:45 132 13 03/01/17 01:30 149 12 03/01/17 01:15 129 13 03/01/17 01:00 102 13 03/01/17 00:45 128 13 03/01/17 00:30 118 14 03/01/17 00:15 106 14 03/01/17 00:00 121 17 02/28/17 23:59 Room Air 02/28/17 23:26 36.9 116 16 116/81 (93) 97 Room Air 02/28/17 20:00 Room Air 02/28/17 19:31 36.9 106 20 106/63 (77) 96 Room Air 02/28/17 19:05 84 16 95 Room Air 02/28/17 16:45 95 02/28/17 16:00 Room Air 02/28/17 15:45 36.7 95 16 103/65 (78) 95 Room Air 02/28/17 15:01 85 16 94 Room Air 02/28/17 13:13 90 Physical Exam General Appearance: WD/WN, no apparent distress, + thin Eyes: normal inspection, PERRL, sclerae normal Neck: supple, no adenopathy, trachea midline Respiratory/Chest: chest non-tender, normal breath sounds, + crackles ( Bibasilar) Cardiovascular: no edema, no murmur, + irregularly irregular Abdomen: normal bowel sounds, non tender, soft Extremities: no calf tenderness, + pedal edema Neurologic/Psychiatric: alert, normal mood/affect Skin: normal color, warm/dry Lymphatic: no adenopathy Laboratory Results Results Past 24 Hours Test 02/28/17 16:41 02/28/17 19:51 03/01/17 06:50 03/01/17 06:56 Range/Units Bedside Glucose 208 188 181 70-99 mg/dl White Blood Count 5.46 4.8-10.8 K/uL Red Blood Count 3.45 4.7-6.1 M/uL Hemoglobin 9.0 14.0-18.0 g/dL Hematocrit 29.8 42-52 % Mean Corpuscular Volume 86.4 80-100 fL Mean Corpuscular Hemoglobin 26.1 25-34 pg Mean Corpuscular Hemoglobin Concent 30.2 32-36 g/dl Platelet Count 163 130-400 K/uL Mean Platelet Volume 10.0 7.4-10.4 fL Neutrophils (%) (Auto) 79.9 % Lymphocytes (%) (Auto) 6.6 % Monocytes (%) (Auto) 8.1 % Eosinophils (%) (Auto) 4.8 % Basophils (%) (Auto) 0.2 % Neutrophils # (Auto) 4.37 1.4-6.5 K/uL Lymphocytes # (Auto) 0.36 1.2-3.4 K/uL Monocytes # (Auto) 0.44 0.11-0.59 K/uL Eosinophils # (Auto) 0.26 0-0.5 K/uL Basophils # (Auto) 0.01 0-0.2 K/uL RDW Standard Deviation 51.4 36.4-46.3 fL RDW Coefficient of Variation 16.1 11.5-14.5 % Immature Granulocyte % (Auto) 0.4 % Immature Granulocyte # (Auto) 0.02 0.00-0.02 K/uL Sodium Level 143 136-145 mmol/L Potassium Level 4.8 3.5-5.1 mmol/L Chloride Level 114 98-107 mmol/L Carbon Dioxide Level 21 21-32 mmol/L Anion Gap 8.0 3-11 mmol/L Blood Urea Nitrogen 5 7-18 mg/dl Creatinine 0.98 0.60-1.40 mg/dl Est Creatinine Clear Calc Drug Dose 58.2 ml/min Estimated GFR () 84.1 Estimated GFR (Non- 72.5 BUN/Creatinine Ratio 5.3 10-20 Random Glucose 172 70-99 mg/dl Calcium Level 7.8 8.5-10.1 mg/dl Test 03/01/17 11:36 Range/Units Bedside Glucose 218 70-99 mg/dl Assessment and Plan 81 yo M with Metastatic Esophageal cancer (dx 03/2016) s/p chemo/radiation, previously complicated by malignant effusion, presenting with Fever, SOB, Altered Mental Status, admitted with Sepsis in the setting of [place] Pneumonia with Pleural effusion s/p drain showing clinical improvement . Bilateral lower lobe Pneumonia (admitted with sepsis) - Clinically improving - Blood cultures NGTD -previously on IV Vanc/IV Levaquin - c/w PO Levaquin D/C Fluids, patient showing pedeal edema. Bilateral pleural effusions - s/p draining -Pleural fluid, no organisms found, negative acid fast stain -CXR on 02/26 showed slight accum. of pleural fluid in the rt base - Will go home on pleurx catheter Atrial flutter - Tachycardia 120's to 140's - Per Echo report () : Limited views were obtained. * Compared directly to a study from 02/04/2017, the effusion is smaller. * The inferior vena cava is mildly dilated. 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 Patient and family decline hospice care and prefer Home Health and Aid services. Resident Physician Supervision Note: I was present with Dr. Ca during the history and exam. I also revisited the patient this afternoon by myself. I discussed the case with the resident and agree with the findings and plan as documented in the note. Any exceptions or clarifications are listed here: Overall, the patient seems improved. His mentation is very clear today upon my examination. This afternoon, nursing staff also noted that the patient had been oriented the entire day. Unfortunate, his heart rate remains greater than 100 despite additional IV dose of diltiazem. Also, there is some lower extremity edema and records indicate a marked positive fluid balance. PLAN #1 oral Lasix given today; from what I can tell he is Lasix deny. #2 increase oral Cardizem to 60 mg by mouth 4 times a day; monitor heart rate and blood pressure #3 continue digoxin #4 PT and OT #5 chest x-ray in the morning in addition to routine labs Documented By: Micheal Robert Continued [facility] stay due to: multiple IV medications needed Discharge planning: home with home health Resident Tracking Resident Involvement: Resident Care Provided Care Provided: Adult Hospital Medicine
[2017-03-01] MEDS: ACETAMINOPHEN 325 MG TAB PO PRN (13:25)
[2017-03-01] MEDS ORDERED: FUROSEMIDE INJ 40 MG in SYRINGE 0 ML IV ONE ×2 (13:45→14:30)
[2017-03-01] MEDS: DIGOXIN 0.125 MG TAB PO SCH (16:35)
[2017-03-01] MEDS: ENOXAPARIN 40 MG/0.4 ML SYR SQ SCH (16:39)
[2017-03-01] MEDS: METOPROLOL TARTRATE 1 MG/ML VIAL IV STA ×2 (20:31→20:34)
[2017-03-01] MEDS ORDERED: PHARMACY GLYCEMIC MGMT CONSULT PRN (23:30)
[2017-03-01] MEDS ORDERED: INSULIN GLARGINE SOLOSTAR 100 UNITS/ML 3 ML PEN SC STA (23:41)
[2017-03-02] VITALS (12 sets, daily range): BP systolic 89–112; BP diastolic 51–68; PULSE 74–136; TEMP 36.4–37.2; O2SAT 93–98
[2017-03-02] MEDS: LEVALBUTEROL 1.25MG/0.5ML NEB INH SCH ×4 (01:47→19:07)
[2017-03-02] MEDS: IPRATROPIUM BROMIDE NEB SOLN 0.02% 2.5 ML VIAL INH SCH ×4 (01:47→19:07)
[2017-03-02] MEDS ORDERED: INSULIN ASPART 100 UNITS/ML 3 ML PEN SC ONE (02:00)
--- NOTE | 2017-03-02 06:07 | Surgery Progress Note ---
Subjective Date of Service: Mar 02, 2017. Pt. offer no complaints other than pain when pleurx drained. Discussed with RN--pt. less confused this am. He is tolerating puree diet. Objective Vitals Date Time Temp Pulse Resp B/P (MAP) Pulse Ox O2 Delivery O2 Flow Rate FiO2 03/02/17 04:00 36.8 107 15 101/67 (78) 95 Room Air 03/02/17 04:00 Room Air 03/02/17 01:48 114 16 95 Room Air 03/01/17 23:59 Room Air 03/01/17 23:06 36.7 107 17 113/63 (80) 97 Room Air 03/01/17 20:34 135 118/76 03/01/17 20:00 96 Room Air 03/01/17 19:48 140 13 110/71 (84) 96 Room Air 03/01/17 19:18 115 16 96 Room Air 03/01/17 16:35 118 03/01/17 16:02 36.7 132 13 104/77 (86) 96 Room Air 03/01/17 16:00 96 Room Air 03/01/17 13:50 138 03/01/17 12:00 Room Air 03/01/17 11:26 37.1 102 18 112/71 (85) 96 Room Air 03/01/17 08:00 Room Air 03/01/17 07:36 36.5 142 18 135/80 (98) 97 Room Air 03/01/17 07:22 116 16 95 Room Air 03/01/17 06:12 103 14 128/85 (99) Physical Exam General: No distress CV: + RRR Pulmonary: + lungs clear, No accessory muscle use, No respiratory distress Abdomen: No soft Neurologic: + alert & oriented x 3 Drains / Tubes pleurex (in process of being drained--thus far 550 cc strraw colored fluid obtained) Assessment & Plan 81 year old male with esophageal ca and pleural effusion -continue to drain pleurex catheter daily upon d/c home -will see Dr. Radford in office 1-2 weeks after d/c with repeat CXR (office will call pt. with date and time of appointment)
--- NOTE | 2017-03-02 07:06 | DIAGNOSTIC IMAGING REPORT ---
CHEST ONE VIEW PORTABLE CLINICAL HISTORY: pneumonia COMPARISON STUDY: 02/27/2017 FINDINGS: The heart remains enlarged. There are persistent bilateral pleural effusions left greater than right. There is left lower lobe atelectasis/consolidation. There is a left-sided A-Port catheter present.[ IMPRESSION: No significant change. Persistent bilateral pleural effusions left greater than right. Left lower lobe atelectasis/consolidation. Persistent cardiomegaly. Electronically signed by: Hiren Jules M.D. 03/02/2017 7:04 AM Dictated Date/Time: 03/02/2017 7:03 AM
[2017-03-02] MEDS: MOMETASONE FUROATE-FORMOTEROL (DULERA) 200mcg/5mcg per inh INH SCH ×2 (07:23→20:42)
[2017-03-02] MEDS: DILTIAZEM HCL 30 MG TAB PO SCH ×4 (07:23→20:42)
[2017-03-02] MEDS: BOOST BREEZE NUTRITION DRINK 1 BOX PO SCH ×3 (07:23→17:17)
[2017-03-02] MEDS: PANTOprazole SOD 40 MG TAB PO SCH ×2 (07:24→20:43)
[2017-03-02] MEDS: ASCORBIC ACID 500 MG TAB PO SCH (07:24)
[2017-03-02] MEDS: CETIRIZINE HCL 10 MG TAB PO SCH (07:24)
[2017-03-02] MEDS: RANITIDINE HCL 150 MG TAB PO SCH ×2 (07:24→20:43)
[2017-03-02] MEDS: FERROUS SULFATE 325 MG/7.4 ML UDP PO SCH (07:25)
[2017-03-02] MEDS: POLYETHYLENE (MIRALAX) 17 GM PACK PO PRN (07:27)
[2017-03-02 08:41] LABS: BASO % 0.2 %; BASO ABS # 0.01 K/uL (0-0.2); COMPLETE YES; EOS % 4.2 %; HEMATOCRIT 31.5 % (42-52); IG% 0.3 %; LYMPH % 6.5 %; LYMPH ABS # 0.39 K/uL (1.2-3.4); MEAN CELL VOLUME 86.3 fL (80-100); MEAN CORPUSCULAR HEMOGLOBIN 26.8 pg (25-34); MEAN CORPUSCULAR HGB CONC 31.1 g/dl (32-36); MEAN PLATELET VOLUME 10.3 fL (7.4-10.4); MONO % 8.2 %; NEUT % 80.6 %; PLATELET COUNT 172 K/uL (130-400); RED BLOOD COUNT 3.65 M/uL (4.7-6.1); WHITE BLOOD COUNT 5.99 K/uL (4.8-10.8)
--- NOTE | 2017-03-02 08:55 | Pharmacy Progress Note ---
Glycemic Control Intl Consult Date of Service Mar 02, 2017. Scope Glycemic Pharmacist consulted by Dr Robert on 03/01/17 for glycemic control and to write orders per [facility] inpatient glycemic control protocol Objective Weight (Kilograms): 66.700 Accuchecks BSG (last 24hrs): Test 03/01/17 11:36 03/01/17 16:00 03/01/17 20:25 03/02/17 00:15 Bedside Glucose 218 mg/dl (70-99) 215 mg/dl (70-99) 191 mg/dl (70-99) 156 mg/dl (70-99) Test 03/02/17 02:10 03/02/17 06:46 03/02/17 08:25 Bedside Glucose 152 mg/dl (70-99) 121 mg/dl (70-99) Laboratory Data (last 24hrs) Test 03/02/17 08:25 White Blood Count 5.99 K/uL Red Blood Count 3.65 M/uL Hemoglobin 9.8 g/dL Hematocrit 31.5 % Mean Corpuscular Volume 86.3 fL Mean Corpuscular Hemoglobin 26.8 pg Mean Corpuscular Hemoglobin Concent 31.1 g/dl Platelet Count 172 K/uL Mean Platelet Volume 10.3 fL Neutrophils (%) (Auto) 80.6 % Lymphocytes (%) (Auto) 6.5 % Monocytes (%) (Auto) 8.2 % Eosinophils (%) (Auto) 4.2 % Basophils (%) (Auto) 0.2 % Neutrophils # (Auto) 4.83 K/uL Lymphocytes # (Auto) 0.39 K/uL Monocytes # (Auto) 0.49 K/uL Eosinophils # (Auto) 0.25 K/uL Basophils # (Auto) 0.01 K/uL HbA1c 7.4% 01/18/17 Recent Pertinent Medications Outpatient Anti-diabetic Regimen: * Metformin 1000mg PO BID * A1c = 7.4 % 01/18/17 The patient is currently receiving: * Basal insulin: Lantus 10 units SQ x 1 last evening; no further orders * Correctional Insulin: Novolog Correction per scale ACHS Goal Range: Low 120 mg/dL - High 160 mg/dL Correction Factor: 25 mg/dL/unit * Prandial insulin: Per carb ratio of 1 unit per 15 grams CHO consumed * Oral Agents: None currently Risk Factors for Insulin Resistance: * Infection: receiving Levofloxacin for treatment of PNX * Recent Surgery: s/p esophageal stent on 02/27/17 * Diet: ordered Regular diet Assessment & Plan ASSESSMENT: * Type 2 diabetic admitted with fever, SOB, MS changes and sepsis from PNX * Patient is managed with metformin monotherapy with relatively good control considering age and comorbidities * BSGs had been elevated and glycemic consult was placed last evening * [facility] added a single dose of basal insulin; which has produced good fasting BSG results this AM; FBS 121 w/ 10 units basal on board. Will continue to provide small doses of basal insulin * Post-prandial hyperglycemia has been the trend and was due to lack of CR; [facility] added small prandial insulin dose based on carbs consumed. Will follow BSGs today and adjust if needed. PLAN FOR INPATIENT GLYCEMIC CONTROL: * Lantus to 5 units SQ BID * Continuing correction factor 25 mg/dl/unit * Continuing carb ratio 1 unit per 15 grams CHO consumed * Continuing goal range Low 120 mg/dL - High 160 mg/dL for now; may consider a tighter goal range tomorrow * Please note that the plan above was derived based on current level of insulin resistance and hospital stress. These recommendations are appropriate for inpatient admission only. Plan of care upon discharge will need to be reassessed to avoid potential outpatient hypo/hyperglycemia. Thank you.
[2017-03-02 09:07] LABS: BUN/CREATININE RATIO 4.9 (10-20); CALCIUM 8.6 mg/dl (8.5-10.1); CREATININE 1.2 mg/dl (0.60-1.40)
[2017-03-02] MEDS: INSULIN ASPART 100 UNITS/ML 3 ML PEN SC SCH ×4 (10:39→20:45)
[2017-03-02] MEDS: INSULIN GLARGINE SOLOSTAR 100 UNITS/ML 3 ML PEN SC SCH ×2 (10:40→20:47)
--- NOTE | 2017-03-02 11:09 | Family Medicine Progress Note ---
Progress Note Date of Service Mar 02, 2017. Subjective Pt evaluation today including: conversation w/ patient, conversation w/ family , physical exam Pain: denies pain PO Intake: adequate Voiding: mendez catheter in place Overnight, patient was tachycardic in the 140's , Night resident gave him 2.5 mg IV Lopressor. This morning HR was up to 150's. He received his PO Cardizem. Patient reports no complaints at present . He denies Cp, SOB, Leg swelling, Constitutional: No fever, No chills, No weakness Respiratory: No cough, No sputum, No shortness of breath Cardiovascular: No chest pain, No edema, No palpitations Abdomen: No pain, No nausea, No vomiting Male : + problem reported (mendez in place) Skin: No rash, No itch Medications Current Inpatient Medications Medications (Trade) Dose Ordered Sig/Ángela Route Start Time Stop Time Status Last Admin Dose Admin Acetaminophen (Tylenol Tab) 650 mg Q4H PRN PO 02/24/17 22:15 03/26/17 22:14 03/01/17 13:25 650 MG Cetirizine HCl (zyrTEC TAB) 10 mg QAM PO 02/25/17 09:00 03/27/17 08:59 03/02/17 07:24 10 MG Digoxin (Lanoxin Tab) 0.125 mg DAILY@1600 PO 02/25/17 16:00 03/27/17 15:59 03/01/17 16:35 0.125 MG Ascorbic Acid (Vitamin C Tab) 1,000 mg QAM PO 02/25/17 09:00 03/27/17 08:59 03/02/17 07:24 1,000 MG Pantoprazole Sodium (Protonix Tab) 40 mg BID PO 02/25/17 09:00 03/27/17 08:59 03/02/17 07:24 40 MG Ipratropium [place] (Atrovent 0.02% 0.5MG/2.5ML Neb) 0.5 mg Q6R INH 02/25/17 03:00 03/27/17 02:59 03/02/17 07:36 0.5 MG Levalbuterol (Xopenex 1.25MG/ 0.5ML Neb) 1.25 mg Q6R INH 02/25/17 03:00 03/27/17 02:59 03/02/17 07:36 1.25 MG Ipratropium [place] (Atrovent 0.02% 0.5MG/2.5ML Neb) 0.5 mg Q2H PRN INH 02/24/17 23:30 03/26/17 23:29 Levalbuterol (Xopenex 1.25MG/ 0.5ML Neb) 1.25 mg Q2H PRN INH 02/24/17 23:30 03/26/17 23:29 Levofloxacin (Consult) 1 ea UD PRN N/A 02/24/17 23:45 03/26/17 23:44 Heparin Sodium (Porcine) (Heparin 100 Unit/ml 5ml Flush) 5 ml PRN PRN IV 02/25/17 00:30 03/27/17 00:29 Ondansetron HCl (Zofran Inj) 4 mg Q6H PRN IV 02/25/17 05:15 03/27/17 05:14 Ferrous Sulfate (Feosol Elix) 325 mg QAM PO 02/25/17 10:00 03/27/17 09:59 03/02/17 07:25 325 MG Insulin Aspart (novoLOG ASPART) SLIDING SCALE If C... ACHS SC 02/25/17 16:00 03/27/17 15:59 03/01/17 21:01 2 UNITS Glucose (Glucose 40% Gel) 15-30 GRAMS 15 GRAMS... UD PRN PO 02/25/17 13:30 03/27/17 13:29 Glucose (Glucose Chew Tab) 4-8 Tablets 4 Tabl... UD PRN PO 02/25/17 13:30 03/27/17 13:29 Dextrose (Dextrose 50% 50ML Syringe) 25-50ML OF 50% DW IV FOR... UD PRN IV 02/25/17 13:30 03/27/17 13:29 Glucagon (Glucagon Inj) 1 mg UD PRN SQ 02/25/17 13:30 03/27/17 13:29 Enoxaparin Sodium (Lovenox Inj) 40 mg Q24H SQ 02/25/17 16:00 03/27/17 15:59 03/01/17 16:39 40 MG Mometasone Furoate/ Formoterol Fumar (Dulera) 2 ea BID INH 02/26/17 21:00 03/28/17 20:59 03/02/17 07:23 2 EA Ranitidine HCl (zANTac TAB) 150 mg BID PO 02/26/17 21:00 03/28/17 20:59 03/02/17 07:24 150 MG Menthol (Nice Trace) 1 trace PRN PRN PO 02/26/17 19:30 03/28/17 19:29 Magnesium Hydroxide (Milk Of Magnesia Susp) 30 ml Q6H PRN PO 02/28/17 07:45 03/30/17 07:44 03/02/17 00:20 30 ML Polyethylene (Miralax Powder Packet) 17 gm DAILY PRN PO 02/28/17 08:00 03/30/17 07:59 03/02/17 07:27 17 GM Levofloxacin (Levaquin Tab) 750 mg Q2D@1100 PO 02/28/17 16:00 03/03/17 23:59 02/28/17 16:43 750 MG Diltiazem HCl (Cardizem Tab) 60 mg QID PO 03/01/17 17:00 03/30/17 16:59 03/02/17 07:23 60 MG Miscellaneous Information (Consult Glycemic Management Pharmacy) 1 ea UD PRN N/A 03/01/17 23:30 03/31/17 23:29 Insulin Glargine (Lantus Solostar Pen) 5 unit BID SC 03/02/17 09:00 04/01/17 08:59 Enteral Nutritional Formula (Boost Breeze Nutritional Drink) 1 box TIDM PO 03/02/17 11:30 04/01/17 11:29 Objective Vital Signs Date Time Temp Pulse Resp B/P (MAP) Pulse Ox O2 Delivery O2 Flow Rate FiO2 03/02/17 07:44 36.8 136 17 103/68 (80) 93 Room Air 03/02/17 07:37 110 16 94 Room Air 03/02/17 04:00 36.8 107 15 101/67 (78) 95 Room Air 03/02/17 04:00 Room Air 03/02/17 01:48 114 16 95 Room Air 03/01/17 23:59 Room Air 03/01/17 23:06 36.7 107 17 113/63 (80) 97 Room Air 03/01/17 20:34 135 118/76 03/01/17 20:00 96 Room Air 03/01/17 19:48 140 13 110/71 (84) 96 Room Air 03/01/17 19:18 115 16 96 Room Air 03/01/17 16:35 118 03/01/17 16:02 36.7 132 13 104/77 (86) 96 Room Air 03/01/17 16:00 96 Room Air 03/01/17 13:50 138 03/01/17 12:00 Room Air 03/01/17 11:26 37.1 102 18 112/71 (85) 96 Room Air Physical Exam General Appearance: WD/WN, no apparent distress Eyes: PERRL, EOMI Neck: supple, no adenopathy, trachea midline Respiratory/Chest: normal breath sounds, no respiratory distress, + crackles Cardiovascular: no JVD, no murmur, + tachycardia Abdomen: normal bowel sounds, non tender, soft Extremities: no pedal edema, no calf tenderness Skin: warm/dry, no rash Laboratory Results Results Past 24 Hours Test 03/01/17 11:36 03/01/17 16:00 03/01/17 20:25 03/02/17 00:15 Range/Units Bedside Glucose 218 215 191 156 70-99 mg/dl Test 03/02/17 02:10 03/02/17 06:46 03/02/17 08:25 Range/Units Bedside Glucose 152 121 70-99 mg/dl White Blood Count 5.99 4.8-10.8 K/uL Red Blood Count 3.65 4.7-6.1 M/uL Hemoglobin 9.8 14.0-18.0 g/dL Hematocrit 31.5 42-52 % Mean Corpuscular Volume 86.3 80-100 fL Mean Corpuscular Hemoglobin 26.8 25-34 pg Mean Corpuscular Hemoglobin Concent 31.1 32-36 g/dl Platelet Count 172 130-400 K/uL Mean Platelet Volume 10.3 7.4-10.4 fL Neutrophils (%) (Auto) 80.6 % Lymphocytes (%) (Auto) 6.5 % Monocytes (%) (Auto) 8.2 % Eosinophils (%) (Auto) 4.2 % Basophils (%) (Auto) 0.2 % Neutrophils # (Auto) 4.83 1.4-6.5 K/uL Lymphocytes # (Auto) 0.39 1.2-3.4 K/uL Monocytes # (Auto) 0.49 0.11-0.59 K/uL Eosinophils # (Auto) 0.25 0-0.5 K/uL Basophils # (Auto) 0.01 0-0.2 K/uL RDW Standard Deviation 50.9 36.4-46.3 fL RDW Coefficient of Variation 15.9 11.5-14.5 % Immature Granulocyte % (Auto) 0.3 % Immature Granulocyte # (Auto) 0.02 0.00-0.02 K/uL Sodium Level 140 136-145 mmol/L Potassium Level 4.0 3.5-5.1 mmol/L Chloride Level 107 98-107 mmol/L Carbon Dioxide Level 24 21-32 mmol/L Anion Gap 9.0 3-11 mmol/L Blood Urea Nitrogen 6 7-18 mg/dl Creatinine 1.20 0.60-1.40 mg/dl Est Creatinine Clear Calc Drug Dose 46.3 ml/min Estimated GFR () 65.8 Estimated GFR (Non- 56.8 BUN/Creatinine Ratio 4.9 10-20 Random Glucose 139 70-99 mg/dl Calcium Level 8.6 8.5-10.1 mg/dl Assessment and Plan 81 yo M with Metastatic Esophageal cancer (dx: 03/2016) s/p chemo/radiation, previously complicated by malignant effusion, presenting with Fever, SOB, Altered Mental Status, admitted with Sepsis in the setting of Noel LL Pneumonia with Pleural effusion s/p drain showing clinical improvement . Bilateral lower lobe Pneumonia (admitted with sepsis) - Clinically improving - Blood cultures NGTD -previously on IV Vanc/IV Levaquin - c/w PO Levaquin Bilateral pleural effusions - currently draining -Pleural fluid, no organisms found, negative acid fast stain -CXR on 02/26 showed slight accum. of pleural fluid in the rt base - Plan to d/c with pleurx catheter Atrial flutter - Tachycardia as high as 150's this morning, has since come down - Per Echo report () : Limited views were obtained. * Compared directly to a study from 02/04/2017, the effusion is smaller. * The inferior vena cava is mildly dilated. 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 Patient and family had declined hospice care and preferred Home Health and Aid services. According to patient today, his does not feel comfortable with drain. Case management informed so alternative options can be reviews if needed Resident Physician Supervision Note: I was present with Dr. Ca during the history and exam. I discussed the case with the resident and agree with the findings and plan as documented in the note. Any exceptions or clarifications are listed here: Overall he seems to be improving, although his prognosis, given his off until malignancy, remains poor. His sensorium is markedly improved as compared to earlier this week. This is reassuring for the family. The main barrier to discharge at this point is trying to obtain control of his heart rate. Late today it seems to be better controlled than it has since we discontinued the Cardizem drip. Have to be mindful of his blood pressure, as this is low normal today. PLAN 1) continue Cardizem 60 mg by mouth 4 times a day 2) continue digoxin 0.125 mg daily 3) PRN Beta blockers as needed for additional rate control as blood pressure permits 4) his IV fluids were on hold given motion of any edema; gentle diuresis with Lasix. 5) he has 1 remaining dose of his Levaquin (if the other day dosing given his renal function); this will complete a 10 day course. Documented By: Micheal Robert Continued [facility] stay due to: abnormal vital signs Discharge planning: uncertain Resident Tracking Resident Involvement: Resident Care Provided Care Provided: Adult [facility] Medicine
[2017-03-02] MEDS: LEVOFLOXACIN 750 MG TAB PO SCH (12:27)
[2017-03-02] MEDS: ENOXAPARIN 40 MG/0.4 ML SYR SQ SCH (16:03)
[2017-03-02] MEDS: DIGOXIN 0.125 MG TAB PO SCH (16:03)
[2017-03-03] VITALS (10 sets, daily range): BP systolic 94–116; BP diastolic 53–74; PULSE 94–137; TEMP 36.4–37.3; O2SAT 94–98
[2017-03-03] MEDS: IPRATROPIUM BROMIDE NEB SOLN 0.02% 2.5 ML VIAL INH SCH ×4 (01:45→19:05)
[2017-03-03] MEDS: LEVALBUTEROL 1.25MG/0.5ML NEB INH SCH ×4 (01:45→19:05)
[2017-03-03] MEDS: ACETAMINOPHEN 325 MG TAB PO PRN (06:01)
[2017-03-03 06:23] LABS: INR 1.1 (0.9-1.1)
--- NOTE | 2017-03-03 07:44 | Family Medicine Progress Note ---
Progress Note Date of Service Mar 03, 2017. Subjective Pt evaluation today including: conversation w/ patient The patient was seen and examined at bedside. Telemetry shows A fib in the 120s -130s overnight. BP is slightly higher today at 116/74, PleurX cathetor drained 300mls of fluid. Pt has no complaints. Patient is resting comfortably in bed with drain in place. Denies having any pain. Eating and urinating well. Wants to go home instead of a SNF. Birthday is tomorrow. Plan of care was described to the patient and all questions were answered. Constitutional: No fever, No chills Respiratory: No cough, No sputum, No wheezing, No shortness of breath, No dyspnea on exertion Abdomen: No pain, No nausea, No vomiting, No diarrhea Male : No dysuria Objective Physical Exam Notes: General Appearance: WD/WN, no apparent distress Eyes: PERRL, EOMI Neck: supple, no adenopathy, trachea midline Respiratory/Chest: normal breath sounds, no respiratory distress, CTA posteriorly - could not appreciate any lung crackles on exam. Cardiovascular: no JVD, no murmur, + tachycardia Abdomen: normal bowel sounds, non tender, soft Extremities: no pedal edema, no calf tenderness Skin: warm/dry, no rash Laboratory Results Last 24 Hours Test 03/02/17 16:10 03/02/17 19:58 03/03/17 05:59 03/03/17 07:00 Bedside Glucose 192 mg/dl 166 mg/dl 140 mg/dl White Blood Count 5.17 K/uL Red Blood Count 3.13 M/uL Hemoglobin 8.7 g/dL Hematocrit 26.5 % Mean Corpuscular Volume 84.7 fL Mean Corpuscular Hemoglobin 27.8 pg Mean Corpuscular Hemoglobin Concent 32.8 g/dl RDW Standard Deviation 49.3 fL RDW Coefficient of Variation 15.9 % Platelet Count 165 K/uL Mean Platelet Volume 10.8 fL Prothrombin Time 12.0 SECONDS Prothromb Time International Ratio 1.1 Sodium Level 140 mmol/L Potassium Level 4.2 mmol/L Chloride Level 106 mmol/L Carbon Dioxide Level 25 mmol/L Anion Gap 9.0 mmol/L Blood Urea Nitrogen 7 mg/dl Creatinine 0.99 mg/dl Est Creatinine Clear Calc Drug Dose 55.4 ml/min Estimated GFR () 83.0 Estimated GFR (Non- 71.6 BUN/Creatinine Ratio 7.2 Random Glucose 126 mg/dl Calcium Level 8.5 mg/dl Test 03/03/17 07:51 03/03/17 10:41 Digoxin Level 1.0 ng/ml Bedside Glucose 196 mg/dl Assessment and Plan 81M with Metastatic Esophageal cancer (dx: 03/2016) s/p chemo/radiation, previously complicated by malignant effusion, presenting with Fever, SOB, Altered Mental Status, admitted with Sepsis in the setting of Noel LL Pneumonia with Pleural effusion s/p drain showing clinical improvement . Patient will either be discharged home or to a fdc facility with the drain in place. Bilateral lower lobe Pneumonia (admitted with sepsis) - Clinically improving - Blood cultures NGTD - previously on IV Vanc/IV, now on Levaquin 750mg Q2day, last day will be tomorrow 04/03. Bilateral pleural effusions - drained 300mL today, set up for either home drainage or drainage at SNF. - No organisms found, negative acid fast stain Atrial flutter - Tachycardic but asymptomatic. BPs are improved today 116/74. - c/w Digoxin 125 mg daily -c/w Cardizem PO 60 TID - There is room to add a BB. Will discuss with Dr. Robert on rounds . This may represent the pt's new baseline. Metastatic Esophageal carcinoma -s/p EGD and stent placement - Diet soft liquid diet and boost, advance as tolerated. - No difficulty eating. 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 Case management updated. Please see Suri's note. Code - Full with no cardioversion or mechanical ventilation Resident Physician Supervision Note: I was present with Dr. Dockery during the history and exam. I discussed the case with the resident and agree with the findings and plan as documented in the note. Any exceptions or clarifications are listed here: Patient without complaints - alert and oriented. HR still greater than 100, peaks 130s. No chest pain or SOB. PLAN 1) Increase diltiazem to 90 to QID. Monitor HR Will not be able to convert long acting since his medications need crushed 2) Disposition still with some question - [facility] be appropriate so that he would also have physician oversight and ability to adjust medications. Documented By: Micheal Robert Resident Involvement: Resident Care Provided Care Provided: Adult Hospital Medicine
[2017-03-03] MEDS: BOOST BREEZE NUTRITION DRINK 1 BOX PO SCH ×3 (08:16→15:59)
[2017-03-03] MEDS: CETIRIZINE HCL 10 MG TAB PO SCH (08:23)
[2017-03-03] MEDS: DILTIAZEM HCL 30 MG TAB PO SCH ×4 (08:23→20:58)
[2017-03-03] MEDS: MOMETASONE FUROATE-FORMOTEROL (DULERA) 200mcg/5mcg per inh INH SCH ×2 (08:23→20:58)
[2017-03-03] MEDS: ASCORBIC ACID 500 MG TAB PO SCH (08:23)
[2017-03-03] MEDS: RANITIDINE HCL 150 MG TAB PO SCH ×2 (08:23→20:58)
[2017-03-03] MEDS: PANTOprazole SOD 40 MG TAB PO SCH ×2 (08:24→20:58)
[2017-03-03] MEDS: FERROUS SULFATE 325 MG/7.4 ML UDP PO SCH (08:24)
[2017-03-03] MEDS: INSULIN GLARGINE SOLOSTAR 100 UNITS/ML 3 ML PEN SC SCH ×2 (08:29→21:00)
[2017-03-03] MEDS: INSULIN ASPART 100 UNITS/ML 3 ML PEN SC SCH ×4 (08:29→20:59)
[2017-03-03 11:59] LABS: BUN/CREATININE RATIO 7.2 (10-20); CALCIUM 8.5 mg/dl (8.5-10.1); CREATININE 0.99 mg/dl (0.60-1.40); POTASSIUM 4.2 mmol/L (3.5-5.1)
[2017-03-03 12:00] LABS: HEMATOCRIT 26.5 % (42-52); MEAN CELL VOLUME 84.7 fL (80-100); MEAN CORPUSCULAR HEMOGLOBIN 27.8 pg (25-34); MEAN PLATELET VOLUME 10.8 fL (7.4-10.4); PLATELET COUNT 165 K/uL (130-400); RED BLOOD COUNT 3.13 M/uL (4.7-6.1); WHITE BLOOD COUNT 5.17 K/uL (4.8-10.8)
[2017-03-03 12:05] LABS: MEAN CORPUSCULAR HGB CONC 32.8 g/dl (32-36)
--- NOTE | 2017-03-03 12:36 | Pharmacy Progress Note ---
Glycemic Control Progress Note Date of Service Mar 03, 2017. Scope Glycemic Pharmacist consulted for glycemic control to write orders per [facility] inpatient glycemic control protocol. Objective Accuchecks BSG (last 24hrs): Test 03/02/17 16:10 03/02/17 19:58 03/03/17 05:59 03/03/17 07:00 Bedside Glucose 192 mg/dl (70-99) 166 mg/dl (70-99) 140 mg/dl (70-99) Random Glucose 126 mg/dl (70-99) Test 03/03/17 10:41 Bedside Glucose 196 mg/dl (70-99) HbA1c: 7.4% on 01/18/17 Recent Pertinent Medications The patient is currently receiving: * Basal insulin: Lantus 5 units every 12 hours * Correctional Insulin: Novolog Correction per scale ACHS Goal Range: Low 120 mg/dL - High 160 mg/dL Correction Factor: 25 mg/dL/unit * Prandial insulin: Per carb ratio of 1 unit per 15 grams CHO consumed Outpatient Anti-Diabetic Meds Oral Agents Assessment & Plan ASSESSMENT: * See progress note from 03/02 for more background info, in short: * Pt receiving SQ basal bolus insulin regimen for hyperglycemia secondary to baseline DM (outpatient regimen on hold),stress/infection, recent surgery, * Patient is currently receiving an average of 20 units of insulin per day * 10 units of basal insulin * 10 units of prandial/correctional insulin * BSGs ranging 140 - 196 mg/dl over the past 24hrs * Changes needed to insulin regimen: * AM Fasting BSG = 140 mg/dl. This is slightly above goal range for patient based on inpatient targets and co-morbidities. Therefore Basal insulin needs increased * Post-prandial BSGs are elevated/BSGs rise throughout the day therefore need to tighten CF/CR PLAN FOR INPATIENT GLYCEMIC CONTROL: * Oral Agents * Continue to hold outpatient oral diabetes medications. * Basal insulin: increase slightly * -P-e-r-t-u-s- -5- -u-n-i-t-s- -S-Q- -B-I-D- --> increase to Lantus 6 units SQ BID * Bolus insulin * NovoLog per scale ACHS or Q6hrs while NPO * Goal Range: Low 120 mg/dL - High 160 mg/dL * Correction Factor: 25 mg/dL/unit * Nutritional / Prandial insulin per carb ratio of -1- -u-n-i-t- -p-e-r- -1-5- -g-r-a-m-s- CHO consumed --> tighten to 12 * Please note that the plan above was derived based on current level of insulin resistance and hospital stress. These recommendations are appropriate for inpatient admission only. Plan of care upon discharge will need to be reassessed to avoid potential outpatient hypo/hyperglycemia. Thank you.
[2017-03-03] MEDS: ENOXAPARIN 40 MG/0.4 ML SYR SQ SCH (15:58)
[2017-03-03] MEDS: DIGOXIN 0.125 MG TAB PO SCH (15:58)
[2017-03-04] VITALS (13 sets, daily range): BP systolic 109–126; BP diastolic 55–70; PULSE 76–125; TEMP 36.4–37.2; O2SAT 93–99
[2017-03-04] MEDS: LEVALBUTEROL 1.25MG/0.5ML NEB INH SCH ×4 (01:37→18:55)
[2017-03-04] MEDS: IPRATROPIUM BROMIDE NEB SOLN 0.02% 2.5 ML VIAL INH SCH ×4 (01:37→18:55)
[2017-03-04] MEDS: ACETAMINOPHEN 325 MG TAB PO PRN (05:34)
[2017-03-04 06:15] LABS: HEMATOCRIT 26.8 % (42-52); MEAN CELL VOLUME 83.8 fL (80-100); MEAN CORPUSCULAR HEMOGLOBIN 27.2 pg (25-34); MEAN CORPUSCULAR HGB CONC 32.5 g/dl (32-36); MEAN PLATELET VOLUME 9.9 fL (7.4-10.4); PLATELET COUNT 173 K/uL (130-400); WHITE BLOOD COUNT 5.28 K/uL (4.8-10.8)
[2017-03-04 06:29] LABS: INR 1.1 (0.9-1.1); PROTHROMBIN TIME (PATIENT) 11.5 SECONDS (9.0-12.0)
[2017-03-04 06:48] LABS: BUN/CREATININE RATIO 9.1 (10-20); MAGNESIUM 1.8 mg/dl (1.8-2.4); POTASSIUM 3.8 mmol/L (3.5-5.1)
[2017-03-04 06:49] LABS: PHOSPHORUS 3.7 mg/dl (2.5-4.9)
[2017-03-04] MEDS: INSULIN ASPART 100 UNITS/ML 3 ML PEN SC SCH ×4 (07:00→21:34)
[2017-03-04 07:24] LABS: CALCIUM 8.8 mg/dl (8.5-10.1)
--- NOTE | 2017-03-04 07:45 | Family Medicine Progress Note ---
Progress Note Date of Service Mar 04, 2017. Subjective Pt evaluation today including: conversation w/ patient, physical exam, chart review The patient was seen and examined at bedside. No acute overnight events. Tele showed that the pt went into A Fib in the 160s overnight. Pt denies that his heart was racing. Pt feels good. Wants to be discharged. Resting comfortably. Chest tube today drained 600mL of fluid. Pt denies having any pain. Eating and urinating well. Plan of care was described to the patient and all questions were answered. Constitutional: No fever, No chills Respiratory: No cough, No sputum, No wheezing, No shortness of breath, No dyspnea on exertion Abdomen: No pain, No nausea, No vomiting, No diarrhea Male : No dysuria Objective Physical Exam Neurologic/Psychiatric: alert, normal mood/affect, oriented x 3 Notes: General Appearance: WD/WN, no apparent distress Eyes: PERRL, EOMI Neck: supple, no adenopathy, trachea midline Respiratory/Chest: normal breath sounds, no respiratory distress, chest tube in placed in right anterior chest wall, CTA posteriorly - could not appreciate any lung crackles on exam. Cardiovascular: no JVD, no murmur, irregular rate and irregular rhythm. Abdomen: normal bowel sounds, non tender, soft Extremities: no pedal edema, no calf tenderness Skin: warm/dry, no rash Assessment and Plan 81M with Metastatic Esophageal cancer (dx: 03/2016) s/p chemo/radiation, previously complicated by malignant effusion, presenting with Fever, SOB, Altered Mental Status, admitted with Sepsis in the setting of Noel LL Pneumonia with Pleural effusion s/p drain showing clinical improvement. HR and BP improved with Diltiazem 90mg QID. Patient will either be discharged home or to a longterm facility with the drain in place. Bilateral lower lobe Pneumonia (admitted with sepsis) - Blood cultures NGTD - previously on IV Vanc/IV, now on Levaquin 750mg Q2day, last day is today. Bilateral pleural effusions - drained 600mL today, all materials set up for SNF ([facility]) for them to drain. - No organisms found, negative acid fast stain Atrial flutter - No longer tachy. BPs are improved today 116/74. - c/w Digoxin 125 mg daily -c/w Cardizem PO 90mg QID - There is room to add a BB. Will discuss with Dr. Robert on rounds . This may represent the pt's new baseline. Metastatic Esophageal carcinoma -s/p EGD and stent placement - Diet soft liquid diet and boost, advance as tolerated. - No difficulty eating. 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 Code - Full with no cardioversion or mechanical ventilation Resident Physician Supervision Note: I was present with the resident physician during the history and exam. I discussed the case with the resident and agree with the findings and plan as documented in the note. Any exceptions or clarifications are listed here: Upon examination, the patient was sleeping but easily awakened. He has no complaints. His heart rate is following in the control, with his resting heart rate in the 60s to 70s today. This is the first day he had had consistent control his heart rate is currently on Cardizem 90 mg by mouth 4 times a day and digoxin 0.125 daily. Unfortunately, because of his esophageal stent, all of his pills have to be crushed and therefore he cannot convert his Cardizem to a long- acting formulation. This to remains the risk of both tachycardia and bradycardia, and is yet to be seen what his heart rate will do with increased activity. For this reason, I recommended the patient go to [facility] for both inpatient rehabilitation and continued physician oversight given the recent titration of medications. The for referral to [facility] was sent appear to peer to peer review, and I had a conversation with an insurance review physician late this afternoon - after this conversation, it was not clear if it patient redilatation have been improved or not. Hopefully it has, and we'll need find this out tomorrow, if he remains medically stable, he will be able to go. In the meantime, we'll continue to monitor his heart rate on telemetry and adjust his medications should be necessary. Documented By: Micheal Robert Resident Involvement: Resident Care Provided Care Provided: Adult Hospital Medicine
[2017-03-04] MEDS: BOOST BREEZE NUTRITION DRINK 1 BOX PO SCH ×3 (07:59→16:45)
[2017-03-04] MEDS: DILTIAZEM HCL 30 MG TAB PO SCH ×4 (08:36→21:31)
[2017-03-04] MEDS: FERROUS SULFATE 325 MG/7.4 ML UDP PO SCH (08:37)
[2017-03-04] MEDS: CETIRIZINE HCL 10 MG TAB PO SCH (08:38)
[2017-03-04] MEDS: PANTOprazole SOD 40 MG TAB PO SCH ×2 (08:38→21:31)
[2017-03-04] MEDS: ASCORBIC ACID 500 MG TAB PO SCH (08:39)
[2017-03-04] MEDS: RANITIDINE HCL 150 MG TAB PO SCH ×2 (08:39→21:31)
[2017-03-04] MEDS: MOMETASONE FUROATE-FORMOTEROL (DULERA) 200mcg/5mcg per inh INH SCH ×2 (08:44→21:30)
[2017-03-04] MEDS: INSULIN GLARGINE SOLOSTAR 100 UNITS/ML 3 ML PEN SC SCH ×2 (08:48→21:34)
[2017-03-04] MEDS ORDERED: INSULIN GLARGINE SOLOSTAR 100 UNITS/ML 3 ML PEN SC SCH (09:00)
--- NOTE | 2017-03-04 10:52 | Pharmacy Progress Note ---
Glycemic Control Progress Note Date of Service Mar 04, 2017. Scope Glycemic Pharmacist consulted for glycemic control to write orders per [facility] inpatient glycemic control protocol. Objective Accuchecks BSG (last 24hrs): Test 03/03/17 16:06 03/03/17 20:23 03/04/17 06:03 03/04/17 06:45 Bedside Glucose 99 mg/dl (70-99) 200 mg/dl (70-99) 151 mg/dl (70-99) Random Glucose 138 mg/dl (70-99) Test 03/04/17 10:27 Bedside Glucose 319 mg/dl (70-99) Recent Pertinent Medications The patient is currently receiving: * Basal insulin: Lantus 6 units every 12 hours * Correctional Insulin: Novolog Correction per scale ACHS Goal Range: Low 120 mg/dL - High 160 mg/dL Correction Factor: 25 mg/dL/unit * Prandial insulin: Per carb ratio of 1 unit per 12 grams CHO consumed Outpatient Anti-Diabetic Meds Oral Agents Assessment & Plan ASSESSMENT: * See progress note from 03/02 for more background info, in short: * Pt receiving SQ basal bolus insulin regimen for hyperglycemia secondary to baseline DM (outpatient regimen on hold),stress/infection, recent surgery, * Patient is currently receiving an average of 20 units of insulin per day * 12 units of basal insulin * 8 units of prandial/correctional insulin * BSGs 140, 196, 99, 200, 151, 319 over the past 24hrs * BSG 99 --> 200 because patient had Boost supplement (41g CHO) but did not received CHO coverage * Pre-lunch BSG (319) elevated because CHO coverage was skipped at breakfast. * Changes needed to insulin regimen: * AM Fasting BSG = 151 mg/dl. This is slightly above goal range for patient based on inpatient targets and co-morbidities. Therefore Basal insulin needs increased slightly. * Post-prandial BSGs are elevated when CHO coverage is omitted, not d/t parameters ordered. BSG does drop significantly when lots of correctional insulin is given for hyperglycemia. Will loosed CF only slightly. * Pt is tolerating PO well. Plan is to d/c in next day or so. Will resume oral outpatient antidiabetic agents. Will start with reduced dosing secondary to insulin on board. PLAN FOR INPATIENT GLYCEMIC CONTROL: * Oral Agents * Start metformin 500mg PO BID * May resume metformin 1,000mg PO BID on discharge when insulin is not continued. * Basal insulin: increase slightly * -R-b-a-t-u-s- -6- -u-n-i-t-s- -S-Q- -B-I-D- --> increase to Lantus 7 units SQ BID starting tonight. Lantus 6 units was already given this AM * Bolus insulin * NovoLog per scale ACHS or Q6hrs while NPO * Goal Range: Low 120 mg/dL - High 160 mg/dL * Correction Factor: -2-5- -m-g--/--d-L--/--u-n-i-t- --> loosen to 35 * Nutritional / Prandial insulin per carb ratio of 1 unit per 12 grams CHO consumed * Please note that the plan above was derived based on current level of insulin resistance and hospital stress. These recommendations are appropriate for inpatient admission only. Plan of care upon discharge will need to be reassessed to avoid potential outpatient hypo/hyperglycemia. Thank you.
[2017-03-04] MEDS: LEVOFLOXACIN 750 MG TAB PO SCH (11:19)
[2017-03-04] MEDS: METFORMIN HCL 500 MG TAB PO SCH ×2 (11:23→17:48)
[2017-03-04] MEDS: ENOXAPARIN 40 MG/0.4 ML SYR SQ SCH (15:52)
[2017-03-04] MEDS: DIGOXIN 0.125 MG TAB PO SCH (15:56)
[2017-03-05] VITALS (9 sets, daily range): BP systolic 98–122; BP diastolic 49–64; PULSE 77–122; TEMP 36.4–37.3; O2SAT 95–97
[2017-03-05] MEDS: LEVALBUTEROL 1.25MG/0.5ML NEB INH SCH ×3 (01:45→13:57)
[2017-03-05] MEDS: IPRATROPIUM BROMIDE NEB SOLN 0.02% 2.5 ML VIAL INH SCH ×3 (01:45→13:57)
[2017-03-05] MEDS: ACETAMINOPHEN 325 MG TAB PO PRN (04:47)
[2017-03-05 05:02] LABS: HEMATOCRIT 27.4 % (42-52); MEAN CORPUSCULAR HEMOGLOBIN 27.6 pg (25-34); MEAN CORPUSCULAR HGB CONC 32.8 g/dl (32-36); MEAN PLATELET VOLUME 9.9 fL (7.4-10.4); PLATELET COUNT 196 K/uL (130-400); RED BLOOD COUNT 3.26 M/uL (4.7-6.1); WHITE BLOOD COUNT 6.72 K/uL (4.8-10.8)
[2017-03-05 05:14] LABS: INR 1.1 (0.9-1.1); PROTHROMBIN TIME (PATIENT) 11.4 SECONDS (9.0-12.0)
[2017-03-05 05:18] LABS: BUN/CREATININE RATIO 10.4 (10-20); CREATININE 1.1 mg/dl (0.60-1.40); MAGNESIUM 1.8 mg/dl (1.8-2.4); POTASSIUM 3.9 mmol/L (3.5-5.1)
[2017-03-05 05:19] LABS: PHOSPHORUS 3.4 mg/dl (2.5-4.9)
[2017-03-05 05:33] LABS: CALCIUM 8.8 mg/dl (8.5-10.1)
[2017-03-05] MEDS: BOOST BREEZE NUTRITION DRINK 1 BOX PO SCH ×2 (07:30→11:30)
[2017-03-05] MEDS: DILTIAZEM HCL 30 MG TAB PO SCH ×2 (08:00→11:52)
[2017-03-05] MEDS: PANTOprazole SOD 40 MG TAB PO SCH (08:00)
[2017-03-05] MEDS: ASCORBIC ACID 500 MG TAB PO SCH (08:01)
[2017-03-05] MEDS: CETIRIZINE HCL 10 MG TAB PO SCH (08:01)
[2017-03-05] MEDS: MOMETASONE FUROATE-FORMOTEROL (DULERA) 200mcg/5mcg per inh INH SCH (08:01)
[2017-03-05] MEDS: RANITIDINE HCL 150 MG TAB PO SCH (08:01)
[2017-03-05] MEDS: FERROUS SULFATE 325 MG/7.4 ML UDP PO SCH (08:01)
[2017-03-05] MEDS: METFORMIN HCL 500 MG TAB PO SCH (08:01)
[2017-03-05] MEDS: INSULIN ASPART 100 UNITS/ML 3 ML PEN SC SCH ×2 (08:04→11:51)
[2017-03-05] MEDS: INSULIN GLARGINE SOLOSTAR 100 UNITS/ML 3 ML PEN SC SCH (08:04)
--- NOTE | 2017-03-05 08:40 | SURGERY PROGRESS NOTE ---
DATE: 03/05/2017 SUBJECTIVE: Mr. Tapia is seen today on 03/05/2017. Mr. Tapia looks fine. He states he is eating "great". He also states that he is having increased fluid on the left; however, his right is clear. He drained 500 mL this morning. He has been anywhere from 300-650 mL per day since we have put in the right PleurX catheter. This has helped him from a breathing standpoint. At this point, I think I would let Mr. Tapia go home. He has metastatic disease and his life expectancy is not long. I think that this is 82-year-old man would do better at home.
--- NOTE | 2017-03-05 13:57 | Discharge Instructions ---
Discharge Instructions Date of Service Mar 05, 2017. Admission Reason for Admission: Bilateral Pleural Effusion, Hypotension Discharge Discharge Diagnosis / Problem: b/l lower lobe pneumonia, pleural effusion Discharge Goals Goal(s): Decrease discomfort, Increase independence, Improve disease control Activity Recommendations Activity Limitations: resume your previous activity . Instructions / Follow-Up Instructions / Follow-Up follow up with Dr. Radford in 1-2 wks. - Daily draining. - Continue to take the medications as indicated. Current Hospital Diet Patient's current hospital diet: Regular Diet, Diabetes Type 2 Diet Discharge Diet Recommended Diet: Regular Diet Procedures Procedures Performed: endoscopic gastroesophageal duodenoscopy, with esophageal stent placement Pending Studies Studies pending at discharge: no Laboratory Results Hemoglobin A1c Test 01/18/17 12:10 Range/Units Estimated Average Glucose 166 mg/dl Hemoglobin A1c 7.4 H 4.5-5.6 % Medical Emergencies . Who to Call and When: Medical Emergencies: If at any time you feel your situation is an emergency, please call 911 immediately. . Non-Emergent Contact Non-Emergency issues call your: Primary Care Provider . . "Provider Documentation" section prepared by Kimberly Craig. . VTE Core Measure Inpt VTE Proph given/why not?: SCD's
[2017-03-05] MEDS ORDERED: CRD30 PO (14:09)
[2017-03-05] MEDS ORDERED: PANT40TA PO (14:58)
--- NOTE | 2017-03-06 18:11 | Discharge Summary ---
Discharge Summary Date of Service Mar 06, 2017. (Kimberly Craig MD) Discharge Summary Admission Date: Feb 24, 2017 at 22:25 Discharge Date: Mar 05, 2017 Discharge Disposition: Home with services Principal Diagnosis: Sepsis Problems/Secondary Diagnoses: bilateral lower lobe pneumonia and pleural effusion (Kimberly Craig MD) Medication Reconciliation New Medications: Pantoprazole (Protonix) 40 Mg Tab 40 MG PO BID for 90 Days, #180 TAB Diltiazem HCl (Diltiazem HCl) 30 Mg Tab 90 MG PO QID for 30 Days, #360 TAB Continued Medications: Ascorbic Acid (Vitamin C) 1,000 Mg Tab 1 TAB PO QAM Cetirizine (Zyrtec) 10 Mg Tab 10 MG PO QAM, TAB Chlorpheniramine-Phenylephrine (Coricidin D Cold/Flu/Sinu) 1 Tab Tab 1 TAB PO DIRECTED PRN for COLDS SYMPTOMS Digoxin (Digox) 125 Mcg Tab 62.5 MCG PO DAILY 1/2 125MCG TAB Enteral Nutrition Formula (Ensure Plus Vanilla) 1 Can Liqd CAN GJT, CAN Ferrous Sulfate (Iron) 325 Mg Tab 1 TAB PO QAM Metformin Hcl (Glucophage) 1,000 Mg Tab 1000 MG PO BID, TAB Mometasone Furoate-Formoterol (Dulera 200/5 Mcg) 1 Aer Aer 2 PUFFS INH BID for 30 Days, #13 GM 5 Refills Nutritional Supplements (Boost) 1 Liq Liq Omeprazole (Prilosec) 20 Mg Capcr 20 MG PO BID, 0 Refills Ranitidine (Zantac) 150 Mg Tab 150 MG PO BID, TAB Discontinued Medications: Metoprolol Tartrate (Lopressor) 25 Mg Tab 25 MG PO DAILY for 14 Days, #14 TAB Discharge Exam Review of Systems: Constitutional: No fever, No chills Respiratory: No cough, No shortness of breath Cardiovascular: No chest pain, No edema Abdomen: No pain, No nausea, No vomiting Musculoskeletal: No muscle pain Integumentary: No rash Physical Exam: General Appearance: WD/WN, no apparent distress Neck: supple, trachea midline Respiratory/Chest: chest non-tender, lungs clear, normal breath sounds, no respiratory distress, no accessory muscle use Cardiovascular: regular rate, rhythm, no edema, + tachycardia Abdomen / GI: normal bowel sounds, non tender, soft Neurologic/Psychiatric: alert, normal mood/affect, oriented x 3 Skin: normal color, warm/dry, no rash (Kimberly Craig MD) tolerating his meals well no concerns. excited about going home Review of Systems: Constitutional: No fever Respiratory: No cough, No shortness of breath Cardiovascular: No chest pain Abdomen: No pain, No nausea, No vomiting Physical Exam: General Appearance: no apparent distress Respiratory/Chest: lungs clear, no respiratory distress Cardiovascular: + irregularly irregular Abdomen / GI: soft Neurologic/Psychiatric: alert, oriented x 3 Skin: warm/dry (Ashli Mccarty M.D.) Hospital Course This is a 81-year-old male with PMHx of metastatic esophageal cancer (dx 03/2016) , malignant pleural effusion requiring tapping at [facility], presented with fever, SOB and AMS, admitted to the hospital with Sepsis in the setting of bibasilar pneumonia and pleural effusion. On admission patient presented with tachycardia and hypotension. He was fluid resuscitated. Patient was admitted to the ICU for further evaluation. Bilateral lower lobe Pneumonia (admitted with sepsis) Patient was initially started on IV Levaquin, vancomycin and Zosyn, continued to finish the course. BCx was obtained and no growth X48hrs. Patient was clinically stable and asymptomatic on discharge. Bilateral pleural effusions - Dr. Radford was consulted and PleurX catheter was inserted. There was no laboratory evidence of infection of the pleural fluid (pH 7.41, LDH 75, glucose 187). No organism was found and acid fast statin was negative. Continue to drain on daily basis. Patient's symptoms improved over the course of his hospital stay. On discharge also instructed to drain daily and clean the PleurX catheter site. Metastatic Esophageal Carcinoma - GI consulted given difficulty with swallowing. Decision was made to place stent. Patient tolerated the surgery well and stent was placed. Patient was started on Protonix 40mg BID and continued on dc. Patient was started on full liquid diet and advanced as tolerated. On discharge patient denied swallowing difficulty. Patient BP and heart rate improved over the course of his hospital stay. On discharge his BP and heart rate was stable. Lopressor was discontinued on dc and continued Digoxin 12.5mg BID, and diltiazem 90mg QID. Initial plan was to send him to [facility] but it was denied. Decided to send home with home health service, patient and family agreed. Case management was involved and arranged the home health service. Total Time Spent: Less than 30 minutes This includes examination of the patient, discharge planning, medication reconciliation, and communication with other providers. (Kimberly Craig MD) Resident Physician Supervision Note: I was present with Dr. Craig in bedside. I verified the landa history and physical , reviewed labs and image studies, discussed the case with the resident and agree with the findings and care plan. Total Time Spent: Greater than 30 minutes (40) (Ashli Mccarty M.D.) Discharge Instructions Please refer to the electronic Patient Visit Report (Discharge Instructions) for additional information. (Kimberly Craig MD) Additional Copies To Jennifer Polk M.D.
== END 2017-03-05 15:37 | disposition home health service (06) | DRG 871 ==
LOC: EDBD 18:59 → C.EDA 19:00 → CANRESERV 22:18 → ENRESERV 22:18 → EDBEDREQTM 22:22 → EDBEDREQSVC 22:22 → C.MSICU 22:25 → ENRESERV 22:29 → C.2E 02-25 19:07
PROVIDERS: ADMIT Hospitalist; ATTEND Family Medicine
PROC: 0WH903Z Insertion of Infusion Device into Right Pleural Cavity, Open Approach (ICD-10-PCS; principal; 2017-02-25)
PROC: 0DJ08ZZ Inspection of Upper Intestinal Tract, Via Natural or Artificial Opening Endoscopic (ICD-10-PCS; 2017-02-27)
DX: A41.9 Sepsis, unspecified organism (principal); J18.9 Pneumonia, unspecified organism; J91.0 Malignant pleural effusion; C15.9 Malignant neoplasm of esophagus, unspecified; I48.92 Unspecified atrial flutter; Z66 Do not resuscitate; Z51.5 Encounter for palliative care; J45.909 Unspecified asthma, uncomplicated; Z87.01 Personal history of pneumonia (recurrent); I95.9 Hypotension, unspecified; D64.9 Anemia, unspecified; N18.3 Chronic kidney disease, stage 3 (moderate); E11.9 Type 2 diabetes mellitus without complications; J44.9 Chronic obstructive pulmonary disease, unspecified; R09.02 Hypoxemia

== ENCOUNTER → 2017-03-20 | Outpatient (CLI) | payer BC ==
[~2017-03-20] MED LIST changes: -ACET325T96 PO; +CRD30 PO; +DIGO0.1219 PO; -LNX125 PO; -LPR25 PO; +PANT40TA PO; +ZNTT/150 PO
--- NOTE | 2017-03-20 10:39 | DIAGNOSTIC IMAGING REPORT ---
CHEST 2 VIEWS ROUTINE CLINICAL HISTORY: J90 Pleural effusion, [id number] Pleural [id number] pleural effusion COMPARISON STUDY: 03/02/2017 FINDINGS: Left and to a lesser extent right pleural effusions. Left pleural effusion is perhaps slightly improved compared to the prior study with the right being essentially unchanged. There is a central catheter ends. Cava. The mid and upper lungs are considered clear. Esophageal stent is again noted and is unchanged.. IMPRESSION: Left and to a lesser extent right pleural effusions slightly improved from the prior exam. Electronically signed by: Torito Navarro M.D. 03/20/2017 10:37 AM Dictated Date/Time: 03/20/2017 10:36 AM
== END | disposition home or self-care (01) ==
LOC: C.RAD 09:59
PROVIDERS: ATTEND Surgery
DX: J90 Pleural effusion, not elsewhere classified (principal)